=== PATIENT | male | born 1965 | race Caucasian/White ===

== ENCOUNTER 2016-11-16 19:23 | Inpatient (IN) | payer MEDICARE, MEDICAID ==
--- NOTE | 2016-11-16 19:59 | ED ---
General Adult HPI - General Chief complaint: Psychiatric Symptoms Stated complaint: Mental Health-Petition Time Seen by Provider: 11/16/16 19:35 Source: patient, police, EMS, RN notes reviewed, old records reviewed Mode of arrival: EMS Limitations: no limitations - History of Present Illness Initial comments: Chief complaint history of present illness a 51-year-old male here because he is depressed. Patient's suicidal. He had a knife to his own chest. He called and spoke to assist her she told him not to hurt himself she called the police the police brought him here. I have completed a certificate for admission because of the patient's complaint of being depressed and suicidal. Patient denies taking any medications other than what is supposed to take. - Related Data Home Medications Medication Instructions Recorded Confirmed Ferrous Sulfate [Iron (65 MG 325 mg PO DAILY 11/16/16 11/16/16 Elemental)] Fluticasone Nasal Fords [Flonase 2 spr EA NOSTRIL DAILY 11/16/16 11/16/16 Nasal Fords] Loratadine 10 mg PO DAILY PRN 11/16/16 11/16/16 Propranolol [Inderal] 20 mg PO BID 11/16/16 11/16/16 Rosuvastatin Calcium [Crestor] 5 mg PO HS 11/16/16 11/16/16 busPIRone HCL [Buspar] 30 mg PO BID 11/16/16 11/16/16 cloZAPine [Clozaril] 100 mg PO HS 11/16/16 11/16/16 fluvoxaMINE MALEATE [Luvox CR] 150 mg PO BID 11/16/16 11/16/16 lamoTRIgine [LaMICtal] 100 mg PO DAILY 11/16/16 11/16/16 lamoTRIgine [LaMICtal] 150 mg PO HS 11/16/16 11/16/16 metFORMIN HCL [Glucophage] 500 mg PO BID 11/16/16 11/16/16 rOPINIRole HCL [Requip] 0.5 mg PO HS 11/16/16 11/16/16 Previous Rx's Medication Instructions Recorded Vivitrol 380 mg IM Q28D #1 11/28/15 Benztropine Mesylate [Cogentin] 1 mg PO HS #30 tab 08/27/16 Lisinopril [Zestril] 20 mg PO HS #30 tab 08/27/16 Ranitidine HCl [Zantac] 150 mg PO BID #60 tablet 08/27/16 amLODIPine [Norvasc] 5 mg PO BID #30 tab 08/27/16 Allergies Allergy/AdvReac Type Severity Reaction Status Date / Time Penicillins Allergy Unknown Verified 11/16/16 19:33 Childhood risperidone [From Risperdal] Allergy Unknown Verified 11/16/16 19:33 Review of Systems ROS Statement: Those systems with pertinent positive or pertinent negative responses have been documented in the HPI. Review of systems. No complaint of any headache or visual acuity changes no chest pain or shortness of breath. No GI/ complaints or problems. Psychologically the patient reports depressed and suicidal to the point where he had a knife to himself. All systems were otherwise reviewed. Past medical problems significant for non-insulin diabetes mellitus, GERD, hyperlipidemia hypertension sleep apnea. The patient's surgeries hernia repair. Family history father had heart attack and . Patient has ALLERGIES to risperidone and penicillin. Patient nonsmoker nondrinker. ROS Other: All systems not noted in ROS Statement are negative. Past Medical History Past Medical History: Diabetes Mellitus, GERD/Reflux, Hyperlipidemia, Hypertension, Sleep Apnea/CPAP/BIPAP Additional Past Medical History / Comment(s): Family history of premature coronary artery disease. OCD. History of Any Multi-Drug Resistant Organisms: None Reported Past Surgical History: Hernia Repair Past Anesthesia/Blood Transfusion Reactions: No Reported Reaction Past Psychological History: Anxiety, Bipolar, Depression, Schizoaffective Disorder Additional Psychological History / Comment(s): OCD Smoking Status: Never smoker Past Alcohol Use History: None Reported Additional Past Alcohol Use History / Comment(s): Pt states, "I am a recovering alcoholic. I haven't had a drink in since Nov 2013." Past Drug Use History: None Reported Additional Drug Use History / Comment(s): denies substance abuse - Past Family History Father Family Medical History: Congestive Heart Failure (CHF), Diabetes Mellitus Mother Family Medical History: Cancer General Exam - General Exam Comments Initial Comments: General: The patient is awake and alert, appears depressed, quiet. He had a knife to his own chest threatening to hurt himself. His sister talked him out of it while on the phone with her. Vital signs show temperature 98.0 pulse 88 respiratory rate 20 blood pressure 156/95. Systolic eye stuck elevated the patient is distressed. Eye: Pupils are equal, round and reactive to light, extra-ocular movements are intact ; there is normal conjunctiva bilaterally. No signs of icterus. Ears, nose, mouth and throat: There are moist mucous membranes and no oral lesions. Neck: The neck is supple, there is no tenderness . Cardiovascular: There is a regular rate and rhythm. No murmur, rub or gallop is appreciated. Respiratory: Lungs are clear to auscultation, respirations are non-labored, breath sounds are equal. No wheezes, stridor, rales, or rhonchi. Gastrointestinal: Soft, non-distended, non-tender abdomen without masses or organomegaly noted. There is no rebound or guarding present. No CVA tenderness. Bowel sounds are unremarkable. Back: There is no tenderness to palpation in the midline. There is no obvious deformity. No rashes noted. Musculoskeletal: Normal ROM, no tenderness, There is no pedal edema. There is no calf tenderness or swelling. Sensation intact. Pulses equal bilaterally 2+. Neurological: CN II-XII intact, There are no obvious motor or sensory deficits. Coordination appears grossly intact. Speech is normal. Skin: Skin is warm and dry and no rashes or lesions are noted. Psychiatric: Cooperative, flat affect, depressed. Suicidal intent to stab himself. Limitations: no limitations Course Vital Signs 11/16/16 19:32 Temperature 98.0 F Pulse Rate 88 Respiratory 20 Rate Blood Pressure 156/95 O2 Sat by Pulse 98 Oximetry Medical Decision Making - Medical Decision Making Medical decision making; the patient's negative for Tylenol or aspirin. Positive for tricyclic of the depressants. Patient was evaluated by psychiatric nurse. Petition was filled out by the placement. The patient will be admitted to 3 . diagnosis of major depression recurrent. - Lab Data Lab Results 11/16/16 11/16/16 Range/Units 20:01 21:30 Salicylates <1.0 mg/dL Urine Opiates Screen Not Detected (NotDetected) Ur Oxycodone Screen Not Detected (NotDetected) Urine Methadone Screen Not Detected (NotDetected) Ur Propoxyphene Screen Not Detected (NotDetected) Acetaminophen <10.0 ug/mL Ur Barbiturates Screen Not Detected (NotDetected) U Tricyclic Antidepress Detected H (NotDetected) Ur Phencyclidine Scrn Not Detected (NotDetected) Ur Amphetamines Screen Not Detected (NotDetected) U Methamphetamines Scrn Not Detected (NotDetected) U Benzodiazepines Scrn Not Detected (NotDetected) Urine Cocaine Screen Not Detected (NotDetected) U Marijuana (THC) Screen Not Detected (NotDetected) Disposition Clinical Impression: Major depression, recurrent Disposition: TRANSFER TO PSYCH HOSP/UNIT Condition: Fair
[2016-11-16 20:19] LABS: Acetaminophen <10.0 ug/mL; Salicylate <1.0 mg/dL
[2016-11-17] MEDS ORDERED: MAGNESIUM HYDROXIDE 2,400 MG/10 ML CUP PO PRN (00:04)
[2016-11-17] MEDS ORDERED: ACETAMINOPHEN TAB 325 MG TAB PO PRN (00:04)
[2016-11-17] MEDS ORDERED: LORATADINE 10 MG TAB PO PRN (00:08)
[2016-11-17 01:48] VITALS: BMI 31.0
[2016-11-17] MEDS: MAG HYDROX/AL HYDROX/SIMETH 30 ML CUP PO PRN (05:43)
[2016-11-17 05:50] LABS: Glucose,Whole Blood 165 mg/dL (75-99)
[2016-11-17] MEDS: FERROUS SULFATE 325 MG TAB PO SCH (10:18)
[2016-11-17] MEDS: PROPRANOLOL 20 MG TAB PO SCH ×2 (10:18→21:24)
[2016-11-17] MEDS: metFORMIN 500 MG TAB PO SCH ×2 (10:19→21:24)
[2016-11-17] MEDS: FLUTICASONE 50MCG/SPRAY NASAL 16GM EA NOSTRIL SCH (10:20)
[2016-11-17 12:30] LABS: Hemoglobin A1C 6.5 % (4.2-6.1)
[2016-11-17 12:43] LABS: Glucose,Whole Blood 169 mg/dL (75-99)
[2016-11-17] MEDS: FAMOTIDINE 20 MG TAB PO SCH (15:42)
[2016-11-17] MEDS: lamoTRIgine 100 MG TAB PO SCH ×2 (15:43→21:23)
--- NOTE | 2016-11-17 15:51 | P.HP ---
Psychiatric H&P - . H&P Date: 11/17/16 History & Physical: IDENTIFYING DATA: He is a 51-year-old single male who has a history of a schizoaffective disorder and obsessive-compulsive disorder. HISTORY OF PRESENT ILLNESS: The police brought him to the emergency room at the behest of his sister. He allegedly told her that he was going to stab himself in the stomach with a knife. He told the EPS nurse that he cannot live without his parents who are both . He is tired of having a mental illness and his life is not worth living and he "just wants to be time limited" . He told the EPS nurse that he went home he would kill himself. I reviewed the medical record and interviewed Mr. Walsh. He affirmed the history provided to the EPS nurse i.e. that he called his sister and told her that he was going to stab himself with a knife. He alleged that he was holding the knife against himself when he called his sister. He complained of increasing depression and anxiety. He specifically described feeling overwhelmed and hopeless over his compulsive rituals. He described a number of compulsions including cleaning/washing, checking, repeating rituals, ordering /arranging and mental rituals. His obsessions include need for symmetry or exactness and somatic obsessions. He was unclear about a duration of the symptoms. He alleged alleged that he has felt depressed since his discharge from this unit in September 2016. However , according to the medication review note from [facility] dated 11/04/2016, he was "doing okay"; the provider wrote that his "affect was appropriate, his mood was somewhat anxious but he was also humorous at times there is no evidence of any psychosis." During her interview he described continued thoughts of suicide and self-harm. He denied homicidal ideation. He described "voices in my head" but denied experiences consistent with true auditory hallucinations. He denied other psychotic symptoms such as thought insertion, thought broadcasting or thought control. He denied the recent use of alcohol or other drugs get high, help him sleep or changes mood. PAST PSYCHIATRIC HISTORY: According to the record he has had over 20 admissions to psychiatric facilities. According to EMR, this is his fifth admission this unit since May 2014. He was last discharged from this unit on 09/01/2016 with a diagnosis of schizoaffective disorder and OCD. He has at least 2 prior suicide attempts by overdose of medications. He has no i history of nonlethal self-injurious behavior. He is no history of violence. PAST MEDICAL HISTORY: He is a history of type 2 diabetes, hypertension, hyperlipidemia, GERD and restless leg syndrome.. ALLERGIES: Penicillins, risperidone. SUBSTANCE USE HISTORY: He has a history of alcohol use problems and currently receiving monthly Vivitrol injections. Drug screen was negative for drugs of abuse including marijuana. Tobacco use: He denied the use of tobacco products FAMILY PSYCHIATRIC/SUBSTANCE USE HISTORY: He is unaware of family history of mental or substance use problems. LEGAL HISTORY:He denied history of legal problems. He has a payee but no guardian. SOCIAL HISTORY:He grew up in the [facility]. He has 2 sisters. He attended special education and graduated from high school. He last worked in 1994 and is currently receiving social security income for disability. He lives alone in an apartment. He is not and has no children. MENTAL STATUS EXAM: He presented as a disheveled appearing 51-year-old unshaven moderately obese male. He maintained eye contact and appeared to attend to the interview. He had no distinguishing features or prominent physical abnormalities. He had a blunted facial expression. He was alert and oriented to person, place and time. He showed psychomotor retardation but no abnormal involuntary movements. He had a slow but steady gait. His speech was spontaneous with decreased rate, rhythm and volume. His affect was depressed and not reactive. He describesd suicidal ideation and wishes. He denied homicidal ideation. He described depressive cognitions including helplessness, hopelessness and worthlessness. He described multiple obsessions and compulsions (see above). He denied phobias, ideas of reference and did not express paranoid ideation. His thinking was concrete but his associations were coherent and logical. He denied hallucinations and did not appear to be responding to internal stimuli. Global impression of intellect is below average. He has limited awareness of his illness but accepts the need for mental health treatment. STRENGTHS: Stable housing, stable income, strong involvement with mental health services WEAKNESSES: Loss of parents, chronic mental illness IMPRESSION: Is a 51-year-old male who has a well-established diagnosis was schizoaffective disorder and obsessive-compulsive disorder. He has had multiple hospitalization the most recent 2 months prior to this admission. He presented with increasing suicidal ideation and a purported attempt to stab self. He appears depressed and expresses feelings of hopelessness and helplessness. He is also describing multiple obsessions and compulsions that interfere with his ability to function. He should best be treated on an inpatient basis with a combination of psychopharmacology and multimodal therapy. PRINCIPLE DIAGNOSIS: Schizoaffective disorder depressed type, obsessive- compulsive disorder RECOMMENDATION: Admitted to the inpatient psychiatric unit, suicide precautions with 15 minute checks. Consolidate outpatient medication including BuSpar 30 mg by mouth twice a day, clozapine 100 mg at bedtime, Luvox 150 mg twice a day, Lamictal 100 mg daily and 150 mg at bedtime. Encourage participation in therapeutic groups and activities. Evaluate clinical status and response to treatment on a daily basis. Allergies Allergy/AdvReac Type Severity Reaction Status Date / Time Penicillins Allergy Unknown Verified 11/17/16 00:18 Childhood risperidone [From Risperdal] Allergy Unknown Verified 11/17/16 00:18 Vital Signs Temp 98.3 F 11/17/16 00:20 Pulse 67 11/17/16 00:20 Resp 18 11/17/16 00:20 BP 133/83 11/17/16 00:20 Pulse Ox 98 11/17/16 00:20 Intake & Output 11/16/16 11/17/16 11/17/16 18:59 06:59 18:59 Weight 98.2 kg Laboratory Last Values POC Glucose (mg/dL) 165 mg/dL (75-99) H 11/17/16 05:46 POC Glu Reading Intervention Teacher ID Fabiola Marie 11/17/16 05:46 Salicylates <1.0 mg/dL 11/16/16 20:01 Urine Opiates Screen Not Detected (NotDetected) 11/16/16 21:30 Ur Oxycodone Screen Not Detected (NotDetected) 11/16/16 21:30 Urine Methadone Screen Not Detected (NotDetected) 11/16/16 21:30 Ur Propoxyphene Screen Not Detected (NotDetected) 11/16/16 21:30 Acetaminophen <10.0 ug/mL 11/16/16 20:01 Ur Barbiturates Screen Not Detected (NotDetected) 11/16/16 21:30 U Tricyclic Antidepress Detected (NotDetected) H 11/16/16 21:30 Ur Phencyclidine Scrn Not Detected (NotDetected) 11/16/16 21:30 Ur Amphetamines Screen Not Detected (NotDetected) 11/16/16 21:30 U Methamphetamines Scrn Not Detected (NotDetected) 11/16/16 21:30 U Benzodiazepines Scrn Not Detected (NotDetected) 11/16/16 21:30 Urine Cocaine Screen Not Detected (NotDetected) 11/16/16 21:30 U Marijuana (THC) Screen Not Detected (NotDetected) 11/16/16 21:30 11/17/16 09:49 11/17/16 15:29
[2016-11-17 17:11] LABS: Glucose,Whole Blood 107 mg/dL (75-99)
[2016-11-17 17:34] LABS: Basophils % (A) 0 %; CHCM 36.2; Eosinophils # (A) 0.1 k/uL (0-0.7); Eosinophils % (A) 1 %; HCT 43.4 % (39.0-53.0); HDW 2.97; HGB 14.8 gm/dL (13.0-17.5); Luc # (Auto) 0.11; Luc % (Auto) 1; Lymphocytes # (A) 1.7 k/uL (1.0-4.8); Lymphocytes % (A) 18 %; MCH 29.2 pg (25.0-35.0); MCV 85.8 fL (80.0-100.0); Mean Platelet Volume 6.2; Monocytes # (A) 0.5 k/uL (0-1.0); Monocytes % (A) 5 %; Neutrophils % (A) 75 %; RBC 5.06 m/uL (4.30-5.90); RDW 13.4 % (11.5-15.5); WBC 9.4 k/uL (3.8-10.6); WBC (Perox) 9.51
[2016-11-17 20:48] LABS: Glucose,Whole Blood 167 mg/dL (75-99)
[2016-11-17] MEDS: ATORVASTATIN 10 MG TAB PO SCH (21:22)
[2016-11-17] MEDS: busPIRone HCl 10 MG TAB PO SCH (21:22)
[2016-11-17] MEDS: cloZAPine 100 MG TAB PO SCH (21:22)
[2016-11-17] MEDS: LISINOPRIL 20 MG TAB PO SCH (21:23)
--- NOTE | 2016-11-17 21:41 | CONS ---
DATE OF CONSULTATION: REASON FOR CONSULTATION: Medical clearance. Patient is a 51-year-old admitted to psychiatric floor for acute psychosis. Patient denied any fever or chills. Patient denied any nausea, vomiting, abdominal pain. Patient does have diabetes mellitus. Blood sugars appear to be within normal limits. Hemoglobin A1c is 6.5, because of which I am recommending continuation of the same regimen. REVIEW OF SYSTEMS: CONSTITUTIONAL: No fever, no malaise, no fatigue. HEENT: No recent visual problems or hearing problems. Denied any sore throat. CARDIOVASCULAR: No chest pain, orthopnea, PND, no palpitations, no syncope. PULMONARY: No shortness of breath, no cough, no hemoptysis. GASTROINTESTINAL: No diarrhea, no nausea, no vomiting, no abdominal pain. Normoactive bowel sounds. NEUROLOGICAL: No headaches, no weakness, no numbness. HEMATOLOGICAL: Denies any bleeding or petechiae. GENITOURINARY: Denies any burning micturition, frequency, or urgency. MUSCULOSKELETAL/RHEUMATOLOGICAL: Denies any joint pain, swelling, or any muscle pain. ENDOCRINE: Denies any polyuria or polydipsia. PSYCHIATRY: Defer to psychiatrist. The rest of the 14 point review of systems is negative. ALLERGIES: 1. PENICILLIN. 2. RISPERIDONE. PAST MEDICAL HISTORY: 1. Diabetes mellitus. 2. Hypertension. 3. Hyperlipidemia. 4. Sleep apnea; uses CPAP machine. 5. Obsessive-compulsive disorder. 6. Severe depression. 7. Schizoaffective disorder. SOCIAL HISTORY: Patient used to be an alcoholic in the past. Denied any other drug abuse. FAMILY HISTORY: Father had congestive heart failure, diabetes mellitus. Mother had cancer. PHYSICAL EXAMINATION: VITAL SIGNS: Temperature 98.3, pulse of 64, respiratory rate of 18, blood pressure 138/95. Saturating at 98% on room air. GENERAL: The patient is alert and oriented x3, not in any acute distress. Well developed, well nourished. HEENT: Pupils are round and equally reacting to light. EOMI. No scleral icterus. No conjunctival pallor. Normocephalic, atraumatic. No pharyngeal erythema. No thyromegaly. CARDIOVASCULAR: S1 and S2 present. No murmurs, rubs, or gallops. PULMONARY: Chest is clear to auscultation, no wheezing or crackles. ABDOMEN: Soft, nontender, nondistended, normoactive bowel sounds. No palpable organomegaly. MUSCULOSKELETAL: No joint swelling or deformity. EXTREMITIES: No cyanosis, clubbing, or pedal edema. NEUROLOGICAL: Gross neurological examination did not reveal any focal deficits. SKIN: No rashes. LABORATORY DATA: Hemoglobin A1C is 6.5. CBC is essentially within normal limits. ASSESSMENT AND PLAN: 1. Diabetes mellitus, type 2. With patient's present regimen, patient's blood sugars appear to be well-controlled. Continue with the same regimen. 2. Hypertension. Patient's blood pressure is also very well-controlled with the present regimen. Continue with amlodipine, lisinopril and continue with propranolol. 3. Obsessive-compulsive disorder. 4. Sleep apnea. 5. Gastroesophageal reflux disease. 6. Hyperlipidemia. For above-mentioned chronic medical problems, I recommend to go ahead and continue his home medications.
[2016-11-17] MEDS: LORazepam 1 MG TAB PO PRN (22:34)
[2016-11-18 06:02] LABS: Glucose,Whole Blood 101 mg/dL (75-99)
[2016-11-18] MEDS: lamoTRIgine 100 MG TAB PO SCH ×2 (09:18→21:52)
[2016-11-18] MEDS: FLUTICASONE 50MCG/SPRAY NASAL 16GM EA NOSTRIL SCH (09:18)
[2016-11-18] MEDS: PROPRANOLOL 20 MG TAB PO SCH ×2 (09:18→21:52)
[2016-11-18] MEDS: FAMOTIDINE 20 MG TAB PO SCH (09:19)
[2016-11-18] MEDS: busPIRone HCl 10 MG TAB PO SCH ×2 (09:19→21:53)
[2016-11-18] MEDS: amLODIPine 10 MG TAB PO SCH (09:19)
[2016-11-18] MEDS: metFORMIN 500 MG TAB PO SCH ×2 (09:19→21:53)
[2016-11-18] MEDS: FERROUS SULFATE 325 MG TAB PO SCH (09:19)
[2016-11-18] MEDS ORDERED: VIVITROL 380 MG IM SCH ×2 (11:30→12:00)
[2016-11-18 12:06] LABS: ALT 44 U/L (21-72); AST 24 U/L (17-59); Alkaline Phosphatase 71 U/L (38-126); Anion Gap 11 mmol/L; Blood Urea Nitrogen 20 mg/dL (9-20); Calcium 10.2 mg/dL (8.4-10.2); Carbon Dioxide 28 mmol/L (22-30); Chloride 103 mmol/L (98-107); Glucose 236 mg/dL (74-99); Non-African American GFR(MDRD) >60 (>60 ml/min/1.73 sqM); Potassium 3.7 mmol/L (3.5-5.1); Sodium 142 mmol/L (137-145); Total Bilirubin 0.5 mg/dL (0.2-1.3); Total Protein 6.6 g/dL (6.3-8.2)
[2016-11-18 13:09] LABS: Glucose,Whole Blood 188 mg/dL (75-99)
--- NOTE | 2016-11-18 16:06 | P.PN ---
Progress Note - Text CLINICAL PROBLEMS: Mr. Muniz complained of continued feelings of depression and wishes. He denied specific suicidal thoughts, intent or plan. The wishes take the form of tiredness over his chronic mental illness, depression and anxiety. He reported feeling alone and missing the support of his father. 24 HOUR EVENTS: The liaison to [facility] brought his monthly injection of Vivitrol 380 mg for administration today. He has shown no self-harm behavior or behavioral dyscontrol. He requested and received a when necessary dose of lorazepam at 2234 yesterday for insomnia. EXAMINATION: He presented as a casually groomed moderately obese middle-aged male who was pleasant on approach. He maintained eye contact and attended to the interview. He had a depressed facial expression that did not change during the interview. He showed psychomotor retardation but no abnormal involuntary movements. His speech was slow with decreased rhythm and volume. He had no articulation difficulties. His affect was depressed and not reactive. He described wishes but denied suicidal ideation. He described depressive cognitions including hopelessness, helplessness and worthlessness. His thinking was concrete but his associations were coherent and logical. He denied hallucinations and did not appear to be responding to internal stimuli. PERTINENT DATA: His serum glucoses morning was 236. According to the medical economics consultant lathe set up person his hemoglobin A1c was 6.5 and the lathe set up person did not recommend change in his diabetic regimen. The WBC and percent neutrophils were 9.4 and 75% respectively on 11/17/2016. ASSESSMENT: He continues to feel depressed, hopeless and helpless. He has wishes but denies specific suicidal intent or plan. PLAN: Continue Luvox 150 mg by mouth twice a day, Lamictal 100 mg daily and 150 mg at bedtime, buspirone 30 mg twice a day and clozapine 100 mg at bedtime. Nursing administered 380 mg of physical trauma IM today. Continue other medications including metformin 500 mg twice a day, Inderal 20 mg twice a day, Norvasc 10 mg daily, Lipitor 10 mg at bedtime, famotidine 40 mg daily, ferrous sulfate 325 mg daily, lisinopril 20 mg at bedtime and loratadine 10 mg daily. Continue suicide precautions with 15 minute checks. Encourage participation in therapeutic groups and activities. Evaluate clinical status and response to treatment on a daily basis.
[2016-11-18 17:28] LABS: Glucose,Whole Blood 118 mg/dL (75-99)
[2016-11-18 19:57] LABS: Glucose,Whole Blood 169 mg/dL (75-99)
[2016-11-18] MEDS: LISINOPRIL 20 MG TAB PO SCH (21:53)
[2016-11-18] MEDS: ATORVASTATIN 10 MG TAB PO SCH (21:53)
[2016-11-18] MEDS: cloZAPine 100 MG TAB PO SCH (21:53)
[2016-11-19] MEDS: MAG HYDROX/AL HYDROX/SIMETH 30 ML CUP PO PRN (01:11)
[2016-11-19 07:03] LABS: Glucose,Whole Blood 131 mg/dL (75-99)
[2016-11-19] MEDS: amLODIPine 10 MG TAB PO SCH (09:16)
[2016-11-19] MEDS: FAMOTIDINE 20 MG TAB PO SCH (09:19)
[2016-11-19] MEDS: busPIRone HCl 10 MG TAB PO SCH ×2 (09:20→21:27)
[2016-11-19] MEDS: FERROUS SULFATE 325 MG TAB PO SCH (09:20)
[2016-11-19] MEDS: lamoTRIgine 100 MG TAB PO SCH ×2 (09:21→21:27)
[2016-11-19] MEDS: FLUTICASONE 50MCG/SPRAY NASAL 16GM EA NOSTRIL SCH (09:21)
[2016-11-19] MEDS: metFORMIN 500 MG TAB PO SCH ×2 (09:23→21:28)
[2016-11-19] MEDS: PROPRANOLOL 20 MG TAB PO SCH ×2 (09:26→21:27)
[2016-11-19 12:03] LABS: Glucose,Whole Blood 143 mg/dL (75-99)
--- NOTE | 2016-11-19 15:49 | P.PN ---
Progress Note - Text CLINICAL PROBLEMS: Herpes 51-year-old male who has history of schizoaffective disorder and obsessive-compulsive disorder. He presented to the unit with suicidal ideation and a plan to stab himself. He complained of continued feelings depression and thoughts of suicide. He stated several times during our interview that if he were discharged he would kill himself. He also talked about "voices in my head". His description of his experiences was not consistent with true auditory hallucinations. 24 HOUR EVENTS: He has not demonstrated self-harm behavior or episodes of behavioral dyscontrol EXAMINATION: He presented as a casually groomed moderately obese 51-year-old male with an unkept espana. He was pleasant on approach, attended the interview and maintained eye contact. He had a blunted and depressed facial expression. He was alert and oriented to person, place and time. He had psychomotor retardation but no abnormal involuntary movements. His gait was slow and steady. His speech was spontaneous with decreased rate, rhythm and volume. He had no articulation difficulties. His affect was depressed and not reactive. He describes suicidal ideation and wishes. He described depressive cognitions such as hopelessness, helplessness and worthlessness. He denied ideas of reference did not express paranoid ideation. His thinking was concrete but his associations were coherent and logical. He described "voices" but did description of this experience was not consistent which auditory hallucinations. PERTINENT DATA: He slept 5 hours last night ASSESSMENT: He is compliant with medication and treatment but continues to complain of depression and suicidal ideation. PLAN: Continue current medications (see MAR), consider addition of a second antidepressant or another mood stabilizer to augment the antidepressant effect of Luvox, continue participation in therapeutic groups and activities, evaluate clinical status response to treatment on a daily basis.
[2016-11-19 17:34] LABS: Glucose,Whole Blood 176 mg/dL (75-99)
[2016-11-19 19:58] LABS: Glucose,Whole Blood 132 mg/dL (75-99)
[2016-11-19] MEDS: ATORVASTATIN 10 MG TAB PO SCH (21:27)
[2016-11-19] MEDS: LISINOPRIL 20 MG TAB PO SCH (21:27)
[2016-11-19] MEDS: cloZAPine 100 MG TAB PO SCH (21:27)
[2016-11-19] MEDS: MINERAL OIL-WHITE PETROLATUM 120 GM JAR TOPICAL PRN (21:27)
[2016-11-20 06:24] LABS: Glucose,Whole Blood 106 mg/dL (75-99)
[2016-11-20] MEDS: PROPRANOLOL 20 MG TAB PO SCH ×2 (09:03→21:40)
[2016-11-20] MEDS: metFORMIN 500 MG TAB PO SCH ×2 (09:03→21:40)
[2016-11-20] MEDS: busPIRone HCl 10 MG TAB PO SCH ×2 (09:03→21:38)
[2016-11-20] MEDS: FAMOTIDINE 20 MG TAB PO SCH (09:03)
[2016-11-20] MEDS: lamoTRIgine 100 MG TAB PO SCH ×2 (09:03→21:40)
[2016-11-20] MEDS: FERROUS SULFATE 325 MG TAB PO SCH (09:04)
[2016-11-20] MEDS: amLODIPine 10 MG TAB PO SCH (09:04)
[2016-11-20] MEDS: FLUTICASONE 50MCG/SPRAY NASAL 16GM EA NOSTRIL SCH (09:30)
[2016-11-20] MEDS: LORazepam 1 MG TAB PO PRN (12:02)
[2016-11-20 13:00] LABS: Glucose,Whole Blood 189 mg/dL (75-99)
--- NOTE | 2016-11-20 16:06 | P.PN ---
Progress Note - Text CLINICAL PROBLEMS: He is 51-year-old man with history of a schizoaffective disorder and an obsessive-compulsive disorder. He presented to unit with complaints of increased depression and suicidal ideation. 24 HOUR EVENTS: He has complained the staff of continued thoughts of suicide. He has demonstrated no self-harm behavior or behavioral dyscontrol. His been compliant with prescribed psychotropic medications. Reported less redness and chapping of his hands since he began using the Eucerin cream. He described continued compulsive behaviors, e.g. he stated he took him 15 minutes to put on his trousers this morning because he had a check and recheck the trousers for holes. EXAMINATION: He presented as a casually dressed and groomed middle-aged male who was pleasant on approach. His hands where red and chapped. He made eye contact and attended to the interview. He had a depressed facial expression. He was alert and oriented to person, place and time. He had psychomotor retardation without abnormal movements. His speech was slow with decreased rhythm, rate and volume. He had no articulation difficulties. His affect was depressed and not reactive. He describes suicidal ideation but denied intent or plan. He expressed depressive cognitions including helplessness, hopelessness and worthlessness. He denied ideas of reference and did not express paranoid ideation. His thinking was concrete and associations are coherent and logical. PERTINENT DATA: His POC glucose have been elevated and range of 106-189. ASSESSMENT: He continues to complain of depression, hopelessness and helplessness. He continues describes suicidal thoughts and compulsive behaviors. PLAN: Continue BuSpar 30 mg twice a day, clozapine 100 mg at bedtime, Luvox 150 mg twice a day and Lamictal 100 mg daily and 150 mg at bedtime. Consider adding a second antidepressant lithium for augmentation of his antidepression regimen. Continue lorazepam 1 mg by mouth every 8 hours when necessary for agitation or acute anxiety. Continue medications for his hypertension, hyperlipidemia, GERD, anemia and diabetes as recommended by the internal control consultant rn interventional. Encourage participation in therapeutic groups and activities. Evaluate clinical status and response to treatment on a daily basis.
[2016-11-20 17:17] LABS: Glucose,Whole Blood 146 mg/dL (75-99)
[2016-11-20 20:21] LABS: Glucose,Whole Blood 118 mg/dL (75-99)
[2016-11-20] MEDS: ATORVASTATIN 10 MG TAB PO SCH (21:38)
[2016-11-20] MEDS: cloZAPine 100 MG TAB PO SCH (21:39)
[2016-11-20] MEDS: LISINOPRIL 20 MG TAB PO SCH (21:40)
[2016-11-21 06:46] LABS: Glucose,Whole Blood 108 mg/dL (75-99)
[2016-11-21] MEDS: amLODIPine 10 MG TAB PO SCH (09:19)
[2016-11-21] MEDS: busPIRone HCl 10 MG TAB PO SCH ×2 (09:19→21:28)
[2016-11-21] MEDS: FERROUS SULFATE 325 MG TAB PO SCH (09:20)
[2016-11-21] MEDS: FLUTICASONE 50MCG/SPRAY NASAL 16GM EA NOSTRIL SCH (09:20)
[2016-11-21] MEDS: FAMOTIDINE 20 MG TAB PO SCH (09:20)
[2016-11-21] MEDS: PROPRANOLOL 20 MG TAB PO SCH ×2 (09:21→21:32)
[2016-11-21] MEDS: metFORMIN 500 MG TAB PO SCH ×2 (09:21→21:31)
[2016-11-21] MEDS: lamoTRIgine 100 MG TAB PO SCH ×2 (09:21→21:29)
--- NOTE | 2016-11-21 14:02 | P.PN ---
Progress Note - Text CLINICAL PROBLEMS: Huan complained of "feeling the same" he stated that he continues to feel depressed and hopeless. Again he stated that if he were discharge he would "stab myself in the heart." We discussed treatment options and he agreed to a trial of lithium. He stated that he had been prescribed lithium in the past and thought that it may have helped. Again, he described checking rituals. 24 HOUR EVENTS: He has demonstrated no self-harm behavior or behavioral dyscontrol. He has been attending therapeutic groups and activities. He has been compliant with prescribed medications. EXAMINATION: He presented as a casually groomed 51-year-old male with a hospital gown over his casual clothes. He was pleasant on approach but did not appear to attend to the interview. Several times he asked me to repeat myself. At times she appeared to internally preoccupied. He had a depressed facial expression. He is alert and oriented to person, place and time. He has psychomotor retardation but no abnormal movements. His speech was spontaneous with decreased rate, rhythm and volume. He had no articulation difficulties. His affect was depressed and not reactive. He describes suicidal ideation and wishes. He expressed depressive cognitions including helplessness, hopelessness and worthlessness. He denied ideas of reference and did not express paranoid ideation. His thinking is concrete but his associations are coherent and logical. He described experiencing "voices in my head" but his description of his experience was not consistent with true auditory hallucinations. These appeared to be dystonic thoughts that have a negative theme. PERTINENT DATA: He slept 6 hours last night and requested when necessary Ativan at 12 midnight for complaints of initial insomnia. His hands appear dry and chapped. Much of the erythema has resolved. ASSESSMENT: He continues to complain of depression and suicidal ideation. His overall clinical status appears unchanged from admission. PLAN: Begin lithium carbonate 300 mg by mouth twice a day, check lithium level at steady state and titrated according to clinical response and tolerance. Continue BuSpar 30 mg twice a day, Clozaril 100 mg at bedtime, Luvox 150 mg twice a day and neck 100 mg daily and 150 mg at bedtime and Vivitrol 380 mg IM monthly. Continue other medications for hypertension, GERD, anemia, ALLERGY and diabetes as prescribed.
[2016-11-21 17:35] LABS: Glucose,Whole Blood 125 mg/dL (75-99)
[2016-11-21 20:20] LABS: Glucose,Whole Blood 169 mg/dL (75-99)
[2016-11-21] MEDS: ATORVASTATIN 10 MG TAB PO SCH (21:28)
[2016-11-21] MEDS: cloZAPine 100 MG TAB PO SCH (21:28)
[2016-11-21] MEDS: LITHIUM CARBONATE 300 MG CAP PO SCH (21:30)
[2016-11-21] MEDS: LISINOPRIL 20 MG TAB PO SCH (21:32)
[2016-11-22] MEDS: MAG HYDROX/AL HYDROX/SIMETH 30 ML CUP PO PRN (02:21)
[2016-11-22 06:47] LABS: Glucose,Whole Blood 126 mg/dL (75-99)
[2016-11-22] MEDS: amLODIPine 10 MG TAB PO SCH (08:57)
[2016-11-22] MEDS: busPIRone HCl 10 MG TAB PO SCH ×2 (09:00→21:52)
[2016-11-22] MEDS: metFORMIN 500 MG TAB PO SCH ×2 (09:00→21:52)
[2016-11-22] MEDS: LITHIUM CARBONATE 300 MG CAP PO SCH ×2 (09:00→21:51)
[2016-11-22] MEDS: FERROUS SULFATE 325 MG TAB PO SCH (09:01)
[2016-11-22] MEDS: FAMOTIDINE 20 MG TAB PO SCH ×2 (09:01→21:52)
[2016-11-22] MEDS: lamoTRIgine 100 MG TAB PO SCH ×2 (09:01→21:52)
[2016-11-22] MEDS: FLUTICASONE 50MCG/SPRAY NASAL 16GM EA NOSTRIL SCH (09:03)
[2016-11-22] MEDS: PROPRANOLOL 20 MG TAB PO SCH ×2 (09:03→21:52)
--- NOTE | 2016-11-22 10:59 | P.PN ---
Progress Note - Text Interval history: The patient is found in group he follows me to an interview room. He is being seen today in coverage for Dr. Singh. The patient has a history of schizoaffective disorder. He is currently treated with Clozaril BuSpar Luvox and now lithium. He does receive a monthly Vivitrol injection. He reports his mood is terrible. He states he continues to have suicidal ideation. He endorses symptoms of anxiety. He has recently been started on lithium. He has no questions regarding this medication. In terms of psychosis he states he always hears his own voice telling him to kill himself. He states this voice usually does not diminish with antipsychotic medication. Mental status exam: The patient is an overweight male he is balding he is dressed in his own clothing that appears oversized. He is disheveled. Eye contact is appropriate speech is fluent spontaneous nonpressured. He describes a "terrible" mood with ongoing suicidal ideation. Affect is blunted to flat. He reports no homicidal ideation, he endorses an auditory hallucination that has chronically been present. No visual hallucinations. He reports feeling safe in the hospital. Insight and judgment limited. He demonstrates no verbal or physical aggressiveness. Plan: The patient will continue on his current psychotropic medications. We will give consideration to titrating the Clozaril further. Vital signs reviewed. He is encouraged to participate in the milieu we will continue to monitor him for safety.
[2016-11-22 12:15] LABS: Glucose,Whole Blood 197 mg/dL (75-99)
[2016-11-22 16:40] LABS: Glucose,Whole Blood 123 mg/dL (75-99)
[2016-11-22 20:30] LABS: Glucose,Whole Blood 171 mg/dL (75-99)
[2016-11-22] MEDS: cloZAPine 100 MG TAB PO SCH (21:51)
[2016-11-22] MEDS: LISINOPRIL 20 MG TAB PO SCH (21:51)
[2016-11-22] MEDS: ATORVASTATIN 10 MG TAB PO SCH (21:51)
[2016-11-23 06:55] LABS: Glucose,Whole Blood 120 mg/dL (75-99)
[2016-11-23] MEDS: amLODIPine 10 MG TAB PO SCH (09:01)
[2016-11-23] MEDS: busPIRone HCl 10 MG TAB PO SCH ×2 (09:03→21:25)
[2016-11-23] MEDS: FAMOTIDINE 20 MG TAB PO SCH ×2 (09:03→21:26)
[2016-11-23] MEDS: FERROUS SULFATE 325 MG TAB PO SCH (09:03)
[2016-11-23] MEDS: FLUTICASONE 50MCG/SPRAY NASAL 16GM EA NOSTRIL SCH (09:04)
[2016-11-23] MEDS: PROPRANOLOL 20 MG TAB PO SCH ×2 (09:05→21:30)
[2016-11-23] MEDS: LITHIUM CARBONATE 300 MG CAP PO SCH ×2 (09:05→21:29)
[2016-11-23] MEDS: lamoTRIgine 100 MG TAB PO SCH ×3 (09:05→21:28)
[2016-11-23] MEDS: metFORMIN 500 MG TAB PO SCH ×2 (09:05→21:29)
[2016-11-23 12:13] LABS: Glucose,Whole Blood 187 mg/dL (75-99)
--- NOTE | 2016-11-23 12:59 | P.PN ---
Progress Note - Text Interval history: The patient is found in his room he follows me to an interview room. He states his mood is the same and indicates that is depressed with ongoing suicidal thoughts. He quantifies the severity of his suicidal thoughts as a 7-8 out of 10 with 10 being the worst or most severe. He did sleep about 4-5 hours last evening. Appetite is stable. He states a dietitian came up and recommended snacks in between meals. He has been selectively attending groups. He has no questions or concerns regarding his current psychotropic medications. Mental status exam: The patient is an overweight male appearing his stated age. Eye contact is appropriate he reports a depressed mood with ongoing suicidal thoughts he has a blunted affect. He has little spontaneous speech and provides brief answers to questions asked. He is reporting no homicidal ideation. He does not appear hypomanic or manic. Insight and judgment limited. There is no verbal or physical aggressiveness. He remains oriented to person place and date. He states he chronically experiences and auditory hallucination. Plan: The patient will continue on his current psychotropic medications we will monitor him for safety, encourage his participation in the milieu. Vital signs reviewed. I will confer with nursing regarding dietaries input and recommendations. Dr. Singh will resume care of this patient starting tomorrow.
[2016-11-23] MEDS: LORazepam 1 MG TAB PO PRN (17:39)
[2016-11-23 17:50] LABS: Glucose,Whole Blood 124 mg/dL (75-99)
[2016-11-23 20:29] LABS: Glucose,Whole Blood 221 mg/dL (75-99)
[2016-11-23] MEDS: ATORVASTATIN 10 MG TAB PO SCH (21:25)
[2016-11-23] MEDS: cloZAPine 100 MG TAB PO SCH (21:26)
[2016-11-23] MEDS: LISINOPRIL 20 MG TAB PO SCH (21:30)
[2016-11-24 06:15] LABS: Glucose,Whole Blood 121 mg/dL (75-99)
[2016-11-24] MEDS: metFORMIN 500 MG TAB PO SCH ×2 (09:04→21:24)
[2016-11-24] MEDS: busPIRone HCl 10 MG TAB PO SCH ×2 (09:04→21:21)
[2016-11-24] MEDS: PROPRANOLOL 20 MG TAB PO SCH ×2 (09:04→21:24)
[2016-11-24] MEDS: FERROUS SULFATE 325 MG TAB PO SCH (09:04)
[2016-11-24] MEDS: FAMOTIDINE 20 MG TAB PO SCH ×2 (09:04→21:22)
[2016-11-24] MEDS: LITHIUM CARBONATE 300 MG CAP PO SCH ×2 (09:05→21:24)
[2016-11-24] MEDS: amLODIPine 10 MG TAB PO SCH (09:05)
[2016-11-24] MEDS: FLUTICASONE 50MCG/SPRAY NASAL 16GM EA NOSTRIL SCH (09:07)
[2016-11-24 12:40] LABS: Glucose,Whole Blood 143 mg/dL (75-99)
--- NOTE | 2016-11-24 13:17 | P.PN ---
Progress Note - Text SUBJECTIVE: Mr. Muniz complained of continued stay feelings of depression and anxiety. He talked about having "thoughts of suicide". When I inquired about the nature of the suicidal thoughts he replied that he has been thinking that if he were discharged he might commit suicide. We talked about his living situation and social supports. He appeared receptive to an [facility] home. He denied side effects to the initial dose of lithium carbonate 300 mg twice a day. OBJECTIVE: He presented as a casually groomed bearded 51-year-old male. He had a stooped posture. He made eye contact and appeared to attend to the interview. He had a sad facial expression. He was alert and oriented to person place and time. He showed slight psychomotor retardation but no abnormal movements. His speech was spontaneous with decreased rhythm and volume. His affect was depressed but reactive. He complained of anxiety did not appear anxious or uncomfortable. He described wishes but denied suicidal intent or plan. He expressed continued feelings of hopelessness, helplessness and worthlessness. He complained of continued obsessional behavior including checking. He denied phobias or ideas reference. He didn't express paranoid ideation. His thinking was concrete but his associations were coherent and logical. He denied hallucinations and did not appear to be responding to internal stimuli. His hands appeared were dry and had some cracking but they were much less erythematous than on admission. He slept 5 hours last night ASSESSMENT: The severity of the skin irritation of his hands from his frequent handwashing has improved. He continues to. Her depressed and complaining of wishes. Overall, he is shown modest improvement from his presentation on admission. PLAN: Continue current medications including clozapine 100 mg at bedtime, Lamictal 100 mg daily and 150 mg at bedtime, lithium carbonate 300 mg twice a day Luvox 150 mg twice a day and Vivitrol 3 mg monthly. Obtain serum lithium level tomorrow morning. remelt worker to discuss referral to an [facility] home. Evaluate clinical status and response to treatment on a daily basis. Encouraged continued participation in therapeutic groups and activities.
[2016-11-24 16:03] LABS: Glucose,Whole Blood 146 mg/dL (75-99)
[2016-11-24 17:56] LABS: Glucose,Whole Blood 118 mg/dL (75-99)
[2016-11-24 19:59] LABS: Glucose,Whole Blood 165 mg/dL (75-99)
[2016-11-24] MEDS: ATORVASTATIN 10 MG TAB PO SCH (21:21)
[2016-11-24] MEDS: cloZAPine 100 MG TAB PO SCH (21:22)
[2016-11-24] MEDS: lamoTRIgine 100 MG TAB PO SCH (21:23)
[2016-11-24] MEDS: LISINOPRIL 20 MG TAB PO SCH (21:24)
[2016-11-25 06:55] LABS: Glucose,Whole Blood 125 mg/dL (75-99)
[2016-11-25] MEDS: FAMOTIDINE 20 MG TAB PO SCH ×2 (09:08→21:23)
[2016-11-25] MEDS: amLODIPine 10 MG TAB PO SCH (09:08)
[2016-11-25] MEDS: busPIRone HCl 10 MG TAB PO SCH ×2 (09:08→21:22)
[2016-11-25] MEDS: FERROUS SULFATE 325 MG TAB PO SCH (09:08)
[2016-11-25] MEDS: metFORMIN 500 MG TAB PO SCH ×2 (09:09→21:25)
[2016-11-25] MEDS: PROPRANOLOL 20 MG TAB PO SCH ×2 (09:09→21:26)
[2016-11-25] MEDS: lamoTRIgine 100 MG TAB PO SCH ×2 (09:09→21:25)
[2016-11-25] MEDS: LITHIUM CARBONATE 300 MG CAP PO SCH ×2 (09:09→21:25)
[2016-11-25] MEDS: FLUTICASONE 50MCG/SPRAY NASAL 16GM EA NOSTRIL SCH (10:15)
--- NOTE | 2016-11-25 11:30 | P.PN ---
Progress Note - Text SUBJECTIVE: He began on the interview with the statement that he is feeling a "wee bit better" then quickly backtracked complaining of "extreme anxiety", depression and suicidal thoughts. The suicidal thoughts are wishes; he wished that he were so that he did not have to "deal with" his depression and anxiety. He denied a specific plan or intent. He is overtly agreeing to placement in a senior care and wishes to speak with the psychologist social about senior care options. OBJECTIVE: He presented as a casually groomed 51-year-old male with a short unkept espana. He maintained eye contact and attended to the interview. He had a sad facial expression. He is alert and oriented to person, place and time. He showed no abnormality of psychomotor activity. He showed no abnormal involuntary movements. His affect was depressed and not reactive. He did not describe suicidal ideation. He expressed depressive cognitions including hopelessness and helplessness. He described continued compulsive behaviors including cleaning and checking but the behaviors do not interfere with his functioning on the unit. He denied ideas of reference and did not expressed paranoid ideation. His thinking was abstract and associations were coherent and logical. He expressed frequent depressive themes. He denied hallucinations and did not appear to be responding to internal stimuli. We discussed A[facility] placement with his liaison. She stated that he had been placed in an [facility] home in the past and appeared to have done well. She will discuss another referral with his outpatient treatment team. ASSESSMENT: His complaints of severe symptoms of depression and anxiety are not consistent with his clinical presentation. He is not having active suicidal thoughts or ideation. There is no evidence of psychosis. He has been taking lithium carbonate 300 mg twice a day for 2 days. PLAN: Continue lithium 3 mg by mouth twice a day and obtain the lithium level at steady state (in 1-2 days), continue other medications as prescribed including clozapine 100 mg at bedtime, Luvox 150 mg twice a day, Lamictal 100 mg daily and 150 mg at bedtime, individual 3 mg IM monthly and lorazepam 1 mg by mouth every 8 hours when necessary for anxiety. The [facility] liaison to discuss AFC placement with his outpatient treatment team
[2016-11-25 11:46] LABS: Basophils % (A) 0 %; CH 30.8; Eosinophils # (A) 0.1 k/uL (0-0.7); Eosinophils % (A) 1 %; HCT 42.9 % (39.0-53.0); HDW 3.04; HGB 14.7 gm/dL (13.0-17.5); Luc # (Auto) 0.13; Luc % (Auto) 1; Lymphocytes # (A) 2.1 k/uL (1.0-4.8); Lymphocytes % (A) 18 %; MCH 29.3 pg (25.0-35.0); MCHC 34.2 g/dL (31.0-37.0); MCV 85.9 fL (80.0-100.0); Mean Platelet Volume 6.5; Monocytes # (A) 0.8 k/uL (0-1.0); Monocytes % (A) 7 %; Neutrophils # (A) 8.4 k/uL (1.3-7.7); Neutrophils % (A) 73 %; WBC 11.6 k/uL (3.8-10.6); WBC (Perox) 11.61
[2016-11-25 12:15] LABS: Glucose,Whole Blood 196 mg/dL (75-99)
[2016-11-25 17:59] LABS: Glucose,Whole Blood 118 mg/dL (75-99)
[2016-11-25 20:28] LABS: Glucose,Whole Blood 201 mg/dL (75-99)
[2016-11-25] MEDS: ATORVASTATIN 10 MG TAB PO SCH (21:22)
[2016-11-25] MEDS: cloZAPine 100 MG TAB PO SCH (21:23)
[2016-11-25] MEDS: LISINOPRIL 20 MG TAB PO SCH (21:25)
[2016-11-26 06:18] LABS: Glucose,Whole Blood 115 mg/dL (75-99)
[2016-11-26] MEDS: amLODIPine 10 MG TAB PO SCH (09:01)
[2016-11-26] MEDS: busPIRone HCl 10 MG TAB PO SCH ×2 (09:04→21:09)
[2016-11-26] MEDS: FAMOTIDINE 20 MG TAB PO SCH ×2 (09:04→21:10)
[2016-11-26] MEDS: FLUTICASONE 50MCG/SPRAY NASAL 16GM EA NOSTRIL SCH (09:05)
[2016-11-26] MEDS: FERROUS SULFATE 325 MG TAB PO SCH (09:05)
[2016-11-26] MEDS: LITHIUM CARBONATE 300 MG CAP PO SCH ×2 (09:09→21:11)
[2016-11-26] MEDS: metFORMIN 500 MG TAB PO SCH ×2 (09:09→21:11)
[2016-11-26] MEDS: lamoTRIgine 100 MG TAB PO SCH ×2 (09:09→21:10)
[2016-11-26] MEDS: PROPRANOLOL 20 MG TAB PO SCH ×2 (09:09→21:11)
--- NOTE | 2016-11-26 12:16 | P.PN ---
Progress Note - Text SUBJECTIVE: Huan stated that he feels "a little bit" less depressed and anxious. However, he continues to have concerns about returning to his apartment. "I don't know what I might do when I leave." He denied experiencing current suicidal thoughts and denied plan or intent. He remains interested in an AFC home. He slept 6 hours last night. OBJECTIVE: He presented as a casually groomed 51-year-old male with a short unkept espana. He maintained eye contact and attended to the interview. He had a sad facial expression. He is alert and oriented to person, place and time. He showed no abnormality of psychomotor activity and no abnormal involuntary movements. His affect was depressed but more reactive than on previous encounters.. He did not describe suicidal ideation. He Denied feeling hopeless and helpless. He described continued compulsive behaviors including cleaning and checking but the behaviors do not interfere with his functioning on the unit. He denied ideas of reference and did not expressed paranoid ideation. His thinking was abstract and associations were coherent and logical. He expressed frequent depressive themes. He denied hallucinations and did not appear to be responding to internal stimuli. His [facility] team has not replied to our inquire about AFC placement ASSESSMENT: Overall he appears moderately improved from admission. He feels less depressed and anxious.. He is not having active suicidal thoughts or ideation. There is no evidence of psychosis. . PLAN: Continue lithium 3 mg by mouth twice a day, lithium level tomorrow morning , continue other medications as prescribed including clozapine 100 mg at bedtime , Luvox 150 mg twice a day, Lamictal 100 mg daily and 150 mg at bedtime, individual 3 mg IM monthly and lorazepam 1 mg by mouth every 8 hours when necessary for anxiety. The [facility] liaison to discuss AFC placement with his outpatient treatment team
[2016-11-26 12:57] LABS: Glucose,Whole Blood 173 mg/dL (75-99)
[2016-11-26 17:22] LABS: Glucose,Whole Blood 161 mg/dL (75-99)
[2016-11-26] MEDS: ATORVASTATIN 10 MG TAB PO SCH (21:09)
[2016-11-26] MEDS: cloZAPine 100 MG TAB PO SCH (21:09)
[2016-11-26] MEDS: LISINOPRIL 20 MG TAB PO SCH (21:11)
[2016-11-26] MEDS: MINERAL OIL-WHITE PETROLATUM 120 GM JAR TOPICAL PRN (21:13)
[2016-11-26 21:26] LABS: Glucose,Whole Blood 175 mg/dL (75-99)
[2016-11-27 07:01] LABS: Glucose,Whole Blood 115 mg/dL (75-99)
[2016-11-27 09:23] VITALS: BP 116/77; PULSE 76; RESP 20; TEMP 97.6
[2016-11-27] MEDS: amLODIPine 10 MG TAB PO SCH (09:23)
[2016-11-27] MEDS: FLUTICASONE 50MCG/SPRAY NASAL 16GM EA NOSTRIL SCH (09:27)
[2016-11-27] MEDS: busPIRone HCl 10 MG TAB PO SCH (09:27)
[2016-11-27] MEDS: LITHIUM CARBONATE 300 MG CAP PO SCH (09:28)
[2016-11-27] MEDS: PROPRANOLOL 20 MG TAB PO SCH (09:28)
[2016-11-27] MEDS: FERROUS SULFATE 325 MG TAB PO SCH (09:28)
[2016-11-27] MEDS: metFORMIN 500 MG TAB PO SCH (09:28)
[2016-11-27] MEDS: lamoTRIgine 100 MG TAB PO SCH (09:28)
[2016-11-27] MEDS: FAMOTIDINE 20 MG TAB PO SCH (09:28)
--- NOTE | 2016-11-27 11:34 | P.DS ---
Providers Date of admission: 11/16/16 23:52 Attending physician: Pato Singh MD Consults: 11/17/16 00:04 Consult Physician Routine Consulting Provider: Chinedu Salcedo Consult Reason/Comments: medical management Do you want consulting provider notified?: Yes, Notify in am Primary care physician: Neema Barbozabal - Discharge Diagnosis(es) (1) Obsessive compulsive disorder Current Visit: Yes Status: Chronic Priority: High (2) Schizoaffective disorder, depressive type Current Visit: Yes Status: Chronic Priority: High (3) Alcohol use disorder, severe, in sustained remission Current Visit: Yes Status: Chronic Priority: Medium (4) Suicidal ideation Current Visit: No Status: Resolved Priority: Low Hospital Course: IDENTIFYING DATA: He is a 51-year-old single male who has a history of a schizoaffective disorder and obsessive-compulsive disorder. HISTORY OF PRESENT ILLNESS: The police brought him to the emergency room at the behest of his sister. He allegedly told her that he was going to stab himself in the stomach with a knife. He told the EPS nurse that he cannot live without his parents who are both . He is tired of having a mental illness and his life is not worth living and he "just wants to be time limited" . He told the EPS nurse that he went home he would kill himself. I reviewed the medical record and interviewed Mr. Walsh. He affirmed the history provided to the EPS nurse i.e. that he called his sister and told her that he was going to stab himself with a knife. He alleged that he was holding the knife against himself when he called his sister. He complained of increasing depression and anxiety. He specifically described feeling overwhelmed and hopeless over his compulsive rituals. He described a number of compulsions including cleaning/washing, checking, repeating rituals, ordering /arranging and mental rituals. His obsessions include need for symmetry or exactness and somatic obsessions. He was unclear about a duration of the symptoms. He alleged alleged that he has felt depressed since his discharge from this unit in September 2016. However , according to the medication review note from [facility] dated 11/04/2016, he was "doing okay"; the provider wrote that his "affect was appropriate, his mood was somewhat anxious but he was also humorous at times there is no evidence of any psychosis." During her interview he described continued thoughts of suicide and self-harm. He denied homicidal ideation. He described "voices in my head" but denied experiences consistent with true auditory hallucinations. He denied other psychotic symptoms such as thought insertion, thought broadcasting or thought control. He denied the recent use of alcohol or other drugs get high, help him sleep or changes mood. PAST PSYCHIATRIC HISTORY: According to the record he has had over 20 admissions to psychiatric facilities. According to EMR, this is his fifth admission this unit since May 2014. He was last discharged from this unit on 09/01/2016 with a diagnosis of schizoaffective disorder and OCD. He has at least 2 prior suicide attempts by overdose of medications. He has no i history of nonlethal self-injurious behavior. He is no history of violence. HOSPITAL COURSE: We admitted him to the psychiatric unit under care of this sba underwriter. We provided a biopsychosocial assessment. The search consultant customer professional completed the initial physical exam and medical history. The search consultant recommended to continue his current outpatient treatment for his diabetes and hypertension. We only changed the amlodipine from 5 mg twice a day to 10 mg daily. He had moderately severe chapping of his hands from frequent handwashing. We resumed his other medications including Lipitor 10 mg at bedtime, buspirone 30 mg twice a day, clozapine 100 mg at bedtime, Luvox 150 mg twice a day, Lamictal 100 mg daily and 150 mg at bedtime, and lisinopril 10 mg at bedtime. His weekly WBC and absolute neutrophil counts were within normal limits. The chapping of his hands improves with Eucerin cream. Nursing reported that he did not engage in sustained compulsive behaviors while on the unit. He complained of persistent feelings of depression and thoughts of suicide despite treatment with an adequate dose of an antidepressant and a mood stabilizing agent. We discussed treatment options and agreed to a trial of lithium carbonate. At a dose of 300 mg twice he had an improvement in his mood ; his lithium level from 11/27/2016 was 0.3. During our interviews we discussed the benefits of living alone versus living in a group setting. He volunteered that he lived in a penitentiary before and would consider a penitentiary again. We discussed placement with the [facility] liaison. His outpatient treatment team concurred with temporary placement in a penitentiary and the [facility] identified an opening at the [facility]. Mr. Muniz agreed to placement at the [facility]. At the time of discharge his affect was bright. His thinking was organized, coherent and goal directed. He denied suicidal ideation , intent or plan. He continued to perseverate about his illness and the possibility of relapse and need for further treatment. Patient Condition at Discharge: Fair Plan - Discharge Summary New Discharge Prescriptions: Ferrous Sulfate [Iron (65 MG Elemental)] 325 mg PO DAILY 30 Days Fluticasone Nasal [place] [Flonase Nasal [place]] 2 spr EA NOSTRIL DAILY 30 Days Lisinopril [Zestril] 20 mg PO HS 30 Days [place] Carbonate 300 mg PO BID 30 Days Loratadine 10 mg PO DAILY PRN 30 Days PRN Reason: Allergy Symptoms Propranolol [Inderal] 20 mg PO BID 30 Days Ranitidine HCl [Zantac] 150 mg PO BID 30 Days Rosuvastatin Calcium [Crestor] 5 mg PO HS 30 Days amLODIPine [Norvasc] 10 mg PO DAILY 30 Days busPIRone HCL [Buspar] 30 mg PO BID 30 Days cloZAPine [Clozaril] 100 mg PO HS 30 Days fluvoxaMINE MALEATE [Luvox CR] 150 mg PO BID 30 Days lamoTRIgine [LaMICtal] 100 mg PO DAILY 30 Days lamoTRIgine [LaMICtal] 150 mg PO HS 30 Days metFORMIN HCL [Glucophage] 500 mg PO BID 30 Days Discharge Medication List Vivitrol 380 mg IM Q28D #1 11/28/15 [Rx] Naltrexone Microspheres [Vivitrol] 380 mg IM QMONTH 11/18/16 [History] Ferrous Sulfate [Iron (65 MG Elemental)] 325 mg PO DAILY 30 Days 11/27/16 [Rx] Fluticasone Nasal [place] [Flonase Nasal [place]] 2 spr EA NOSTRIL DAILY 30 Days [Rx] Lisinopril [Zestril] 20 mg PO HS 30 Days 11/27/16 [Rx] [place] Carbonate 300 mg PO BID 30 Days 11/27/16 [Rx] Loratadine 10 mg PO DAILY PRN 30 Days 11/27/16 [Rx] Propranolol [Inderal] 20 mg PO BID 30 Days 11/27/16 [Rx] Ranitidine HCl [Zantac] 150 mg PO BID 30 Days 11/27/16 [Rx] Rosuvastatin Calcium [Crestor] 5 mg PO HS 30 Days 11/27/16 [Rx] amLODIPine [Norvasc] 10 mg PO DAILY 30 Days 11/27/16 [Rx] busPIRone HCL [Buspar] 30 mg PO BID 30 Days 11/27/16 [Rx] cloZAPine [Clozaril] 100 mg PO HS 30 Days 11/27/16 [Rx] fluvoxaMINE MALEATE [Luvox CR] 150 mg PO BID 30 Days 11/27/16 [Rx] lamoTRIgine [LaMICtal] 100 mg PO DAILY 30 Days 11/27/16 [Rx] lamoTRIgine [LaMICtal] 150 mg PO HS 30 Days 11/27/16 [Rx] metFORMIN HCL [Glucophage] 500 mg PO BID 30 Days 11/27/16 [Rx] [facility] up [facility]Ref[facility] 11:30 am (Dr Ruvalcaba) [facility] [Outside] - 11/28/16 12:30 pm (with Mello Bose @ [facility]) Luisa Bethea MD [Primary Care Provider] - 1-2 days Patient Instructions/Handouts: Depression (DC), Suicide Prevention for Adults ( DC) Activity/Diet/Wound Care/Special Instructions: No alcohol or street drugs. Take medications as prescribed. Notify the crisis line or your care provider if symptoms worsen. Crisis line no. . Consistent carbohydrate diet. Activity as tolerated. Discharge Disposition: HOME SELF-CARE
[2016-11-27 12:44] LABS: Glucose,Whole Blood 220 mg/dL (75-99)
[2016-11-27 17:57] LABS: Glucose,Whole Blood 141 mg/dL (75-99)
== END 2016-11-27 18:18 | disposition home or self-care (01) | DRG 885 ==
LOC: EC 19:23 → 3MHU 23:52
PROVIDERS: ADMIT Psychiatry & Neurology Psychiatry; ATTEND Psychiatry & Neurology Psychiatry
DX: F25.1 Schizoaffective disorder, depressive type (principal); R45.851 Suicidal ideations; E11.9 Type 2 diabetes mellitus without complications; I10 Essential (primary) hypertension; E78.5 Hyperlipidemia, unspecified; D64.9 Anemia, unspecified; E66.9 Obesity, unspecified; F41.9 Anxiety disorder, unspecified; F42.9 Obsessive-compulsive disorder, unspecified; G25.81 Restless legs syndrome; G47.00 Insomnia, unspecified; G47.30 Sleep apnea, unspecified; K21.9 Gastro-esophageal reflux disease without esophagitis; F10.21 Alcohol dependence, in remission; Z91.5 Personal history of self-harm; Z79.84 Long term (current) use of oral hypoglycemic drugs; Z79.899 Other long term (current) drug therapy; Z88.0 Allergy status to penicillin; Z88.8 Allergy status to other drugs, medicaments and biological substances; Z68.31 Body mass index [BMI] 31.0-31.9, adult; Z82.49 Family history of ischemic heart disease and other diseases of the circulatory system
CPT/HCPCS: 36415; 80053; 80178; 80306; 82075; 83036; 83520; 84443; 85025; 93005; 99285

== ENCOUNTER 2017-09-03 22:22 | Inpatient (IN) | payer MEDICARE, MEDICAID ==
--- NOTE | 2017-09-04 00:44 | ED ---
Psych HPI - General Chief Complaint: Psychiatric Symptoms Stated Complaint: Mental Health Time Seen by Provider: 09/03/17 23:03 Source: family, police Mode of arrival: ambulatory - History of Present Illness Initial Comments: This patient is a 52-year-old man who presents with complaint that for about one month his mood is been worsening. He states that now he is considering suicide and has thought about taking an overdose. The patient has long history of psychiatric illness. He states that he does have a psychiatrist and a counselor through [facility]. He states that over about the past month he has also not been taking his medication as prescribed. MD Complaint: suicidal ideation, feels depressed Onset/Timin -: month(s) Associated Psychiatric Symptoms: depression, suicidal ideation History of same: Yes Quality: getting worse Improves With: none Worsens With: none Context: not taking psychiatric medications Associated Symptoms: denies other symptoms - Related Data Home Medications Medication Instructions Recorded Confirmed [place] Carbonate 300 mg PO DAILY 09/03/17 09/03/17 [place] Carbonate 600 mg PO HS 09/03/17 09/03/17 cloZAPine [Clozaril] 150 mg PO HS 09/03/17 09/03/17 lamoTRIgine [LaMICtal] 150 mg PO BID 09/03/17 09/03/17 Previous Rx's Medication Instructions Recorded Lisinopril [Zestril] 20 mg PO HS 30 Days tab 11/27/16 Propranolol [Inderal] 20 mg PO BID 30 Days tab 11/27/16 busPIRone HCL [Buspar] 30 mg PO BID 30 Days tablet 11/27/16 fluvoxaMINE MALEATE [Luvox CR] 150 mg PO BID 30 Days cap.er.24h 11/27/16 Allergies Allergy/AdvReac Type Severity Reaction Status Date / Time Penicillins Allergy Unknown Verified 09/03/17 23:03 Childhood risperidone [From Risperdal] Allergy Unknown Verified 09/03/17 23:03 Review of Systems ROS Statement: Those systems with pertinent positive or pertinent negative responses have been documented in the HPI. ROS Other: All systems not noted in ROS Statement are negative. Constitutional: Denies: fever, chills Respiratory: Denies: cough, dyspnea Cardiovascular: Denies: chest pain, edema Gastrointestinal: Denies: abdominal pain, vomiting, diarrhea Genitourinary: Denies: dysuria, hematuria Musculoskeletal: Denies: back pain Neurological: Denies: headache Psychiatric: Reports: depression, suicidal thoughts. Denies: auditory hallucinations, visual hallucinations, homicidal thoughts Past Medical History Past Medical History: Diabetes Mellitus, GERD/Reflux, Hyperlipidemia, Hypertension, Sleep Apnea/CPAP/BIPAP Additional Past Medical History / Comment(s): Family history of premature coronary artery disease. OCD. History of Any Multi-Drug Resistant Organisms: None Reported Past Surgical History: Hernia Repair Past Anesthesia/Blood Transfusion Reactions: No Reported Reaction Past Psychological History: Anxiety, Bipolar, Depression, Schizoaffective Disorder Smoking Status: Never smoker Past Alcohol Use History: None Reported Past Drug Use History: None Reported - Past Family History Father Family Medical History: Congestive Heart Failure (CHF), Diabetes Mellitus Mother Family Medical History: Cancer General Exam Limitations: no limitations General appearance: alert, in no apparent distress Head exam: Present: atraumatic, normocephalic Eye exam: Present: normal appearance. Absent: scleral icterus, conjunctival injection ENT exam: Present: normal oropharynx Neck exam: Present: normal inspection, full ROM Respiratory exam: Present: normal lung sounds bilaterally. Absent: respiratory distress, wheezes, rales, rhonchi, stridor Cardiovascular Exam: Present: regular rate, normal rhythm, normal heart sounds. Absent: systolic murmur, diastolic murmur, rubs, gallop GI/Abdominal exam: Present: soft. Absent: distended, tenderness, guarding, rebound Extremities exam: Present: normal inspection, normal capillary refill. Absent: pedal edema, calf tenderness Back exam: Present: normal inspection. Absent: CVA tenderness (R), CVA tenderness (L) Neurological exam: Present: alert Psychiatric exam: Present: depressed, suicidal ideation. Absent: anxious, flat affect, manic, homicidal ideation Skin exam: Present: warm, dry, intact, normal color. Absent: rash Course Vital Signs 09/03/17 22:25 Temperature 97.4 F L Pulse Rate 78 Respiratory 18 Rate Blood Pressure 190/114 O2 Sat by Pulse 98 Oximetry Medical Decision Making - Lab Data Lab Results 09/03/17 Range/Units 23:00 Urine Opiates Screen Not Detected (NotDetected) Ur Oxycodone Screen Not Detected (NotDetected) Urine Methadone Screen Not Detected (NotDetected) Ur Propoxyphene Screen Not Detected (NotDetected) Ur Barbiturates Screen Not Detected (NotDetected) U Tricyclic Antidepress Not Detected (NotDetected) Ur Phencyclidine Scrn Not Detected (NotDetected) Ur Amphetamines Screen Not Detected (NotDetected) U Methamphetamines Scrn Not Detected (NotDetected) U Benzodiazepines Scrn Not Detected (NotDetected) Urine Cocaine Screen Not Detected (NotDetected) U Marijuana (THC) Screen Not Detected (NotDetected) Disposition Clinical Impression: Suicidal ideation, Mood disorder Disposition: TRANSFER TO PSYCH HOSP/UNIT Condition: Fair Referrals: Luisa Bethea MD [Primary Care Provider] - 1-2 days
[2017-09-04] MEDS: LORazepam 1 MG TAB PO PRN (03:22)
[2017-09-04] MEDS: busPIRone HCl 10 MG TAB PO SCH ×2 (09:28→21:06)
[2017-09-04] MEDS: lamoTRIgine 100 MG TAB PO SCH ×2 (09:29→21:07)
[2017-09-04] MEDS: LITHIUM CARBONATE 300 MG CAP PO SCH ×2 (09:29→21:09)
[2017-09-04] MEDS: PROPRANOLOL 20 MG TAB PO SCH ×2 (09:29→21:09)
[2017-09-04] MEDS: CLOTRIMAZOLE 1% CREAM 15 GM TUBE TOPICAL SCH ×2 (12:33→21:16)
--- NOTE | 2017-09-04 13:17 | P.CONS ---
History of Present Illness - Reason for Consult Consult date: 09/04/17 This regarding diabetes and other medical issues - History of Present Illness This 52-year-old gentleman with a past medical history diabetes mellitus hypertension hyperlipidemia being followed by Dr. Bethea in the preceding was admitted for psychiatric medication. Patient also complaining of diffuse rash especially on the left arm and as well as back. Last several months. There is no history of fever rigors or chills no headache loss of consciousness seizures at this time. Review of Systems REVIEW OF SYSTEMS: ENT: No diminished vision or hearing. CARDIOVASCULAR: Mentioned earlier. RESPIRATORY: As mentioned earlier. GI: No nauscea, vomiting or diarrhea. : No dysuria or retention. NERVOUS SYSTEM: No numbness or weakness. ALLERGY/IMMUNOLOGY: No asthma or hay fever. MUSCULOSKELETAL: As mentioned earlier. HEMATOLOGY/ONCOLOGY: No history of anemia. ENDOCRINE: No history of diabetes or hypothyroidism. CONSTITUTIONAL: As mentioned earlier. DERMATOLOGY: Diffuse rash as mentioned PSYCHIATRY: Mentioned earlier. RHEUMATOLOGY: Negative. Past Medical History Past Medical History: Diabetes Mellitus, GERD/Reflux, Hyperlipidemia, Hypertension, Sleep Apnea/CPAP/BIPAP Additional Past Medical History / Comment(s): Family history of premature coronary artery disease. OCD. History of Any Multi-Drug Resistant Organisms: None Reported Past Surgical History: Hernia Repair Past Anesthesia/Blood Transfusion Reactions: No Reported Reaction Smoking Status: Never smoker - Past Family History Father Family Medical History: Congestive Heart Failure (CHF), Diabetes Mellitus Mother Family Medical History: Cancer Medications and Allergies Home Medications Medication Instructions Recorded Confirmed Type Lisinopril [Zestril] 20 mg PO HS 30 Days tab 11/27/16 09/04/17 Rx Propranolol [Inderal] 20 mg PO BID 30 Days tab 11/27/16 09/04/17 Rx busPIRone HCL [Buspar] 30 mg PO BID 30 Days tablet 11/27/16 09/04/17 Rx fluvoxaMINE MALEATE [Luvox CR] 150 mg PO BID 30 Days cap.er.24h 11/27/16 Rx [place] Carbonate 300 mg PO DAILY 09/03/17 09/04/17 History [place] Carbonate 600 mg PO HS 09/03/17 09/04/17 History cloZAPine [Clozaril] 150 mg PO HS 09/03/17 09/04/17 History lamoTRIgine [LaMICtal] 150 mg PO BID 09/03/17 09/04/17 History Allergies Allergy/AdvReac Type Severity Reaction Status Date / Time Penicillins Allergy Unknown Verified 09/04/17 06:00 Childhood risperidone [From Risperdal] Allergy Unknown Verified 09/04/17 06:00 Physical Exam Vitals: Vital Signs Temp Pulse Pulse Resp BP BP Pulse Ox 09/04/17 09:30 104 H 18 139/94 09/04/17 06:38 98.4 F 09/04/17 05:41 96.7 F L 64 17 165/118 09/03/17 22:25 97.4 F L 78 18 190/114 98 Intake and Output 09/03/17 09/04/17 09/04/17 22:59 06:59 14:59 Other: Weight 98.883 kg 98.71 kg On exam, alert and oriented x3. HEENT: Conjunctivae normal. eyes normal. NECK: No JVD. No thyroid enlargement. No LNs CARDIOVASCULAR: S1, S2 muffled. No murmur RESPIRATION: Breath sounds diminished in the bases. No rhonchi or crackles. No bronchial breathing. ABDOMEN: Soft, nontender . No guarding. no masses palpable. No ascites, No hepatosplenomegaly.Bowel sounds heard. LEGS: No edema. no swelling NERVOUS SYSTEM: Cranial N 2-12 grossly normal. Moves all 4 limbs. No focal deficits. No sensory deficit. No signs of cerebellar dysfucntion. Skin: Diffuse maculopapular rash with the activity in the periphery over the left arm lesions and as well as in the back suggestive of tinea Joints: No active swelling. No inflammation. Lymphatic system. No LN neck axilla or groin. Assessment and Plan Assessment: Final diagnosis 1. Diffuse macular papular rash possibly tenia 2. Diabetes was type II 3. Hypertension 4. Hyperlipidemia 5. GERD 6. Sleep apnea 7. Bipolar depression Plan In this 52-year-old gentleman admitted with multiple medical issues at this time I would recommend local treatment for the tenia. The patient is not improving and dermatology consultation may be obtained. I would recommend to monitor blood sugars closely before meals and at bedtime and as well as continue the home medications as well we'll follow the patient closely with given the patient is admitted otherwise patient may be asked to follow-up with the primary care physician in the outpatient setting. Thank you for letting us participate in the care of this patient.
[2017-09-04 17:50] LABS: Glucose,Whole Blood 156 mg/dL (75-99)
[2017-09-04] MEDS: INSULIN LISPRO (humaLOG) 300 UNIT/3 ML VIAL SQ SCH ×2 (18:00→21:12)
[2017-09-04 20:14] LABS: Glucose,Whole Blood 185 mg/dL (75-99)
[2017-09-04] MEDS: cloZAPine 100 MG TAB PO SCH (21:09)
[2017-09-04] MEDS: LISINOPRIL 20 MG TAB PO SCH (21:09)
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
[2017-09-05 06:33] LABS: Glucose,Whole Blood 133 mg/dL (75-99)
[2017-09-05] MEDS: INSULIN LISPRO (humaLOG) 300 UNIT/3 ML VIAL SQ SCH ×4 (07:50→20:17)
[2017-09-05] MEDS: lamoTRIgine 100 MG TAB PO SCH ×2 (08:01→22:10)
[2017-09-05] MEDS: busPIRone HCl 10 MG TAB PO SCH ×2 (08:01→22:12)
[2017-09-05] MEDS: CLOTRIMAZOLE 1% CREAM 15 GM TUBE TOPICAL SCH (08:02)
[2017-09-05] MEDS: PROPRANOLOL 20 MG TAB PO SCH ×2 (08:02→22:12)
[2017-09-05] MEDS: LITHIUM CARBONATE 300 MG CAP PO SCH ×2 (08:02→22:12)
[2017-09-05 08:35] LABS: Basophils % (A) 0 %; CH 30.6; Eosinophils # (A) 0.2 k/uL (0-0.7); Eosinophils % (A) 2 %; HCT 44.8 % (39.0-53.0); HDW 2.96; Luc # (Auto) 0.08; Luc % (Auto) 1; Lymphocytes # (A) 1.9 k/uL (1.0-4.8); Lymphocytes % (A) 21 %; MCH 29.4 pg (25.0-35.0); MCHC 33.5 g/dL (31.0-37.0); MCV 87.7 fL (80.0-100.0); Mean Platelet Volume 6.8; Monocytes # (A) 0.4 k/uL (0-1.0); Monocytes % (A) 4 %; Neutrophils # (A) 6.5 k/uL (1.3-7.7); Neutrophils % (A) 72 %; RBC 5.11 m/uL (4.30-5.90); WBC 9.2 k/uL (3.8-10.6); WBC (Perox) 9.17
[2017-09-05 08:50] LABS: ALT 45 U/L (21-72); AST 22 U/L (17-59); Alkaline Phosphatase 68 U/L (38-126); Anion Gap 8 mmol/L; Blood Urea Nitrogen 16 mg/dL (9-20); Calcium 9.5 mg/dL (8.4-10.2); Carbon Dioxide 27 mmol/L (22-30); Chloride 108 mmol/L (98-107); Cholesterol 121 mg/dL (<200); Glucose 132 mg/dL (74-99); HDL Cholesterol 36 mg/dL (40-60); Lithium 0.4 mmol/L; Non-African American GFR(MDRD) >60 (>60 ml/min/1.73 sqM); Potassium 3.7 mmol/L (3.5-5.1); Sodium 143 mmol/L (137-145); Total Bilirubin 0.6 mg/dL (0.2-1.3); Total Protein 6.3 g/dL (6.3-8.2)
[2017-09-05 12:34] LABS: Glucose,Whole Blood 187 mg/dL (75-99)
[2017-09-05 17:41] LABS: Glucose,Whole Blood 96 mg/dL (75-99)
[2017-09-05 20:07] LABS: Glucose,Whole Blood 244 mg/dL (75-99)
[2017-09-05] MEDS: cloZAPine 100 MG TAB PO SCH (22:11)
[2017-09-05] MEDS: LISINOPRIL 20 MG TAB PO SCH (22:11)
[2017-09-05] MEDS: LORazepam 1 MG TAB PO PRN (22:13)
[2017-09-06] MEDS: CLOTRIMAZOLE 1% CREAM 15 GM TUBE TOPICAL SCH ×3 (00:37→21:56)
[2017-09-06] MEDS: ACETAMINOPHEN TAB 325 MG TAB PO PRN (03:07)
[2017-09-06 06:38] LABS: Glucose,Whole Blood 119 mg/dL (75-99)
[2017-09-06] MEDS: INSULIN LISPRO (humaLOG) 300 UNIT/3 ML VIAL SQ SCH ×4 (08:18→20:19)
[2017-09-06] MEDS: LITHIUM CARBONATE 300 MG CAP PO SCH ×2 (09:00→21:54)
[2017-09-06] MEDS: lamoTRIgine 100 MG TAB PO SCH ×2 (09:00→21:52)
[2017-09-06] MEDS: busPIRone HCl 10 MG TAB PO SCH ×2 (09:00→21:53)
[2017-09-06] MEDS: PROPRANOLOL 20 MG TAB PO SCH ×2 (09:01→21:54)
[2017-09-06] MEDS: LORazepam 1 MG TAB PO PRN ×2 (11:24→21:54)
[2017-09-06 12:30] LABS: Glucose,Whole Blood 177 mg/dL (75-99)
[2017-09-06 13:11] LABS: Appearance,Urine Clear (Clear); Bilirubin,Urine Negative (Negative); Glucose,Urine (UA) Trace (Negative); Ketones,Urine Negative (Negative); Leukocyte Esterase,Urine Negative (Negative); Nitrite,Urine Negative (Negative); Protein,Urine Negative (Negative); Specific Gravity,Urine 1.009 (1.001-1.035); UA Billing (MACRO vs. MICRO) CHEM; Urobilinogen,Urine <2.0 mg/dL (<2.0)
[2017-09-06 17:35] LABS: Glucose,Whole Blood 87 mg/dL (75-99)
--- NOTE | 2017-09-06 19:32 | P.PN ---
Progress Note - Text Progress Note Date: 09/05/17 Interval History: Pt states that he continues to be "really depressed" and has suicidal ideations. States that he is upset that it took him 20 min to put on his sweatpants this morning due to his obsessive thoughts. Pt reports that he has a voice inside his head that becomes more prominent when he is depressed and tells him to kill himself along with other negative commentary. Unsure of who this male voice is but sometimes believes it is his stepfather. Did sleep well last night. Has been compliant with medications on the unit and no reported adverse effects. Pt does not know the names of all past medications and even current meds. States that he has been on Luvox for maybe a year now. Unsure if he's had a trial of Clomipramine in the past to treat his OCD. He did not attend groups initially upon admission as he states that he was confined to his room pending further work-up for a rash on his arm. He showed this provider the rash which appeared to be diffuse maculopapular rash on his L forearm. Pt stated that it has been present for months and will come and go. MSE: Appearance: alert, well groomed, appears stated age, steady gait; rash on L forearm as stated above Behavior: no psychomotor agitation or psychomotor retardation, no abnormal movements, fair eye contact Attitude: cooperative Speech: normal rate, rhythm, fluency, articulation, volume, and prosody; primary language: American Mood: "depressed" Affect: anxious Thought processes: linear Thought content: patient does not appear to be responding to internal stimuli; patient denies auditory and visual hallucinations, no delusions appreciated, denies HI. Does have (+)obsessions, compulsions and SI Insight: fair Judgment: fair Cognitive: oriented to all 3 spheres, average intelligence Plan: Continue current medication regimen for now. Would consider the possibility of Clomipramine for Severe OCD and/or using an alternative antipsychotic to Clozaril for treatment of OCD. Reviewed labs and no significant abnormalities thus far. Continue to monitor for safety. Encourage particpation in groups. Patient would benefit from CBT and exposure therapy after discharge for further treatment of his OCD.
--- NOTE | 2017-09-06 19:35 | P.PN ---
Progress Note - Text Progress Note Date: 09/06/17 Interval History: Pt states that he continues to be "depressed". Reports that his SI continues "off and on". Slept fair last night but some continued sleep disturbance due to reported sleep apnea. Has been attending some groups on the unit. States that his sister came to visit him last night and felt that this went well. Compliant with medications and reports no adverse effects. MSE: Appearance: alert, well groomed, appears stated age, steady gait; rash on L forearm as stated above Behavior: no psychomotor agitation or psychomotor retardation, no abnormal movements, fair eye contact Attitude: cooperative Speech: normal rate, rhythm, fluency, articulation, volume, and prosody; primary language: Arabic Mood: "depressed" Affect: anxious Thought processes: linear Thought content: patient does not appear to be responding to internal stimuli; patient denies auditory and visual hallucinations, no delusions appreciated, denies HI. Does have (+)obsessions, compulsions and SI Insight: fair Judgment: fair Cognitive: oriented to all 3 spheres, average intelligence Plan: Continue current medication regimen for now. Continue to monitor for safety. Encourage particpation in groups.
[2017-09-06 20:11] LABS: Glucose,Whole Blood 153 mg/dL (75-99)
[2017-09-06] MEDS: LISINOPRIL 20 MG TAB PO SCH (21:53)
[2017-09-06] MEDS: cloZAPine 100 MG TAB PO SCH (21:53)
[2017-09-07 06:11] LABS: Glucose,Whole Blood 115 mg/dL (75-99)
[2017-09-07 07:31] LABS: Norclozapine 194 ng/mL (200-700)
[2017-09-07] MEDS: INSULIN LISPRO (humaLOG) 300 UNIT/3 ML VIAL SQ SCH ×4 (08:14→21:48)
[2017-09-07] MEDS: CLOTRIMAZOLE 1% CREAM 15 GM TUBE TOPICAL SCH ×2 (10:19→22:06)
[2017-09-07] MEDS: busPIRone HCl 10 MG TAB PO SCH ×2 (10:19→21:38)
[2017-09-07] MEDS: lamoTRIgine 100 MG TAB PO SCH ×2 (10:20→21:51)
[2017-09-07] MEDS: LITHIUM CARBONATE 300 MG CAP PO SCH ×2 (10:20→21:39)
[2017-09-07] MEDS: PROPRANOLOL 20 MG TAB PO SCH ×2 (10:20→21:40)
[2017-09-07] MEDS: LORazepam 1 MG TAB PO PRN (10:21)
[2017-09-07 13:01] LABS: Glucose,Whole Blood 140 mg/dL (75-99)
[2017-09-07 18:15] LABS: Glucose,Whole Blood 95 mg/dL (75-99)
[2017-09-07] MEDS ORDERED: LORazepam 0.5 MG TAB PO PRN (19:25)
[2017-09-07 20:21] LABS: Glucose,Whole Blood 173 mg/dL (75-99)
[2017-09-07] MEDS: LISINOPRIL 20 MG TAB PO SCH (21:39)
[2017-09-07] MEDS: cloZAPine 100 MG TAB PO SCH (21:41)
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
[2017-09-08 06:19] LABS: Glucose,Whole Blood 120 mg/dL (75-99)
[2017-09-08] MEDS: INSULIN LISPRO (humaLOG) 300 UNIT/3 ML VIAL SQ SCH ×4 (07:31→20:22)
[2017-09-08] MEDS: lamoTRIgine 100 MG TAB PO SCH ×2 (08:58→21:11)
[2017-09-08] MEDS: LITHIUM CARBONATE 300 MG CAP PO SCH ×2 (08:59→21:12)
[2017-09-08] MEDS: busPIRone HCl 10 MG TAB PO SCH ×2 (08:59→21:10)
[2017-09-08] MEDS: CLOTRIMAZOLE 1% CREAM 15 GM TUBE TOPICAL SCH ×2 (08:59→21:10)
[2017-09-08] MEDS: LORazepam 1 MG TAB PO SCH (09:00)
[2017-09-08] MEDS: PROPRANOLOL 20 MG TAB PO SCH ×2 (09:00→21:12)
[2017-09-08 12:35] LABS: Glucose,Whole Blood 188 mg/dL (75-99)
[2017-09-08 17:45] LABS: Glucose,Whole Blood 193 mg/dL (75-99)
[2017-09-08] MEDS: LORazepam 0.5 MG TAB PO SCH (18:44)
[2017-09-08 19:57] LABS: Glucose,Whole Blood 144 mg/dL (75-99)
--- NOTE | 2017-09-08 20:43 | P.PN ---
Subjective Principal diagnosis: OCD Interval History: More social this morning, less withdrawn, although patient reports feeling quite uncomfortalen. Reports mild relief with Ativan. Obsessional thoughts still present but patient hopeful Ativan can help. Mental Status Exam: Appearance: alert, well groomed, appears stated age, steady gait Behavior: no psychomotor agitation or psychomotor retardation, no abnormal movements, fair eye contact Attitude: cooperative Speech: normal rate, rhythm, fluency, articulation, volume, and prosody; primary language: Khmer Mood: sad Affect: dull, dim, restricted Thought processes: linear Thought content: patient does not appear to be responding to internal stimuli; patient denies auditory and visual hallucinations, no delusions appreciated, endorses q qobsessions and compulsions daily that are overwhelming with obsessional content to harm self and feelings of hopeless and fatigue and just "giving up" Insight: fair Judgment: fair Cognitive: oriented to all 3 spheres, average intelligence Plan: Continue hospitalization, patient continues to struggle with SI Increase and change Ativan to 1-mg PO AM + 0.5-mg PO TID scheduled instead of PRN VS, Labs reviewed wnls Otherwise continue current regimen SW has been asked to contact [facility] to discharge options for OCD such as Exposure Therapy Objective - Vital Signs Vital signs: Vital Signs Temp 98.2 F 09/08/17 06:38 Pulse 63 09/08/17 06:38 Resp 18 09/08/17 06:38 BP 140/81 09/08/17 06:38 Pulse Ox 98 09/03/17 22:25 - Labs CBC & Chem 7: 09/05/17 08:15 09/05/17 08:15 Labs: Abnormal Lab Results - Last 24 Hours (Table) 09/08/17 09/08/17 09/08/17 Range/Units 06:16 12:32 17:43 POC Glucose (mg/dL) 120 H 188 H 193 H (75-99) mg/dL 09/08/17 Range/Units 19:56 POC Glucose (mg/dL) 144 H (75-99) mg/dL Assessment and Plan (1) Obsessive compulsive disorder Current Visit: Yes Status: Chronic Priority: High Code(s): F42.9 - OBSESSIVE-COMPULSIVE DISORDER, UNSPECIFIED SNOMED Code(s): 511687600 (2) Alcohol use disorder, severe, in sustained remission Current Visit: Yes Status: Chronic Priority: Medium Code(s): F10.21 - ALCOHOL DEPENDENCE, IN REMISSION SNOMED Code(s): 68235147 Plan: PLAN: Continue hospitalization, patient has severe OCD with obsessions that contain intrusive unwanted thoughts of self harm and suicide and patient at times feels compelled to comply. While patient does deny acting upon such thoughts recently , he does report fear that he will and he has attempted to kill himself due to such several times in the past. CURRENT REGIMEN: Continue current regimen, will consider changes pending labs 3 Generic Name Dose Route Start Last Admin Trade Name Freq PRN Reason Stop Dose Admin Buspirone HCl 30 mg 09/04/17 09:00 09/04/17 09:28 Buspar PO 30 mg BID SHAY Administration Clozapine 150 mg 09/04/17 21:00 Clozaril PO 09/09/17 23:59 HS SHAY Fluvoxamine Maleate 150 mg 09/04/17 09:00 09/04/17 09:29 Luvox PO 150 mg BID SHAY Administration Lamotrigine 150 mg 09/04/17 09:00 09/04/17 09:29 Lamictal PO 150 mg BID SHAY Administration [place] Carbonate 600 mg 09/04/17 21:00 [place] Carbonate PO HS SHAY Lorazepam 1 mg 09/04/17 03:00 09/04/17 03:22 Ativan PO 1 mg BID PRN Administration Agitation or Acute Anxiety Propranolol HCl 20 mg 09/04/17 09:00 09/04/17 09:29 Inderal PO 20 mg BID SHAY Administration LABS: Multiple labs ordered: Clozapine (Clozaril) Comlete Blood Count w/diff Comprehensive Metabolic Panel Lipid Panel [place] TSH, 3rd Generation Urinalysis VITALS: HTN noted, will monitor closely 3 09/03/17 09/04/17 09/04/17 22:25 05:41 06:38 Temperature 97.4 F L 96.7 F L 98.4 F Pulse Rate 78 Pulse Rate [ 64 Right Sitting] Respiratory 18 17 Rate Blood Pressure 190/114 Blood Pressure 165/118 [Right Arm Sitting] O2 Sat by Pulse 98 Oximetry 3 09/04/17 09:30 Temperature Pulse Rate Pulse Rate [ 104 H Right Sitting] Respiratory 18 Rate Blood Pressure Blood Pressure 139/94 [Right Arm Sitting] O2 Sat by Pulse Oximetry
[2017-09-08] MEDS: cloZAPine 100 MG TAB PO SCH (21:11)
[2017-09-08] MEDS: LISINOPRIL 20 MG TAB PO SCH (21:11)
[2017-09-09 07:08] LABS: Glucose,Whole Blood 115 mg/dL (75-99)
[2017-09-09] MEDS: INSULIN LISPRO (humaLOG) 300 UNIT/3 ML VIAL SQ SCH ×4 (07:35→20:22)
[2017-09-09] MEDS: LORazepam 0.5 MG TAB PO SCH ×3 (08:13→17:29)
[2017-09-09] MEDS: LITHIUM CARBONATE 300 MG CAP PO SCH ×2 (08:54→22:01)
[2017-09-09] MEDS: LORazepam 1 MG TAB PO SCH (08:54)
[2017-09-09] MEDS: PROPRANOLOL 20 MG TAB PO SCH ×2 (08:55→22:01)
[2017-09-09] MEDS: lamoTRIgine 100 MG TAB PO SCH ×2 (08:55→22:02)
[2017-09-09] MEDS: busPIRone HCl 10 MG TAB PO SCH ×2 (08:55→22:03)
[2017-09-09] MEDS: CLOTRIMAZOLE 1% CREAM 15 GM TUBE TOPICAL SCH ×2 (08:58→23:31)
[2017-09-09 09:34] LABS: Basophils % (A) 0 %; CH 29.6; CHCM 33.9; Eosinophils # (A) 0.2 k/uL (0-0.7); Eosinophils % (A) 2 %; HCT 45.9 % (39.0-53.0); HDW 2.77; Luc # (Auto) 0.08; Luc % (Auto) 1; Lymphocytes % (A) 20 %; MCH 28.7 pg (25.0-35.0); MCHC 32.7 g/dL (31.0-37.0); MCV 87.8 fL (80.0-100.0); Mean Platelet Volume 7.3; Monocytes # (A) 0.6 k/uL (0-1.0); Monocytes % (A) 6 %; Neutrophils # (A) 6.9 k/uL (1.3-7.7); Neutrophils % (A) 71 %; RBC 5.23 m/uL (4.30-5.90); RDW 14.3 % (11.5-15.5); WBC 9.8 k/uL (3.8-10.6); WBC (Perox) 9.74
[2017-09-09 13:01] LABS: Glucose,Whole Blood 114 mg/dL (75-99)
[2017-09-09] MEDS ORDERED: LORazepam 0.5 MG TAB PO SCH (13:45)
[2017-09-09 17:12] LABS: Glucose,Whole Blood 133 mg/dL (75-99)
[2017-09-09 20:23] LABS: Glucose,Whole Blood 151 mg/dL (75-99)
--- NOTE | 2017-09-09 21:38 | P.PN ---
Subjective Principal diagnosis: OCD Interval History: Scheduled Ativan somewhat effective per patient in making him feel more relaxed and lessening the burden of obsessional content, however, the current dose was overly sedating causing patient to dose off snoring during both a group and activity therapy today, but he still managed to attend both! Mental Status Exam: Appearance: alert, well groomed, appears stated age, steady gait Behavior: no psychomotor agitation or psychomotor retardation, no abnormal movements, fair eye contact Attitude: cooperative Speech: normal rate, rhythm, fluency, articulation, volume, and prosody; primary language: Dutch Mood: anxious (improved?) Affect: dull, dim, restricted Thought processes: linear Thought content: patient does not appear to be responding to internal stimuli; patient denies auditory and visual hallucinations, no delusions appreciated, endorses obsessions and compulsions daily that are overwhelming with obsessional content to harm self and feelings of hopeless and fatigue and just "giving up" Insight: fair Judgment: fair Cognitive: oriented to all 3 spheres, average intelligence Plan: Continue hospitalization, patient continues to struggle with SI Decrease and change Ativan to 1-mg PO AM + 0.-mg PO TID scheduled instead of PRN VS, Labs reviewed wnls Otherwise continue current regimen SW has been asked to contact [facility] to discharge options for OCD such as Exposure Therapy Objective - Vital Signs Vital signs: Vital Signs Temp 98.1 F 09/09/17 06:35 Pulse 73 09/09/17 08:12 Resp 18 09/09/17 08:12 BP 128/83 09/09/17 08:12 Pulse Ox 98 09/03/17 22:25 - Labs CBC & Chem 7: 09/09/17 08:51 09/05/17 08:15 Labs: Abnormal Lab Results - Last 24 Hours (Table) 09/09/17 09/09/17 09/09/17 Range/Units 07:05 12:59 17:10 POC Glucose (mg/dL) 115 H 114 H 133 H (75-99) mg/dL 09/09/17 Range/Units 20:21 POC Glucose (mg/dL) 151 H (75-99) mg/dL Assessment and Plan (1) Obsessive compulsive disorder Current Visit: Yes Status: Chronic Priority: High Code(s): F42.9 - OBSESSIVE-COMPULSIVE DISORDER, UNSPECIFIED SNOMED Code(s): 875421485 (2) Alcohol use disorder, severe, in sustained remission Current Visit: Yes Status: Chronic Priority: Medium Code(s): F10.21 - ALCOHOL DEPENDENCE, IN REMISSION SNOMED Code(s): 84186998
[2017-09-09] MEDS: LORATADINE-PSEUDOEPH 5-120 MG 1 EACH TAB.ER.12H PO SCH (22:01)
[2017-09-09] MEDS: LISINOPRIL 20 MG TAB PO SCH (22:02)
[2017-09-09] MEDS: cloZAPine 100 MG TAB PO SCH (22:02)
[2017-09-10 06:44] LABS: Glucose,Whole Blood 129 mg/dL (75-99)
[2017-09-10] MEDS: LORazepam 0.5 MG TAB PO SCH ×3 (07:31→17:42)
[2017-09-10] MEDS: INSULIN LISPRO (humaLOG) 300 UNIT/3 ML VIAL SQ SCH ×4 (07:31→21:26)
[2017-09-10] MEDS: lamoTRIgine 100 MG TAB PO SCH ×2 (08:30→21:45)
[2017-09-10] MEDS: busPIRone HCl 10 MG TAB PO SCH ×2 (08:31→21:44)
[2017-09-10] MEDS: LORazepam 1 MG TAB PO SCH (08:31)
[2017-09-10] MEDS: LORATADINE-PSEUDOEPH 5-120 MG 1 EACH TAB.ER.12H PO SCH ×2 (08:31→21:44)
[2017-09-10] MEDS: PROPRANOLOL 20 MG TAB PO SCH ×2 (08:31→21:47)
[2017-09-10] MEDS: CLOTRIMAZOLE 1% CREAM 15 GM TUBE TOPICAL SCH ×2 (08:31→21:46)
[2017-09-10] MEDS: LITHIUM CARBONATE 300 MG CAP PO SCH ×2 (08:32→21:45)
[2017-09-10 12:43] LABS: Glucose,Whole Blood 142 mg/dL (75-99)
[2017-09-10 17:45] LABS: Glucose,Whole Blood 127 mg/dL (75-99)
[2017-09-10] MEDS: LISINOPRIL 20 MG TAB PO SCH (21:44)
[2017-09-10] MEDS: cloZAPine 100 MG TAB PO SCH (21:44)
[2017-09-11 06:46] LABS: Glucose,Whole Blood 116 mg/dL (75-99)
[2017-09-11] MEDS: INSULIN LISPRO (humaLOG) 300 UNIT/3 ML VIAL SQ SCH ×4 (08:20→20:46)
[2017-09-11] MEDS: LORazepam 0.5 MG TAB PO SCH ×3 (08:20→17:40)
[2017-09-11] MEDS: busPIRone HCl 10 MG TAB PO SCH ×2 (09:00→20:45)
[2017-09-11] MEDS: CLOTRIMAZOLE 1% CREAM 15 GM TUBE TOPICAL SCH ×2 (09:01→23:30)
[2017-09-11] MEDS: lamoTRIgine 100 MG TAB PO SCH ×2 (09:01→20:46)
[2017-09-11] MEDS: LITHIUM CARBONATE 300 MG CAP PO SCH ×2 (09:02→20:45)
[2017-09-11] MEDS: LORATADINE-PSEUDOEPH 5-120 MG 1 EACH TAB.ER.12H PO SCH ×2 (09:02→20:45)
[2017-09-11] MEDS: PROPRANOLOL 20 MG TAB PO SCH ×2 (09:02→20:47)
[2017-09-11] MEDS: LORazepam 1 MG TAB PO SCH (09:02)
--- NOTE | 2017-09-11 11:46 | P.PN ---
Subjective Progress Note Date: 09/10/17 Principal diagnosis: OCD Interval History: Scheduled Ativan somewhat effective per patient in making him feel more relaxed and lessening the burden of obsessional content, however, patient is still sedated. It is uncertain if patient is being sedated by Ativan at this point or this is just EDS resulting from chronic, untreated BG. Patient states he is supposed to be using a CPAP at home but was noncompliant and lost his CPAP coverage.He continues to attend groups and attempt to participate, but he still endorses obsessional thoughts of self harm. Ativan has helped patient relax, patient thinks the medication is helping. Mental Status Exam: Appearance: alert, well groomed, appears stated age, steady gait Behavior: no psychomotor agitation or psychomotor retardation, no abnormal movements, fair eye contact Attitude: cooperative Speech: normal rate, rhythm, fluency, articulation, volume, and prosody; primary language: Polish Mood: anxious (improved?) Affect: dull, dim, restricted Thought processes: linear Thought content: patient does not appear to be responding to internal stimuli; patient denies auditory and visual hallucinations, no delusions appreciated, endorses obsessions and compulsions daily that are overwhelming with obsessional content to harm self and feelings of hopeless and fatigue and just "giving up" Insight: fair Judgment: fair Cognitive: oriented to all 3 spheres, average intelligence Plan: Continue hospitalization, patient continues to struggle with SI Decrease and change Ativan to 1-mg PO AM + 0.25-mg PO TID scheduled instead of PRN VS, Labs reviewed wnls Otherwise continue current regimen SW has been asked to contact [facility] to discharge options for OCD such as Exposure Therapy Objective - Vital Signs Vital signs: Vital Signs Temp 97.8 F 09/11/17 06:46 Pulse 82 09/11/17 09:03 Resp 18 09/11/17 09:03 BP 136/81 09/11/17 09:03 Pulse Ox 98 09/03/17 22:25 - Labs CBC & Chem 7: 09/09/17 08:51 09/05/17 08:15 Labs: Abnormal Lab Results - Last 24 Hours (Table) 09/10/17 09/10/17 09/11/17 Range/Units 12:40 17:36 06:38 POC Glucose (mg/dL) 142 H 127 H 116 H (75-99) mg/dL Assessment and Plan (1) Obsessive compulsive disorder Current Visit: Yes Status: Chronic Priority: High Code(s): F42.9 - OBSESSIVE-COMPULSIVE DISORDER, UNSPECIFIED SNOMED Code(s): 983646563 (2) Alcohol use disorder, severe, in sustained remission Current Visit: Yes Status: Chronic Priority: Medium Code(s): F10.21 - ALCOHOL DEPENDENCE, IN REMISSION SNOMED Code(s): 04201825
[2017-09-11 12:32] LABS: Glucose,Whole Blood 154 mg/dL (75-99)
[2017-09-11 17:30] LABS: Glucose,Whole Blood 123 mg/dL (75-99)
[2017-09-11 20:25] LABS: Glucose,Whole Blood 215 mg/dL (75-99)
[2017-09-11] MEDS: cloZAPine 100 MG TAB PO SCH (20:47)
[2017-09-11] MEDS: LISINOPRIL 20 MG TAB PO SCH (20:47)
--- NOTE | 2017-09-11 21:49 | P.PN ---
Subjective Principal diagnosis: OCD Interval History: Patient continues to endorse intrusive thoughts of self harm. He has EDS that is observed throughout the day independent of Ativan dosing and likely secondary to moderate to severe uncontrolled BG. Patient discovered slouching in [facility] today bent forward nearly toppling over and/or sliding out dosing in and out of slumber. Patient was easily aroused and stated he felt worse today despite sleeping well last night. When asked why he was sleeping in the lounge where there was lots of noise and activity, patient stated that he thought he'd get in trouble if he went back to bed for a nap. He reported some concern about staff telling him he had to get out of bed. Patient was escorted back to room and allowed to sleep. Staff were informed to prompt patient in a few hours to get up if he will to participate in groups and activities, but to make clear to patient he can sleep at any time given patient was on the verge of sliding off the couch prior to interview. Mental Status Exam: Appearance: alert, well groomed, appears stated age, steady gait Behavior: no psychomotor agitation or psychomotor retardation, no abnormal movements, fair eye contact Attitude: cooperative Speech: normal rate, rhythm, fluency, articulation, volume, and prosody; primary language: Micronesian Mood: anxious (improved?) Affect: dull, dim, restricted Thought processes: linear Thought content: patient does not appear to be responding to internal stimuli; patient denies auditory and visual hallucinations, no delusions appreciated, endorses obsessions and compulsions daily that are overwhelming with obsessional content to harm self and feelings of hopeless and fatigue and just "giving up" Insight: fair Judgment: fair Cognitive: oriented to all 3 spheres, average intelligence Plan: Continue hospitalization, patient continues to struggle with SI Continue Ativan 1-mg PO AM + 0.25-mg PO TID Updated [place] and BMP ordered Otherwise continue current regimen SW has been asked to contact [facility] to discharge options for OCD such as Exposure Therapy Objective - Vital Signs Vital signs: Vital Signs Temp 97.8 F 09/11/17 06:46 Pulse 82 09/11/17 09:03 Resp 18 09/11/17 09:03 BP 136/81 09/11/17 09:03 Pulse Ox 98 09/03/17 22:25 - Labs CBC & Chem 7: 09/09/17 08:51 09/05/17 08:15 Labs: Abnormal Lab Results - Last 24 Hours (Table) 09/11/17 09/11/17 09/11/17 Range/Units 06:38 12:28 17:20 POC Glucose (mg/dL) 116 H 154 H 123 H (75-99) mg/dL 09/11/17 Range/Units 20:11 POC Glucose (mg/dL) 215 H (75-99) mg/dL Assessment and Plan (1) Obsessive compulsive disorder Current Visit: Yes Status: Chronic Priority: High Code(s): F42.9 - OBSESSIVE-COMPULSIVE DISORDER, UNSPECIFIED SNOMED Code(s): 773282162 (2) Alcohol use disorder, severe, in sustained remission Current Visit: Yes Status: Chronic Priority: Medium Code(s): F10.21 - ALCOHOL DEPENDENCE, IN REMISSION SNOMED Code(s): 85537254
[2017-09-12 05:46] LABS: Glucose,Whole Blood 143 mg/dL (75-99)
[2017-09-12] MEDS: LORazepam 0.5 MG TAB PO SCH ×3 (07:38→17:42)
[2017-09-12] MEDS: INSULIN LISPRO (humaLOG) 300 UNIT/3 ML VIAL SQ SCH ×4 (07:38→20:59)
[2017-09-12 08:25] LABS: Anion Gap 9 mmol/L; Calcium 9.4 mg/dL (8.4-10.2); Carbon Dioxide 28 mmol/L (22-30); Chloride 106 mmol/L (98-107); Glucose 134 mg/dL (74-99); Lithium 0.5 mmol/L; Non-African American GFR(MDRD) 54 (>60 ml/min/1.73 sqM); Potassium 3.8 mmol/L (3.5-5.1); Sodium 143 mmol/L (137-145)
[2017-09-12 08:41] LABS: Blood Urea Nitrogen 21 mg/dL (9-20)
[2017-09-12] MEDS: busPIRone HCl 10 MG TAB PO SCH ×2 (08:43→21:52)
[2017-09-12] MEDS: LITHIUM CARBONATE 300 MG CAP PO SCH ×2 (08:44→21:52)
[2017-09-12] MEDS: PROPRANOLOL 20 MG TAB PO SCH ×2 (08:44→21:53)
[2017-09-12] MEDS: LORATADINE-PSEUDOEPH 5-120 MG 1 EACH TAB.ER.12H PO SCH ×2 (08:44→21:53)
[2017-09-12] MEDS: lamoTRIgine 100 MG TAB PO SCH ×2 (08:44→21:57)
[2017-09-12] MEDS: LORazepam 1 MG TAB PO SCH (08:45)
[2017-09-12] MEDS: CLOTRIMAZOLE 1% CREAM 15 GM TUBE TOPICAL SCH ×2 (08:51→21:01)
--- NOTE | 2017-09-12 09:36 | P.PN ---
Progress Note - Text Interval history: The patient is found in his room he follows me to an interview room. He reports his mood continues to be depressed. He's been sleeping during the day but states he still has been able to sleep at night. He is receiving Ativan dosing during the day we discussed whether or not that could be contributing to sedation. He focuses today on obsessive compulsive thoughts and actions mainly in the form of checking. He states he hears a voice that frequently as derogatory. He states he chronically has suicidal ideation and they do appear to be more exacerbated prior to this admission. He feels he will keep himself safe here on the mental health unit. He reports selectively attending groups stating he is too depressed to attend. We discussed that it's more likely attending groups would help his depression than staying in a dark room and sleeping. Mental status exam: The patient is an overweight male he stressors unclothing he has a disheveled appearance. He seated calmly in the chair he has no spontaneous speech but provides reef answers to questions asked. He endorses a depressed mood with hopelessness thinking and suicidal thoughts. He endorses no thoughts of harming others. He endorses an occasional auditory hallucination but no visual hallucinations. He is endorsing no specific delusions at this time and feels safe in the hospital. He demonstrates no abnormal involuntary movements he demonstrates no verbal or physical aggressiveness. He is oriented to person place and date. Affect is quite bland. Plan: The patient will continue on his current medications we will monitor for sedation. His BUN was mildly elevated creatinine was elevated at 1.4. He has been on lithium he states for approximately one year at the current dose. We will repeat the BUN/creatinine creatinine tomorrow morning he is encouraged to adequately hydrate. We will encourage him to attend groups and participate in the milieu. We will continue to monitor him for safety.
[2017-09-12 12:22] LABS: Glucose,Whole Blood 121 mg/dL (75-99)
[2017-09-12 17:14] LABS: Glucose,Whole Blood 120 mg/dL (75-99)
[2017-09-12 20:24] LABS: Glucose,Whole Blood 170 mg/dL (75-99)
[2017-09-12] MEDS: LISINOPRIL 20 MG TAB PO SCH (21:52)
[2017-09-12] MEDS: cloZAPine 100 MG TAB PO SCH (21:56)
[2017-09-13 06:22] LABS: Glucose,Whole Blood 119 mg/dL (75-99)
[2017-09-13] MEDS: INSULIN LISPRO (humaLOG) 300 UNIT/3 ML VIAL SQ SCH ×4 (07:43→20:34)
[2017-09-13] MEDS: CLOTRIMAZOLE 1% CREAM 15 GM TUBE TOPICAL SCH ×2 (08:50→20:58)
[2017-09-13] MEDS: LORazepam 0.5 MG TAB PO SCH ×3 (08:50→17:30)
[2017-09-13] MEDS: busPIRone HCl 10 MG TAB PO SCH ×2 (08:50→20:59)
[2017-09-13] MEDS: lamoTRIgine 100 MG TAB PO SCH ×2 (08:51→20:59)
[2017-09-13] MEDS: LITHIUM CARBONATE 300 MG CAP PO SCH ×2 (08:52→20:59)
[2017-09-13] MEDS: LORATADINE-PSEUDOEPH 5-120 MG 1 EACH TAB.ER.12H PO SCH ×2 (08:52→21:00)
[2017-09-13] MEDS: PROPRANOLOL 20 MG TAB PO SCH ×2 (08:52→20:58)
[2017-09-13] MEDS: LORazepam 1 MG TAB PO SCH (08:53)
--- NOTE | 2017-09-13 09:28 | P.PN ---
Progress Note - Text Interval history: The patient is found in group he follows me to an interview room. He reports his mood is depressed he continues to have suicidal thoughts but he feels safe here in the hospital and would not act on them. He reports sleeping last night appetite is stable. He states he did better with staying awake during the day yesterday and attending groups. He has no questions regarding his medication. His BUN and creatinine were drawn again this morning we will await the results. He has been adequately hydrating. Mental status exam: The patient is an overweight male he seated calmly in his chair. Eye contact is appropriate. Speech is fluent nonpressured. He reports a depressed mood with ongoing suicidal ideation however he is known to have those thoughts chronically. He demonstrates no verbal or physical aggressiveness. There is no observable evidence of psychosis during the session today. No abnormal involuntary movements observed. He is cooperative he is easily directed in the session. Affect is constricted. He does demonstrate a limited range of expression. He remains oriented to person place and date. Plan: The patient will continue on his current medications we will await lab results drawn from this morning. He is encouraged to again stay awake during the day and attending groups. Vital signs reviewed.
[2017-09-13 10:08] LABS: Blood Urea Nitrogen 21 mg/dL (9-20); Non-African American GFR(MDRD) 53 (>60 ml/min/1.73 sqM)
[2017-09-13] MEDS: BENZTROPINE MESYLATE 0.5 MG TAB PO SCH ×2 (11:20→20:59)
[2017-09-13 11:59] LABS: Glucose,Whole Blood 214 mg/dL (75-99)
[2017-09-13 17:19] LABS: Glucose,Whole Blood 97 mg/dL (75-99)
[2017-09-13 20:20] LABS: Glucose,Whole Blood 195 mg/dL (75-99)
[2017-09-13] MEDS: LISINOPRIL 20 MG TAB PO SCH (21:00)
[2017-09-13] MEDS: cloZAPine 100 MG TAB PO SCH (21:00)
[2017-09-14 06:48] LABS: Glucose,Whole Blood 117 mg/dL (75-99)
[2017-09-14] MEDS: INSULIN LISPRO (humaLOG) 300 UNIT/3 ML VIAL SQ SCH ×4 (07:39→20:14)
[2017-09-14] MEDS: LORazepam 0.5 MG TAB PO SCH ×3 (07:40→17:32)
[2017-09-14] MEDS: PROPRANOLOL 20 MG TAB PO SCH ×2 (09:08→21:19)
[2017-09-14] MEDS: lamoTRIgine 100 MG TAB PO SCH ×2 (09:08→21:20)
[2017-09-14] MEDS: BENZTROPINE MESYLATE 0.5 MG TAB PO SCH ×2 (09:09→21:20)
[2017-09-14] MEDS: LORazepam 1 MG TAB PO SCH (09:10)
[2017-09-14] MEDS: busPIRone HCl 10 MG TAB PO SCH ×2 (09:10→21:21)
[2017-09-14] MEDS: LORATADINE-PSEUDOEPH 5-120 MG 1 EACH TAB.ER.12H PO SCH ×2 (09:10→21:21)
[2017-09-14] MEDS: CLOTRIMAZOLE 1% CREAM 15 GM TUBE TOPICAL SCH ×2 (09:11→21:46)
[2017-09-14] MEDS: LITHIUM CARBONATE 300 MG CAP PO SCH ×2 (09:12→21:20)
[2017-09-14 12:48] LABS: Glucose,Whole Blood 122 mg/dL (75-99)
[2017-09-14 17:30] LABS: Glucose,Whole Blood 134 mg/dL (75-99)
[2017-09-14 20:13] LABS: Glucose,Whole Blood 221 mg/dL (75-99)
[2017-09-14] MEDS: cloZAPine 100 MG TAB PO SCH (21:19)
--- NOTE | 2017-09-14 21:20 | P.PN ---
Progress Note - Text Progress Note Date: 09/15/17 Interval History: Patient continues to struggle with intrusive thoughts of self harm and SI. Unchanged from previous exam, however peers to be interesting better with peers on unit and this increased socialization has prognosticated the start of improvement in the past. Mental Status Exam: Appearance: alert, well groomed, appears stated age, steady gait Behavior: no psychomotor agitation or psychomotor retardation, no abnormal movements, fair eye contact Attitude: cooperative Speech: normal rate, rhythm, fluency, articulation, volume, and prosody; primary language: Maori Mood: anxious (improved?) Affect: dull, dim, restricted Thought processes: linear Thought content: patient does not appear to be responding to internal stimuli; patient denies auditory and visual hallucinations, no delusions appreciated, endorses obsessions and compulsions daily that are overwhelming with obsessional content to harm self and feelings of hopeless and fatigue and just "giving up" Insight: fair Judgment: fair Cognitive: oriented to all 3 spheres, average intelligence Plan: Continue hospitalization, patient continues to struggle with SI, no medications warranted today VS, patient is dehydrated with slightly elevated CR, order placed to encourage fluids Otherwise continue current regimen SW has been asked to contact [facility] to discharge options for OCD such as Exposure Therapy
[2017-09-14] MEDS: LISINOPRIL 20 MG TAB PO SCH (21:46)
[2017-09-15 06:20] LABS: Glucose,Whole Blood 150 mg/dL (75-99)
[2017-09-15] MEDS: INSULIN LISPRO (humaLOG) 300 UNIT/3 ML VIAL SQ SCH ×4 (08:16→20:20)
[2017-09-15] MEDS: LORazepam 0.5 MG TAB PO SCH ×3 (08:16→17:50)
[2017-09-15] MEDS: BENZTROPINE MESYLATE 0.5 MG TAB PO SCH ×2 (09:17→21:48)
[2017-09-15] MEDS: LITHIUM CARBONATE 300 MG CAP PO SCH ×2 (09:18→21:50)
[2017-09-15] MEDS: busPIRone HCl 10 MG TAB PO SCH ×2 (09:18→21:48)
[2017-09-15] MEDS: CLOTRIMAZOLE 1% CREAM 15 GM TUBE TOPICAL SCH ×2 (09:18→21:48)
[2017-09-15] MEDS: lamoTRIgine 100 MG TAB PO SCH ×2 (09:18→21:50)
[2017-09-15] MEDS: LORATADINE-PSEUDOEPH 5-120 MG 1 EACH TAB.ER.12H PO SCH ×2 (09:19→21:50)
[2017-09-15] MEDS: LORazepam 1 MG TAB PO SCH (09:20)
[2017-09-15] MEDS: PROPRANOLOL 20 MG TAB PO SCH ×2 (09:20→21:50)
[2017-09-15 09:30] LABS: Anion Gap 10 mmol/L; Blood Urea Nitrogen 25 mg/dL (9-20); Calcium 9.9 mg/dL (8.4-10.2); Carbon Dioxide 26 mmol/L (22-30); Chloride 109 mmol/L (98-107); Glucose 143 mg/dL (74-99); Non-African American GFR(MDRD) 57 (>60 ml/min/1.73 sqM); Potassium 3.9 mmol/L (3.5-5.1); Sodium 145 mmol/L (137-145)
[2017-09-15 12:49] LABS: Glucose,Whole Blood 138 mg/dL (75-99)
[2017-09-15 17:56] LABS: Glucose,Whole Blood 121 mg/dL (75-99)
--- NOTE | 2017-09-15 19:08 | P.PN ---
Progress Note - Text Progress Note Date: 09/15/17 Interval History: Patient continues to struggle with intrusive thoughts of self harm and SI. Unchanged from previous exam, however peers to be interesting better with peers on unit and this increased socialization has prognosticated the start of improvement in the past. Patient continues to participate in group and recreational therapies He is eating well and as a whole sleeping better. [facility] apparently does not provide exposure therapy for OCD, SW continues to seek outside resources. Mental Status Exam: Appearance: alert, well groomed, appears stated age, steady gait Behavior: no psychomotor agitation or psychomotor retardation, no abnormal movements, fair eye contact Attitude: cooperative Speech: normal rate, rhythm, fluency, articulation, volume, and prosody; primary language: Ugandan Mood: anxious (improved?) Affect: dull, dim, restricted Thought processes: linear Thought content: patient does not appear to be responding to internal stimuli; patient denies auditory and visual hallucinations, no delusions appreciated, endorses obsessions and compulsions daily that are overwhelming with obsessional content to harm self and feelings of hopeless and fatigue and just "giving up" Insight: fair Judgment: fair Cognitive: oriented to all 3 spheres, average intelligence Plan: Continue hospitalization, patient continues to struggle with SI, no medications warranted today Continue patient is dehydrated with slightly elevated CR, order placed to encourage fluids Decrease Ativan 0.50mg PO QAM + 0.5-mg PO TID otherwise continue current regimen SW has been asked to contact outside resources to discharge options for OCD such as Exposure Therapy
[2017-09-15 20:20] LABS: Glucose,Whole Blood 202 mg/dL (75-99)
[2017-09-15] MEDS ORDERED: cloZAPine 100 MG TAB PO SCH (21:00)
[2017-09-15] MEDS: cloZAPine 100 MG TAB PO SCH (21:49)
[2017-09-15] MEDS: LISINOPRIL 20 MG TAB PO SCH (21:49)
[2017-09-16 06:36] LABS: Glucose,Whole Blood 122 mg/dL (75-99)
[2017-09-16] MEDS: INSULIN LISPRO (humaLOG) 300 UNIT/3 ML VIAL SQ SCH ×2 (07:39→13:23)
[2017-09-16] MEDS: LORazepam 0.5 MG TAB PO SCH ×4 (08:17→17:18)
[2017-09-16] MEDS: lamoTRIgine 100 MG TAB PO SCH ×2 (09:13→20:54)
[2017-09-16] MEDS: BENZTROPINE MESYLATE 0.5 MG TAB PO SCH ×2 (09:13→20:51)
[2017-09-16] MEDS: busPIRone HCl 10 MG TAB PO SCH ×2 (09:13→20:51)
[2017-09-16] MEDS: PROPRANOLOL 20 MG TAB PO SCH ×2 (09:14→20:55)
[2017-09-16] MEDS: LORATADINE-PSEUDOEPH 5-120 MG 1 EACH TAB.ER.12H PO SCH ×2 (09:14→20:54)
[2017-09-16] MEDS: CLOTRIMAZOLE 1% CREAM 15 GM TUBE TOPICAL SCH ×2 (09:17→20:51)
[2017-09-16] MEDS: LITHIUM CARBONATE 300 MG CAP PO SCH ×2 (09:57→20:54)
[2017-09-16 10:19] LABS: Basophils % (A) 0 %; CH 29.6; CHCM 34.7; Eosinophils # (A) 0.2 k/uL (0-0.7); Eosinophils % (A) 2 %; HCT 42.1 % (39.0-53.0); HDW 2.88; HGB 14.4 gm/dL (13.0-17.5); Luc # (Auto) 0.08; Luc % (Auto) 1; Lymphocytes # (A) 1.9 k/uL (1.0-4.8); Lymphocytes % (A) 19 %; MCH 29.3 pg (25.0-35.0); MCHC 34.2 g/dL (31.0-37.0); MCV 85.8 fL (80.0-100.0); Mean Platelet Volume 7.2; Monocytes # (A) 0.4 k/uL (0-1.0); Monocytes % (A) 4 %; Neutrophils # (A) 7.3 k/uL (1.3-7.7); Neutrophils % (A) 74 %; WBC (Perox) 10.04
[2017-09-16 10:38] LABS: Anion Gap 9 mmol/L; Blood Urea Nitrogen 22 mg/dL (9-20); Calcium 9.5 mg/dL (8.4-10.2); Carbon Dioxide 27 mmol/L (22-30); Chloride 104 mmol/L (98-107); Glucose 241 mg/dL (74-99); Lithium 0.4 mmol/L; Non-African American GFR(MDRD) 54 (>60 ml/min/1.73 sqM); Potassium 3.6 mmol/L (3.5-5.1); Sodium 140 mmol/L (137-145)
[2017-09-16 12:23] LABS: Glucose,Whole Blood 144 mg/dL (75-99)
[2017-09-16] MEDS: INSULIN ASPART 100 UNIT/ML 1 ML 10 ML VIAL SQ SCH ×2 (16:56→21:07)
[2017-09-16 16:57] LABS: Glucose,Whole Blood 100 mg/dL (75-99)
--- NOTE | 2017-09-16 19:57 | P.PN ---
Subjective Principal diagnosis: OCD Interval History: Patient reports today some improvements in depressed mood although he continues to endorse intrusive suicidal obsessional thoughts to self harm/kill. Patient spoke with sister. Family remain strong, positive influence. Patient is attending [employer] groups. Talked to sister on phone and reports it went well. Mental Status Exam: Appearance: alert, well groomed, appears stated age, steady gait Behavior: no psychomotor agitation or psychomotor retardation, no abnormal movements, fair eye contact Attitude: cooperative Speech: normal rate, rhythm, fluency, articulation, volume, and prosody; primary language: Swiss Mood: anxious (improved?) Affect: dull, dim, restricted Thought processes: linear Thought content: patient does not appear to be responding to internal stimuli; patient denies auditory and visual hallucinations, no delusions appreciated, endorses obsessions and compulsions daily that are overwhelming with obsessional content to harm self and feelings of hopeless and fatigue and just "giving up" Insight: fair Judgment: fair Cognitive: oriented to all 3 spheres, average intelligence Plan: Continue hospitalization, patient continues to struggle with SI, no medications warranted today Continue encourage fluids SW contact [facility] and other resource in the local area for Exposure therapy OP Objective - Vital Signs Vital signs: Vital Signs Temp 97.9 F 09/16/17 06:35 Pulse 71 09/16/17 09:10 Resp 16 09/16/17 09:10 BP 142/90 09/16/17 09:10 Pulse Ox 98 09/03/17 22:25 - Labs CBC & Chem 7: 09/16/17 09:53 09/16/17 09:53 Labs: Abnormal Lab Results - Last 24 Hours (Table) 09/15/17 09/15/17 09/15/17 Range/Units 12:47 17:48 20:18 POC Glucose (mg/dL) 138 H 121 H 202 H (75-99) mg/dL 09/16/17 Range/Units 06:29 POC Glucose (mg/dL) 122 H (75-99) mg/dL Assessment and Plan (1) Obsessive compulsive disorder Current Visit: Yes Status: Chronic Priority: High Code(s): F42.9 - OBSESSIVE-COMPULSIVE DISORDER, UNSPECIFIED SNOMED Code(s): 231608577 (2) Alcohol use disorder, severe, in sustained remission Current Visit: Yes Status: Chronic Priority: Medium Code(s): F10.21 - ALCOHOL DEPENDENCE, IN REMISSION SNOMED Code(s): 13811856
[2017-09-16 20:06] LABS: Glucose,Whole Blood 187 mg/dL (75-99)
[2017-09-16] MEDS: cloZAPine 100 MG TAB PO SCH (20:53)
[2017-09-16] MEDS: LISINOPRIL 20 MG TAB PO SCH (20:54)
[2017-09-17 06:22] LABS: Glucose,Whole Blood 141 mg/dL (75-99)
[2017-09-17] MEDS: INSULIN ASPART 100 UNIT/ML 1 ML 10 ML VIAL SQ SCH ×4 (08:05→21:03)
[2017-09-17] MEDS: LORazepam 0.5 MG TAB PO SCH ×4 (08:05→17:56)
[2017-09-17 08:35] LABS: Anion Gap 8 mmol/L; Blood Urea Nitrogen 22 mg/dL (9-20); Calcium 9.4 mg/dL (8.4-10.2); Carbon Dioxide 28 mmol/L (22-30); Chloride 109 mmol/L (98-107); Glucose 124 mg/dL (74-99); Non-African American GFR(MDRD) 56 (>60 ml/min/1.73 sqM); Potassium 3.8 mmol/L (3.5-5.1); Sodium 145 mmol/L (137-145)
[2017-09-17] MEDS: BENZTROPINE MESYLATE 0.5 MG TAB PO SCH ×2 (09:09→21:08)
[2017-09-17] MEDS: PROPRANOLOL 20 MG TAB PO SCH ×2 (09:10→21:07)
[2017-09-17] MEDS: lamoTRIgine 100 MG TAB PO SCH ×2 (09:10→21:07)
[2017-09-17] MEDS: busPIRone HCl 10 MG TAB PO SCH ×2 (09:10→21:08)
[2017-09-17] MEDS: LORATADINE-PSEUDOEPH 5-120 MG 1 EACH TAB.ER.12H PO SCH ×2 (09:10→21:08)
[2017-09-17] MEDS: LITHIUM CARBONATE 300 MG CAP PO SCH ×2 (09:10→21:07)
[2017-09-17] MEDS: CLOTRIMAZOLE 1% CREAM 15 GM TUBE TOPICAL SCH ×2 (09:11→21:06)
[2017-09-17 12:07] LABS: Glucose,Whole Blood 195 mg/dL (75-99)
[2017-09-17 13:26] VITALS: BMI 31.2
[2017-09-17 17:28] LABS: Glucose,Whole Blood 107 mg/dL (75-99)
[2017-09-17 20:09] LABS: Glucose,Whole Blood 207 mg/dL (75-99)
[2017-09-17] MEDS: cloZAPine 100 MG TAB PO SCH (21:07)
[2017-09-17] MEDS: LISINOPRIL 20 MG TAB PO SCH (21:08)
--- NOTE | 2017-09-17 21:10 | P.PN ---
Subjective Progress Note Date: 09/17/17 Principal diagnosis: OCD Interval History: Patient continues to improve and is noted this afternoon to be smiling and joking with staff and peers. His affect is marked brighter and more reactive than admission. Patient continues to endorse obsessional thoughts but report today they are attenuated almost entirely with social engagement. Patient compliant with all medications. Attends all meals. Attends most groups, and reports he is sleeping well. Mental Status Exam: Appearance: alert, well groomed, appears stated age, steady gait Behavior: no psychomotor agitation or psychomotor retardation, no abnormal movements, fair eye contact Attitude: cooperative Speech: normal rate, rhythm, fluency, articulation, volume, and prosody; primary language: Thai Mood: jocular Affect: bright, reactive, congruent Thought processes: linear Thought content: patient does not appear to be responding to internal stimuli; patient denies auditory and visual hallucinations, no delusions appreciated, endorses obsessions that are still disturbing but attenuate with social engagement Insight: fair Judgment: fair Cognitive: oriented to all 3 spheres, average intelligence Plan: Continue hospitalization, patient continues to struggle with SI, no medications warranted today Continue current regimen Continue to encourage fluids, CR is still high SW contact [facility] to arrange OP community based resources resources as patient as patient responds well to any form of social engagement Objective - Vital Signs Vital signs: Vital Signs Temp 97.8 F 09/17/17 06:46 Pulse 70 09/17/17 17:57 Resp 14 09/17/17 09:10 BP 147/95 09/17/17 17:57 Pulse Ox 98 09/03/17 22:25 Intake & Output 09/17/17 09/17/17 09/18/17 06:59 18:59 06:59 Weight 95.9 kg - Labs CBC & Chem 7: 09/16/17 09:53 09/17/17 07:55 Labs: Abnormal Lab Results - Last 24 Hours (Table) 09/17/17 09/17/17 09/17/17 Range/Units 06:21 07:55 11:59 Chloride 109 H (98-107) mmol/L BUN 22 H (9-20) mg/dL Creatinine 1.34 H (0.66-1.25) mg/dL Glucose 124 H (74-99) mg/dL POC Glucose (mg/dL) 141 H 195 H (75-99) mg/dL 09/17/17 09/17/17 Range/Units 17:27 20:05 Chloride (98-107) mmol/L BUN (9-20) mg/dL Creatinine (0.66-1.25) mg/dL Glucose (74-99) mg/dL POC Glucose (mg/dL) 107 H 207 H (75-99) mg/dL Assessment and Plan (1) Obsessive compulsive disorder Current Visit: Yes Status: Chronic Priority: High Code(s): F42.9 - OBSESSIVE-COMPULSIVE DISORDER, UNSPECIFIED SNOMED Code(s): 556349108 (2) Alcohol use disorder, severe, in sustained remission Current Visit: Yes Status: Chronic Priority: Medium Code(s): F10.21 - ALCOHOL DEPENDENCE, IN REMISSION SNOMED Code(s): 18127123
[2017-09-18 06:15] LABS: Glucose,Whole Blood 118 mg/dL (75-99)
[2017-09-18] MEDS: INSULIN ASPART 100 UNIT/ML 1 ML 10 ML VIAL SQ SCH ×4 (07:30→20:15)
[2017-09-18] MEDS: LORazepam 0.5 MG TAB PO SCH ×4 (07:58→17:40)
[2017-09-18] MEDS: PROPRANOLOL 20 MG TAB PO SCH ×2 (08:57→21:07)
[2017-09-18] MEDS: LORATADINE-PSEUDOEPH 5-120 MG 1 EACH TAB.ER.12H PO SCH ×2 (08:57→21:05)
[2017-09-18] MEDS: busPIRone HCl 10 MG TAB PO SCH ×2 (08:57→21:06)
[2017-09-18] MEDS: LITHIUM CARBONATE 300 MG CAP PO SCH ×2 (08:58→21:06)
[2017-09-18] MEDS: lamoTRIgine 100 MG TAB PO SCH ×2 (08:58→21:06)
[2017-09-18] MEDS: BENZTROPINE MESYLATE 0.5 MG TAB PO SCH ×2 (08:58→21:06)
[2017-09-18] MEDS: CLOTRIMAZOLE 1% CREAM 15 GM TUBE TOPICAL SCH ×2 (09:00→21:05)
[2017-09-18 10:10] LABS: Anion Gap 9 mmol/L; Blood Urea Nitrogen 20 mg/dL (9-20); Calcium 9.5 mg/dL (8.4-10.2); Carbon Dioxide 25 mmol/L (22-30); Chloride 106 mmol/L (98-107); Glucose 244 mg/dL (74-99); Non-African American GFR(MDRD) 58 (>60 ml/min/1.73 sqM); Potassium 3.7 mmol/L (3.5-5.1); Sodium 140 mmol/L (137-145)
[2017-09-18 12:58] LABS: Glucose,Whole Blood 139 mg/dL (75-99)
[2017-09-18 17:08] LABS: Glucose,Whole Blood 100 mg/dL (75-99)
[2017-09-18 20:00] LABS: Glucose,Whole Blood 190 mg/dL (75-99)
--- NOTE | 2017-09-18 20:26 | P.PN ---
Subjective Principal diagnosis: OCD Abnormal Lab Results 09/17/17 09/18/17 09/18/17 20:05 06:07 08:53 Sodium 140 Potassium 3.7 Chloride 106 Carbon Dioxide 25 Anion Gap 9 BUN 20 Creatinine 1.30 H Est GFR (MDRD) Af Amer >60 Est GFR (MDRD) Non-Af 58 Glucose 244 H POC Glucose (mg/dL) 207 H 118 H POC Glu Inspector [employer] ID Agnes Lombardo Kathryn Calcium 9.5 Interval History: Patient observed socializing on the unit prior to interview jesting with a peer prior to interview. Patient reports today that despite improvements he still feels depressed, still has obsessional thoughts, and still has suicidal thoughts. Patient was reminded that he was recently laughing and joking with a peer - something he would have never done at time of admission so he most certainly is improving. Patient was encouraged to view his recovery in steps and not absolutes. Patient was reminded that he has always had some baseline depression, obsessional thoughts, and suicidal thoughts. Patient's BUN and CR both remain slightly elevated despite patient/reporting adequate hydration. Review of patient's medical record is also significant for uncontrolled HTN. Mental Status Exam: Appearance: alert, well groomed, appears stated age, steady gait Behavior: no psychomotor agitation or psychomotor retardation, no abnormal movements, fair eye contact Attitude: cooperative Speech: normal rate, rhythm, fluency, articulation, volume, and prosody; primary language: Syriac Mood: jocular Affect: bright, reactive, congruent Thought processes: linear Thought content: patient does not appear to be responding to internal stimuli; patient denies auditory and visual hallucinations, no delusions appreciated, endorses obsessions that are still disturbing but attenuate with social engagement Insight: fair Judgment: fair Cognitive: oriented to all 3 spheres, average intelligence Plan: Continue hospitalization, patient continues to struggle with SI, no medications warranted today Continue current regimen Continue to encourage fluids, CR is still high, consider Nephrology consult SW contact [facility] to arrange OP community based resources resources as patient as patient responds well to any form of social engagement Objective - Vital Signs Vital signs: Vital Signs Temp 98.1 F 09/18/17 06:48 Pulse 70 09/18/17 09:48 Resp 20 09/18/17 09:48 BP 165/103 09/18/17 09:48 Pulse Ox 98 09/03/17 22:25 Intake & Output 09/17/17 09/18/17 09/18/17 18:59 06:59 18:59 Weight 95.9 kg - Labs CBC & Chem 7: 09/16/17 09:53 09/18/17 08:53 Labs: Abnormal Lab Results - Last 24 Hours (Table) 09/17/17 09/17/17 09/17/17 Range/Units 11:59 17:27 20:05 POC Glucose (mg/dL) 195 H 107 H 207 H (75-99) mg/dL 09/18/17 Range/Units 06:07 POC Glucose (mg/dL) 118 H (75-99) mg/dL Assessment and Plan (1) Obsessive compulsive disorder Current Visit: Yes Status: Chronic Priority: High Code(s): F42.9 - OBSESSIVE-COMPULSIVE DISORDER, UNSPECIFIED SNOMED Code(s): 256591747 (2) Alcohol use disorder, severe, in sustained remission Current Visit: Yes Status: Chronic Priority: Medium Code(s): F10.21 - ALCOHOL DEPENDENCE, IN REMISSION SNOMED Code(s): 69516754
[2017-09-18] MEDS: cloZAPine 100 MG TAB PO SCH (21:05)
[2017-09-18] MEDS: LISINOPRIL 20 MG TAB PO SCH (21:06)
[2017-09-19 06:17] LABS: Glucose,Whole Blood 126 mg/dL (75-99)
[2017-09-19] MEDS: INSULIN ASPART 100 UNIT/ML 1 ML 10 ML VIAL SQ SCH ×4 (07:44→20:06)
[2017-09-19] MEDS: LORazepam 0.5 MG TAB PO SCH ×4 (08:24→17:46)
[2017-09-19 08:59] LABS: Anion Gap 8 mmol/L; Blood Urea Nitrogen 21 mg/dL (9-20); Calcium 9.6 mg/dL (8.4-10.2); Carbon Dioxide 26 mmol/L (22-30); Chloride 110 mmol/L (98-107); Glucose 143 mg/dL (74-99); Non-African American GFR(MDRD) 58 (>60 ml/min/1.73 sqM); Potassium 3.8 mmol/L (3.5-5.1); Sodium 144 mmol/L (137-145)
[2017-09-19] MEDS: busPIRone HCl 10 MG TAB PO SCH ×2 (09:58→21:29)
[2017-09-19] MEDS: PROPRANOLOL 20 MG TAB PO SCH ×2 (09:58→21:27)
[2017-09-19] MEDS: lamoTRIgine 100 MG TAB PO SCH ×2 (09:59→21:29)
[2017-09-19] MEDS: LITHIUM CARBONATE 300 MG CAP PO SCH ×2 (10:00→21:27)
[2017-09-19] MEDS: CLOTRIMAZOLE 1% CREAM 15 GM TUBE TOPICAL SCH ×2 (10:00→21:30)
[2017-09-19] MEDS: LORATADINE-PSEUDOEPH 5-120 MG 1 EACH TAB.ER.12H PO SCH ×2 (10:00→21:28)
[2017-09-19] MEDS: BENZTROPINE MESYLATE 0.5 MG TAB PO SCH ×2 (10:00→21:27)
[2017-09-19 11:51] LABS: Glucose,Whole Blood 158 mg/dL (75-99)
--- NOTE | 2017-09-19 14:17 | PN ---
PROGRESS NOTE DATE OF SERVICE: 09/19/2017. CHIEF COMPLAINT: The patient was admitted due to depression with suicide thinking. He has a history of OCD and seasonal affective disorder. He has had compulsive behaviors. He has had increasing problems with thoughts that he should be . INTERVAL HISTORY: Patient has been doing fair. He had a quiet evening last night. He slept fairly well today. He has been up and about. I note that Dr. Mckinney yesterday indicated that the patient was still having problems with mood being down, some persistence of obsessional thoughts and still having some suicide thoughts. On the other hand, the patient also has had some periods where he seems to be able to socialize a little more where he will interact and laugh some. The patient confirmed that note saying that overall he feels that he is gaining a little bit in his treatment. He still says that his mood is down and he has voices or thoughts in his head that sometimes are hard to get away from. He has been cooperative. He has not had change in his general health. He tolerates his psychotropic medications. MENTAL STATUS: Patient gave fair eye contact. Psychomotor activity was slowed. Speech was monotone and soft. He answered questions with brief responses. His thoughts were clear. His affect blunted. His mood was reserved. He did appear to be significantly distressed. ASSESSMENT: I will continue the current diagnosis and treatment plan. We will continue to engage the patient in individual and group therapeutic activities. I will continue psychotropic medications the same. Patient says that he has not had problems with the medicines and given the complicated nature of his medicines at this point, I would defer to Dr. Mckinney for any further adjustments. We will continue to focus on stabilization and discharge planning. MMODL / IJN: [id number] /
[2017-09-19 17:40] LABS: Glucose,Whole Blood 108 mg/dL (75-99)
[2017-09-19 20:12] LABS: Glucose,Whole Blood 207 mg/dL (75-99)
[2017-09-19] MEDS: cloZAPine 100 MG TAB PO SCH ×2 (21:27→21:28)
[2017-09-19] MEDS: LISINOPRIL 20 MG TAB PO SCH (21:28)
[2017-09-20 05:42] LABS: Glucose,Whole Blood 117 mg/dL (75-99)
[2017-09-20] MEDS: INSULIN ASPART 100 UNIT/ML 1 ML 10 ML VIAL SQ SCH ×4 (07:54→20:08)
[2017-09-20] MEDS: LORazepam 0.5 MG TAB PO SCH ×4 (07:56→17:31)
[2017-09-20] MEDS: lamoTRIgine 100 MG TAB PO SCH ×2 (09:18→20:43)
[2017-09-20] MEDS: busPIRone HCl 10 MG TAB PO SCH ×2 (09:19→20:43)
[2017-09-20] MEDS: LORATADINE-PSEUDOEPH 5-120 MG 1 EACH TAB.ER.12H PO SCH ×2 (09:19→20:43)
[2017-09-20] MEDS: BENZTROPINE MESYLATE 0.5 MG TAB PO SCH ×2 (09:19→20:42)
[2017-09-20] MEDS: PROPRANOLOL 20 MG TAB PO SCH ×2 (09:19→20:42)
[2017-09-20] MEDS: LITHIUM CARBONATE 300 MG CAP PO SCH ×2 (09:20→20:43)
[2017-09-20] MEDS: CLOTRIMAZOLE 1% CREAM 15 GM TUBE TOPICAL SCH (12:23)
[2017-09-20 12:48] LABS: Glucose,Whole Blood 151 mg/dL (75-99)
[2017-09-20 17:28] LABS: Glucose,Whole Blood 104 mg/dL (75-99)
[2017-09-20 20:08] LABS: Glucose,Whole Blood 194 mg/dL (75-99)
--- NOTE | 2017-09-20 20:41 | PN ---
PROGRESS NOTE DATE OF SERVICE: 09/20/2017. CHIEF COMPLAINT: The patient was admitted due to depression with suicidal thinking. He has a history of OCD and seasonal affect disorder. He has had compulsive behaviors. He has had increasing problems with his thoughts that he should be . INTERVAL HISTORY: The patient has been doing fairly well. He had a quiet evening last night. He slept well. Today he has been up and about. Says that overall he seems to be doing somewhat better. He feels he is better today than he was yesterday and essentially said the same thing yesterday. Staff states that he still makes statements that he is depressed, anxious, and has some suicide thoughts. When I talked to him he seemed to have less of this. He felt he feels that his medications have been helping and that he is making progress. He has a better outlook. He has not had change in his general health. He tolerates his psychotropic medication. MENTAL STATUS: Patient gave fair eye contact. He was a little restless. His thoughts were clear. His affect was somewhat constricted though not significantly so. His mood was quiet. He did not appear to be distressed. ASSESSMENT: I will continue the current diagnosis and treatment plan. Continue psychotropic medications the same. The patient appears to be making progress. He is in agreement with the treatment plan and understands that the treatment plan laid out by Dr. Mckinney is heading him in the right direction. We will continue to focus on stabilization and discharge planning. MMJULIANNL / PABLO: [id number] /
[2017-09-20] MEDS: LISINOPRIL 20 MG TAB PO SCH (20:43)
[2017-09-21 06:32] LABS: Glucose,Whole Blood 116 mg/dL (75-99)
[2017-09-21] MEDS: INSULIN ASPART 100 UNIT/ML 1 ML 10 ML VIAL SQ SCH ×4 (08:14→20:07)
[2017-09-21] MEDS: LORazepam 0.5 MG TAB PO SCH ×4 (08:15→17:16)
[2017-09-21] MEDS: LITHIUM CARBONATE 300 MG CAP PO SCH ×2 (08:56→21:01)
[2017-09-21] MEDS: BENZTROPINE MESYLATE 0.5 MG TAB PO SCH ×2 (08:56→21:00)
[2017-09-21] MEDS: lamoTRIgine 100 MG TAB PO SCH ×2 (08:56→21:00)
[2017-09-21] MEDS: PROPRANOLOL 20 MG TAB PO SCH ×2 (08:56→21:01)
[2017-09-21] MEDS: LORATADINE-PSEUDOEPH 5-120 MG 1 EACH TAB.ER.12H PO SCH ×2 (08:56→21:01)
[2017-09-21] MEDS: busPIRone HCl 10 MG TAB PO SCH ×2 (08:56→21:00)
[2017-09-21] MEDS: MAG HYDROX/AL HYDROX/SIMETH 30 ML CUP PO PRN (09:44)
[2017-09-21 12:54] LABS: Glucose,Whole Blood 145 mg/dL (75-99)
[2017-09-21 15:27] LABS: Anion Gap 8 mmol/L; Blood Urea Nitrogen 23 mg/dL (9-20); Calcium 9.9 mg/dL (8.4-10.2); Carbon Dioxide 29 mmol/L (22-30); Chloride 106 mmol/L (98-107); Glucose 98 mg/dL (74-99); Non-African American GFR(MDRD) 51 (>60 ml/min/1.73 sqM); Potassium 3.8 mmol/L (3.5-5.1); Sodium 143 mmol/L (137-145)
[2017-09-21 17:32] LABS: Glucose,Whole Blood 86 mg/dL (75-99)
[2017-09-21 20:09] LABS: Glucose,Whole Blood 229 mg/dL (75-99)
[2017-09-21] MEDS: cloZAPine 100 MG TAB PO SCH (21:00)
[2017-09-21] MEDS: LISINOPRIL 20 MG TAB PO SCH (21:01)
--- NOTE | 2017-09-21 22:06 | P.PN ---
Subjective Progress Note Date: 09/21/17 Principal diagnosis: OCD Interval History: Patient is 52 year old male with OCD and Schizoaffective Disorder who has historically taken a combination of multiple medications to stabilize. At present, he has been doing well with Luvox, Clozaril, Risco, Lamictal, Buspar , and Inderal. However, patient's CR has been slowly creeping up with no response to hydration. Review of patient's medical record is also significant for HTN that has thus far not been reported. 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 Mental Status Exam: Appearance: alert, well groomed, appears stated age, steady gait Behavior: no psychomotor agitation or psychomotor retardation, no abnormal movements, fair eye contact Attitude: cooperative Speech: normal rate, rhythm, fluency, articulation, volume, and prosody; primary language: Thai Mood: jocular Affect: bright, reactive, congruent Thought processes: linear Thought content: patient does not appear to be responding to internal stimuli; patient denies auditory and visual hallucinations, no delusions appreciated, endorses obsessions that are still disturbing but attenuate with social engagement Insight: fair Judgment: fair Cognitive: oriented to all 3 spheres, average intelligence Plan: Continue hospitalization, patient continues to struggle with SI, no medications warranted today Continue current regimen BMP now and then BMP and Risco level QAM Continue to encourage fluids, CR is still high, Nephrology consulted, patient has historically done poorly without Risco but it may need to be discontinued Patient requested discharge to [facility] today; SW informed and will request a bed SW contact [facility] to arrange OP community based resources as patient as patient responds well to any form of social engagement Objective - Vital Signs Vital signs: Vital Signs Temp 97.7 F 09/21/17 07:02 Pulse 75 09/21/17 08:55 Resp 16 09/21/17 08:55 BP 140/94 09/21/17 08:55 Pulse Ox 98 09/03/17 22:25 Intake & Output 09/20/17 09/21/17 09/21/17 18:59 06:59 18:59 Weight 97.721 kg - Labs CBC & Chem 7: 09/16/17 09:53 09/21/17 14:51 Labs: Abnormal Lab Results - Last 24 Hours (Table) 09/20/17 09/20/17 09/21/17 Range/Units 17:26 20:06 06:29 POC Glucose (mg/dL) 104 H 194 H 116 H (75-99) mg/dL 09/21/17 Range/Units 12:51 POC Glucose (mg/dL) 145 H (75-99) mg/dL Assessment and Plan (1) Obsessive compulsive disorder Current Visit: Yes Status: Chronic Priority: High Code(s): F42.9 - OBSESSIVE-COMPULSIVE DISORDER, UNSPECIFIED SNOMED Code(s): 560352173 (2) Alcohol use disorder, severe, in sustained remission Current Visit: Yes Status: Chronic Priority: Medium Code(s): F10.21 - ALCOHOL DEPENDENCE, IN REMISSION SNOMED Code(s): 84130143
[2017-09-22] MEDS: MAG HYDROX/AL HYDROX/SIMETH 30 ML CUP PO PRN (01:35)
[2017-09-22 06:50] LABS: Glucose,Whole Blood 108 mg/dL (75-99)
[2017-09-22] MEDS: INSULIN ASPART 100 UNIT/ML 1 ML 10 ML VIAL SQ SCH ×4 (08:13→20:21)
[2017-09-22] MEDS: lamoTRIgine 100 MG TAB PO SCH ×2 (08:22→21:43)
[2017-09-22] MEDS: LORazepam 0.5 MG TAB PO SCH ×4 (08:22→17:59)
[2017-09-22] MEDS: BENZTROPINE MESYLATE 0.5 MG TAB PO SCH ×2 (08:23→21:43)
[2017-09-22] MEDS: busPIRone HCl 10 MG TAB PO SCH ×2 (08:23→21:43)
[2017-09-22] MEDS: LORATADINE-PSEUDOEPH 5-120 MG 1 EACH TAB.ER.12H PO SCH ×2 (08:23→21:44)
[2017-09-22] MEDS: LITHIUM CARBONATE 300 MG CAP PO SCH ×2 (08:23→21:44)
[2017-09-22] MEDS: PROPRANOLOL 20 MG TAB PO SCH ×2 (08:24→21:44)
[2017-09-22 09:10] LABS: Anion Gap 8 mmol/L; Blood Urea Nitrogen 23 mg/dL (9-20); Carbon Dioxide 31 mmol/L (22-30); Chloride 107 mmol/L (98-107); Glucose 133 mg/dL (74-99); Lithium 0.5 mmol/L; Non-African American GFR(MDRD) 54 (>60 ml/min/1.73 sqM); Potassium 3.9 mmol/L (3.5-5.1); Sodium 146 mmol/L (137-145)
[2017-09-22 12:42] LABS: Glucose,Whole Blood 141 mg/dL (75-99)
[2017-09-22] MEDS: amLODIPine 5 MG TAB PO SCH (14:48)
[2017-09-22] MEDS ORDERED: NALTREXONE 380 MG IM ONE (15:00)
[2017-09-22 18:03] LABS: Glucose,Whole Blood 125 mg/dL (75-99)
[2017-09-22 20:21] LABS: Glucose,Whole Blood 184 mg/dL (75-99)
--- NOTE | 2017-09-22 20:34 | CONS ---
CONSULTATION Patient is seen for evaluation for renal failure and possible diabetes insipidus secondary to lithium. HISTORY OF PRESENT ILLNESS: Patient is a 52-year-old male with history of schizoaffective/obsessive-compulsive disorder who is currently admitted in inpatient rehab and he is currently maintained on lithium. Patient states he had been on lithium previously for many years and then he was off of it and was recently started again about 1-1/2 years ago. His serum creatinine has been at about 1.3-1.4 mg/dL. Previous creatinine in August was 1.2, and we have also serum creatinine of 1.17-1.2 in November of 2015. Patient denies excessive intake of water. He states he has always had good fluid intake and has not noticed any increase recently in the past few months. The serum sodium has been at 140 to 146 mEq/L. Urine output is not charted. PAST MEDICAL HISTORY: Significant for hypertension, bipolar disorder, type 2 diabetes, gastroesophageal reflux disease, hyperlipidemia, obstructive sleep apnea, maintained on CPAP. PAST SURGICAL HISTORY: Hernia repair. SOCIAL HISTORY: Negative for smoking, drug abuse or alcohol abuse. REVIEW OF SYSTEMS: As per HPI. Other systems negative. MEDICATIONS: Medications at home include Zestril, Inderal, BuSpar, lithium, Clozaril, Lamictal. ALLERGIES: INCLUDE PENICILLIN AND RISPERDAL. EXAMINATION: Patient is currently comfortable, awake, alert, oriented x3, not in any acute distress. Blood pressure is 158/102, heart rate 78 per minute. He is afebrile. Examination of the heart S1, S2. Examination lungs bilateral breath sounds are heard. Abdomen is soft, nontender. Examination lower extremity shows no evidence of edema. [employer] exam is grossly intact. LAB: Show sodium 146, potassium 3.9, BUN 23, serum creatinine 1.4. Calcium was 10.0. [place] level 0.5. The UA shows trace glucose, no blood, no protein or cells. ASSESSMENT: 1. Chronic kidney disease, most likely secondary to nephrosclerosis with perhaps an element of prerenal azotemia. The patient is encouraged to maintain good oral intake. I will check a 24 hour urine output to see if the patient has polyuria. His sodium is slightly towards the higher side and at this time he is encouraged to increase his free water to maintain good free water intake. 2. Schizoaffective disorder, maintained on lithium. 3. Hypertension currently uncontrolled. Will add low-dose calcium channel blockers. 4. Type 2 diabetes, maintained on insulin. PLAN: Add Norvasc. Measure 24 hour urine output and maintain adequate fluid intake and repeat labs in 1-2 days. Continue with the Zestril at the current dose for now. Thank you for this consultation. We will continue to follow the patient with you during his hospitalization. MMODL / IJN: [id number] /
[2017-09-22] MEDS: cloZAPine 100 MG TAB PO SCH (21:43)
[2017-09-22] MEDS: LISINOPRIL 20 MG TAB PO SCH (21:44)
--- NOTE | 2017-09-22 22:20 | P.PN ---
Subjective Principal diagnosis: OCD Interval History: Patient is 52 year old male with OCD and Schizoaffective Disorder who has historically taken a combination of multiple medications to stabilize. At present, he has been doing well with Luvox, Clozaril, [place], Lamictal, Buspar , and Inderal. Patient was evaluated by Nephrology today. Patient remains in a bright, upbeat mood. He continues to socialize well in groups. He still will endorse SI when asked, but his responses now are much less intense than initially.Discussed with patient today plan of increasing OP therapy with Sheridan Munoz to 2x per week and adding Peer Support instead of going to to [facility], however patient is adamant that he would do better if he went to [facility]. He states he has been there in the past and he feels the environment will help him further back to home so he does not relapse. Mental Status Exam: Appearance: alert, well groomed, appears stated age, steady gait Behavior: no psychomotor agitation or psychomotor retardation, no abnormal movements, fair eye contact Attitude: cooperative Speech: normal rate, rhythm, fluency, articulation, volume, and prosody; primary language: Malaysian Mood: jocular Affect: bright, reactive, congruent Thought processes: linear Thought content: patient does not appear to be responding to internal stimuli; patient denies auditory and visual hallucinations, no delusions appreciated, endorses obsessions that are still disturbing but attenuate with social engagement Insight: fair Judgment: fair Cognitive: oriented to all 3 spheres, average intelligence Plan: Continue hospitalization, patient continues to struggle with SI, no medications warranted today Continue current regimen BMP/[place] level reviewed, CR remains elevated Continue to encourage fluids, CR is still high, Nephrology saw patient today , recommendations appreciated; if patient's renal failure can be somehow managed vs if [place] needs to be stopped. Patient requested discharge to [facility] today; SW informed and will request a bed SW contact [facility] to arrange OP community based resources as patient as patient responds well to any form of social engagement Objective - Vital Signs Vital signs: Vital Signs Temp 98.4 F 09/22/17 21:48 Pulse 83 09/22/17 21:48 Resp 18 09/22/17 21:48 BP 138/98 09/22/17 21:48 Pulse Ox 95 09/22/17 21:48 Intake & Output 1109/22/17 09/23/17 06:59 18:59 06:59 Output Total 525 Balance -525 Output: Urine 525 - Labs CBC & Chem 7: 09/16/17 09:53 09/22/17 08:25 Labs: Abnormal Lab Results - Last 24 Hours (Table) 09/22/17 09/22/17 09/22/17 Range/Units 06:48 08:25 12:39 Sodium 146 H (137-145) mmol/L Carbon Dioxide 31 H (22-30) mmol/L BUN 23 H (9-20) mg/dL Creatinine 1.40 H (0.66-1.25) mg/dL Glucose 133 H (74-99) mg/dL POC Glucose (mg/dL) 108 H 141 H (75-99) mg/dL 09/22/17 09/22/17 Range/Units 17:50 20:19 Sodium (137-145) mmol/L Carbon Dioxide (22-30) mmol/L BUN (9-20) mg/dL Creatinine (0.66-1.25) mg/dL Glucose (74-99) mg/dL POC Glucose (mg/dL) 125 H 184 H (75-99) mg/dL Assessment and Plan (1) Obsessive compulsive disorder Current Visit: Yes Status: Chronic Priority: High Code(s): F42.9 - OBSESSIVE-COMPULSIVE DISORDER, UNSPECIFIED SNOMED Code(s): 521724463 (2) Alcohol use disorder, severe, in sustained remission Current Visit: Yes Status: Chronic Priority: Medium Code(s): F10.21 - ALCOHOL DEPENDENCE, IN REMISSION SNOMED Code(s): 85597390
[2017-09-23 06:54] LABS: Glucose,Whole Blood 117 mg/dL (75-99)
[2017-09-23] MEDS: INSULIN ASPART 100 UNIT/ML 1 ML 10 ML VIAL SQ SCH ×4 (07:44→21:02)
[2017-09-23] MEDS: LORazepam 0.5 MG TAB PO SCH ×4 (08:14→16:59)
[2017-09-23 08:55] LABS: Basophils # (A) 0.1 k/uL (0-0.2); Basophils % (A) 1 %; CH 29.9; CHCM 34.2; Eosinophils # (A) 0.2 k/uL (0-0.7); Eosinophils % (A) 2 %; HCT 44.3 % (39.0-53.0); HDW 2.85; HGB 15.1 gm/dL (13.0-17.5); Luc # (Auto) 0.09; Luc % (Auto) 1; Lymphocytes # (A) 2.4 k/uL (1.0-4.8); Lymphocytes % (A) 22 %; MCH 29.8 pg (25.0-35.0); MCV 87.8 fL (80.0-100.0); Mean Platelet Volume 7.4; Monocytes # (A) 0.6 k/uL (0-1.0); Monocytes % (A) 5 %; Neutrophils # (A) 7.7 k/uL (1.3-7.7); Neutrophils % (A) 69 %; RBC 5.05 m/uL (4.30-5.90); RDW 14.1 % (11.5-15.5); WBC 11.1 k/uL (3.8-10.6); WBC (Perox) 11.17
[2017-09-23] MEDS: BENZTROPINE MESYLATE 0.5 MG TAB PO SCH ×2 (09:13→21:01)
[2017-09-23] MEDS: amLODIPine 5 MG TAB PO SCH (09:13)
[2017-09-23] MEDS: LORATADINE-PSEUDOEPH 5-120 MG 1 EACH TAB.ER.12H PO SCH ×2 (09:13→20:59)
[2017-09-23] MEDS: PROPRANOLOL 20 MG TAB PO SCH ×2 (09:14→20:59)
[2017-09-23] MEDS: busPIRone HCl 10 MG TAB PO SCH ×2 (09:14→21:03)
[2017-09-23] MEDS: lamoTRIgine 100 MG TAB PO SCH ×2 (09:14→21:04)
[2017-09-23] MEDS: LITHIUM CARBONATE 300 MG CAP PO SCH ×2 (09:14→21:00)
[2017-09-23 12:28] LABS: Glucose,Whole Blood 133 mg/dL (75-99)
[2017-09-23 17:12] LABS: Glucose,Whole Blood 97 mg/dL (75-99)
[2017-09-23] MEDS: ACETAMINOPHEN TAB 325 MG TAB PO PRN (18:51)
[2017-09-23 20:35] LABS: Glucose,Whole Blood 232 mg/dL (75-99)
[2017-09-23] MEDS: LISINOPRIL 20 MG TAB PO SCH (21:00)
[2017-09-23] MEDS: cloZAPine 100 MG TAB PO SCH (21:03)
--- NOTE | 2017-09-23 21:36 | P.PN ---
Subjective Progress Note Date: 09/23/17 Principal diagnosis: OCD Interval History: Patient is 52 year old male with OCD and Schizoaffective Disorder who has historically taken a combination of multiple medications to stabilize. At present, he has been doing well with Luvox, Clozaril, [place], Lamictal, Buspar , and Inderal. Patient was evaluated by Nephrology yesterday and provided a 24- hour urine collection. Patient continues to request discharge to [facility]. Reviewed with treatment team, [facility] it seems would prefer patient go home with increased access to OP therapy and surgery specialist, however a final decision by [facility] has not yet been made. Patient is overall improved, attending groups, eating well, sleeping well, compliant with medications. He has not required any emergency medication. Mental Status Exam: Appearance: alert, well groomed, appears stated age, steady gait Behavior: no psychomotor agitation or psychomotor retardation, no abnormal movements, fair eye contact Attitude: cooperative Speech: normal rate, rhythm, fluency, articulation, volume, and prosody; primary language: Ukrainian Mood: jocular Affect: bright, reactive, congruent Thought processes: linear Thought content: patient does not appear to be responding to internal stimuli; patient denies auditory and visual hallucinations, no delusions appreciated, endorses obsessions but they are mostly resolved engagement Insight: fair Judgment: fair Cognitive: oriented to all 3 spheres, average intelligence Plan: Continue hospitalization, patient continues to struggle with SI, no medications warranted today Continue current regimen BMP/[place] level reviewed, CR remains elevated, repeat CMP and HGA1C tomorrow Continue to encourage fluids, CR is still high, Nephrology saw patient today , recommendations appreciated; if patient's renal failure can be somehow managed vs if [place] needs to be stopped. Patient requested discharge to [facility] today; SW inormed and decision will be deferred to [facility] SW contact [facility] to arrange OP community based resources as patient as patient responds well to any form of social engagement Objective - Vital Signs Vital signs: Vital Signs Temp 97.9 F 09/23/17 06:48 Pulse 75 09/23/17 09:13 Resp 16 09/23/17 09:13 BP 130/90 09/23/17 09:13 Pulse Ox 95 09/22/17 21:48 Intake & Output 09/23/17 09/23/17 09/24/17 06:59 18:59 06:59 Output Total 1150 Balance -1150 Output: Urine 1150 - Labs CBC & Chem 7: 09/23/17 08:36 09/22/17 08:25 Labs: Abnormal Lab Results - Last 24 Hours (Table) 09/23/17 09/23/17 09/23/17 Range/Units 06:41 08:36 12:24 WBC 11.1 H (3.8-10.6) k/uL POC Glucose (mg/dL) 117 H 133 H (75-99) mg/dL 09/23/17 Range/Units 20:33 WBC (3.8-10.6) k/uL POC Glucose (mg/dL) 232 H (75-99) mg/dL Assessment and Plan (1) Obsessive compulsive disorder Current Visit: Yes Status: Chronic Priority: High Code(s): F42.9 - OBSESSIVE-COMPULSIVE DISORDER, UNSPECIFIED SNOMED Code(s): 478538634 (2) Alcohol use disorder, severe, in sustained remission Current Visit: Yes Status: Chronic Priority: Medium Code(s): F10.21 - ALCOHOL DEPENDENCE, IN REMISSION SNOMED Code(s): 77469358
[2017-09-24 06:24] LABS: Glucose,Whole Blood 108 mg/dL (75-99)
[2017-09-24] MEDS: INSULIN ASPART 100 UNIT/ML 1 ML 10 ML VIAL SQ SCH ×4 (07:41→21:16)
[2017-09-24] MEDS: LORazepam 0.5 MG TAB PO SCH ×4 (07:52→17:39)
[2017-09-24 08:48] LABS: Glucose 119 mg/dL (74-99); Total Protein 6.4 g/dL (6.3-8.2)
[2017-09-24 08:49] LABS: ALT 42 U/L (21-72); AST 21 U/L (17-59); Alkaline Phosphatase 68 U/L (38-126); Anion Gap 8 mmol/L; Blood Urea Nitrogen 20 mg/dL (9-20); Calcium 9.3 mg/dL (8.4-10.2); Carbon Dioxide 28 mmol/L (22-30); Chloride 108 mmol/L (98-107); Non-African American GFR(MDRD) 58 (>60 ml/min/1.73 sqM); Potassium 3.8 mmol/L (3.5-5.1); Sodium 144 mmol/L (137-145); Total Bilirubin 0.3 mg/dL (0.2-1.3)
[2017-09-24] MEDS: lamoTRIgine 100 MG TAB PO SCH ×2 (09:50→21:12)
[2017-09-24] MEDS: LITHIUM CARBONATE 300 MG CAP PO SCH ×2 (09:51→21:12)
[2017-09-24] MEDS: BENZTROPINE MESYLATE 0.5 MG TAB PO SCH ×2 (09:51→21:10)
[2017-09-24] MEDS: LORATADINE-PSEUDOEPH 5-120 MG 1 EACH TAB.ER.12H PO SCH ×2 (09:52→21:10)
[2017-09-24] MEDS: busPIRone HCl 10 MG TAB PO SCH ×2 (09:52→21:09)
[2017-09-24] MEDS: PROPRANOLOL 20 MG TAB PO SCH ×2 (09:53→21:18)
[2017-09-24] MEDS: amLODIPine 5 MG TAB PO SCH (09:54)
--- NOTE | 2017-09-24 11:15 | P.PN ---
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 Patient's currently admitted in the inpatient psychiatry unit for schizoaffective disorder. He is resting in bed. Denies chest pain or shortness of breath. Admits to good urine output. Oral intake is good. He does have chronic kidney disease stage III with baseline creatinine in the range of 1.2-1.3. He is maintained on lithium. He denies excessive water intake. His lithium level has been in the normal range. His 24-hour urine collection was not suggestive of polyuria. Vital signs are stable. General: The patient appeared well nourished and normally developed. HEENT: Head exam is unremarkable. Neck is without jugular venous distension. LUNGS: Lungs are clear to auscultation and percussion. Breath sounds decreased. HEART: Rate and Rhythm are regular. First and second heart sounds normal. No murmurs, rubs or gallops. ABDOMEN: Abdominal exam reveals normal bowel sounds. Non-tender and non- distended. No evidence of peritonitis. EXTREMITITES: No clubbing, cyanosis, or edema. Objective - Vital Signs Vital signs: Vital Signs Temp 98.3 F 09/24/17 07:00 Pulse 61 09/24/17 07:00 Resp 16 09/24/17 07:00 BP 158/93 09/24/17 07:00 Pulse Ox 95 09/22/17 21:48 - Labs CBC & Chem 7: 09/23/17 08:36 09/24/17 07:58 Labs: Abnormal Lab Results - Last 24 Hours (Table) 09/23/17 09/23/17 09/24/17 Range/Units 12:24 20:33 06:20 Chloride (98-107) mmol/L Creatinine (0.66-1.25) mg/dL Glucose (74-99) mg/dL POC Glucose (mg/dL) 133 H 232 H 108 H (75-99) mg/dL 09/24/17 Range/Units 07:58 Chloride 108 H (98-107) mmol/L Creatinine 1.30 H (0.66-1.25) mg/dL Glucose 119 H (74-99) mg/dL POC Glucose (mg/dL) (75-99) mg/dL Assessment and Plan Plan: Assessment: #1. Chronic kidney disease stage III likely secondary to nephrosclerosis. Creatinine is little better at 1.3 today. Urinalysis benign. #2. Schizoaffective disorder maintained on lithium. [place] levels not toxic. #3. Type 2 diabetes mellitus. #4. Mild hypernatremia which improved with oral water intake. #5. Hypertension with chronic kidney disease. Controlled. Plan: Avoid nephrotoxic agents and hypotensive episodes. Encouraged adequate fluid intake. Monitor electrolytes periodically. 24-hour urine collection not suggestive of polyuria.
[2017-09-24 12:36] LABS: Glucose,Whole Blood 131 mg/dL (75-99)
[2017-09-24 17:25] LABS: Glucose,Whole Blood 116 mg/dL (75-99)
[2017-09-24 20:31] LABS: Glucose,Whole Blood 177 mg/dL (75-99)
[2017-09-24] MEDS: cloZAPine 100 MG TAB PO SCH (21:09)
[2017-09-24] MEDS: LISINOPRIL 20 MG TAB PO SCH (21:09)
--- NOTE | 2017-09-24 22:31 | P.PN ---
Subjective Progress Note Date: 09/24/17 Principal diagnosis: OCD Interval History: Patient is 52 year old male with OCD and Schizoaffective Disorder who has historically taken a combination of multiple medications to stabilize. At present, he has been doing well with Luvox, Clozaril, [place], Lamictal, Buspar , and Inderal. Patient was evaluated by Nephrology consulted helping address elevated CR and HTN. [facility] met with patient discussed with him that they did not feel [facility] was the best option. Rather, patient will discharge home with home services to include twice weekly in home therapy with his [facility] therapist and a physician specialist visiting throughout the week. Patient remains overall improved, attending groups, eating well, sleeping well, compliant with medications. He has not required any emergency medication. Mental Status Exam: Appearance: alert, well groomed, appears stated age, steady gait Behavior: no psychomotor agitation or psychomotor retardation, no abnormal movements, fair eye contact Attitude: cooperative Speech: normal rate, rhythm, fluency, articulation, volume, and prosody; primary language: Lao Mood: jocular Affect: bright, reactive, congruent Thought processes: linear Thought content: patient does not appear to be responding to internal stimuli; patient denies auditory and visual hallucinations, no delusions appreciated, endorses obsessions but they are mostly resolved engagement Insight: fair Judgment: fair Cognitive: oriented to all 3 spheres, average intelligence Plan: Continue hospitalization Continue current regimen BMP/[place] level reviewed, CR remains elevated,HGA1C ordered and pending Continue to encourage fluids, CR is still high, Decrease [place] to 300-mg PO BID Provisional discharge home on 09/28/2017. [facility] has arranged for in home therapy x 2 week + learning support teacher throughout the week SW contact [facility] to arrange OP community based resources as patient as patient responds well to any form of social engagement Objective - Vital Signs Vital signs: Vital Signs Temp 98.3 F 09/24/17 07:00 Pulse 68 09/24/17 13:32 Resp 16 09/24/17 13:32 BP 129/89 09/24/17 13:32 Pulse Ox 95 09/22/17 21:48 - Labs CBC & Chem 7: 09/23/17 08:36 09/24/17 07:58 Labs: Abnormal Lab Results - Last 24 Hours (Table) 09/24/17 09/24/17 09/24/17 Range/Units 06:20 07:58 12:34 Chloride 108 H (98-107) mmol/L Creatinine 1.30 H (0.66-1.25) mg/dL Glucose 119 H (74-99) mg/dL POC Glucose (mg/dL) 108 H 131 H (75-99) mg/dL 09/24/17 09/24/17 Range/Units 17:23 20:29 Chloride (98-107) mmol/L Creatinine (0.66-1.25) mg/dL Glucose (74-99) mg/dL POC Glucose (mg/dL) 116 H 177 H (75-99) mg/dL Assessment and Plan (1) Obsessive compulsive disorder Current Visit: Yes Status: Chronic Priority: High Code(s): F42.9 - OBSESSIVE-COMPULSIVE DISORDER, UNSPECIFIED SNOMED Code(s): 732508056 (2) Alcohol use disorder, severe, in sustained remission Current Visit: Yes Status: Chronic Priority: Medium Code(s): F10.21 - ALCOHOL DEPENDENCE, IN REMISSION SNOMED Code(s): 60769382
[2017-09-24] MEDS: MAG HYDROX/AL HYDROX/SIMETH 30 ML CUP PO PRN (23:37)
[2017-09-25 06:11] LABS: Glucose,Whole Blood 127 mg/dL (75-99)
[2017-09-25] MEDS: INSULIN ASPART 100 UNIT/ML 1 ML 10 ML VIAL SQ SCH ×4 (07:40→19:52)
[2017-09-25] MEDS: LORazepam 0.5 MG TAB PO SCH ×4 (08:16→17:37)
[2017-09-25] MEDS: lamoTRIgine 100 MG TAB PO SCH ×2 (09:14→21:35)
[2017-09-25] MEDS: LORATADINE-PSEUDOEPH 5-120 MG 1 EACH TAB.ER.12H PO SCH ×2 (09:14→21:35)
[2017-09-25] MEDS: amLODIPine 5 MG TAB PO SCH (09:14)
[2017-09-25] MEDS: PROPRANOLOL 20 MG TAB PO SCH ×2 (09:15→21:35)
[2017-09-25] MEDS: BENZTROPINE MESYLATE 0.5 MG TAB PO SCH ×2 (09:15→21:34)
[2017-09-25] MEDS: LITHIUM CARBONATE 300 MG CAP PO SCH ×2 (09:15→21:35)
[2017-09-25] MEDS: busPIRone HCl 10 MG TAB PO SCH ×2 (09:15→21:34)
[2017-09-25 09:26] LABS: Anion Gap 10 mmol/L; Blood Urea Nitrogen 22 mg/dL (9-20); Calcium 9.6 mg/dL (8.4-10.2); Carbon Dioxide 25 mmol/L (22-30); Chloride 107 mmol/L (98-107); Glucose 167 mg/dL (74-99); Non-African American GFR(MDRD) 58 (>60 ml/min/1.73 sqM); Sodium 142 mmol/L (137-145)
[2017-09-25 12:30] LABS: Glucose,Whole Blood 129 mg/dL (75-99)
[2017-09-25 17:24] LABS: Glucose,Whole Blood 108 mg/dL (75-99)
[2017-09-25] MEDS ORDERED: LOPERAMIDE 2 MG CAP PO PRN (18:40)
[2017-09-25] MEDS ORDERED: MAGNESIUM HYDROXIDE 2,400 MG/10 ML CUP PO PRN (18:41)
[2017-09-25] MEDS: FAMOTIDINE 20 MG TAB PO SCH (19:35)
[2017-09-25 19:47] LABS: Glucose,Whole Blood 203 mg/dL (75-99)
[2017-09-25] MEDS: cloZAPine 100 MG TAB PO SCH (21:34)
[2017-09-25] MEDS: LISINOPRIL 20 MG TAB PO SCH (21:35)
--- NOTE | 2017-09-26 01:16 | P.PN ---
Subjective Principal diagnosis: OCD Interval History: Patient is 52 year old male with OCD and Schizoaffective Disorder who has historically taken a combination of multiple medications to stabilize. At present, he has been doing well with Luvox, Clozaril, [place], Lamictal, Buspar , and Inderal. Patient was evaluated by Nephrology consulted helping address elevated CR and HTN. [facility] met with patient discussed with him that they did not feel [facility] was the best option. Rather, patient will discharge home with home services to include twice weekly in home therapy with his [facility] therapist and a prescription benefit specialist visiting throughout the week. Patient remains overall improved, attending groups, eating well, sleeping well, compliant with medications. He has not required any emergency medication. No acute events, patient remains much improved admission. At this time, patient denies SI/HI/AVH. Mental Status Exam: Appearance: alert, well groomed, appears stated age, steady gait Behavior: no psychomotor agitation or psychomotor retardation, no abnormal movements, fair eye contact Attitude: cooperative Speech: normal rate, rhythm, fluency, articulation, volume, and prosody; primary language: Azeri Mood: jocular Affect: bright, reactive, congruent Thought processes: linear Thought content: patient does not appear to be responding to internal stimuli; patient denies auditory and visual hallucinations, no delusions appreciated, endorses obsessions but they are mostly resolved engagement Insight: fair Judgment: fair Cognitive: oriented to all 3 spheres, average intelligence Plan: Continue hospitalization Continue current regimen BMP/[place] level reviewed, CR remains elevated,HGA1C ordered and pending Continue to encourage fluids, CR is still high, Decrease [place] to 300-mg PO BID Provisional discharge home on 09/28/2017. [facility] has arranged for in home therapy x 2 week + it support manager throughout the week SW contact [facility] to arrange OP community based resources as patient as patient responds well to any form of social engagement Objective - Vital Signs Vital signs: Vital Signs Temp 98.3 F 09/24/17 07:00 Pulse 77 09/25/17 21:39 Resp 18 09/25/17 21:39 BP 136/94 09/25/17 21:39 Pulse Ox 95 09/22/17 21:48 - Labs CBC & Chem 7: 09/23/17 08:36 09/25/17 08:34 Labs: Abnormal Lab Results - Last 24 Hours (Table) 09/24/17 09/25/17 09/25/17 Range/Units 07:58 06:08 08:34 BUN 22 H (9-20) mg/dL Creatinine 1.30 H (0.66-1.25) mg/dL Glucose 167 H (74-99) mg/dL POC Glucose (mg/dL) 127 H (75-99) mg/dL Hemoglobin A1c 6.7 H (4.0-6.0) % 09/25/17 09/25/17 09/25/17 Range/Units 12:25 17:10 19:43 BUN (9-20) mg/dL Creatinine (0.66-1.25) mg/dL Glucose (74-99) mg/dL POC Glucose (mg/dL) 129 H 108 H 203 H (75-99) mg/dL Hemoglobin A1c (4.0-6.0) % Assessment and Plan (1) Obsessive compulsive disorder Current Visit: Yes Status: Chronic Priority: High Code(s): F42.9 - OBSESSIVE-COMPULSIVE DISORDER, UNSPECIFIED SNOMED Code(s): 699715359 (2) Alcohol use disorder, severe, in sustained remission Current Visit: Yes Status: Chronic Priority: Medium Code(s): F10.21 - ALCOHOL DEPENDENCE, IN REMISSION SNOMED Code(s): 87791247
[2017-09-26 06:11] LABS: Glucose,Whole Blood 115 mg/dL (75-99)
[2017-09-26] MEDS: INSULIN ASPART 100 UNIT/ML 1 ML 10 ML VIAL SQ SCH ×4 (07:46→20:57)
[2017-09-26] MEDS: LORazepam 0.5 MG TAB PO SCH ×4 (08:00→17:12)
[2017-09-26] MEDS: lamoTRIgine 100 MG TAB PO SCH ×2 (08:57→21:01)
[2017-09-26] MEDS: LORATADINE-PSEUDOEPH 5-120 MG 1 EACH TAB.ER.12H PO SCH ×2 (08:57→21:02)
[2017-09-26] MEDS: LITHIUM CARBONATE 300 MG CAP PO SCH ×2 (08:57→21:01)
[2017-09-26] MEDS: busPIRone HCl 10 MG TAB PO SCH ×2 (08:57→21:02)
[2017-09-26] MEDS: BENZTROPINE MESYLATE 0.5 MG TAB PO SCH ×2 (08:57→21:02)
[2017-09-26] MEDS: amLODIPine 5 MG TAB PO SCH (08:57)
[2017-09-26] MEDS: FAMOTIDINE 20 MG TAB PO SCH ×2 (08:58→21:01)
[2017-09-26] MEDS: PROPRANOLOL 20 MG TAB PO SCH ×2 (08:58→21:01)
[2017-09-26 12:21] LABS: Glucose,Whole Blood 142 mg/dL (75-99)
--- NOTE | 2017-09-26 15:19 | P.PN ---
Progress Note - Text Progress Note Date: 09/26/17 interval history: Patient is seen today in cross coverage for Dr. Mckinney. Reports that overall his mood is doing better but still some depression. The only side effects he makes reference to his some drooling. He reports that his OCD was also bothering him very much prior to admission. He seems to relay that all of his symptoms are somewhat better but still not where he would want them to be. He describes that he is doing better as well in terms of suicidal ideation, relays that he does feel safe here in the hospital. Mental status exam: He is alert and cooperative with the interview. His speech is fluent, not rapid or pressured. Thought processes are organized. His mood he describes some ongoing depression although it is doing better. He relays that he has continued to have some thoughts of suicide but this as well is doing better and he feels safe here in the hospital.no evidence of active psychosis symptoms. He does not show any agitation. Plan: Patient will be maintained on current psychotropic medication regimen. Continue to monitor his mood and monitor regarding any suicidal ideations. We' ll continue to cover this patient for Dr. Mckinney through the weekend.
[2017-09-26 17:09] LABS: Glucose,Whole Blood 105 mg/dL (75-99)
[2017-09-26 20:25] LABS: Glucose,Whole Blood 157 mg/dL (75-99)
[2017-09-26] MEDS: cloZAPine 100 MG TAB PO SCH (21:02)
[2017-09-26] MEDS: LISINOPRIL 20 MG TAB PO SCH (21:02)
[2017-09-27 06:39] LABS: Glucose,Whole Blood 125 mg/dL (75-99)
[2017-09-27] MEDS: INSULIN ASPART 100 UNIT/ML 1 ML 10 ML VIAL SQ SCH ×4 (07:44→20:16)
[2017-09-27] MEDS: LORazepam 0.5 MG TAB PO SCH ×4 (08:15→17:07)
[2017-09-27] MEDS: busPIRone HCl 10 MG TAB PO SCH ×2 (09:14→20:47)
[2017-09-27] MEDS: BENZTROPINE MESYLATE 0.5 MG TAB PO SCH ×2 (09:14→20:47)
[2017-09-27] MEDS: amLODIPine 5 MG TAB PO SCH (09:14)
[2017-09-27] MEDS: FAMOTIDINE 20 MG TAB PO SCH ×2 (09:15→20:48)
[2017-09-27] MEDS: LITHIUM CARBONATE 300 MG CAP PO SCH ×2 (09:15→20:49)
[2017-09-27] MEDS: lamoTRIgine 100 MG TAB PO SCH ×2 (09:15→20:49)
[2017-09-27] MEDS: LORATADINE-PSEUDOEPH 5-120 MG 1 EACH TAB.ER.12H PO SCH ×2 (09:15→20:49)
[2017-09-27] MEDS: PROPRANOLOL 20 MG TAB PO SCH ×2 (09:16→20:49)
[2017-09-27 12:11] LABS: Glucose,Whole Blood 146 mg/dL (75-99)
[2017-09-27 17:24] LABS: Glucose,Whole Blood 88 mg/dL (75-99)
--- NOTE | 2017-09-27 18:14 | P.PN ---
Progress Note - Text Progress Note Date: 09/27/17 Interval history: Patient is seen in cross coverage today for Dr. Mckinney. He seems to be eating well. He does state that his sister is coming for visiting today. He does describe some ongoing depression and irritability but relays that overall his depression is better. He admits to some thoughts of suicide at times but just tries to distract himself from this. He does not voice any adverse psychotropic medication side effects. Mental status exam: He is alert and cooperative with the interview. Speech is fluent, not rapid or pressured. His thought processes are organized. His mood he describes some depression but overall describes his mood is doing better. He admits to some thoughts of suicide at times but reports he feels safe here on the unit. He denies any thoughts of harm to others. No evidence of active psychosis or agitation. Plan: Patient will be maintained on current psychotropic medication regimen. Continue to monitor for any medication side effects and continue to monitor his mood as well as for any suicidal ideations. Dr. Mckinney to resume care this patient starting tomorrow.
[2017-09-27 20:11] LABS: Glucose,Whole Blood 175 mg/dL (75-99)
[2017-09-27] MEDS: cloZAPine 100 MG TAB PO SCH (20:47)
[2017-09-27] MEDS: LISINOPRIL 20 MG TAB PO SCH (20:49)
[2017-09-28 06:53] VITALS: BP 126/69; PULSE 77; RESP 16; TEMP 98.5
[2017-09-28 06:57] LABS: Glucose,Whole Blood 155 mg/dL (75-99)
[2017-09-28] MEDS: INSULIN ASPART 100 UNIT/ML 1 ML 10 ML VIAL SQ SCH (07:43)
[2017-09-28] MEDS: LORazepam 0.5 MG TAB PO SCH ×2 (07:48→09:17)
[2017-09-28] MEDS: LITHIUM CARBONATE 300 MG CAP PO SCH (09:17)
[2017-09-28] MEDS: FAMOTIDINE 20 MG TAB PO SCH (09:17)
[2017-09-28] MEDS: BENZTROPINE MESYLATE 0.5 MG TAB PO SCH (09:17)
[2017-09-28] MEDS: lamoTRIgine 100 MG TAB PO SCH (09:17)
[2017-09-28] MEDS: LORATADINE-PSEUDOEPH 5-120 MG 1 EACH TAB.ER.12H PO SCH (09:17)
[2017-09-28] MEDS: PROPRANOLOL 20 MG TAB PO SCH (09:17)
[2017-09-28] MEDS: amLODIPine 5 MG TAB PO SCH (09:17)
[2017-09-28] MEDS: busPIRone HCl 10 MG TAB PO SCH (09:17)
[2017-09-28 11:28] LABS: Anion Gap 10 mmol/L; Blood Urea Nitrogen 24 mg/dL (9-20); Calcium 8.7 mg/dL (8.4-10.2); Carbon Dioxide 22 mmol/L (22-30); Chloride 107 mmol/L (98-107); Glucose 185 mg/dL (74-99); Lithium 0.6 mmol/L; Non-African American GFR(MDRD) >60 (>60 ml/min/1.73 sqM); Potassium 3.7 mmol/L (3.5-5.1); Sodium 139 mmol/L (137-145)
== END 2017-09-28 11:50 | disposition home or self-care (01) | DRG 882 ==
LOC: EC 22:22 → 3MHU 09-04 02:38 → UNDODISIN 09-04 12:23
PROVIDERS: ADMIT Psychiatry & Neurology Psychiatry; ATTEND Psychiatry & Neurology Psychiatry
DX: F42.8 Other obsessive-compulsive disorder (principal); E87.0 Hyperosmolality and hypernatremia; R45.851 Suicidal ideations; E11.22 Type 2 diabetes mellitus with diabetic chronic kidney disease; E78.5 Hyperlipidemia, unspecified; F10.21 Alcohol dependence, in remission; F25.9 Schizoaffective disorder, unspecified; F41.9 Anxiety disorder, unspecified; G47.33 Obstructive sleep apnea (adult) (pediatric); I12.9 Hypertensive chronic kidney disease with stage 1 through stage 4 chronic kidney disease, or unspecified chronic kidney disease; K21.9 Gastro-esophageal reflux disease without esophagitis; N18.3 Chronic kidney disease, stage 3 (moderate); F31.81 Bipolar II disorder; E86.0 Dehydration; R21 Rash and other nonspecific skin eruption; Z79.899 Other long term (current) drug therapy; Z91.5 Personal history of self-harm; Z91.19 Patient's noncompliance with other medical treatment and regimen; Z88.0 Allergy status to penicillin; Z88.8 Allergy status to other drugs, medicaments and biological substances; Z82.49 Family history of ischemic heart disease and other diseases of the circulatory system; Z81.8 Family history of other mental and behavioral disorders
CPT/HCPCS: 80048; 80053; 80061; 80159; 80178; 80306; 81003; 82075; 82565; 83036; 84443; 84520; 85025; 99285

== ENCOUNTER → 2019-05-16 | Outpatient (CLI) | payer MEDICARE, OTHER ==
--- NOTE | 2019-05-16 12:56 | ECHOF ---
Referral Reason:R06.9 Edema, unspecified MEASUREMENTS -------- HEIGHT: 175.3 cm WEIGHT: 98.9 kg BP: 108/66 RVIDd: 3.6 cm (< 3.3) IVSd: 1.4 cm (0.6 - 1.1) LVIDd: 5.0 cm (3.9 - 5.3) LVPWd: 1.4 cm (0.6 - 1.1) IVSs: 1.7 cm LVIDs: 3.2 cm LVPWs: 1.8 cm LAESV Index (A-L): 23.57 ml/m Ao Diam: 3.8 cm (2.0 - 3.7) AV Cusp: 2.2 cm (1.5 - 2.6) LA Diam: 4.3 cm (2.7 - 3.8) MV EXCURSION: 20.694 mm (> 18.000) MV EF SLOPE: 125 mm/s (70 - 150) EPSS: 0.6 cm MV E Jeff: 0.57 m/s MV DecT: 229 ms MV A Jeff: 0.68 m/s MV E/A Ratio: 0.84 RAP: 5.00 mmHg RVSP: 28.15 mmHg FINDINGS -------- Sinus rhythm. This was a technically adequate study. The left ventricular size is normal. There is mild concentric left ventricular hypertrophy. Overa ll left ventricular systolic function is normal with, an EF between 60 - 65 %. The right ventricle is mildly enlarged. Normal LA size by volume 22+/-6 ml/m2. The right atrial size is normal. Interatrial and interventricular septum intact. The aortic valve is trileaflet and appears structurally normal. There is no evidence of aortic regu rgitation. There is no evidence of aortic stenosis. No mitral regurgitation. Mild tricuspid regurgitation present. There is no evidence of pulmonary hypertension. The right v entricular systolic pressure, as measured by Doppler, is 28.15mmHg. Trace/mild (physiologic) pulmonic regurgitation. The aortic root size is normal. The inferior vena cava is mildly dilated. Echo free space represents a pericardial fat pad. There is no pericardial effusion. CONCLUSIONS -------- 1. Sinus rhythm. 2. This was a technically adequate study. 3. The left ventricular size is normal. 4. There is mild concentric left ventricular hypertrophy. 5. Overall left ventricular systolic function is normal with, an EF between 60 - 65 %. 6. The right ventricle is mildly enlarged. 7. Normal LA size by volume 22+/-6 ml/m2. 8. The right atrial size is normal. 9. Interatrial and interventricular septum intact. 10. The aortic valve is trileaflet and appears structurally normal. 11. There is no evidence of aortic regurgitation. 12. There is no evidence of aortic stenosis. 13. No mitral regurgitation. 14. Mild tricuspid regurgitation present. 15. There is no evidence of pulmonary hypertension. 16. The right ventricular systolic pressure, as measured by Doppler, is 28.15mmHg. 17. Trace/mild (physiologic) pulmonic regurgitation. 18. The aortic root size is normal. 19. The inferior vena cava is mildly dilated. 20. Echo free space represents a pericardial fat pad. 21. There is no pericardial effusion. ANIMATOR: Susan Prieto RDCS
== END | disposition home or self-care (01) ==
LOC: RADECHMAIN 10:10
PROVIDERS: ATTEND Physician Assistant
DX: I51.7 Cardiomegaly (principal); I07.1 Rheumatic tricuspid insufficiency
CPT/HCPCS: 93306

== ENCOUNTER 2019-12-06 10:01 | Inpatient (IN) | payer MEDICARE, MEDICAID ==
--- NOTE | 2019-12-06 11:36 | ED ---
Psych HPI - General Chief Complaint: Psychiatric Symptoms Stated Complaint: EPS eval, suicidal Time Seen by Provider: 12/06/19 10:11 Source: patient Mode of arrival: ambulatory - History of Present Illness Initial Comments: Is a 54-year-old male with a history of his affective disorder and depression who is here today with his worker because of feeling depressed and suicidal he states he would cut his wrist if he could with apparent scissors. Nothing specifically he states he's been trying to avoid going home and he has missed his medications recently. He also is diabetic and has not been taking those medications he denies any fevers chills nausea vomiting sweats or other symptoms at this time. MD Complaint: suicidal ideation, feels depressed - Related Data Home Medications Medication Instructions Recorded Confirmed Naltrexone Microspheres [Vivitrol] 380 mg IM Q30D 09/22/17 12/06/19 Glycopyrrolate [Robinul Forte] 2 mg PO BID 12/06/19 12/06/19 Levothyroxine Sodium [Synthroid] 50 mcg PO DAILY 12/06/19 12/06/19 Lisinopril [Zestril] 20 mg PO DAILY 12/06/19 12/06/19 Pabellones Carbonate 1,200 mg PO HS 12/06/19 12/06/19 Loratadine [Claritin] 10 mg PO DAILY 12/06/19 12/06/19 Omeprazole 20 mg PO BID PRN 12/06/19 12/06/19 Propranolol HCl [Inderal Xl] 80 mg PO DAILY 12/06/19 12/06/19 Rosuvastatin Calcium [Crestor] 5 mg PO HS 12/06/19 12/06/19 fluvoxaMINE MALEATE [Luvox CR] 100 mg PO HS 12/06/19 12/06/19 fluvoxaMINE MALEATE [Luvox CR] 200 mg PO QAM 12/06/19 12/06/19 rOPINIRole HCL [Requip] 0.5 mg PO HS 12/06/19 12/06/19 Previous Rx's Medication Instructions Recorded Linagliptin [Tradjenta] 5 mg PO DAILY #14 tab 10/12/17 amLODIPine [Norvasc] 10 mg PO DAILY #14 tab 10/12/17 busPIRone HCl [Buspar] 30 mg PO BID #28 tab 10/12/17 cloZAPine [Clozaril] 150 mg PO HS #0 tab 10/12/17 lamoTRIgine [LaMICtal] 150 mg PO BID #28 tab 10/12/17 Allergies Allergy/AdvReac Type Severity Reaction Status Date / Time Penicillins Allergy Unknown Verified 12/06/19 12:14 Childhood risperidone [From Risperdal] Allergy Unknown Verified 12/06/19 12:14 divalproex sodium AdvReac Anxiety, Verified 12/06/19 12:14 [From Depakote] weight gain Review of Systems ROS Statement: Those systems with pertinent positive or pertinent negative responses have been documented in the HPI. ROS Other: All systems not noted in ROS Statement are negative. Past Medical History Past Medical History: Diabetes Mellitus, GERD/Reflux, Hyperlipidemia, Hypertension, Sleep Apnea/CPAP/BIPAP Additional Past Medical History / Comment(s): Family history of premature coronary artery disease. OCD. History of Any Multi-Drug Resistant Organisms: None Reported Past Surgical History: Hernia Repair Past Anesthesia/Blood Transfusion Reactions: No Reported Reaction Past Psychological History: Anxiety, Bipolar, Depression, Schizoaffective Disorder Smoking Status: Never smoker Past Alcohol Use History: None Reported Past Drug Use History: None Reported - Past Family History Father Family Medical History: Congestive Heart Failure (CHF), Coronary Artery Disease (CAD), Diabetes Mellitus Mother Family Medical History: Cancer General Exam - General Exam Comments Initial Comments: This a well-developed well-nourished awake alert oriented 3 male Limitations: no limitations General appearance: alert, anxious Head exam: Present: atraumatic, normocephalic, normal inspection Eye exam: Present: normal appearance, PERRL, EOMI. Absent: scleral icterus, conjunctival injection, periorbital swelling ENT exam: Present: normal exam, mucous membranes moist Neck exam: Present: normal inspection. Absent: tenderness, meningismus, lymphadenopathy Respiratory exam: Present: normal lung sounds bilaterally. Absent: respiratory distress, wheezes, rales, rhonchi, stridor Cardiovascular Exam: Present: regular rate, normal rhythm, normal heart sounds. Absent: systolic murmur, diastolic murmur, rubs, gallop, clicks GI/Abdominal exam: Present: soft, normal bowel sounds. Absent: distended, tenderness, guarding, rebound, rigid Extremities exam: Present: normal inspection, full ROM, normal capillary refill. Absent: tenderness, pedal edema, joint swelling, calf tenderness Back exam: Present: normal inspection Neurological exam: Present: alert, oriented X3, CN II-XII intact Psychiatric exam: Present: depressed, flat affect, suicidal ideation Skin exam: Present: warm, dry, intact, normal color. Absent: rash Course Vital Signs 12/06/19 12/06/19 12/06/19 10:07 10:10 11:10 Temperature 97.9 F Pulse Rate 85 Respiratory 20 20 20 Rate Blood Pressure 122/85 O2 Sat by Pulse 100 Oximetry - Reevaluation(s) Reevaluation #1: 12/06/19 13:09 He patient is medically clear for psychiatric evaluation. Medical Decision Making - Medical Decision Making The patient was evaluated by the psychiatric service and will be admitted to this facility for inpatient treatment. - Lab Data Lab Results 12/06/19 12/06/19 12/06/19 Range/Units 11:11 11:36 12:00 POC Glucose (mg/dL) 126 H (75-99) mg/dL POC Glu Hat Lining Blocker ID Barbi Rodas Urine Opiates Screen Not Detected (NotDetected) Ur Oxycodone Screen Not Detected (NotDetected) Urine Methadone Screen Not Detected (NotDetected) Ur Propoxyphene Screen Not Detected (NotDetected) Ur Barbiturates Screen Not Detected (NotDetected) U Tricyclic Antidepress Not Detected (NotDetected) Ur Phencyclidine Scrn Not Detected (NotDetected) Ur Amphetamines Screen Not Detected (NotDetected) U Methamphetamines Scrn Not Detected (NotDetected) U Benzodiazepines Scrn Not Detected (NotDetected) Pabellones 0.6 mmol/L Urine Cocaine Screen Not Detected (NotDetected) U Marijuana (THC) Screen Not Detected (NotDetected) Disposition Clinical Impression: Depression, Suicidal ideation Disposition: TRANSFER TO PSYCH HOSP/UNIT Condition: Stable Referrals: Luisa Bethea MD [Primary Care Provider] - 1-2 days
[2019-12-06 11:38] LABS: Glucose,Whole Blood 126 mg/dL (75-99)
[2019-12-06 13:11] LABS: Amphetamine Screen,Urine Not Detected (NotDetected); Barbiturate Screen,Urine Not Detected (NotDetected); Benzodiazepines Screen,Urine Not Detected (NotDetected); Cocaine Screen,Urine Not Detected (NotDetected); Methadone Screen, Urine Not Detected (NotDetected); Opiate Screen,Urine Not Detected (NotDetected); Oxycodone Screen, Urine Not Detected (NotDetected); Phencyclidine Screen,Urine Not Detected (NotDetected); Tricyclic Antidepressant,Urine Not Detected (NotDetected); Urn Cannabinoid Scrn Not Detected (NotDetected)
[2019-12-06] MEDS ORDERED: MAGNESIUM HYDROXIDE 2,400 MG/10 ML CUP PO PRN (16:13)
[2019-12-06] MEDS ORDERED: ACETAMINOPHEN TAB 325 MG TAB PO PRN (16:13)
[2019-12-06] MEDS: INFLUENZA VACCINE (6 MOS+) 60 MCG/0.5 ML SYRINGE IM ONE ×2 (18:36→18:48)
[2019-12-06] MEDS: LORazepam 2 MG/ML INJ IM PRN (19:06)
[2019-12-06] MEDS: LITHIUM CARBONATE 300 MG CAP PO SCH (21:09)
[2019-12-06] MEDS: busPIRone HCl 10 MG TAB PO SCH (21:09)
[2019-12-06] MEDS: ATORVASTATIN 10 MG TAB PO SCH (21:09)
[2019-12-06] MEDS: lamoTRIgine 100 MG TAB PO SCH (21:09)
[2019-12-06] MEDS: cloZAPine 100 MG TAB PO SCH (21:09)
[2019-12-06] MEDS: GLYCOPYRROLATE 1 MG TAB PO SCH (21:10)
[2019-12-06] MEDS: LORazepam 0.5 MG TAB PO SCH (22:33)
[2019-12-07] MEDS: LEVOTHYROXINE 50 MCG TAB PO SCH (06:59)
[2019-12-07] MEDS: LORATADINE 10 MG TAB PO SCH (08:36)
[2019-12-07] MEDS: LINAGLIPTIN 5 MG TABLET PO SCH (08:36)
[2019-12-07] MEDS: amLODIPine 10 MG TAB PO SCH (08:36)
[2019-12-07] MEDS: LORazepam 0.5 MG TAB PO SCH ×2 (08:36→22:31)
[2019-12-07] MEDS: GLYCOPYRROLATE 1 MG TAB PO SCH ×2 (08:37→20:57)
[2019-12-07] MEDS: lamoTRIgine 100 MG TAB PO SCH ×2 (08:37→20:53)
[2019-12-07] MEDS: PROPRANOLOL LA 80 MG CAP.SA.24H PO SCH (08:37)
[2019-12-07] MEDS: LISINOPRIL 20 MG TAB PO SCH (08:37)
[2019-12-07] MEDS: busPIRone HCl 10 MG TAB PO SCH ×2 (08:37→20:52)
[2019-12-07 11:35] LABS: Basophils % (A) 0 %; Calcium 9.5 mg/dL (8.4-10.2); Eosinophils % (A) 0 %; HCT 41.1 % (39.0-53.0); HGB 13.6 gm/dL (13.0-17.5); Lymphocytes # (A) 1.1 k/uL (1.0-4.8); Lymphocytes % (A) 12 %; MCH 29.6 pg (25.0-35.0); MCHC 33.1 g/dL (31.0-37.0); MCV 89.5 fL (80.0-100.0); Mean Platelet Volume 7.3; Monocytes # (A) 0.3 k/uL (0-1.0); Monocytes % (A) 4 %; Neutrophils # (A) 7.5 k/uL (1.3-7.7); Neutrophils % (A) 83 %; Platelet Count 239 k/uL (150-450); Potassium 3.8 mmol/L (3.5-5.1); RDW 13.1 % (11.5-15.5); Total Bilirubin 0.5 mg/dL (0.2-1.3); Total Protein 6.7 g/dL (6.3-8.2); WBC 8.9 k/uL (3.8-10.6)
--- NOTE | 2019-12-07 14:10 | P.CONS ---
History of Present Illness - Reason for Consult Medical clearance, rash - History of Present Illness Patient admitted to psychiatric floor for his depression and suicidal thoughts. Patient does have other medical problems involving diabetes mellitus lipidemia hypothyroidism and hypertension. Patient denied any complaints at this time. Patient does have a rash in the book in both the legs with scratch villar rashes consistent with ALLERGIC reaction. 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 Review of Systems REVIEW OF SYSTEMS: CONSTITUTIONAL: No fever, no malaise, no fatigue. HEENT: No recent visual problems or hearing problems. Denied any sore throat. CARDIOVASCULAR: No chest pain, orthopnea, PND, no palpitations, no syncope. PULMONARY: No shortness of breath, no cough, no hemoptysis. GASTROINTESTINAL: No diarrhea, no nausea, no vomiting, no abdominal pain. NEUROLOGICAL: No headaches, no weakness, no numbness. HEMATOLOGICAL: Denies any bleeding or petechiae. GENITOURINARY: Denies any burning micturition, frequency, or urgency. MUSCULOSKELETAL/RHEUMATOLOGICAL: Denies any joint pain, swelling, or any muscle pain. ENDOCRINE: Denies any polyuria or polydipsia. The rest of the 14-point review of systems is negative. Past Medical History Past Medical History: Diabetes Mellitus, GERD/Reflux, Hyperlipidemia, Hypertension, Sleep Apnea/CPAP/BIPAP Additional Past Medical History / Comment(s): Family history of premature coronary artery disease. OCD. History of Any Multi-Drug Resistant Organisms: None Reported Past Surgical History: Hernia Repair Past Anesthesia/Blood Transfusion Reactions: No Reported Reaction Past Psychological History: Anxiety, Bipolar, Depression, Schizoaffective Disorder Additional Psychological History / Comment(s): OCD Smoking Status: Never smoker Past Alcohol Use History: None Reported Additional Past Alcohol Use History / Comment(s): Pt states, "I am a recovering alcoholic. I haven't had a drink in since Nov 2013." Past Drug Use History: None Reported Additional Drug Use History / Comment(s): denies substance abuse - Past Family History Father Family Medical History: Congestive Heart Failure (CHF), Coronary Artery Disease (CAD), Diabetes Mellitus Mother Family Medical History: Cancer Medications and Allergies Home Medications Medication Instructions Recorded Confirmed Type Naltrexone Microspheres [Vivitrol] 380 mg IM Q30D 09/22/17 12/06/19 History Linagliptin [Tradjenta] 5 mg PO DAILY #14 tab 10/12/17 12/06/19 Rx amLODIPine [Norvasc] 10 mg PO DAILY #14 tab 10/12/17 12/06/19 Rx busPIRone HCl [Buspar] 30 mg PO BID #28 tab 10/12/17 12/06/19 Rx cloZAPine [Clozaril] 150 mg PO HS #0 tab 10/12/17 12/06/19 Rx lamoTRIgine [LaMICtal] 150 mg PO BID #28 tab 10/12/17 12/06/19 Rx Glycopyrrolate [Robinul Forte] 2 mg PO BID 12/06/19 12/06/19 History Levothyroxine Sodium [Synthroid] 50 mcg PO DAILY 12/06/19 12/06/19 History Lisinopril [Zestril] 20 mg PO DAILY 12/06/19 12/06/19 History [place] Carbonate 1,200 mg PO HS 12/06/19 12/06/19 History Loratadine [Claritin] 10 mg PO DAILY 12/06/19 12/06/19 History Omeprazole 20 mg PO BID PRN 12/06/19 12/06/19 History Propranolol HCl [Inderal Xl] 80 mg PO DAILY 12/06/19 12/06/19 History Rosuvastatin Calcium [Crestor] 5 mg PO HS 12/06/19 12/06/19 History fluvoxaMINE MALEATE [Luvox CR] 100 mg PO HS 12/06/19 12/06/19 History fluvoxaMINE MALEATE [Luvox CR] 200 mg PO QAM 12/06/19 12/06/19 History rOPINIRole HCL [Requip] 0.5 mg PO HS 12/06/19 12/06/19 History Allergies Allergy/AdvReac Type Severity Reaction Status Date / Time Penicillins Allergy Unknown Verified 12/06/19 16:35 Childhood risperidone [From Risperdal] Allergy Unknown Verified 12/06/19 16:35 divalproex sodium AdvReac Anxiety, Verified 12/06/19 16:35 [From Depakote] weight gain Physical Exam Vitals: Vital Signs Temp Pulse Resp BP Pulse Ox 12/07/19 08:35 113 H 131/89 12/07/19 06:44 97.9 F 65 16 121/70 97 12/06/19 21:13 98.4 F 81 134/64 12/06/19 16:36 96.7 F L 72 20 130/83 12/06/19 16:10 96.7 F L 72 20 130/83 12/06/19 15:59 20 Intake and Output 12/06/19 12/07/19 12/07/19 22:59 06:59 14:59 Other: Weight 88.224 kg PHYSICAL EXAMINATION: GENERAL: The patient is alert and oriented x3, not in any acute distress. Well developed, well nourished. HEENT: Pupils are round and equally reacting to light. EOMI. No scleral icterus. No conjunctival pallor. Normocephalic, atraumatic. No pharyngeal erythema. No thyromegaly. CARDIOVASCULAR: S1 and S2 present. No murmurs, rubs, or gallops. PULMONARY: Chest is clear to auscultation, no wheezing or crackles. ABDOMEN: Soft, nontender, nondistended, normoactive bowel sounds. No palpable organomegaly. MUSCULOSKELETAL: No joint swelling or deformity. EXTREMITIES: No cyanosis, clubbing, or pedal edema. NEUROLOGICAL: Gross neurological examination did not reveal any focal deficits. SKIN: Patient has multiple areas of dermatitis and psoriatic patches in both legs. Results CBC & Chem 7: 12/07/19 09:32 12/07/19 09:32 Labs: Abnormal Lab Results - Last 24 Hours (Table) 12/07/19 Range/Units 09:32 Glucose 181 H (74-99) mg/dL HDL Cholesterol 30 L (40-60) mg/dL Assessment and Plan Plan: -ALLERGIC dermatitis also reassess: Patient will be started on her cortisone cream patient does have dry skin and patient has been scratching all over with scratch villar will also order emollient or Eucerin cream -Hypertension patient can be resumed on his lisinopril -Hypothyroidism -Hyperlipidemia -Type 2 diabetes mellitus -Depression: Management as per psychiatric For above-mentioned medical problems patient will be resumed on appropriate medications.
--- NOTE | 2019-12-07 15:39 | P.HP ---
Psychiatric H&P - . H&P Date: 12/07/19 History & Physical: IDENTIFYING DATA: He is a 54-year-old single male who has a history of a schizoaffective disorder, and OCD. He presented to the psychiatric unit voluntarily with complaints of increasing depression, inability to live in his apartment independently and increasing suicidal thoughts. HISTORY OF PRESENT ILLNESS: He is well known to this service from multiple prior admissions. He was last discharged from this unit in October 2017 with a diagnosis of obsessive-compulsive disorder, schizoaffective disorder depressed type and alcohol use disorder. He is active with [facility]. He last met with his psychiatrist on 12/02/2019 during which he told the psychiatrist that his depression "seems to have lessened." He complained that he was not keeping his apartment as clean as he would like. Between his outpatient psychiatric appointment and his presentation to our ER he complained of increasing depression, increased feelings of hopelessness and helplessness and increasing suicidal thoughts. He talked about resisting the urge to overdose on his prescription medication. He perseverated on his inability to maintain his apartment. He complained that the apartment "is a wreck" and that he is unable to clean it due to his obsessive and repetitive behaviors. He would consider moving into a room and board situation or a smaller apartment. His obsessive and compulsive behaviors prevents him from cleaning the apartment. He talked about spending 15 minutes to an half-hour attempting to clean a corner of his apartment. He stacks and restacks books and papers. He must clean the bathroom several times after use. He has rituals that he follows before leaving the apartment. The most distressed involved moving papers he stacks on the oven before he leaves the apartment. He feels depressed but was vague and evasive about others symptoms of depressive disorder such as sleep, appetite, energy or concentration with the exception of thoughts to overdose on his prescription medications. He alleged because of the severity is depression that he is not been fully compliant with prescribed medications. PAST PSYCHIATRIC HISTORY: He has had over 20 admissions to this psychiatric [facility]. According to the [facility] from [facility] he has a diagnosed as schizoaffective disorder depressed type, obsessive compulsive behavior, alcohol use disorder. His psychotropic medications include BuSpar 30 mg twice a day, clozapine 150 mg at bedtime, Lamictal 150 mg twice a day, lithium carbonate 1200 mg at bedtime, Luvox 200 mg in the morning and 100 mg at night, glycopyrrolate 2 mg twice a day and Vivatrol 380 mg IM every 4 weeks. He described past suicide attempts by overdose of prescription medications. PAST MEDICAL HISTORY: He has history of GERD, essential hypertension, hyperlipidemia, type 2 diabetes, a tonsillectomy dermatitis, and vitamin D deficiency and vitamin B-12 anemia. He is non-psychotropic medications included Norvasc 10 mg daily, Lipitor 10 mg at bedtime, Synthroid 50 g daily, Cogentin 5 mg daily, lisinopril 20 mg daily, Claritin 10 mg daily, I asked 40 mg daily, Inderal LA 80 mg daily and Requip 0.5 mg at bedtime. Note that he is unaware of the reason for the prescription of the Requip. Medicine consult appreciated. ALLERGIES: Penicillin, risperidone, Depakote SUBSTANCE USE HISTORY: He has a history of an alcohol use disorder as been sober for last 4 years. He denied use of other drugs get high, help him sleep or changes mood. His urine drug screen was negative for drugs of abuse. FAMILY PSYCHIATRIC/SUBSTANCE USE HISTORY: He is unaware of a family history of mental health or substance use problems. LEGAL HISTORY: He denied history of legal problems. He has a payee but no guardian. SOCIAL HISTORY: He is single and has no children. Has 2 sisters. He attended special education and graduated from high school. He last worked in 1994. He currently receives social security disability income. Lives alone in an apartment. MENTAL STATUS EXAM: He presented as a unshaven 54-year-old male with male pattern balding. He made eye contact and attended to interview. He had no distinction features are prominent physical abnormalities. He had a depressed facial expression. He was alert and oriented to person, place and time. He showed psychomotor retardation. He had no abnormal involuntary movements. His gait was slow but steady. His speech was spontaneous with decreased rate, rhythm and volume. His affect was depressed and not reactive. He describes suicidal ideation and wishes. He denied homicidal ideation. He described depressive cognitions including hopelessness, helplessness and worthlessness. He described multiple obsessions and compulsions (see above). He did not express phobias, ideas reference or paranoid ideation. His thinking was abstract and associations were coherent and logical. He denied hallucinations and did not appear to be responding to internal stimuli. Global impression of intellect is average to below. He is aware of his mental illness and need for treatment. STRENGTHS: Good physical health, stable income, stable housing, supportive engagement with community mental services WEAKNESSES: Persistent and severe chronic mental illness IMPRESSION: He is a 54-year-old single male who has a long history of chronic and persistent severe mental illness diagnosis schizoaffective disorder and obsessive-compulsive disorder. He is had multiple psychiatric hospitalizations related to increased depression and suicidal ideation. He presented with increased depression and suicidal ideation in the context of chronic mental illness that has impaired his ability to live independently. He should be treated inpatient basis with combination of psychopharmacology and multimodal therapy. PRINCIPLE DIAGNOSIS: Schizoaffective disorder depressed type, obsessive- compulsive disorder, alcohol use disorder severe in sustained remission RECOMMENDATION: Admitted to the psychiatric unit. Safety precautions. Consult medicine for initial physical exam and medical history. lawn care worker completed initial psychosocial assessment and coordinate discharge and aftercare services with [facility]. Continue his outpatient psychotropic medications including BuSpar 30 mg twice a day, clozapine 150 mg at bedtime, Lamictal 150 mg twice a day, lithium 1200 mg at bedtime, Luvox 200 mg in the morning and 100 mg at bedtime, glycopyrrolate 2 mg twice a day and Vivatrol here 80 mg IM every 4 hours. Hold Requip because it may contribute to worsening of obsessive or compulsive behaviors. Encourage participation in therapeutic groups and activities. Evaluate clinical status response to treatment daily basis. Allergies Allergy/AdvReac Type Severity Reaction Status Date / Time Penicillins Allergy Unknown Verified 12/06/19 16:35 Childhood risperidone [From Risperdal] Allergy Unknown Verified 12/06/19 16:35 divalproex sodium AdvReac Anxiety, Verified 12/06/19 16:35 [From Depakote] weight gain Vital Signs Temp 97.9 F 12/07/19 06:44 Pulse 113 H 12/07/19 08:35 Resp 16 12/07/19 06:44 BP 131/89 12/07/19 08:35 Pulse Ox 97 12/07/19 06:44 Intake & Output 12/06/19 12/07/19 12/07/19 18:59 06:59 18:59 Weight 88.224 kg Laboratory Last Values POC Glucose (mg/dL) 126 mg/dL (75-99) H 12/06/19 11:36 POC Glu [employer] Consultant ID Barbi Rodas 12/06/19 11:36 Urine Opiates Screen Not Detected (NotDetected) 12/06/19 12:00 Ur Oxycodone Screen Not Detected (NotDetected) 12/06/19 12:00 Urine Methadone Screen Not Detected (NotDetected) 12/06/19 12:00 Ur Propoxyphene Screen Not Detected (NotDetected) 12/06/19 12:00 Ur Barbiturates Screen Not Detected (NotDetected) 12/06/19 12:00 U Tricyclic Antidepress Not Detected (NotDetected) 12/06/19 12:00 Ur Phencyclidine Scrn Not Detected (NotDetected) 12/06/19 12:00 Ur Amphetamines Screen Not Detected (NotDetected) 12/06/19 12:00 U Methamphetamines Scrn Not Detected (NotDetected) 12/06/19 12:00 U Benzodiazepines Scrn Not Detected (NotDetected) 12/06/19 12:00 [place] 0.6 mmol/L 12/06/19 11:11 Urine Cocaine Screen Not Detected (NotDetected) 12/06/19 12:00 U Marijuana (THC) Screen Not Detected (NotDetected) 12/06/19 12:00 12/07/19 11:11 12/07/19 15:32
[2019-12-07 18:52] LABS: Hemoglobin A1C 5.4 % (4.0-6.0)
[2019-12-07] MEDS: HYDROCORTISONE 1% CREAM 454 GM JAR TOPICAL SCH ×2 (20:46→22:04)
[2019-12-07] MEDS: cloZAPine 100 MG TAB PO SCH (20:52)
[2019-12-07] MEDS: ATORVASTATIN 10 MG TAB PO SCH (20:52)
[2019-12-07] MEDS: LITHIUM CARBONATE 300 MG CAP PO SCH (20:54)
[2019-12-08] MEDS: amLODIPine 10 MG TAB PO SCH (08:57)
[2019-12-08] MEDS: LEVOTHYROXINE 50 MCG TAB PO SCH (08:57)
[2019-12-08] MEDS: GLYCOPYRROLATE 1 MG TAB PO SCH ×2 (08:58→21:17)
[2019-12-08] MEDS: lamoTRIgine 100 MG TAB PO SCH ×2 (08:58→21:14)
[2019-12-08] MEDS: LINAGLIPTIN 5 MG TABLET PO SCH (08:59)
[2019-12-08] MEDS: busPIRone HCl 10 MG TAB PO SCH ×2 (08:59→21:13)
[2019-12-08] MEDS: LISINOPRIL 20 MG TAB PO SCH (08:59)
[2019-12-08] MEDS: LORATADINE 10 MG TAB PO SCH (08:59)
[2019-12-08] MEDS: LORazepam 0.5 MG TAB PO SCH ×3 (09:01→22:34)
[2019-12-08] MEDS: PROPRANOLOL LA 80 MG CAP.SA.24H PO SCH (09:01)
[2019-12-08] MEDS: HYDROCORTISONE 1% CREAM 454 GM JAR TOPICAL SCH ×4 (09:35→21:16)
--- NOTE | 2019-12-08 14:00 | P.PN ---
Subjective Progress Note Date: 12/08/19 Principal diagnosis: Schizoaffective disorder depressed type, obsessive-compulsive disorder, alcohol use disorder sustained remission I reviewed the medical record, interviewed the patient and discussed his treatment and treatment plan during team meeting. He complained of feeling "tired" and depressed-"I'm still having suicidal thoughts." He denied experiencing obsessional thoughts or compulsive behaviors since admission to the unit. He denied psychotic symptoms as hallucinations, paranoia, ideas reference, thought insertion etc. He remains distressed about living in his current apartment. We talked more about the condition of the apartment. I expressed my concern about his habit of placing papers on top of the oven. Objective - Vital Signs Vital signs: Vital Signs Temp 98.0 F 12/07/19 21:06 Pulse 83 12/08/19 08:55 Resp 18 12/08/19 08:55 BP 106/64 12/08/19 08:55 Pulse Ox 99 12/07/19 21:06 - Exam He presented as an unshaven 54-year-old male with loose pants. He showed psychomotor slowing. He demonstrated no abnormal movements. His speech was soft, slow but fluent. His affect was depressed and not reactive. He describes suicidal thoughts without specific intent or plan. He denied homicidality. He did not express obsessional thoughts, paranoia or delusional thoughts. He denied hallucinations and did not appear to be responding to internal stimuli. - Labs CBC & Chem 7: 12/07/19 09:32 12/07/19 09:32 Labs: Abnormal Lab Results - Last 24 Hours (Table) 12/07/19 Range/Units 09:32 Glucose 181 H (74-99) mg/dL HDL Cholesterol 30 L (40-60) mg/dL Assessment and Plan Assessment: He is moderately mentally ill and minimally improve from admission. He continues reports subjective depression and demonstrates marked psychomotor slowing. Plan: Continue inpatient treatment. Safety precautions. Continue current dose of his psychotropic medications-BuSpar, clozapine, Lamictal, lithium, Luvox glycopyrrolate and Vivatrol. Work with oncology social work regarding his residential concerns. Encourage participation in therapeutic groups and activities. Evaluate clinical status response to treatment daily basis.
[2019-12-08 17:53] LABS: Glucose,Whole Blood 78 mg/dL (75-99)
[2019-12-08] MEDS: INSULIN ASPART (NovoLOG) 100 UNIT/ML VIAL SQ SCH ×2 (17:56→20:22)
[2019-12-08 19:57] LABS: Glucose,Whole Blood 126 mg/dL (75-99)
[2019-12-08] MEDS: ATORVASTATIN 10 MG TAB PO SCH (21:13)
[2019-12-08] MEDS: LITHIUM CARBONATE 300 MG CAP PO SCH (21:14)
[2019-12-08] MEDS: cloZAPine 100 MG TAB PO SCH (21:15)
[2019-12-09] MEDS ORDERED: LORazepam 1 MG TAB PO ONE (02:02)
[2019-12-09] MEDS: LORazepam 0.5 MG TAB PO SCH ×4 (02:03→20:56)
[2019-12-09] MEDS: LEVOTHYROXINE 50 MCG TAB PO SCH (06:03)
[2019-12-09 07:59] LABS: Glucose,Whole Blood 85 mg/dL (75-99)
[2019-12-09] MEDS: INSULIN ASPART (NovoLOG) 100 UNIT/ML VIAL SQ SCH ×4 (08:18→20:28)
[2019-12-09] MEDS: amLODIPine 10 MG TAB PO SCH (08:54)
[2019-12-09] MEDS: GLYCOPYRROLATE 1 MG TAB PO SCH ×2 (08:55→20:58)
[2019-12-09] MEDS: LORATADINE 10 MG TAB PO SCH (08:57)
[2019-12-09] MEDS: busPIRone HCl 10 MG TAB PO SCH ×2 (08:57→20:52)
[2019-12-09] MEDS: PROPRANOLOL LA 80 MG CAP.SA.24H PO SCH (08:57)
[2019-12-09] MEDS: lamoTRIgine 100 MG TAB PO SCH ×2 (08:57→20:55)
[2019-12-09] MEDS: HYDROCORTISONE 1% CREAM 454 GM JAR TOPICAL SCH ×4 (08:58→21:08)
[2019-12-09] MEDS: LISINOPRIL 20 MG TAB PO SCH (08:58)
[2019-12-09] MEDS: LINAGLIPTIN 5 MG TABLET PO SCH (08:58)
--- NOTE | 2019-12-09 11:56 | P.PN ---
Subjective Progress Note Date: 12/09/19 Principal diagnosis: Schizoaffective disorder depressed type, obsessive-compulsive disorder, alcohol use disorder sustained remission I reviewed the medical record, interviewed the patient and discussed his treatment and treatment plan during team meeting. He complained of continued fatigue and depression. He also expressed feelings of hopelessness and helplessness. Nursing report that he indicated suicidal thoughts on the daily goals sheet. He denied experiencing recurrent obsessional thoughts or engaging in compulsive rituals since she's been on the unit. However, he is collecting paper next his bed. We reviewed his current psychotropic medications. He alleged that he is unaware of the duration of his multiple psychotropic medications or their relative benefit. For example, he alleged she is unaware of how long he had been prescribed BuSpar or Luvox. We discussed treatment options and agreed to a trial of clomipramine treatment depression and OCD. We will gradually taper then discontinue BuSpar and Luvox and titrate clomipramine from initial dose of 25 mg at bedtime. Objective - Vital Signs Vital signs: Vital Signs Temp 98.1 F 12/09/19 01:52 Pulse 72 12/09/19 08:53 Resp 16 12/09/19 08:53 BP 99/65 12/09/19 08:53 Pulse Ox 99 12/07/19 21:06 - Exam He presented as an unshaven 54-year-old male with loose pants. He had a depre ssed and unreactive facial expression. He showed psychomotor slowing. His speech was soft, slow and halting. His affect was depressed and not reactive. He describes suicidal thoughts without specific intent or plan. He denied homicidality. He did not express obsessional thoughts, paranoia or delusional thoughts. He denied hallucinations and did not appear to be responding to internal stimuli. - Labs CBC & Chem 7: 12/07/19 09:32 12/07/19 09:32 Labs: Abnormal Lab Results - Last 24 Hours (Table) 12/08/19 Range/Units 19:56 POC Glucose (mg/dL) 126 H (75-99) mg/dL Assessment and Plan Assessment: He is moderately mentally ill and minimally improve from admission. He continues reports subjective depression and demonstrates marked psychomotor slowing. Plan: Continue inpatient treatment. Safety precautions. Decrease BuSpar to 20 mg by mouth twice a day. Decrease Luvox to 200 mg a.m. Begin clomipramine 25 mg at bedtime and titrated according to clinical response and tolerance. Continue clozapine 150 mg at bedtime, glycopyrrolate 2 mg by mouth twice a day, Lamictal 150 mg twice a day, lithium carbonate 1200 mg at bedtime and Ativan 0.5 mg twice a day. Continue Ativan 0.5 mg IM twice a day when necessary for agitation or an xiety. generator worker to coordinate discharge and aftercare services with community mental health. Encourage participation in therapeutic groups and activities. Evaluate clinical status response to treatment daily basis.
[2019-12-09 12:41] LABS: Glucose,Whole Blood 85 mg/dL (75-99)
[2019-12-09 17:53] LABS: Glucose,Whole Blood 76 mg/dL (75-99)
[2019-12-09 20:13] LABS: Glucose,Whole Blood 132 mg/dL (75-99)
[2019-12-09] MEDS: ATORVASTATIN 10 MG TAB PO SCH (20:52)
[2019-12-09] MEDS: cloZAPine 100 MG TAB PO SCH (20:53)
[2019-12-09] MEDS: LITHIUM CARBONATE 300 MG CAP PO SCH (20:54)
[2019-12-10] MEDS: LEVOTHYROXINE 50 MCG TAB PO SCH (06:45)
[2019-12-10 07:51] LABS: Glucose,Whole Blood 72 mg/dL (75-99)
[2019-12-10] MEDS: INSULIN ASPART (NovoLOG) 100 UNIT/ML VIAL SQ SCH ×4 (08:42→21:27)
[2019-12-10] MEDS: busPIRone HCl 10 MG TAB PO SCH ×2 (08:42→21:27)
[2019-12-10] MEDS: amLODIPine 10 MG TAB PO SCH (08:42)
[2019-12-10] MEDS: GLYCOPYRROLATE 1 MG TAB PO SCH ×2 (08:43→21:27)
[2019-12-10] MEDS: lamoTRIgine 100 MG TAB PO SCH ×2 (08:43→21:26)
[2019-12-10] MEDS: HYDROCORTISONE 1% CREAM 454 GM JAR TOPICAL SCH ×4 (08:43→21:29)
[2019-12-10] MEDS: LORazepam 0.5 MG TAB PO SCH ×2 (08:44→21:27)
[2019-12-10] MEDS: LINAGLIPTIN 5 MG TABLET PO SCH (08:44)
[2019-12-10] MEDS: PROPRANOLOL LA 80 MG CAP.SA.24H PO SCH (08:44)
[2019-12-10] MEDS: LISINOPRIL 20 MG TAB PO SCH (08:44)
[2019-12-10] MEDS: LORATADINE 10 MG TAB PO SCH (08:44)
[2019-12-10 12:54] LABS: Glucose,Whole Blood 75 mg/dL (75-99)
--- NOTE | 2019-12-10 16:27 | P.PN ---
Progress Note - Text Progress Note Date: 12/10/19 Subjective: Patient was seen today as a cross coverage for . The patient was evaluated, chart reviewed, case discussed with the treatment team. Patient reported interrupted sleep last night. Appetite was reported as "not bad ". Patient has not been going to groups and other unit activities. The patient is compliant with his medications and denies any adverse reactions. Patient reports continued to feel depressed and has intermittent suicidal ideation. He committed for his safety in the hospital but reports doesn't feel safe outside the hospital. He reports continued to hear voices usually derogatory and angry at him. He reports his anxiety is high. Patient denies any current manic symptoms including sustained period of time with elevated or irritable mood, impulsive or irrational behavior, inflated self-esteem, or absence need to sleep due to increases goal-directed activities. Objective: Vitals has been reviewed. Mental status examination; Appearance: The patient appears older than his stated age, poorly groomed, average body built, no specific features. Gait/posture: Patient was seen lying in bed, Normal arm swinging: No abnormal movements. Attitude and behavior: engaged, cooperative, intermittent eye contact. Motor activity: Normal psychomotor activity Speech: Slow Mood: Depressed Affect: Restricted Thought form: goal-directed, linear, coherent. Thought content: Non-delusional, reports intermittent suicidal thoughts, denies homicidal thoughts, denies intentions or plans. Perception: Reports auditory, but denies visual hallucinations Attention: No impairment. Patient was able to repeat serial 5. Orientation: Patient patient was oriented to time place person and situation. Insight: Patient has limited insight about his psychiatric disorder. Judgment: Patient has limited judgment about his psychiatric treatment. Assessment: Schizoaffective disorder. Obsessive-compulsive disorder. Alcohol use disorder severe in remission. Plan: Continue inpatient level of care due to need for further stabilization on psychiatric medications, and he continued to feel depressed and suicidal. Precautions: Continue 15 minutes check for safety. Consider medical consultation if any acute medical issues arise. Provide the patient individual, group therapy, substance use disorder counseling to give better insight and learn coping skills. Medications: Continue clozapine for psychotic symptoms and as a mood stabilizer. Continue clomipramine for OCD symptoms and depression symptoms. Continue the plan to taper off Lovenox and BuSpar. Continue when necessary medications. Labs: Continue CBC as per clozapine registry recommendations. Discharge patient to OUTPATIENT services upon a stabilization
[2019-12-10 17:59] LABS: Glucose,Whole Blood 72 mg/dL (75-99)
[2019-12-10 20:10] LABS: Glucose,Whole Blood 101 mg/dL (75-99)
[2019-12-10] MEDS: cloZAPine 100 MG TAB PO SCH (21:26)
[2019-12-10] MEDS: ATORVASTATIN 10 MG TAB PO SCH (21:27)
[2019-12-10] MEDS: LITHIUM CARBONATE 300 MG CAP PO SCH (21:27)
[2019-12-11] MEDS: LORazepam 2 MG/ML INJ IM PRN (03:33)
[2019-12-11 07:53] LABS: Glucose,Whole Blood 80 mg/dL (75-99)
[2019-12-11] MEDS: INSULIN ASPART (NovoLOG) 100 UNIT/ML VIAL SQ SCH ×4 (08:40→21:00)
[2019-12-11] MEDS: LEVOTHYROXINE 50 MCG TAB PO SCH (08:45)
[2019-12-11] MEDS: LINAGLIPTIN 5 MG TABLET PO SCH (08:45)
[2019-12-11] MEDS: LORazepam 0.5 MG TAB PO SCH ×2 (08:46→21:07)
[2019-12-11] MEDS: lamoTRIgine 100 MG TAB PO SCH ×2 (08:46→21:04)
[2019-12-11] MEDS: PROPRANOLOL LA 80 MG CAP.SA.24H PO SCH (08:46)
[2019-12-11] MEDS: LORATADINE 10 MG TAB PO SCH (08:46)
[2019-12-11] MEDS: busPIRone HCl 10 MG TAB PO SCH ×2 (08:46→21:46)
[2019-12-11] MEDS: amLODIPine 10 MG TAB PO SCH (08:46)
[2019-12-11] MEDS: GLYCOPYRROLATE 1 MG TAB PO SCH ×2 (08:46→21:00)
[2019-12-11] MEDS: LISINOPRIL 20 MG TAB PO SCH (08:46)
[2019-12-11] MEDS: HYDROCORTISONE 1% CREAM 454 GM JAR TOPICAL SCH ×4 (08:49→21:47)
[2019-12-11 12:39] LABS: Glucose,Whole Blood 78 mg/dL (75-99)
--- NOTE | 2019-12-11 12:54 | P.PN ---
Progress Note - Text Progress Note Date: 12/11/19 Subjective: Patient was seen today as a cross coverage for . The patient was evaluated, chart reviewed, case discussed with the treatment team. Patient continued to report feeling depressed and suicidal. He reports continued to have intermittent suicidal thoughts "comes and goes" and he continued to hear voices but he couldn't give further information about auditory hallucinations. Patient reports better sleep last night and denies any appetite problems. Patient has not been going to groups and has minimal interaction with others. The patient is compliant with his psychiatric medications and denies any adverse reaction. He reports less anxiety today. Patient denies any manic symptoms including a fork mood, lack need to sleep due to increased activities, or irrational uninhibited behavior. Objective: Vitals has been reviewed. Mental status examination; Appearance: The patient appears older than his stated age, poorly groomed, average body built, no specific features. Gait/posture: Patient was seen lying in bed, Normal arm swinging: No abnormal movements. Attitude and behavior: engaged, cooperative, intermittent eye contact. Motor activity: Normal psychomotor activity Speech: Slow Mood: Depressed Affect: Restricted Thought form: goal-directed, linear, coherent. Thought content: Non-delusional, reports intermittent suicidal thoughts, denies homicidal thoughts, denies intentions or plans. Perception: Reports auditory, but denies visual hallucinations Attention: No impairment. Patient was able to repeat serial 5. Orientation: Patient patient was oriented to time place person and situation. Insight: Patient has limited insight about his psychiatric disorder. Judgment: Patient has limited judgment about his psychiatric treatment. Assessment: Schizoaffective disorder. Obsessive-compulsive disorder. Alcohol use disorder severe in remission. Plan: Continue inpatient level of care due to need for further stabilization on psychiatric medications, and he continued to feel depressed and suicidal. Precautions: Continue 15 minutes check for safety. Consider medical consultation if any acute medical issues arise. Provide the patient individual, group therapy, substance use disorder counseling to give better insight and learn coping skills. Medications: Continue clozapine for psychotic symptoms and as a mood stabilizer. Continue clomipramine for OCD symptoms and depression symptoms. Continue the plan to discontinue Luvox and BuSpar. Continue when necessary medications. Labs: Continue CBC monitoring as clinically indicated by clozapine registry recommendations. Discharge patient to OUTPATIENT services upon a stabilization
[2019-12-11 17:29] LABS: Glucose,Whole Blood 82 mg/dL (75-99)
[2019-12-11 19:48] LABS: Glucose,Whole Blood 113 mg/dL (75-99)
[2019-12-11] MEDS: ATORVASTATIN 10 MG TAB PO SCH (21:00)
[2019-12-11] MEDS: LITHIUM CARBONATE 300 MG CAP PO SCH (21:06)
[2019-12-11] MEDS: cloZAPine 100 MG TAB PO SCH (21:06)
[2019-12-12] MEDS: LEVOTHYROXINE 50 MCG TAB PO SCH (06:21)
[2019-12-12] MEDS: INSULIN ASPART (NovoLOG) 100 UNIT/ML VIAL SQ SCH ×4 (07:30→20:26)
[2019-12-12 07:50] LABS: Glucose,Whole Blood 89 mg/dL (75-99)
[2019-12-12 09:27] LABS: Glucose,Whole Blood 178 mg/dL (75-99)
[2019-12-12] MEDS: amLODIPine 10 MG TAB PO SCH (09:37)
[2019-12-12] MEDS: PROPRANOLOL LA 80 MG CAP.SA.24H PO SCH (09:38)
[2019-12-12] MEDS: LORazepam 0.5 MG TAB PO SCH ×2 (09:38→22:36)
[2019-12-12] MEDS: HYDROCORTISONE 1% CREAM 454 GM JAR TOPICAL SCH ×4 (09:38→21:31)
[2019-12-12] MEDS: LISINOPRIL 20 MG TAB PO SCH (09:38)
[2019-12-12] MEDS: LINAGLIPTIN 5 MG TABLET PO SCH (11:33)
[2019-12-12] MEDS: LORATADINE 10 MG TAB PO SCH (11:34)
[2019-12-12] MEDS: lamoTRIgine 100 MG TAB PO SCH ×2 (11:34→21:28)
[2019-12-12] MEDS: GLYCOPYRROLATE 1 MG TAB PO SCH ×2 (11:35→21:30)
[2019-12-12] MEDS: busPIRone HCl 10 MG TAB PO SCH ×2 (12:06→21:26)
[2019-12-12 12:52] LABS: Glucose,Whole Blood 91 mg/dL (75-99)
--- NOTE | 2019-12-12 13:41 | P.PN ---
Subjective Progress Note Date: 12/12/19 Principal diagnosis: Schizoaffective disorder depressed type, obsessive-compulsive disorder, alcohol use disorder sustained remission I reviewed the medical record, interviewed the patient and discussed his treatment and treatment plan during team meeting. He complained of continued depression and suicidal thoughts although he denied intent or plan. He feels hopeless and helpless regarding his mental illness, his future and his living situation. His affect brightened briefly after I told him that [facility] is considering [facility]. He intermittently attends therapeutic groups and activities. He sleeps between 4-6 hours per night. He is accumulating more items at his bedside. He has 3 paper bags filled with clothes and other items and aplastic container with miscellaneous papers. He felt weak and fatigued this morning and his blood pressure was 90/60 morning. Objective - Vital Signs Vital signs: Vital Signs Temp 97.7 F 12/12/19 06:29 Pulse 73 12/12/19 06:29 Resp 16 12/12/19 06:29 BP 103/58 12/12/19 06:29 Pulse Ox 98 12/10/19 08:50 Intake & Output 12/11/19 12/12/19 12/12/19 18:59 06:59 18:59 Weight 87.3 kg - Exam He presented as an unshaven 54-year-old male with loose pants. He had a depressed and unreactive facial expression. Her speech and movements were slow His speech was soft, slow and halting. His affect was depressed and not reactive. He describes suicidal thoughts without specific intent or plan. He denied homicidality. He did not express obsessional thoughts, paranoia or delusional thoughts. He denied hallucinations and did not appear to be responding to internal stimuli. - Labs CBC & Chem 7: 12/07/19 09:32 12/07/19 09:32 Labs: Abnormal Lab Results - Last 24 Hours (Table) 12/11/19 Range/Units 19:47 POC Glucose (mg/dL) 113 H (75-99) mg/dL Assessment and Plan Assessment: He remains depressed, hopeless and helpless and continues to express suicidal thoughts. He is minimally improved from admission. He has become hypotensive probably due to the combination of multiple antihypertensive medication and his psychotropic medications. Plan: Continue inpatient treatment. Safety precautions. Obtain a EKG. Hold Inderal, Norvasc and lisinopril if his diastolic blood pressure is 90 or less. Decrease BuSpar to 15 mg by mouth twice a day. Decrease Luvox to 100 mg a.m. Incease clomipramine 25 mg BID and titrated according to clinical response and tolerance. Continue clozapine 150 mg at bedtime, glycopyrrolate 2 mg by mouth twice a day, Lamictal 150 mg twice a day, lithium carbonate 1200 mg at bedtime and Ativan 0.5 mg twice a day. Continue Ativan 0.5 mg IM twice a day when necessary for agitation or anxiety. egg factory worker to coordinate discharge and aftercare services with [facility] mental health. Encourage participation in therapeutic groups and activities. Evaluate clinical status response to treatment daily basis.
[2019-12-12 13:43] LABS: Calcium 9.8 mg/dL (8.4-10.2); Potassium 3.7 mmol/L (3.5-5.1); Total Bilirubin 0.5 mg/dL (0.2-1.3); Total Protein 6.6 g/dL (6.3-8.2)
[2019-12-12 18:03] LABS: Glucose,Whole Blood 81 mg/dL (75-99)
[2019-12-12 20:02] LABS: Glucose,Whole Blood 113 mg/dL (75-99)
[2019-12-12] MEDS: ATORVASTATIN 10 MG TAB PO SCH (21:26)
[2019-12-12] MEDS: cloZAPine 100 MG TAB PO SCH (21:27)
[2019-12-12] MEDS: LITHIUM CARBONATE 300 MG CAP PO SCH (21:28)
[2019-12-13] MEDS: LEVOTHYROXINE 50 MCG TAB PO SCH (06:11)
[2019-12-13 08:26] LABS: Glucose,Whole Blood 89 mg/dL (75-99)
[2019-12-13] MEDS: INSULIN ASPART (NovoLOG) 100 UNIT/ML VIAL SQ SCH ×4 (08:38→20:57)
[2019-12-13] MEDS: GLYCOPYRROLATE 1 MG TAB PO SCH ×2 (09:05→20:53)
[2019-12-13] MEDS: PROPRANOLOL LA 80 MG CAP.SA.24H PO SCH (09:05)
[2019-12-13] MEDS: busPIRone HCl 10 MG TAB PO SCH ×2 (09:06→20:54)
[2019-12-13] MEDS: amLODIPine 10 MG TAB PO SCH (09:06)
[2019-12-13] MEDS: LISINOPRIL 20 MG TAB PO SCH (09:06)
[2019-12-13] MEDS: LORazepam 0.5 MG TAB PO SCH ×2 (09:06→20:54)
[2019-12-13] MEDS: LORATADINE 10 MG TAB PO SCH (09:06)
[2019-12-13] MEDS: LINAGLIPTIN 5 MG TABLET PO SCH (09:06)
[2019-12-13] MEDS: lamoTRIgine 100 MG TAB PO SCH ×2 (09:07→20:55)
[2019-12-13] MEDS: HYDROCORTISONE 1% CREAM 454 GM JAR TOPICAL SCH ×4 (09:07→23:08)
[2019-12-13 13:07] LABS: Glucose,Whole Blood 90 mg/dL (75-99)
--- NOTE | 2019-12-13 14:36 | P.PN ---
Subjective Progress Note Date: 12/13/19 Principal diagnosis: Schizoaffective disorder depressed type, obsessive-compulsive disorder, alcohol use disorder sustained remission I reviewed the medical record, interviewed the patient and discussed his treatment and treatment plan during team meeting. He was more upbeat today because he spoke with his peer support specialists and the [facility] liaison who both supported his plan to leave his apartment. The social work case manager also spoke with his sister who is recommending shelter placement. However he complained of continued feelings of depression and continued suicidal thoughts. He was vague about the nature of the suicidal thoughts and they appeared to be passive in [place] where he has and intrusive thoughts that he wishes he were . He denied suicide intent or plan. We again reviewed the medication changes and he agreed to continue with the plan to taper it and discontinue both Luvox and BuSpar and continue without titration of Anafranil. He did not experience weakness or lightheadedness this morning. He received the prescribed doses of his antihypertensive this morning. Objective - Vital Signs Vital signs: Vital Signs Temp 98.1 F 12/13/19 06:00 Pulse 85 12/13/19 11:23 Resp 16 12/13/19 11:23 BP 127/75 12/13/19 11:23 Pulse Ox 97 12/13/19 06:00 Intake & Output 12/12/19 12/13/19 12/13/19 18:59 06:59 18:59 Weight 87.3 kg - Exam He presented as an unshaven 54-year-old male with loose pants. He had a depressed facial expression that was and expressive. Her speech and movements were slow His speech was soft, slow and halting. His affect was depressed and minimally reactive. He describes suicidal thoughts without specific intent or plan. He denied homicidality. He did not express obsessional thoughts, paranoia or delusional thoughts. He denied hallucinations and did not appear to be responding to internal stimuli. - Labs CBC & Chem 7: 12/07/19 09:32 12/12/19 12:26 Labs: Abnormal Lab Results - Last 24 Hours (Table) 12/12/19 Range/Units 19:58 POC Glucose (mg/dL) 113 H (75-99) mg/dL Assessment and Plan Assessment: He remains depressed, hopeless and helpless and continues to express suicidal thoughts. He is minimally improved from admission. Plan: Continue inpatient treatment. Safety precautions. Obtain a EKG. Taper then discontinue BuSpar. Taper and discontinue the Luvox. Continue clomipramine 25 mg BID and titrated according to clinical response and tolerance. Continue clozapine 150 mg at bedtime, glycopyrrolate 2 mg by mouth twice a day, Lamictal 150 mg twice a day, lithium carbonate 1200 mg at bedtime and Ativan 0.5 mg twice a day. Continue Ativan 0.5 mg IM twice a day when necessary for agitation or anxiety. slag production worker to coordinate discharge and aftercare services with [facility] mental health. Encourage participation in therapeutic groups and activities. Evaluate clinical status response to treatment daily basis.
[2019-12-13 17:43] LABS: Glucose,Whole Blood 94 mg/dL (75-99)
[2019-12-13 20:10] LABS: Glucose,Whole Blood 114 mg/dL (75-99)
[2019-12-13] MEDS: LITHIUM CARBONATE 300 MG CAP PO SCH (20:53)
[2019-12-13] MEDS: cloZAPine 100 MG TAB PO SCH (20:54)
[2019-12-13] MEDS: ATORVASTATIN 10 MG TAB PO SCH (20:55)
[2019-12-14] MEDS: LEVOTHYROXINE 50 MCG TAB PO SCH (06:12)
[2019-12-14 08:04] LABS: Glucose,Whole Blood 96 mg/dL (75-99)
[2019-12-14] MEDS: INSULIN ASPART (NovoLOG) 100 UNIT/ML VIAL SQ SCH ×4 (09:27→22:01)
[2019-12-14] MEDS: HYDROCORTISONE 1% CREAM 454 GM JAR TOPICAL SCH ×4 (09:29→22:21)
[2019-12-14] MEDS: LINAGLIPTIN 5 MG TABLET PO SCH (09:29)
[2019-12-14] MEDS: GLYCOPYRROLATE 1 MG TAB PO SCH ×2 (09:29→22:03)
[2019-12-14] MEDS: PROPRANOLOL LA 80 MG CAP.SA.24H PO SCH (09:30)
[2019-12-14] MEDS: busPIRone HCl 10 MG TAB PO SCH ×2 (09:34→22:04)
[2019-12-14] MEDS: amLODIPine 10 MG TAB PO SCH (09:34)
[2019-12-14] MEDS: lamoTRIgine 100 MG TAB PO SCH ×2 (09:35→22:06)
[2019-12-14] MEDS: LORATADINE 10 MG TAB PO SCH (09:36)
[2019-12-14] MEDS: LISINOPRIL 20 MG TAB PO SCH (09:36)
[2019-12-14] MEDS: LORazepam 0.5 MG TAB PO SCH ×2 (09:36→22:03)
[2019-12-14 12:55] LABS: Glucose,Whole Blood 83 mg/dL (75-99)
--- NOTE | 2019-12-14 15:52 | P.PN ---
Subjective Progress Note Date: 12/14/19 Principal diagnosis: Schizoaffective disorder depressed type, obsessive-compulsive disorder, alcohol use disorder sustained remission I reviewed the medical record, interviewed the patient and discussed his treatment and treatment plan during team meeting. He continues to complain of depression and suicidal ideation. He let she has both passive and active suicidal thoughts. The active suicidal thoughts are intrusions of the words "I want to kill myself." He perseverated about his living situation and stated that he will not return to his apartment. He denied side effects to current medication. Objective - Vital Signs Vital signs: Vital Signs Temp 98.0 F 12/14/19 06:45 Pulse 67 12/14/19 06:45 Resp 16 12/14/19 06:45 BP 130/86 12/14/19 06:45 Pulse Ox 97 12/13/19 06:00 Intake & Output 12/13/19 12/14/19 12/14/19 18:59 06:59 18:59 Weight 87.3 kg - Exam He presented as an unshaven 54-year-old male with loose pants. He had a depress ed facial expression that was and expressive. Her speech and movements were slow His speech was soft, slow and halting. His affect was depressed and minimally reactive. He describes suicidal thoughts without specific intent or plan. He denied homicidality. He did not express obsession al thoughts, paranoia or delusional thoughts. He denied hallucinations and did not appear to be responding to internal stimuli. - Labs CBC & Chem 7: 12/07/19 09:32 12/12/19 12:26 Labs: Abnormal Lab Results - Last 24 Hours (Table) 12/13/19 Range/Units 20:08 POC Glucose (mg/dL) 114 H (75-99) mg/dL Assessment and Plan Assessment: He remains depressed, hopeless and helpless and continues to express suicidal thoughts. He is minimally improved from admission. Plan: Continue inpatient treatment. Safety precautions. Obtain a EKG. Taper then di scontinue BuSpar. Taper and discontinue the Luvox. Continue clomipramine 25 mg BID and titrated according to clinical response and tolerance. Continue clozapine 150 mg at bedtime, glycopyrrolate 2 mg by mouth twice a day, Lamictal 150 mg twice a day, lithium carbonate 1200 mg at bedtime and Ativan 0.5 mg twice a day. Continue Ativan 0.5 mg IM twice a day when necessary for agitation or anxiety. frog or oyster farmworker to coordinate discharge and aftercare services with community mental health. Encourage participation in therapeutic groups and activities. Evaluate clinical status response to treatment daily basis.
[2019-12-14 17:45] LABS: Glucose,Whole Blood 81 mg/dL (75-99)
[2019-12-14 19:56] LABS: Glucose,Whole Blood 143 mg/dL (75-99)
[2019-12-14] MEDS: ATORVASTATIN 10 MG TAB PO SCH (22:03)
[2019-12-14] MEDS: LITHIUM CARBONATE 300 MG CAP PO SCH (22:03)
[2019-12-14] MEDS: cloZAPine 100 MG TAB PO SCH (22:04)
[2019-12-15] MEDS: LEVOTHYROXINE 50 MCG TAB PO SCH (05:40)
[2019-12-15] MEDS: INSULIN ASPART (NovoLOG) 100 UNIT/ML VIAL SQ SCH ×4 (07:49→21:06)
[2019-12-15 07:58] LABS: Glucose,Whole Blood 95 mg/dL (75-99)
[2019-12-15] MEDS: busPIRone HCl 10 MG TAB PO SCH ×2 (09:05→21:02)
[2019-12-15] MEDS: amLODIPine 10 MG TAB PO SCH (09:05)
[2019-12-15] MEDS: GLYCOPYRROLATE 1 MG TAB PO SCH ×2 (09:06→21:05)
[2019-12-15] MEDS: HYDROCORTISONE 1% CREAM 454 GM JAR TOPICAL SCH ×4 (09:06→21:32)
[2019-12-15] MEDS: LINAGLIPTIN 5 MG TABLET PO SCH (09:07)
[2019-12-15] MEDS: lamoTRIgine 100 MG TAB PO SCH ×2 (09:07→21:04)
[2019-12-15] MEDS: LORazepam 0.5 MG TAB PO SCH ×2 (09:08→21:03)
[2019-12-15] MEDS: LORATADINE 10 MG TAB PO SCH (09:08)
[2019-12-15] MEDS: LISINOPRIL 20 MG TAB PO SCH (09:08)
[2019-12-15] MEDS: PROPRANOLOL LA 80 MG CAP.SA.24H PO SCH (09:30)
[2019-12-15 12:45] LABS: Glucose,Whole Blood 106 mg/dL (75-99)
--- NOTE | 2019-12-15 14:23 | P.PN ---
Subjective Progress Note Date: 12/15/19 Principal diagnosis: Schizoaffective disorder depressed type, obsessive-compulsive disorder, alcohol use disorder sustained remission I reviewed the medical record, interviewed the patient and discussed his treatment and treatment plan during team meeting. He continues to complain of depression and suicidal thoughts. He described passive thoughts that injured into his mind such as "I wish were " or "logical yourself." He again tperseverated about his living situation and stated that he will not return to his apartment. He feels sedated. Objective - Vital Signs Vital signs: Vital Signs Temp 98.3 F 12/15/19 06:05 Pulse 73 12/15/19 09:14 Resp 16 12/15/19 06:05 BP 132/74 12/15/19 06:05 Pulse Ox 98 12/15/19 09:14 - Exam He presented as an sad, unshaven 54-year-old male with loose pants. He had a depressed facial expression. Her speech and movements were slow. His speech was soft, slow and halting. His affect was depressed and minimally reactive. He describes suicidal thoughts without specific intent or plan. He denied homicidality. He did not express obsessional thoughts, paranoia or delusional thoughts. He talked about hearing voices but did not appear to be responding to internal stimuli. - Labs CBC & Chem 7: 12/07/19 09:32 12/12/19 12:26 Labs: Abnormal Lab Results - Last 24 Hours (Table) 12/14/19 12/15/19 Range/Units 19:40 12:44 POC Glucose (mg/dL) 143 H 106 H (75-99) mg/dL Assessment and Plan Assessment: He remains depressed, hopeless and helpless and continues to express suicidal thoughts. He is minimally improved from admission. Plan: Continue inpatient treatment. Safety precautions. Taper then discontinue BuSpar. Taper and discontinue the Luvox. Taper and discontinue Ativan. Continue clomipramine 25 mg BID and titrated according to clinical response and tolerance. Continue clozapine 150 mg at bedtime, glycopyrrolate 2 mg by mouth twice a day, Lamictal 150 mg twice a day, lithium carbonate 1200 mg at bedtime and Ativan 0.5 mg twice a day. Continue Ativan 0.5 mg IM twice a day when necessary for agitation or anxiety. laboratory worker to coordinate discharge and aftercare services with community mental health. Encourage participation in therapeutic groups and activities. Evaluate clinical status response to treatment daily basis.
[2019-12-15 17:53] LABS: Glucose,Whole Blood 77 mg/dL (75-99)
[2019-12-15 20:17] LABS: Glucose,Whole Blood 122 mg/dL (75-99)
[2019-12-15] MEDS: cloZAPine 100 MG TAB PO SCH (21:02)
[2019-12-15] MEDS: ATORVASTATIN 10 MG TAB PO SCH (21:02)
[2019-12-15] MEDS: LITHIUM CARBONATE 300 MG CAP PO SCH (21:04)
[2019-12-16] MEDS: LEVOTHYROXINE 50 MCG TAB PO SCH (05:52)
[2019-12-16 07:53] LABS: Glucose,Whole Blood 101 mg/dL (75-99)
[2019-12-16] MEDS: INSULIN ASPART (NovoLOG) 100 UNIT/ML VIAL SQ SCH (08:08)
[2019-12-16] MEDS: lamoTRIgine 100 MG TAB PO SCH ×2 (09:01→20:54)
[2019-12-16] MEDS: LINAGLIPTIN 5 MG TABLET PO SCH (09:01)
[2019-12-16] MEDS: GLYCOPYRROLATE 1 MG TAB PO SCH ×2 (09:02→20:55)
[2019-12-16] MEDS: LISINOPRIL 20 MG TAB PO SCH (09:03)
[2019-12-16] MEDS: LORATADINE 10 MG TAB PO SCH (09:03)
[2019-12-16] MEDS: amLODIPine 10 MG TAB PO SCH (09:03)
[2019-12-16] MEDS: PROPRANOLOL LA 80 MG CAP.SA.24H PO SCH (09:03)
[2019-12-16] MEDS: busPIRone HCl 10 MG TAB PO SCH ×2 (09:04→20:54)
[2019-12-16] MEDS: HYDROCORTISONE 1% CREAM 454 GM JAR TOPICAL SCH ×4 (09:04→20:57)
[2019-12-16] MEDS: LITHIUM CARBONATE 300 MG CAP PO SCH (20:54)
[2019-12-16] MEDS: ATORVASTATIN 10 MG TAB PO SCH (20:54)
[2019-12-16] MEDS: LORazepam 0.5 MG TAB PO SCH (20:54)
[2019-12-16] MEDS: cloZAPine 100 MG TAB PO SCH (20:55)
[2019-12-16] MEDS: MINERAL OIL-WHITE PETROLATUM 120 GM JAR TOPICAL PRN (22:31)
[2019-12-17] MEDS: PANTOPRAZOLE 40 MG TABLET PO PRN ×2 (00:09→09:54)
[2019-12-17] MEDS: LEVOTHYROXINE 50 MCG TAB PO SCH (07:23)
[2019-12-17] MEDS: HYDROCORTISONE 1% CREAM 454 GM JAR TOPICAL SCH ×4 (08:49→21:08)
[2019-12-17] MEDS: LINAGLIPTIN 5 MG TABLET PO SCH (08:49)
[2019-12-17] MEDS: LORATADINE 10 MG TAB PO SCH (08:50)
[2019-12-17] MEDS: GLYCOPYRROLATE 1 MG TAB PO SCH ×2 (08:50→21:07)
[2019-12-17] MEDS: LISINOPRIL 20 MG TAB PO SCH (08:50)
[2019-12-17] MEDS: lamoTRIgine 100 MG TAB PO SCH ×2 (08:50→21:06)
[2019-12-17] MEDS: PROPRANOLOL LA 80 MG CAP.SA.24H PO SCH (08:51)
[2019-12-17] MEDS: amLODIPine 10 MG TAB PO SCH (08:51)
[2019-12-17] MEDS: busPIRone HCl 5 MG TAB PO SCH ×2 (08:51→21:05)
--- NOTE | 2019-12-17 12:04 | P.PN ---
Subjective Progress Note Date: 12/16/19 Principal diagnosis: Schizoaffective disorder depressed type, obsessive-compulsive disorder, alcohol use disorder sustained remission I reviewed the medical record, interviewed the patient and discussed his treatment and treatment plan during team meeting. He stated that he is less sedated today. He complains of continued feelings depression and passive suicidal thoughts. He alleged that he has been depressed continuously since he was an adolescent with no more been brief periods of normal mood. We again discussed the medication changes and he again asked me to "write them down". He perseverated and ongoing theme that he cannot return to his apartment and will need alternate living arrangements. He expressed an interest in [facility] if there are no other options rather than returning to his apartment. Objective - Vital Signs Vital signs: Vital Signs Temp 98.5 F 12/16/19 06:02 Pulse 77 12/16/19 09:00 Resp 16 12/16/19 06:02 BP 114/74 12/16/19 09:00 Pulse Ox 96 12/15/19 14:28 - Exam He was casually dressed and groomed. He walks slowly with a slouched gait. He appeared less sedated and more alert than in previous encounters. He is sad facial expression. His affect was depressed and not reactive. He talked about experiencing auditory hallucinations but did not appear to be responding to internal stimuli. His thinking was abstract and goal directed. - Labs CBC & Chem 7: 12/07/19 09:32 12/12/19 12:26 Labs: Abnormal Lab Results - Last 24 Hours (Table) 12/15/19 12/15/19 12/16/19 Range/Units 12:44 20:16 07:49 POC Glucose (mg/dL) 106 H 122 H 101 H (75-99) mg/dL Assessment and Plan Assessment: He is less sedated and his affect appears a bit more reactive. He remains distressed about his living situation and will not return to his apartment. Plan: Continue inpatient treatment. Safety precautions. Taper then discontinue BuSpar, Luvox and Ativan. Continue clomipramine 25 mg BID and titrated according to clinical response and tolerance. Continue clozapine 150 mg at bedtime, glycopyrrolate 2 mg by mouth twice a day, Lamictal 150 mg twice a day, lithium carbonate 1200 mg at bedtime. Continue Ativan 0.5 mg IM twice a day when necessary for agitation or anxiety. waterside worker to coordinate discharge and aftercare services with community mental health. Encourage participation in therapeutic groups and activities. Evaluate clinical status response to treatment daily basis.
--- NOTE | 2019-12-17 12:25 | P.PN ---
Subjective Progress Note Date: 12/17/19 Principal diagnosis: Schizoaffective disorder depressed type, obsessive-compulsive disorder, alcohol use disorder sustained remission I reviewed the medical record and interviewed the patient. He feels "someone" better but continues to have "occasional" thoughts of suicide. His hands were red and he admitted to frequent handwashing. He was unable to quantify the frequency of his handwashing but feels compelled to wash anytime he feels that they are contaminated with "germs". After our interaction he came to my office acutely distressed and repeatedly asked me if I was angry at them. Even after I explained that I am not angry with him he asked a question over and over again. Objective - Vital Signs Vital signs: Vital Signs Temp 98.6 F 12/17/19 08:45 Pulse 75 12/17/19 08:45 Resp 16 12/17/19 05:57 BP 116/70 12/17/19 08:45 Pulse Ox 96 12/15/19 14:28 - Exam She was casually groomed, pleasant and cooperative. He made eye contact and attended the interview. He had a sad facial expression. He walks slowly with a slouched gait. His movements were slow. Her hands were red. He is obsessed over our conversation. He complained of continued "voices" but did not appear to be responding to internal stimuli. - Labs CBC & Chem 7: 12/07/19 09:32 12/12/19 12:26 Assessment and Plan Assessment: He appears less depressed but continues to report suicidal ideation and "voices" (I'm unsure whether his description of the "voices" are true auditory hallucinations). He has excessive handwashing and obsessive doubting. Plan: Continue to taper Luvox, Ativan or BuSpar. Titrate clomipramine to 50 mg twice a day. Continue other medications as prescribed. Nursing to encourage him to use moisturizing cream on his hands.
[2019-12-17] MEDS: LORazepam 2 MG/ML INJ IM PRN (14:15)
[2019-12-17] MEDS: LITHIUM CARBONATE 300 MG CAP PO SCH (21:04)
[2019-12-17] MEDS: cloZAPine 100 MG TAB PO SCH (21:05)
[2019-12-17] MEDS: ATORVASTATIN 10 MG TAB PO SCH (21:07)
[2019-12-17] MEDS: LORazepam 0.5 MG TAB PO SCH (21:09)
[2019-12-18] MEDS: MAG HYDROX/AL HYDROX/SIMETH 30 ML CUP PO PRN (02:13)
[2019-12-18] MEDS: LEVOTHYROXINE 50 MCG TAB PO SCH (07:24)
[2019-12-18] MEDS: lamoTRIgine 100 MG TAB PO SCH ×2 (09:14→21:54)
[2019-12-18] MEDS: GLYCOPYRROLATE 1 MG TAB PO SCH ×2 (09:17→21:56)
[2019-12-18] MEDS: busPIRone HCl 5 MG TAB PO SCH ×2 (09:17→21:54)
[2019-12-18] MEDS: LORATADINE 10 MG TAB PO SCH (09:18)
[2019-12-18] MEDS: LINAGLIPTIN 5 MG TABLET PO SCH (09:18)
[2019-12-18] MEDS: HYDROCORTISONE 1% CREAM 454 GM JAR TOPICAL SCH ×4 (09:20→20:29)
[2019-12-18] MEDS: amLODIPine 10 MG TAB PO SCH (09:20)
[2019-12-18] MEDS: LISINOPRIL 20 MG TAB PO SCH (09:20)
[2019-12-18] MEDS: PROPRANOLOL LA 80 MG CAP.SA.24H PO SCH (09:20)
[2019-12-18] MEDS ORDERED: LORazepam 0.5 MG TAB PO PRN (14:20)
--- NOTE | 2019-12-18 16:02 | P.PN ---
Subjective Progress Note Date: 12/18/19 Principal diagnosis: Schizoaffective disorder depressed type, obsessive-compulsive disorder, alcohol use disorder sustained remission I reviewed the medical record and interviewed the patient. He is feeling "a little better" but that he is still depressed. He has "occasional" thoughts of suicide. He talked about a "voice in my head" that maybe his own thoughts or might be of thoughts of his stepfather. He remains preoccupied with his living situation. He described intermittent jerking his hands that began after he started clozapine. Denied other side effects to his medication. He denied increased sedation since we increased the Anafranil. Objective - Vital Signs Vital signs: Vital Signs Temp 99.0 F 12/18/19 02:14 Pulse 82 12/18/19 12:30 Resp 18 12/18/19 12:30 BP 121/74 12/18/19 12:30 Pulse Ox 95 12/18/19 12:30 Intake & Output 12/17/19 12/18/19 12/18/19 18:59 06:59 18:59 Weight 88.9 kg - Exam She was casually groomed, pleasant and cooperative. He made eye contact and attended the interview. He had a blunted facial expression but he appeared more expressive than on prior encounters. He walks slowly with a slouched gait. His movements were slow. Her hands were red. He did not appear to be responding to internal stimuli. - Labs CBC & Chem 7: 12/07/19 09:32 12/12/19 12:26 Assessment and Plan Assessment: She appears less depressed and internally preoccupied. His hands were made without from excessive handwashing. He continues to report suicidal ideation. Plan: Continue to taper Luvox, Ativan or BuSpar. Titrate clomipramine to 50 mg twice a day. Continue other medications as prescribed. Nursing to encourage him to use moisturizing cream on his hands.
[2019-12-18] MEDS: LITHIUM CARBONATE 300 MG CAP PO SCH (21:53)
[2019-12-18] MEDS: cloZAPine 100 MG TAB PO SCH (21:55)
[2019-12-18] MEDS: ATORVASTATIN 10 MG TAB PO SCH (21:56)
[2019-12-18] MEDS: LORazepam 0.5 MG TAB PO SCH (21:58)
[2019-12-19] MEDS: busPIRone HCl 5 MG TAB PO SCH ×2 (09:16→21:07)
[2019-12-19] MEDS: LEVOTHYROXINE 50 MCG TAB PO SCH (09:16)
[2019-12-19] MEDS: amLODIPine 10 MG TAB PO SCH (09:16)
[2019-12-19] MEDS: GLYCOPYRROLATE 1 MG TAB PO SCH ×2 (09:17→21:09)
[2019-12-19] MEDS: lamoTRIgine 100 MG TAB PO SCH ×2 (09:17→21:09)
[2019-12-19] MEDS: HYDROCORTISONE 1% CREAM 454 GM JAR TOPICAL SCH ×4 (09:17→21:06)
[2019-12-19] MEDS: LINAGLIPTIN 5 MG TABLET PO SCH (09:18)
[2019-12-19] MEDS: LISINOPRIL 20 MG TAB PO SCH (09:18)
[2019-12-19] MEDS: LORATADINE 10 MG TAB PO SCH (09:18)
[2019-12-19] MEDS: PROPRANOLOL LA 80 MG CAP.SA.24H PO SCH (09:19)
--- NOTE | 2019-12-19 12:30 | P.PN ---
Subjective Progress Note Date: 12/19/19 Principal diagnosis: Schizoaffective disorder depressed type, obsessive-compulsive disorder, alcohol use disorder sustained remission I reviewed the medical, interviewed the patient and discuss his treatment and treatment plan during team meeting. He reports feeling "a little bit" better but alleged that he continues have "occasional" thoughts of suicide. He remains preoccupied with discharge and again stated that he will not return to his apartment. He is more than willing to accept room and board situation. The [facility] liaison reported that he will lose his section 8 housing and worthlessness apartment. His account assistant is sheila and organization to "clean out" the apartment. Objective - Vital Signs Vital signs: Vital Signs Temp 98.4 F 12/19/19 06:40 Pulse 73 12/19/19 06:40 Resp 18 12/19/19 06:40 BP 125/73 12/19/19 06:40 Pulse Ox 93 L 12/19/19 06:40 Intake & Output 12/18/19 12/19/19 12/19/19 18:59 06:59 18:59 Weight 88.9 kg - Exam He presented as a casually groomed 54-year-old male who was pleasant on approach. He made eye contact and attended to the interview. He had a blunted facial expression. He is alert and oriented to person, place and time. He showed psychomotor retardation but no abnormal movements. Her speech was slow with decreased volume and rhythm. His affect was depressed but not intense and appropriate. He describes suicidal ideation and wishes. He denied homicidal ideation. He expressed continued feelings of hopelessness, helplessness and worthlessness. He ruminated about his living situation. He did not express ideas reference, paranoid ideation or delusions. His thinking was concrete and associations were coherent and logical. He alleged that he is "hearing voices" but did not appear to be responding to internal stimuli. - Labs CBC & Chem 7: 12/07/19 09:32 12/12/19 12:26 Assessment and Plan Assessment: Overall he appears much improved from admission but continues she reported feelings depression, suicidal ideation and auditory hallucinations. He remains preoccupied about his living situation Plan: Discontinue BuSpar today. Increase clomipramine to 50 mg by mouth twice a day. Continue other medications as written. homeworker presenting with [facility] regarding discharge and aftercare services.
[2019-12-19 13:08] VITALS: BMI 28.9
[2019-12-19] MEDS: ATORVASTATIN 10 MG TAB PO SCH (21:07)
[2019-12-19] MEDS: LITHIUM CARBONATE 300 MG CAP PO SCH (21:07)
[2019-12-19] MEDS: cloZAPine 100 MG TAB PO SCH (21:08)
[2019-12-20] MEDS: LEVOTHYROXINE 50 MCG TAB PO SCH (07:02)
[2019-12-20] MEDS: LINAGLIPTIN 5 MG TABLET PO SCH (08:59)
[2019-12-20] MEDS: LORATADINE 10 MG TAB PO SCH (08:59)
[2019-12-20] MEDS: lamoTRIgine 100 MG TAB PO SCH ×2 (09:00→21:23)
[2019-12-20] MEDS: GLYCOPYRROLATE 1 MG TAB PO SCH ×2 (09:01→21:24)
[2019-12-20] MEDS: HYDROCORTISONE 1% CREAM 454 GM JAR TOPICAL SCH ×4 (09:01→21:25)
[2019-12-20] MEDS: LISINOPRIL 20 MG TAB PO SCH (09:01)
[2019-12-20] MEDS: amLODIPine 10 MG TAB PO SCH (09:01)
[2019-12-20] MEDS: PROPRANOLOL LA 80 MG CAP.SA.24H PO SCH (09:01)
--- NOTE | 2019-12-20 13:12 | P.PN ---
Subjective Progress Note Date: 12/20/19 Principal diagnosis: Schizoaffective disorder depressed type, obsessive-compulsive disorder, alcohol use disorder sustained remission I reviewed the medical record, interviewed the patient and discuss his treatment and treatment plan during team meeting. He feels feels but is not ready for discharge. He perseverated about his living situation and continues to maintain that he cannot return to his apartment. If he does not return to his apartment his options are limited to a weekly room and board because there are wait lists for group homes. He has not "recently" experienced thoughts of or suicide. Objective - Vital Signs Vital signs: Vital Signs Temp 98.3 F 12/20/19 07:05 Pulse 100 12/20/19 08:55 Resp 16 12/20/19 08:55 BP 142/88 12/20/19 08:55 Pulse Ox 93 L 12/19/19 06:40 Intake & Output 12/19/19 12/20/19 12/20/19 18:59 06:59 18:59 Weight 88.9 kg - Exam He is casually dressed and groomed 54-year-old male with a thick but shortcut .. He made eye contact and attended to the interview. He smiled during the interview. He continues demonstrates psychomotor retardation. Her speech was spontaneous but slow with decreased rhythm and volume. His affect was depressed but reactive. He denied suicidal ideation or wishes. He continues to feel hopeless and helpless about his living situation but denied persistent feelings of worthlessness. He ruminated about his living situation. He did not express ideas reference, paranoid ideation or delusions. His thinking was abstract and associations were coherent and logical. He denied hallucinations and did not appear to be responding to internal stimuli - Labs CBC & Chem 7: 12/07/19 09:32 12/12/19 12:26 Assessment and Plan Assessment: He is chronically and persistently mentally ill and much improved from admission. He is much less depressed and hopeless. Plan: Continue current medications including Anafranil 50 mg by mouth twice a day. family service worker collaborated with [facility] regarding discharge and aftercare services. Plan is to discharge him once we find suitable housing.
[2019-12-20] MEDS: LITHIUM CARBONATE 300 MG CAP PO SCH (21:21)
[2019-12-20] MEDS: ATORVASTATIN 10 MG TAB PO SCH (21:23)
[2019-12-20] MEDS: cloZAPine 100 MG TAB PO SCH (21:23)
[2019-12-21] MEDS: MAG HYDROX/AL HYDROX/SIMETH 30 ML CUP PO PRN (00:18)
[2019-12-21] MEDS: LEVOTHYROXINE 50 MCG TAB PO SCH (06:14)
[2019-12-21 08:19] LABS: Basophils % (A) 0 %; Eosinophils % (A) 0 %; HGB 13.7 gm/dL (13.0-17.5); Lymphocytes # (A) 1.5 k/uL (1.0-4.8); Lymphocytes % (A) 15 %; MCHC 34.2 g/dL (31.0-37.0); MCV 87.8 fL (80.0-100.0); Mean Platelet Volume 7.7; Monocytes # (A) 0.5 k/uL (0-1.0); Monocytes % (A) 5 %; Neutrophils # (A) 7.8 k/uL (1.3-7.7); Neutrophils % (A) 79 %; Platelet Count 231 k/uL (150-450); RBC 4.56 m/uL (4.30-5.90)
[2019-12-21] MEDS: amLODIPine 10 MG TAB PO SCH (08:50)
[2019-12-21] MEDS: lamoTRIgine 100 MG TAB PO SCH ×2 (08:50→21:22)
[2019-12-21] MEDS: GLYCOPYRROLATE 1 MG TAB PO SCH ×2 (08:50→21:21)
[2019-12-21] MEDS: LORATADINE 10 MG TAB PO SCH (08:50)
[2019-12-21] MEDS: LINAGLIPTIN 5 MG TABLET PO SCH (08:50)
[2019-12-21] MEDS: LISINOPRIL 20 MG TAB PO SCH (08:50)
[2019-12-21] MEDS: PROPRANOLOL LA 80 MG CAP.SA.24H PO SCH (08:50)
[2019-12-21] MEDS: HYDROCORTISONE 1% CREAM 454 GM JAR TOPICAL SCH ×4 (08:51→21:24)
--- NOTE | 2019-12-21 15:39 | P.PN ---
Subjective Progress Note Date: 12/21/19 Principal diagnosis: Schizoaffective disorder depressed type, obsessive-compulsive disorder, alcohol use disorder sustained remission I reviewed the medical record, interviewed the patient and discuss his treatment and treatment plan during team meeting. The theme of the meeting was discharge and aftercare. I highlighted the improvements in his mood, affect and behavior. However he does not feel that he is "ready" for discharge. He became acutely distress when I suggested discharge this Thursday. He countered with the request to remain in the hospital until next Thursday. After a back and forth negotiation we agreed to a discharge no longer than Thursday but probably on Thursday. Objective - Vital Signs Vital signs: Vital Signs Temp 97.7 F 12/21/19 00:19 Pulse 81 12/21/19 08:50 Resp 18 12/21/19 00:19 BP 111/70 12/21/19 08:50 Pulse Ox 97 12/20/19 16:11 - Exam He was casually dressed and groomed. He made eye contact and attended to the interview. A blunted but bright facial expression. His speech was spontaneous with normal rate, rhythm and volume. His affect was blunted but expressive. He denied suicidal ideation, wishes or homicidal ideation. He expressed feelings of worthlessness but denied feeling hopeless or helpless. He did not express ideas reference, paranoid ideation or delusions. His thinking was abstract and associations were coherent and logical. He denied hallucinations did not appear to be responding to internal stimuli. - Labs CBC & Chem 7: 12/21/19 07:55 12/12/19 12:26 Labs: Abnormal Lab Results - Last 24 Hours (Table) 12/21/19 Range/Units 07:55 Neutrophils # 7.8 H (1.3-7.7) k/uL Assessment and Plan Assessment: He is chronically and severely mentally ill and much improved from admission. He is resistant to discharge. Plan: Continue current treatment and treatment plan. He is working with [facility] regarding housing and is considering room and board as opposed to his apartment.
[2019-12-21] MEDS: ATORVASTATIN 10 MG TAB PO SCH (21:22)
[2019-12-21] MEDS: LITHIUM CARBONATE 300 MG CAP PO SCH (21:22)
[2019-12-21] MEDS: cloZAPine 100 MG TAB PO SCH (21:23)
[2019-12-22] MEDS: LEVOTHYROXINE 50 MCG TAB PO SCH (06:37)
[2019-12-22] MEDS: PROPRANOLOL LA 80 MG CAP.SA.24H PO SCH (09:15)
[2019-12-22] MEDS: GLYCOPYRROLATE 1 MG TAB PO SCH ×2 (09:15→21:31)
[2019-12-22] MEDS: lamoTRIgine 100 MG TAB PO SCH ×2 (09:15→21:30)
[2019-12-22] MEDS: LINAGLIPTIN 5 MG TABLET PO SCH (09:15)
[2019-12-22] MEDS: amLODIPine 10 MG TAB PO SCH (09:16)
[2019-12-22] MEDS: LISINOPRIL 20 MG TAB PO SCH (09:16)
[2019-12-22] MEDS: LORATADINE 10 MG TAB PO SCH (09:16)
[2019-12-22] MEDS: HYDROCORTISONE 1% CREAM 454 GM JAR TOPICAL SCH ×3 (09:16→21:32)
--- NOTE | 2019-12-22 13:38 | P.PN ---
Subjective Progress Note Date: 12/22/19 Principal diagnosis: Schizoaffective disorder depressed type, obsessive-compulsive disorder, alcohol use disorder sustained remission I reviewed the medical record, interviewed the patient and discuss his treatment and treatment plan during team meeting. We talked about discharge and aftercare. He was aware that he has a lease for his apartment in that even if he were to move to a bored he would still be responsible for rent until he is able to "break the lease." He conceded that he "may" have returned to his apartment until the end lease. [facility] is offered him assistance with maintaining the apartment. We again talked about the discharge date. He wants to be discharge next week alleging that he is "not ready. He was disappointed when I told him that he is doing so much better I could not justify keeping him in hospital that long. Objective - Vital Signs Vital signs: Vital Signs Temp 97.8 F 12/22/19 07:07 Pulse 75 12/22/19 09:19 Resp 14 12/22/19 07:07 BP 128/94 12/22/19 09:19 Pulse Ox 97 12/20/19 16:11 - Exam He was casually dressed and groomed. He made eye contact and attended to the interview. A blunted but bright facial expression. His speech was spontaneous with normal rate, rhythm and volume. His affect was blunted but expressive. He denied suicidal ideation, wishes or homicidal ideation. He expressed feelings of worthlessness but denied feeling hopeless or helpless. He did not express ideas reference, paranoid ideation or delusions. His thinking was abstract and associations were coherent and logical. He denied hallucinations did not appear to be responding to internal stimuli. - Labs CBC & Chem 7: 12/21/19 07:55 12/12/19 12:26 Assessment and Plan Assessment: He is chronically and severely mentally ill and much improved from admission. He remains resistant to discharge. Plan: Plan for discharge on 12/23/2019. Continue current treatment and treatment plan.
[2019-12-22] MEDS: LITHIUM CARBONATE 300 MG CAP PO SCH (21:29)
[2019-12-22] MEDS: cloZAPine 100 MG TAB PO SCH (21:30)
[2019-12-22] MEDS: ATORVASTATIN 10 MG TAB PO SCH (21:30)
[2019-12-22] MEDS: MINERAL OIL-WHITE PETROLATUM 120 GM JAR TOPICAL PRN (21:32)
[2019-12-23] MEDS: LEVOTHYROXINE 50 MCG TAB PO SCH (07:05)
[2019-12-23] MEDS: amLODIPine 10 MG TAB PO SCH (09:28)
[2019-12-23] MEDS: GLYCOPYRROLATE 1 MG TAB PO SCH ×2 (09:28→21:17)
[2019-12-23] MEDS: LINAGLIPTIN 5 MG TABLET PO SCH (09:29)
[2019-12-23] MEDS: PROPRANOLOL LA 80 MG CAP.SA.24H PO SCH (09:29)
[2019-12-23] MEDS: LORATADINE 10 MG TAB PO SCH (09:29)
[2019-12-23] MEDS: LISINOPRIL 20 MG TAB PO SCH (09:29)
[2019-12-23] MEDS: HYDROCORTISONE 1% CREAM 454 GM JAR TOPICAL SCH ×4 (09:29→21:17)
[2019-12-23] MEDS: lamoTRIgine 100 MG TAB PO SCH ×2 (09:29→21:18)
--- NOTE | 2019-12-23 13:22 | P.PN ---
Subjective Progress Note Date: 12/23/19 Principal diagnosis: Schizoaffective disorder depressed type, obsessive-compulsive disorder, alcohol use disorder sustained remission I reviewed the medical record, interviewed the patient and discuss his treatment and treatment plan during team meeting. He was anxious following our conversation yesterday where I told him that I could not keep him in the hospital "much longer." He did not appear to remember our discussion of his income and lease obligations. I explained that even if he were to move into a room and board he would have to continue paying rent in his apartment until the end of lease. His rent is approximately $380 and would cost him $500 a month to live at [facility]. He would need $880 per rent plus utilities for his apartment. He acknowledged that he could not afford to pay for room and board and his apartment. He agreed to return to his apartment. I reminded him at [facility] was arranged for a biweekly cleaning service. Objective - Vital Signs Vital signs: Vital Signs Temp 97.8 F 12/22/19 07:07 Pulse 82 12/23/19 09:30 Resp 20 12/23/19 09:30 BP 107/69 12/23/19 09:30 Pulse Ox 97 12/20/19 16:11 - Exam He was casually dressed and groomed. He made eye contact and attended to the interview. A blunted but bright facial expression. His speech was spontaneous with normal rate, rhythm and volume. His affect was blunted but expressive. He denied suicidal ideation, wishes or homicidal ideation. He expressed feelings of worthlessness but denied feeling hopeless or helpless. He did not express ideas reference, paranoid ideation or delusions. His thinking was abstract and associations were coherent and logical. He denied hallucinations did not appear to be responding to internal stimuli. - Labs CBC & Chem 7: 12/21/19 07:55 12/12/19 12:26 Assessment and Plan Assessment: He is much improved from admission but continues to perseverate over returning to his apartment but is beginning to recognize that he could not move until the end of his lease Plan: Continue with current treatment and treatment plan. Plan for discharge on 12/26/2019
[2019-12-23] MEDS: LITHIUM CARBONATE 300 MG CAP PO SCH (21:18)
[2019-12-23] MEDS: ATORVASTATIN 10 MG TAB PO SCH (21:18)
[2019-12-23] MEDS: cloZAPine 100 MG TAB PO SCH (21:18)
[2019-12-24] MEDS: LEVOTHYROXINE 50 MCG TAB PO SCH (05:51)
[2019-12-24] MEDS: amLODIPine 10 MG TAB PO SCH (08:57)
[2019-12-24] MEDS: GLYCOPYRROLATE 1 MG TAB PO SCH ×2 (08:57→21:14)
[2019-12-24] MEDS: HYDROCORTISONE 1% CREAM 454 GM JAR TOPICAL SCH ×3 (08:58→21:16)
[2019-12-24] MEDS: lamoTRIgine 100 MG TAB PO SCH ×2 (08:58→21:13)
[2019-12-24] MEDS: LISINOPRIL 20 MG TAB PO SCH (08:59)
[2019-12-24] MEDS: LINAGLIPTIN 5 MG TABLET PO SCH (08:59)
[2019-12-24] MEDS: LORATADINE 10 MG TAB PO SCH (08:59)
[2019-12-24] MEDS: PROPRANOLOL LA 80 MG CAP.SA.24H PO SCH (08:59)
--- NOTE | 2019-12-24 11:34 | P.PN ---
Progress Note - Text Progress Note Date: 12/24/19 Interval history: Patient was seen wandering the hallways and was directable and agreeable to secured in the office. Patient appears to be improving mildly in terms of his psychosis and is more directable today. He was appropriately with telegraphic typewriter operator and states that his mood has been improving. He claims that "I'll always hear the voices" however states that they have an improved with clozapine and being in the hospital. Patient states that he is looking forward to discharge early next week. He states that he slept well last night. At this time patient denies any suicidal or homicidal ideations intent or plan. Denies any visual hallucinations. Patient denies any side effects from the medications and has been compliant with meds. Mental status exam: General Appearance: Patient appears to be stated age is alert, pleasant, and cooperative. Improving hygiene, improving eye contact. Behavior: No agitated behavior. Patient is calm and directable Speech: Patient's speech is fluent and nonpressured. Monotone. Mood/Affect: Mood is improving, affect is congruent and constricted. Suicidality/Homicidality: Patient denies having any suicidal or homicidal ideation intent or plan. Perceptions: Patient denies any auditory or visual hallucinations. Though content/process: Poverty of content/speech. More organized thought process. Memory and concentration: AOX3, grossly intact for the purposes of this session Judgment and insight: improving mildly Assessment/Plan: Continue with current diagnosis. Patient continues to meet criteria for inpatient psychiatric admission for symptom stabilization and safety.Patient will be maintained on current psychotropic medication regimen. Monitor for medication compliance and for any psychotropic medication side effects. Will continue to monitor ongoing response to treatment.
[2019-12-24] MEDS: ATORVASTATIN 10 MG TAB PO SCH (21:14)
[2019-12-24] MEDS: LITHIUM CARBONATE 300 MG CAP PO SCH (21:14)
[2019-12-24] MEDS: cloZAPine 100 MG TAB PO SCH (21:15)
[2019-12-25] MEDS: LEVOTHYROXINE 50 MCG TAB PO SCH (06:26)
[2019-12-25 06:48] VITALS: RESP 16; TEMP 98.6
[2019-12-25] MEDS: amLODIPine 10 MG TAB PO SCH (08:05)
[2019-12-25] MEDS: GLYCOPYRROLATE 1 MG TAB PO SCH ×2 (08:05→21:16)
[2019-12-25] MEDS: LORATADINE 10 MG TAB PO SCH (08:06)
[2019-12-25] MEDS: HYDROCORTISONE 1% CREAM 454 GM JAR TOPICAL SCH ×4 (08:06→21:17)
[2019-12-25] MEDS: LISINOPRIL 20 MG TAB PO SCH (08:06)
[2019-12-25] MEDS: lamoTRIgine 100 MG TAB PO SCH ×2 (08:06→21:15)
[2019-12-25] MEDS: PROPRANOLOL LA 80 MG CAP.SA.24H PO SCH (08:06)
[2019-12-25] MEDS: LINAGLIPTIN 5 MG TABLET PO SCH (08:06)
--- NOTE | 2019-12-25 11:44 | P.PN ---
Progress Note - Text Progress Note Date: 12/25/19 Interval history: Patient was seen wandering the hallways, pacing and was directable and agreeable to speak to blurb writer in the office. Patient appears to be improving overall today and is more directable during conversation. He was also more appropriate with blurb writer and states that his mood has been improving and also claims that the voices have been improving as well. Patient states that he will be discharged tomorrow and is preparing for that. He states that he slept well last night and offers no complaints. At this time patient denies any suicidal or homicidal ideations intent or plan. Denies any visual hallucinations. Patient denies any side effects from the medications and has been compliant with meds. Mental status exam: General Appearance: Patient appears to be stated age is alert, pleasant, and cooperative. Improving hygiene, improving eye contact. Behavior: No agitated behavior. Patient is calm and directable Speech: Patient's speech is fluent and nonpressured. Monotone. Mood/Affect: Mood is improving, affect is congruent and constricted. Suicidality/Homicidality: Patient denies having any suicidal or homicidal ideation intent or plan. Perceptions: Patient denies any visual hallucinations. Admits to ongoing auditory hallucinations. Though content/process: Poverty of content/speech. More organized thought process. Memory and concentration: AOX3, grossly intact for the purposes of this session Judgment and insight: improving mildly Assessment/Plan: Continue with current diagnosis. Patient continues to meet criteria for inpatient psychiatric admission for symptom stabilization and safety.Patient will be maintained on current psychotropic medication regimen. Monitor for medication compliance and for any psychotropic medication side effects. Will continue to monitor ongoing response to treatment.
[2019-12-25] MEDS: LITHIUM CARBONATE 300 MG CAP PO SCH (21:15)
[2019-12-25] MEDS: cloZAPine 100 MG TAB PO SCH (21:15)
[2019-12-25] MEDS: ATORVASTATIN 10 MG TAB PO SCH (21:16)
[2019-12-26] MEDS: LEVOTHYROXINE 50 MCG TAB PO SCH (06:36)
[2019-12-26] MEDS: GLYCOPYRROLATE 1 MG TAB PO SCH (08:48)
[2019-12-26] MEDS: LINAGLIPTIN 5 MG TABLET PO SCH (08:49)
[2019-12-26] MEDS: LORATADINE 10 MG TAB PO SCH (08:49)
[2019-12-26] MEDS: lamoTRIgine 100 MG TAB PO SCH (08:49)
[2019-12-26 08:50] VITALS: BP 102/75; PULSE 77
[2019-12-26] MEDS: amLODIPine 10 MG TAB PO SCH (08:50)
[2019-12-26] MEDS: LISINOPRIL 20 MG TAB PO SCH (08:50)
[2019-12-26] MEDS: PROPRANOLOL LA 80 MG CAP.SA.24H PO SCH (08:50)
[2019-12-26] MEDS: HYDROCORTISONE 1% CREAM 454 GM JAR TOPICAL SCH ×2 (08:55→13:21)
--- NOTE | 2019-12-26 13:04 | P.DS ---
Providers Date of admission: 12/06/19 15:51 Attending physician: Pato Singh MD Consults: 12/06/19 16:13 Consult Physician Routine Consulting Provider: Chinedu Salcedo Consult Reason/Comments: H&P and medical Do you want consulting provider notified?: Yes Primary care physician: Neema Fishman Charbal - Discharge Diagnosis(es) (1) Depression Current Visit: Yes Status: Resolved Priority: Medium (2) Suicidal ideation Current Visit: Yes Status: Resolved Priority: Low (3) Obsessive compulsive disorder Current Visit: No Status: Chronic Priority: High (4) Schizoaffective disorder, depressive type Current Visit: No Status: Chronic Priority: High (5) Alcohol use disorder, severe, in sustained remission Current Visit: No Status: Chronic Priority: Low Hospital Course: He is a 54-year-old single male who has a history of a schizoaffective disorder, and OCD. He presented to the psychiatric unit voluntarily with complaints of increasing depression, inability to live in his apartment independently and increasing suicidal thoughts. He is well known to this service from multiple prior admissions. He was last discharged from this unit in October 2017 with a diagnosis of obsessive- compulsive disorder, schizoaffective disorder depressed type and alcohol use disorder. He is active with [facility]. He last met with his psychiatrist on 12/02/2019 during which he told the psychiatrist that his depression "seems to have lessened." He complained that he was not keeping his apartment as clean as he would like. Between his outpatient psychiatric appointment and his presentation to our ER he complained of increasing depression, increased feelings of hopelessness and hel plessness and increasing suicidal thoughts. He talked about resisting the urge to overdose on his prescription medication. He perseverated on his inability to maintain his apartment. He complained that the apartment "is a wreck" and that he is unable to clean it due to his obsessive and repetitive behaviors. He would consider moving into a room and board situation or a smaller apartment. His obsessive and compulsive behaviors prevents him from cleaning the apartment. He talked about spending 15 minutes to an half-hour attempting to clean a corner of his apartment. He stacks and restacks books and papers. He must clean the bathroom several times after use. He has rituals that he follows before leaving the apartment. The most distressed involved moving papers he stacks on the oven before he leaves the apartment. He feels depressed but was vague and evasive about others symptoms of depressive disorder such as sleep, appetite, energy or concentration with the exception of thoughts to overdose on his prescription medications. He alleged because of the severity is depression that he is not been fully compliant with prescribed medications. We admitted him to the psychiatric unit under the care of this radio news writer. We provided a comprehensive biopsychosocial assessment. The applications sales consultant mathematics department chair completed initial physical exam medical history and diagnosed ALLERGIC dermatitis, hypertension, hypothyroidism, hyperlipidemia and type 2 diabetes mellitus. The applications sales consultant recommended Eucerin cream for the dermatitis, continue Norvasc, lisinopril and Inderal for hypertension, Continue Synthroid for hypothyroidism continue Lipitor for hyperlipidemia and Trajenta for diabetes. We continued most of his outpatient psychotropic medications including Clozaril 150 mg at bedtime, Lamictal 150 mg by mouth twice a day and lithium carbonate 1200 mg at bedtime. We tapered and discontinued Ativan, BuSpar and Luvox. We treated depression, anxiety and OCD with Anafranil; titrating the dose to 50 mg by mouth twice a day. His primary distress during most hospitalization was his living situation. He initially maintained that he would not return to his apartment complaining that it was "too much" to maintain. He repeatedly requested assistance with an alternative placement. He met with the [facility] liaison who explained the available community options including long term, smaller apartment in a room and board. He was interested primarily in placement in a long term or a room and board. He appeared not to understand the financial repercussions of alternate placement. As his depression and anxiety improved he was more amenable to returning to his apartment. He understood that he would remain responsible for the rent until the end of the apartment lease. If he were to leave the apartment he would lose his section 8 housing voucher. If he were to move into a room and board that he would be pain both the room and board and his apartment rent. [facility] arrange for him to have biweekly housecleaning services to support his return to his apartment. At time of discharge she presented as a casually groomed 54-year-old male with a espana and male pattern balding. He made eye contact and attempted to interview. He had a blunted facial expression. He is alert and oriented to person, place and time. He showed no abnormality of psychomotor activity. He had no abnormal movements. His speech was spontaneous with decreased rate and rhythm. His affect was blunted but stable and appropriate. He denied suicidal ideation, wishes or homicidal ideation. He denied feeling hopeless, helpless or worthless. He did not express ideas reference, paranoid ideation or delusions. He did not ruminate about his apartment. His thinking was abstract and associations were coherent and logical. He denied hallucinations and did not appear to be responding to internal stimuli. Patient Condition at Discharge: Stable Plan - Discharge Summary Discharge Rx Participant: No New Discharge Prescriptions: New clomiPRAMINE [Anafranil] 50 mg PO BID 30 Days #60 cap Continue Naltrexone Microspheres [Vivitrol] 380 mg IM Q30D Loratadine [Claritin] 10 mg PO DAILY 30 Days #30 tab cloZAPine [Clozaril] 150 mg PO HS 30 Days #45 tab Rosuvastatin Calcium [Crestor] 5 mg PO HS 30 Days #30 tab Propranolol HCl [Inderal Xl] 80 mg PO DAILY 30 Days #30 cap lamoTRIgine [LaMICtal] 150 mg PO BID 30 Days #60 tab [place] Carbonate 1,200 mg PO HS 30 Days #120 cap amLODIPine [Norvasc] 10 mg PO DAILY #14 tab Omeprazole 20 mg PO BID PRN 30 Days #30 cap PRN Reason: Gi Upset Glycopyrrolate [Robinul Forte] 2 mg PO BID 30 Days #60 tab Levothyroxine Sodium [Synthroid] 50 mcg PO DAILY 30 Days #30 tab Linagliptin [Tradjenta] 5 mg PO DAILY 30 Days #30 tab Lisinopril [Zestril] 20 mg PO DAILY 30 Days #30 tab Discontinued busPIRone HCl [Buspar] 30 mg PO BID #28 tab fluvoxaMINE MALEATE [Luvox CR] 200 mg PO QAM fluvoxaMINE MALEATE [Luvox CR] 100 mg PO HS rOPINIRole HCL [Requip] 0.5 mg PO HS Discharge Medication List Naltrexone Microspheres [Vivitrol] 380 mg IM Q30D 09/22/17 [History] Glycopyrrolate [Robinul Forte] 2 mg PO BID 30 Days #60 tab 12/26/19 [Rx] Levothyroxine Sodium [Synthroid] 50 mcg PO DAILY 30 Days #30 tab 12/26/19 [Rx] Linagliptin [Tradjenta] 5 mg PO DAILY 30 Days #30 tab 12/26/19 [Rx] Lisinopril [Zestril] 20 mg PO DAILY 30 Days #30 tab 12/26/19 [Rx] [place] Carbonate 1,200 mg PO HS 30 Days #120 cap 12/26/19 [Rx] Loratadine [Claritin] 10 mg PO DAILY 30 Days #30 tab 12/26/19 [Rx] Omeprazole 20 mg PO BID PRN 30 Days #30 cap 12/26/19 [Rx] Propranolol HCl [Inderal Xl] 80 mg PO DAILY 30 Days #30 cap 12/26/19 [Rx] Rosuvastatin Calcium [Crestor] 5 mg PO HS 30 Days #30 tab 12/26/19 [Rx] amLODIPine [Norvasc] 10 mg PO DAILY #14 tab 12/26/19 [Rx] cloZAPine [Clozaril] 150 mg PO HS 30 Days #45 tab 12/26/19 [Rx] clomiPRAMINE [Anafranil] 50 mg PO BID 30 Days #60 cap 12/26/19 [Rx] lamoTRIgine [LaMICtal] 150 mg PO BID 30 Days #60 tab 12/26/19 [Rx] Follow up Appointment(s)/Referral(s): [facility] [Outside] - 01/03/20 5:00 pm (01-03-20 @ 5:00 with James Lawton 01-11-20 @ 11:[address] Thomson) Luisa Bethea MD [Primary Care Provider] - 1-2 days Patient Instructions/Handouts: Depression (DC), Schizoaffective Disorder (DC), Suicide Prevention (DC) Activity/Diet/Wound Care/Special Instructions: Activity and diet as tolerated. Avoid the use of street drugs and alcohol. Take all medications as prescribed. When you are in need of refills on your medications please contact your medical provider and/or outpatient psychiatrist to have this done. Please go to scheduled outpatient appointment for aftercare treatment. If symptoms return or become worse, call the crisis line at and/or go to the nearest emergency room for evaluation. Discharge Disposition: HOME SELF-CARE
== END 2019-12-26 14:22 | disposition home or self-care (01) | DRG 885 ==
LOC: EC 10:01 → 3MHU 15:51
PROVIDERS: ADMIT Psychiatry & Neurology Psychiatry; ATTEND Psychiatry & Neurology Psychiatry
DX: F25.1 Schizoaffective disorder, depressive type (principal); R45.851 Suicidal ideations; E03.9 Hypothyroidism, unspecified; E11.9 Type 2 diabetes mellitus without complications; E78.5 Hyperlipidemia, unspecified; F10.21 Alcohol dependence, in remission; F41.9 Anxiety disorder, unspecified; F42.9 Obsessive-compulsive disorder, unspecified; I10 Essential (primary) hypertension; L30.9 Dermatitis, unspecified; Z79.84 Long term (current) use of oral hypoglycemic drugs; Z79.890 Hormone replacement therapy; Z79.899 Other long term (current) drug therapy; Z82.49 Family history of ischemic heart disease and other diseases of the circulatory system; Z83.3 Family history of diabetes mellitus; Z91.5 Personal history of self-harm; Z88.0 Allergy status to penicillin; Z88.8 Allergy status to other drugs, medicaments and biological substances; E55.9 Vitamin D deficiency, unspecified; D51.9 Vitamin B12 deficiency anemia, unspecified
CPT/HCPCS: 36415; 80053; 80061; 80178; 80306; 82075; 83036; 84443; 85025; 90686; 93005; 99285

== ENCOUNTER → 2021-03-06 | Outpatient (CLI) | payer MEDICARE, MEDICAID ==
--- NOTE | 2021-03-06 15:57 | XR ---
EXAMINATION TYPE: XR knee limited RT DATE OF EXAM: 03/06/2021 COMPARISON: NONE HISTORY: Pain TECHNIQUE: Two views are submitted. FINDINGS: On narrowing of the medial compartment of the knee joint. More advanced narrowing of patellofemoral j oint with a small amount of fluid in the suprapatellar bursa. Osseous structures are intact. No acut e fracture seen. IMPRESSION: 1. Arthropathy. 2. Small amount of fluid in the suprapatellar bursa could be correlated with MRI as clinically elaina lyons
== END | disposition home or self-care (01) ==
LOC: RADXRMAIN 15:34
PROVIDERS: ATTEND Internal Medicine
DX: M17.11 Unilateral primary osteoarthritis, right knee (principal)

== ENCOUNTER 2021-03-12 13:55 | Inpatient (IN) | payer MEDICARE, OTHER ==
--- NOTE | 2021-03-12 14:22 | ED ---
Skin/Abscess/FB HPI - General Chief complaint: Skin/Abscess/Foreign Body Stated complaint: Rt Leg Cellulitis Time Seen by Provider: 03/12/21 14:02 Source: patient, RN notes reviewed Mode of arrival: ambulatory Limitations: no limitations - History of Present Illness Initial comments: 55-year-old white male patient presents to the emergency room after failing outpatient therapy with Dr. Dominguez for right lower leg cellulitis. Patient states that the redness and inflammation started from his right knee to his right mid lower leg the middle of last week. Dr Dominguez put patient on Bactrim at that time. Swelling has increased and now extends to the ankle. Patient denies any systemic symptoms, no nausea vomiting diarrhea or fevers. Patient denies any in jury or penetrating trauma at the site. Patient states able to ambulate however does cause increasing pain and tightness to the right lower leg. Patient states Dr. dominguez sent him into the emergency room and states there is nothing more that he can do outpatient. Patient states he has not had this in the past, no history of MRSA. MD complaint: other (Cellulitis of the right lower leg, failed outpatient treatment) -: days(s) (5) Location: RLE Severity: moderate Severity scale (1-10): 6 Quality: other (Pressure, tight) Consistency: constant Improves with: none Worsens with: other (Walking or standing) Associated symptoms: denies other symptoms Treatments Prior to Arrival: antibiotic, NSAID - Related Data Home Medications Medication Instructions Recorded Confirmed Cetirizine HCl [Zyrtec] 10 mg PO DAILY 03/12/21 03/12/21 Meclizine [Antivert] 25 mg PO BID 03/12/21 03/12/21 Sulfamethoxazole/Trimethoprim 1 tab PO BID 03/12/21 03/12/21 [Bactrim DS 800-160 mg] clomiPRAMINE [Anafranil] 100 mg PO BID 03/12/21 03/12/21 lamoTRIgine [LaMICtal] 150 mg PO BID 03/12/21 03/12/21 Previous Rx's Medication Instructions Recorded Glycopyrrolate [Robinul Forte] 2 mg PO BID 30 Days #60 tab 12/26/19 Levothyroxine Sodium [Synthroid] 50 mcg PO DAILY 30 Days #30 tab 12/26/19 Linagliptin [Tradjenta] 5 mg PO DAILY 30 Days #30 tab 12/26/19 [place] Carbonate 1,200 mg PO HS 30 Days #120 cap 12/26/19 Propranolol HCl [Inderal Xl] 80 mg PO DAILY 30 Days #30 cap 12/26/19 Rosuvastatin Calcium [Crestor] 5 mg PO HS 30 Days #30 tab 12/26/19 amLODIPine [Norvasc] 10 mg PO DAILY #14 tab 12/26/19 cloZAPine [Clozaril] 150 mg PO HS 30 Days #45 tab 12/26/19 lisinopriL [Zestril] 20 mg PO DAILY 30 Days #30 tab 12/26/19 Allergies Allergy/AdvReac Type Severity Reaction Status Date / Time Penicillins Allergy Unknown Verified 03/12/21 14:53 Childhood risperidone [From Risperdal] Allergy Unknown Verified 03/12/21 14:53 divalproex sodium AdvReac Anxiety, Verified 03/12/21 14:53 [From Depakote] weight gain Review of Systems ROS Statement: Those systems with pertinent positive or pertinent negative responses have been documented in the HPI. ROS Other: All systems not noted in ROS Statement are negative. Past Medical History Past Medical History: Diabetes Mellitus, GERD/Reflux, Hyperlipidemia, Hypertension, Sleep Apnea/CPAP/BIPAP Additional Past Medical History / Comment(s): Family history of premature coronary artery disease. OCD. History of Any Multi-Drug Resistant Organisms: None Reported Past Surgical History: Hernia Repair Past Anesthesia/Blood Transfusion Reactions: No Reported Reaction Past Psychological History: Anxiety, Bipolar, Depression, Schizoaffective Disorder Smoking Status: Never smoker Past Alcohol Use History: None Reported Past Drug Use History: None Reported - Past Family History Father Family Medical History: Congestive Heart Failure (CHF), Coronary Artery Disease (CAD), Diabetes Mellitus Mother Family Medical History: Cancer General Exam Limitations: no limitations General appearance: alert, in no apparent distress Head exam: Present: atraumatic, normocephalic, normal inspection Eye exam: Present: normal appearance, PERRL, EOMI. Absent: scleral icterus, conjunctival injection, periorbital swelling ENT exam: Present: normal exam, normal oropharynx, mucous membranes moist Neck exam: Present: normal inspection, full ROM. Absent: tenderness, meningismus, lymphadenopathy, thyromegaly Respiratory exam: Present: normal lung sounds bilaterally. Absent: respiratory distress, wheezes, rales, rhonchi, stridor, decreased breath sounds Cardiovascular Exam: Present: regular rate, normal rhythm, normal heart sounds. Absent: systolic murmur, diastolic murmur, rubs, gallop, clicks GI/Abdominal exam: Present: soft, normal bowel sounds. Absent: distended, tenderness, guarding, rebound, rigid Extremities exam: Present: normal inspection, full ROM, normal capillary refill, pedal edema (2+ ). Absent: tenderness, joint swelling, calf tenderness Back exam: Present: normal inspection, full ROM. Absent: tenderness, CVA tenderness (R), CVA tenderness (L) Neurological exam: Present: alert, oriented X3, CN II-XII intact Psychiatric exam: Present: normal affect, normal mood Skin exam: Present: warm, dry, intact, erythema (RLE extending anteriorly from knee to ankle, not circumfrential, no calf pain). Absent: normal color, rash, cyanosis, diaphoretic, urticaria, vesicles, petechiae, pallor, mottled, abrasion Course Vital Signs 03/12/21 13:56 Temperature 97.7 F Pulse Rate 72 Respiratory 20 Rate Blood Pressure 108/75 O2 Sat by Pulse 95 Oximetry Medical Decision Making - Medical Decision Making WBC count is 10.3, with a neutrophil count 8.5, creatinine is 1.26 however this is consistent for patient as he was 1.23 last year. Glucose is 103. Will admit patient for failed outpatient therapy with Bactrim for cellulitis and started on vancomycin. Case discussed with Dr. Underwood. - Lab Data Result diagrams: 03/12/21 14:10 03/12/21 14:10 Lab Results 03/12/21 03/12/21 Range/Units 14:10 14:10 WBC 10.3 (3.8-10.6) k/uL RBC 4.06 L (4.30-5.90) m/uL Hgb 12.6 L (13.0-17.5) gm/dL Hct 35.5 L (39.0-53.0) % MCV 87.6 (80.0-100.0) fL MCH 31.1 (25.0-35.0) pg MCHC 35.5 (31.0-37.0) g/dL RDW 12.9 (11.5-15.5) % Plt Count 345 (150-450) k/uL MPV 6.4 Neutrophils % 83 % Lymphocytes % 10 % Monocytes % 5 % Eosinophils % 1 % Basophils % 0 % Neutrophils # 8.5 H (1.3-7.7) k/uL Lymphocytes # 1.1 (1.0-4.8) k/uL Monocytes # 0.5 (0-1.0) k/uL Eosinophils # 0.1 (0-0.7) k/uL Basophils # 0.0 (0-0.2) k/uL Sodium 140 (137-145) mmol/L Potassium 4.2 (3.5-5.1) mmol/L Chloride 106 (98-107) mmol/L Carbon Dioxide 23 (22-30) mmol/L Anion Gap 11 mmol/L BUN 16 (9-20) mg/dL Creatinine 1.26 H (0.66-1.25) mg/dL Est GFR (CKD-EPI)AfAm 75 (>60 ml/min/1.73 sqM) Est GFR (CKD-EPI)NonAf 65 (>60 ml/min/1.73 sqM) Glucose 103 H (74-99) mg/dL Calcium 9.2 (8.4-10.2) mg/dL Total Bilirubin 0.3 (0.2-1.3) mg/dL AST 22 (17-59) U/L ALT 14 (4-49) U/L Alkaline Phosphatase 74 (38-126) U/L Total Protein 6.9 (6.3-8.2) g/dL Albumin 4.1 (3.5-5.0) g/dL Disposition Clinical Impression: Cellulitis, leg Disposition: ADMITTED IP TO THIS HOSP Decision Date: 03/12/21 Decision Time: 17:26
[2021-03-12] MEDS ORDERED: SODIUM CHLORIDE 0.9% 500 ML 500 ML IV ONE (14:32)
[2021-03-12 14:35] LABS: Basophils % (A) 0 %; Eosinophils # (A) 0.1 k/uL (0-0.7); Eosinophils % (A) 1 %; HCT 35.5 % (39.0-53.0); HGB 12.6 gm/dL (13.0-17.5); Lymphocytes # (A) 1.1 k/uL (1.0-4.8); Lymphocytes % (A) 10 %; MCH 31.1 pg (25.0-35.0); MCHC 35.5 g/dL (31.0-37.0); MCV 87.6 fL (80.0-100.0); Mean Platelet Volume 6.4; Monocytes # (A) 0.5 k/uL (0-1.0); Monocytes % (A) 5 %; Neutrophils # (A) 8.5 k/uL (1.3-7.7); Neutrophils % (A) 83 %; Platelet Count 345 k/uL (150-450); RBC 4.06 m/uL (4.30-5.90); RDW 12.9 % (11.5-15.5); WBC 10.3 k/uL (3.8-10.6)
[2021-03-12] MEDS ORDERED: DIPH,PERTUS(ACELL)TETVAC-LF 0.5 ML VIAL IM ONE (14:35)
[2021-03-12 14:49] LABS: Albumin 4.1 g/dL (3.5-5.0); Calcium 9.2 mg/dL (8.4-10.2); Potassium 4.2 mmol/L (3.5-5.1); Total Bilirubin 0.3 mg/dL (0.2-1.3); Total Protein 6.9 g/dL (6.3-8.2)
[2021-03-12] MEDS ORDERED: NALOXONE 0.4 MG/ML 1 ML VIAL IV PRN (15:03)
[2021-03-12] MEDS ORDERED: VANCOMYCIN IV PER PHARMACY 1 EACH MISC MISCELLANE PRN (15:09)
[2021-03-12] MEDS ORDERED: VANCOMYCIN 1,500 MG in SODIUM CHLORIDE 0.9% 250 ML IVPB STA (15:13)
[2021-03-12] MEDS: SODIUM CHLORIDE 0.9% 1,000 ML IV SCH (15:52)
[2021-03-12] MEDS ORDERED: HYDROcodone/APAP 5-325MG 1 EACH TAB PO STA (20:15)
[2021-03-12] MEDS: ATORVASTATIN 10 MG TAB PO SCH (22:08)
[2021-03-12] MEDS: cloZAPine 100 MG TAB PO SCH (22:09)
[2021-03-12] MEDS: GLYCOPYRROLATE 1 MG TAB PO SCH (22:09)
[2021-03-12] MEDS: LITHIUM CARBONATE 300 MG CAP PO SCH (22:09)
[2021-03-12] MEDS: lamoTRIgine 100 MG TAB PO SCH (22:09)
[2021-03-12] MEDS: MECLIZINE 25 MG TAB PO SCH (22:10)
--- NOTE | 2021-03-12 22:12 | P.HPIM ---
History of Present Illness H&P Date: 03/12/21 Chief Complaint: Right leg swelling and pain. Patient is a 55-year-old male with a known history of diabetes type 2 [id number], hypertension, hyperlipidemia, obstructive sleep apnea, GERD, anxiety/depression/bipolar/schizoaffective disorder presents to ER due to complaints of right leg swelling and redness. Patient was seen at Dr. Bethea's office and was referred to ER due to right lower extremity cellulitis and failed antibiotic therapy with Bactrim. Patient states that redness and pain started below his right knee about a week ago and was started on Bactrim as an outpatient. Patient is having increasing leg swelling and redness extending to lower leg up to ankle. Otherwise patient denied any complaints of fever or chills. No nausea vomiting abdominal pain or diarrhea. No injury. No fall. Patient is having increasing pain and tightness to the right lower leg. Patient had x-ray of the right leg 03/06/2021 showed arthropathy. Small amount of fluid in the suprapatellar bursa could be correlated with MRI as clinically warranted. Laboratory data showed WBC 10.3, hemoglobin 12.6 and platelets 345 Sodium 140 potassium 4.2 chloride 106 BUN 16 and creatinine 1.26 COVID-19 PCR not detected and liver enzymes are not elevated Review of Systems Constitutional: Patient denies any fever or chills . No generalized weakness or weight loss. Abdomen: Patient denied nausea vomiting and diarrhea and abdominal pain. Cardiovascular: Patient denies any chest pain or short of breath no palpitations. Respiratory: patient denied any cough or sputum production. No shortness of breath Neurologic: Patient denied any numbness or tingling headache. Musculoskeletal: Patient denies any complaints of joint swelling or deformity.R ight leg swelling and redness and pain Skin: Negative Psychiatric: Negative Endocrine: No heat or cold intolerance. No recent weight gain. Genitourinary: No dysuria or hematuria. All other 14 point ROS negative except the above Past Medical History Past Medical History: Diabetes Mellitus, GERD/Reflux, Hyperlipidemia, Hypertension, Sleep Apnea/CPAP/BIPAP Additional Past Medical History / Comment(s): Family history of premature merari nary artery disease. OCD. History of Any Multi-Drug Resistant Organisms: None Reported Past Surgical History: Hernia Repair Past Anesthesia/Blood Transfusion Reactions: No Reported Reaction Past Psychological History: Anxiety, Bipolar, Depression, Schizoaffective Disorder Smoking Status: Never smoker Past Alcohol Use History: None Reported Past Drug Use History: None Reported - Past Family History Father Family Medical History: Congestive Heart Failure (CHF), Coronary Artery Disease (CAD), Diabetes Mellitus Mother Family Medical History: Cancer Medications and Allergies Home Medications Medication Instructions Recorded Confirmed Type Glycopyrrolate [Robinul Forte] 2 mg PO BID 30 Days #60 tab 12/26/19 03/12/21 Rx Levothyroxine Sodium [Synthroid] 50 mcg PO DAILY 30 Days #30 tab 12/26/19 03/12/21 Rx Linagliptin [Tradjenta] 5 mg PO DAILY 30 Days #30 tab 12/26/19 03/12/21 Rx [place] Carbonate 1,200 mg PO HS 30 Days #120 cap 12/26/19 03/12/21 Rx Propranolol HCl [Inderal Xl] 80 mg PO DAILY 30 Days #30 cap 12/26/19 03/12/21 Rx Rosuvastatin Calcium [Crestor] 5 mg PO HS 30 Days #30 tab 12/26/19 03/12/21 Rx amLODIPine [Norvasc] 10 mg PO DAILY #14 tab 12/26/19 03/12/21 Rx cloZAPine [Clozaril] 150 mg PO HS 30 Days #45 tab 12/26/19 03/12/21 Rx lisinopriL [Zestril] 20 mg PO DAILY 30 Days #30 tab 12/26/19 03/12/21 Rx Cetirizine HCl [Zyrtec] 10 mg PO DAILY 03/12/21 03/12/21 History Meclizine [Antivert] 25 mg PO BID 03/12/21 03/12/21 History Sulfamethoxazole/Trimethoprim 1 tab PO BID 03/12/21 03/12/21 History [Bactrim DS 800-160 mg] clomiPRAMINE [Anafranil] 100 mg PO BID 03/12/21 03/12/21 History lamoTRIgine [LaMICtal] 150 mg PO BID 03/12/21 03/12/21 History Allergies Allergy/AdvReac Type Severity Reaction Status Date / Time Penicillins Allergy Unknown Verified 03/12/21 14:53 Childhood risperidone [From Risperdal] Allergy Unknown Verified 03/12/21 14:53 divalproex sodium AdvReac Anxiety, Verified 03/12/21 14:53 [From Depakote] weight gain Physical Exam Vitals: Vital Signs Temp Pulse Resp BP Pulse Ox 03/12/21 20:37 97.5 F L 77 18 118/78 97 03/12/21 13:56 97.7 F 72 20 108/75 95 Intake and Output 03/12/21 03/12/21 03/12/21 06:59 14:59 22:59 Other: Weight 97.522 kg PHYSICAL EXAMINATION: Patient is lying in the bed comfortably, no acute distress, awake alert and oriented.. HEENT: Normocephalic. Neck is supple. Pupils reactive. Nostrils clear. Oral cavity is moist. Ears reveal no drainage. Neck reveals no JVD, carotid bruits, or thyromegaly. CHEST EXAMINATION: Trachea is central. Symmetrical expansion. Lung park clear to auscultation and percussion. CARDIAC: Normal S1, S2 with no gallops. No murmurs ABDOMEN: Soft. Bowel sounds normal. No organomegaly. No abdominal bruits. Extremities: Patient does have swelling of the right lower extremity and redness extending below the knee and up to ankle. Tenderness and warmth.. No clubbing or cyanosis Neurologically awake, alert, oriented x3 with well-coordinated movements. No focal deficits noted Skin: No rash or skin lesions. Psychiatric: Coperative. Nonsuicidal Musculoskeletal: No joint swelling or deformity. Normal range of motion. Results CBC & Chem 7: 03/12/21 14:10 03/12/21 14:10 Labs: Abnormal Lab Results - Last 24 Hours (Table) 03/12/21 03/12/21 Range/Units 14:10 14:10 RBC 4.06 L (4.30-5.90) m/uL Hgb 12.6 L (13.0-17.5) gm/dL Hct 35.5 L (39.0-53.0) % Neutrophils # 8.5 H (1.3-7.7) k/uL Creatinine 1.26 H (0.66-1.25) mg/dL Glucose 103 H (74-99) mg/dL Thrombosis Risk Factor Assmnt - DVT/VTE Prophylaxis DVT/VTE Prophylaxis: Pharmacologic Prophylaxis ordered Assessment and Plan Assessment: Right lower extremity swelling/cellulitis failed outpatient therapy. Rule out DVT. Diabetes type 2 [id number] Obstructive sleep apnea on CPAP Hypertension Hyperlipidemia GERD Anxiety, Bipolar, Depression, Schizoaffective Disorder DVT prophylaxis with heparin subcu Plan: Patient will be continued on IV hydration with normal saline and antibiotics in the form of vancomycin. Follow-up blood culture reports. Ultrasound duplex of the right lower extremity to rule out DVT. Continue with home medications and follow-up closely. Repeat CBC and BMP tomorrow. Further recommendations based on clinical course. Time with Patient: Greater than 30
--- NOTE | 2021-03-12 23:42 | US ---
EXAMINATION TYPE: US venous doppler duplex LE RT DATE OF EXAM: 03/12/2021 10:50 PM COMPARISON: NONE CLINICAL HISTORY: leg swelling. Leg swelling and pain x 1 week. No hx of DVT. Patient does not take b lood thinner. SIDE PERFORMED: Right TECHNIQUE: The lower extremity deep venous system is examined utilizing real time linear array sonog valerie with graded compression, doppler sonography and color-flow sonography. VESSELS IMAGED: Common Femoral Vein Deep Femoral Vein Greater Saphenous Vein * Femoral Vein Popliteal Vein Small Saphenous Vein * Proximal Calf Veins (* superficial vessels) Right Leg: No evidence of DVT in veins imaged at this time. IMPRESSION: Normal exam. No evidence of deep vein thrombosis in the right leg.
[2021-03-13] MEDS: VANCOMYCIN 1,500 MG in SODIUM CHLORIDE 0.9% 250 ML IVPB SCH ×2 (00:09→12:05)
[2021-03-13] MEDS: HEPARIN SODIUM,PORCINE/PF 5,000 UNIT/0.5 ML SYRINGE SQ SCH ×3 (00:12→18:09)
[2021-03-13] MEDS: SODIUM CHLORIDE 0.9% 1,000 ML IV SCH ×2 (00:19→18:05)
[2021-03-13] MEDS: ACETAMINOPHEN TAB 325 MG TAB PO PRN ×3 (03:23→19:34)
[2021-03-13 05:53] LABS: Basophils % (A) 0 %; Eosinophils % (A) 0 %; HCT 35.1 % (39.0-53.0); HGB 11.8 gm/dL (13.0-17.5); Lymphocytes # (A) 1.2 k/uL (1.0-4.8); Lymphocytes % (A) 15 %; MCH 29.7 pg (25.0-35.0); MCHC 33.6 g/dL (31.0-37.0); MCV 88.3 fL (80.0-100.0); Mean Platelet Volume 6.2; Monocytes # (A) 0.5 k/uL (0-1.0); Monocytes % (A) 6 %; Neutrophils # (A) 5.9 k/uL (1.3-7.7); Neutrophils % (A) 77 %; Platelet Count 298 k/uL (150-450); RBC 3.97 m/uL (4.30-5.90); RDW 13.2 % (11.5-15.5); WBC 7.6 k/uL (3.8-10.6)
[2021-03-13 06:19] LABS: African American GFR (CKD) >90 (>60 ml/min/1.73 sqM); Anion Gap 6 mmol/L; Blood Urea Nitrogen 17 mg/dL (9-20); Calcium 9.1 mg/dL (8.4-10.2); Carbon Dioxide 27 mmol/L (22-30); Chloride 111 mmol/L (98-107); Glucose 100 mg/dL (74-99); Non-African American GFR(CKD) 78 (>60 ml/min/1.73 sqM); Potassium 3.5 mmol/L (3.5-5.1); Sodium 144 mmol/L (137-145)
[2021-03-13] MEDS: GLYCOPYRROLATE 1 MG TAB PO SCH ×2 (09:38→21:59)
[2021-03-13] MEDS: lamoTRIgine 100 MG TAB PO SCH ×2 (09:39→21:57)
[2021-03-13] MEDS: MECLIZINE 25 MG TAB PO SCH ×2 (09:39→22:00)
[2021-03-13] MEDS: LEVOTHYROXINE 50 MCG TAB PO SCH (09:39)
[2021-03-13] MEDS: PROPRANOLOL LA 80 MG CAP.SA.24H PO SCH (09:40)
[2021-03-13 16:31] LABS: Hemoglobin A1C 5.4 % (4.0-6.0)
[2021-03-13] MEDS: ATORVASTATIN 10 MG TAB PO SCH (21:58)
[2021-03-13] MEDS: cloZAPine 100 MG TAB PO SCH (21:58)
[2021-03-13] MEDS: LITHIUM CARBONATE 300 MG CAP PO SCH (22:00)
[2021-03-14] MEDS: HEPARIN SODIUM,PORCINE/PF 5,000 UNIT/0.5 ML SYRINGE SQ SCH ×3 (00:10→17:00)
[2021-03-14] MEDS: VANCOMYCIN 1,500 MG in SODIUM CHLORIDE 0.9% 250 ML IVPB SCH ×2 (00:10→13:01)
[2021-03-14] MEDS: SODIUM CHLORIDE 0.9% 1,000 ML IV SCH (01:30)
[2021-03-14] MEDS: ACETAMINOPHEN TAB 325 MG TAB PO PRN ×2 (02:57→19:37)
[2021-03-14 05:52] LABS: African American GFR (CKD) >90 (>60 ml/min/1.73 sqM); Non-African American GFR(CKD) 81 (>60 ml/min/1.73 sqM)
[2021-03-14] MEDS: LEVOTHYROXINE 50 MCG TAB PO SCH (06:07)
[2021-03-14] MEDS: lamoTRIgine 100 MG TAB PO SCH ×2 (09:54→20:28)
[2021-03-14] MEDS: GLYCOPYRROLATE 1 MG TAB PO SCH ×2 (09:54→20:31)
[2021-03-14] MEDS: MECLIZINE 25 MG TAB PO SCH ×2 (09:54→20:31)
[2021-03-14] MEDS: PROPRANOLOL LA 80 MG CAP.SA.24H PO SCH (09:55)
--- NOTE | 2021-03-14 09:56 | CDI ---
Documentation Clarification Form Date: 03/14/2021 09:39:25 AM From: Tati Dsouza RN CCDS Admit Date: 03/14/2021 07:27:00 AM Patient Name: Huan Muniz Visit Number: [id number] Discharge Date: ATTENTION: The Clinical Documentation Specialists (CDI) and [facility] Coding Staff appreciate your assistance in clarifying documentation. Please respond to the clarification below the line at the bottom and electronically sign. The CDI & [facility] Coding staff will review the response and follow-up if needed. Please note: Queries are made part of the Legal Health Record. If you have any questions, please contact the author of this message via ITS. Dr. Seth Morgan Cellulitis is documented in H&P 03/12. Additional clarification regarding the type of cellulitis is requested. History/risk factors: 55-year-old female presents to the ED with right lower extremity cellulitis and failed antibiotic therapy (Bactrim). The redness swelling and pain started a week ago below the right knee and has increased extending to the ankle. Medical History: DM 2 and HLD. H&P 03/12 Clinical Indicators: Known history of DM2 Non-insulin dependent. H&P 03/12. Labs: 03/12 Glucose 103; 03/13 Glucose 100. H&P Physical examination: Patient does have swelling of the right lower extremity and redness extending below the knee and up the ankle. Tenderness and warmth. Treatment: 03/12: Vancomycin 1,500mg x1 IVPB. 03/14 Vancomycin 1,500mg IVPB Q12H. Please clarify the type of cellulitis, if known: [ ] Cellulitis due to diabetes [ ] Chronic Cellulitis [ ] Acute Lymphangitis [ ] Other, please specify: [ ] Unable to determine (Template Last Revised: January 2021) 03/[address] Wallace "Right lower extremity swelling/ cellulitis failed outpatient therapy." "Ruled out DVT." "Unlikely related to diabetes." MTDD
[2021-03-14] MEDS ORDERED: VANCOMYCIN TROUGH DUE 1 EACH MISC MISCELLANE ONE (11:00)
[2021-03-14] MEDS: cloZAPine 100 MG TAB PO SCH (20:29)
[2021-03-14] MEDS: ATORVASTATIN 10 MG TAB PO SCH (20:29)
[2021-03-14] MEDS: LITHIUM CARBONATE 300 MG CAP PO SCH (20:30)
--- NOTE | 2021-03-15 00:07 | P.PN ---
Subjective Progress Note Date: 03/13/21 Patient is a 55-year-old male with a known history of diabetes type 2 [id number], hypertension, hyperlipidemia, obstructive sleep apnea, GERD, anxiety/depression/bipolar/schizoaffective disorder presents to ER due to complaints of right leg swelling and redness. Patient was seen at Dr. Bethea's office and was referred to ER due to right lower extremity cellulitis and failed antibiotic therapy with Bactrim. Patient states that redness and pain started below his right knee about a week ago and was started on Bactrim as an outpatient. Patient is having increasing leg swelling and redness extending to lower leg up to ankle. Otherwise patient denied any complaints of fever or chills. No nausea vomiting abdominal pain or diarrhea. No injury. No fall. Patient is having increasing pain and tightness to the right lower leg. Patient had x-ray of the right leg 03/06/2021 showed arthropathy. Small amount of fluid in the suprapatellar bursa could be correlated with MRI as clinically warranted. Laboratory data showed WBC 10.3, hemoglobin 12.6 and platelets 345 Sodium 140 potassium 4.2 chloride 106 BUN 16 and creatinine 1.26 COVID-19 PCR not detected and liver enzymes are not elevated 03/12/2021 Patient is currently lying in the bed comfortably. Right lower extremity swelling and redness is slightly improved. Patient is able to bear weight. Still having right infrapatellar region is indurated and tenderness with palpation. Patient has been afebrile. Continued on antibiotics of vancomycin. Blood cultures negative so far. No complaints of chest pain or shortness of breath. No nausea vomiting abdominal pain or diarrhea. Right lower extremity duplex scan is negative for DVT. Current medications reviewed. Objective - Vital Signs Vital signs: Vital Signs Temp 98.4 F 03/13/21 12:07 Pulse 64 03/13/21 12:07 Resp 16 03/13/21 12:07 BP 116/79 03/13/21 12:07 Pulse Ox 92 L 03/13/21 12:07 Intake & Output 03/13/21 03/13/21 03/14/21 06:59 18:59 06:59 Intake Total 2550 1800 Output Total 0 Balance 2550 1800 Intake: Intake, IV Titration 1050 Amount Sodium Chloride 0.9% 1, 800 000 ml @ 100 mls/hr IV . Q10H [facility] Rx#:[id number] Vancomycin 1,500 mg In 250 Sodium Chloride 0.9% 250 ml @ 125 mls/hr IVPB Q12H [facility] Rx#:[id number] Oral 1500 1800 Output: Stool 0 Other: Voiding Method Toilet # Voids 5 # Bowel Movements 0 - Exam PHYSICAL EXAMINATION: Patient is lying in the bed comfortably, no acute distress, awake alert and oriented.. HEENT: Normocephalic. Neck is supple. Pupils reactive. Nostrils clear. Oral cavity is moist. Ears reveal no drainage. Neck reveals no JVD, carotid bruits, or thyromegaly. CHEST EXAMINATION: Trachea is central. Symmetrical expansion. Lung park clear to auscultation and percussion. CARDIAC: Normal S1, S2 with no gallops. No murmurs ABDOMEN: Soft. Bowel sounds normal. No organomegaly. No abdominal bruits. Extremities: Patient does have swelling of the right lower extremity and redness extending below the knee and up to ankle. Tenderness and warmth.. No clubbing or cyanosis Tenderness and induration over the right infrapatellar region. Neurologically awake, alert, oriented x3 with well-coordinated movements. No focal deficits noted Skin: No rash or skin lesions. Psychiatric: Coperative. Nonsuicidal Musculoskeletal: No joint swelling or deformity. Normal range of motion. - Labs CBC & Chem 7: 03/13/21 05:34 03/14/21 04:55 Labs: Abnormal Lab Results - Last 24 Hours (Table) 03/13/21 03/13/21 Range/Units 05:34 05:34 RBC 3.97 L (4.30-5.90) m/uL Hgb 11.8 L (13.0-17.5) gm/dL Hct 35.1 L (39.0-53.0) % Chloride 111 H (98-107) mmol/L Glucose 100 H (74-99) mg/dL Microbiology - Last 24 Hours (Table) 03/12/21 14:10 Blood Culture - Preliminary Blood No Growth after 24 hours 03/12/21 14:31 Blood Culture - Preliminary Blood No Growth after 24 hours Assessment and Plan Assessment: Right lower extremity swelling/cellulitis failed outpatient therapy. Ruled out DVT. Diabetes type 2 [id number] Obstructive sleep apnea on CPAP Hypertension Hyperlipidemia GERD Anxiety, Bipolar, Depression, Schizoaffective Disorder DVT prophylaxis with heparin subcu Plan: Patient will be continued on IV hydration with normal saline and antibiotics in the form of vancomycin. Follow-up blood culture reports. Ultrasound duplex of the right lower extremity negative for DVT. Continue with home medications and follow-up closely. Further recommendations based on clinical course. Time with Patient: Greater than 30
--- NOTE | 2021-03-15 00:11 | P.PN ---
Subjective Progress Note Date: 03/14/21 Principal diagnosis: Right lower extremity swelling/cellulitis Patient is a 55-year-old male with a known history of diabetes type 2 [id number], hypertension, hyperlipidemia, obstructive sleep apnea, GERD, anxiety/depression/bipolar/schizoaffective disorder presents to ER due to complaints of right leg swelling and redness. Patient was seen at Dr. Bethea's office and was referred to ER due to right lower extremity cellulitis and failed antibiotic therapy with Bactrim. Patient states that redness and pain started below his right knee about a week ago and was started on Bactrim as an outpatient. Patient is having increasing leg swelling and redness extending to lower leg up to ankle. Otherwise patient denied any complaints of fever or chills. No nausea vomiting abdominal pain or diarrhea. No injury. No fall. Patient is having increasing pain and tightness to the right lower leg. Patient had x-ray of the right leg 03/06/2021 showed arthropathy. Small amount of fluid in the suprapatellar bursa could be correlated with MRI as clinically warranted. Laboratory data showed WBC 10.3, hemoglobin 12.6 and platelets 345 Sodium 140 potassium 4.2 chloride 106 BUN 16 and creatinine 1.26 COVID-19 PCR not detected and liver enzymes are not elevated 03/12/2021 Patient is currently lying in the bed comfortably. Right lower extremity swelling and redness is slightly improved. Patient is able to bear weight. Still having right infrapatellar region is indurated and tenderness with palpation. Patient has been afebrile. Continued on antibiotics of vancomycin. Blood cultures negative so far. No complaints of chest pain or shortness of breath. No nausea vomiting abdominal pain or diarrhea. Right lower extremity duplex scan is negative for DVT. 03/13/2021 Patient is resting in the bed awake alert 1x3. Patient is still having right lower extremity swelling and redness and also tenderness of the right infra patella region. Otherwise patient is afebrile. Still unable to bear weight completely. Continued on antibiotics and home vancomycin. ID and orthopedic surgery will be consulted and continue with pain management. Denies any chest pain or shortness of breath. Patient has been afebrile. No nausea vomiting or abdominal pain or diarrhea. Current medications reviewed. Objective - Vital Signs Vital signs: Vital Signs Temp 98.0 F 03/14/21 20:19 Pulse 64 05/06/21 20:19 Resp 14 03/14/21 20:19 BP 145/92 03/14/21 20:19 Pulse Ox 95 03/14/21 20:19 Intake & Output 03/14/21 03/14/21 03/15/21 06:59 18:59 06:59 Intake Total 1830 1350 790 Output Total 0 Balance 1830 1350 790 Intake: Intake, IV Titration 650 250 Amount Sodium Chloride 0.9% 1, 400 000 ml @ 100 mls/hr IV . Q10H [facility] Rx#:[id number] Vancomycin 1,500 mg In 250 250 Sodium Chloride 0.9% 250 ml @ 125 mls/hr IVPB Q12H [facility] Rx#:[id number] Oral 1180 1100 790 Output: Stool 0 Other: Voiding Method Toilet Toilet Toilet # Voids 2 4 1 - Exam PHYSICAL EXAMINATION: Patient is lying in the bed comfortably, no acute distress, awake alert and oriented.. HEENT: Normocephalic. Neck is supple. Pupils reactive. Nostrils clear. Oral cavity is moist. Ears reveal no drainage. Neck reveals no JVD, carotid bruits, or thyromegaly. CHEST EXAMINATION: Trachea is central. Symmetrical expansion. Lung park clear to auscultation and percussion. CARDIAC: Normal S1, S2 with no gallops. No murmurs ABDOMEN: Soft. Bowel sounds normal. No organomegaly. No abdominal bruits. Extremities: Patient does have swelling of the right lower extremity and redness extending below the knee and up to ankle. Tenderness and warmth.. No clubbing or cyanosis Tenderness and induration over the right infrapatellar region. Neurologically awake, alert, oriented x3 with well-coordinated movements. No focal deficits noted Skin: No rash or skin lesions. Psychiatric: Coperative. Nonsuicidal Musculoskeletal: No joint swelling or deformity. Normal range of motion. - Labs CBC & Chem 7: 03/13/21 05:34 03/14/21 04:55 Labs: Microbiology - Last 24 Hours (Table) 03/12/21 14:10 Blood Culture - Preliminary Blood No Growth after 48 hours 03/12/21 14:31 Blood Culture - Preliminary Blood No Growth after 48 hours Assessment and Plan Assessment: Right lower extremity swelling/cellulitis failed outpatient therapy. Ruled out DVT.Unlikely related to diabetes. Right infrapatellar rule out septic bursitis Diabetes type 2 [id number]-qwzabzeho Obstructive sleep apnea on CPAP Hypertension Hyperlipidemia GERD Anxiety, Bipolar, Depression, Schizoaffective Disorder DVT prophylaxis with heparin subcu Plan: Patient will be continued on IV hydration with normal saline and antibiotics in the form of vancomycin. Follow-up blood culture reports. Ultrasound duplex of the right lower extremity negative for DVT. Patient is still having right orbital swelling and infra patellar tenderness and redness and swelling. ID and orthopedic surgery will be consulted. Continue with home medications and follow-up closely. Further recommendations based on clinical course. Time with Patient: Greater than 30
[2021-03-15] MEDS: HEPARIN SODIUM,PORCINE/PF 5,000 UNIT/0.5 ML SYRINGE SQ SCH ×4 (00:17→23:40)
[2021-03-15] MEDS: VANCOMYCIN 1,500 MG in SODIUM CHLORIDE 0.9% 250 ML IVPB SCH ×3 (00:17→23:44)
[2021-03-15] MEDS: LEVOTHYROXINE 50 MCG TAB PO SCH (05:27)
[2021-03-15] MEDS: ACETAMINOPHEN TAB 325 MG TAB PO PRN (05:27)
[2021-03-15] MEDS: MECLIZINE 25 MG TAB PO SCH ×2 (07:56→21:00)
[2021-03-15] MEDS: lamoTRIgine 100 MG TAB PO SCH ×2 (07:56→21:00)
[2021-03-15] MEDS: GLYCOPYRROLATE 1 MG TAB PO SCH ×2 (07:56→21:00)
[2021-03-15] MEDS: PROPRANOLOL LA 80 MG CAP.SA.24H PO SCH (07:56)
--- NOTE | 2021-03-15 09:38 | P.CNOR ---
History of Present Illness - HPI Consult date: 03/15/21 Requesting physician: Seth Morgan Consult reason: other (right knee patellar bursitis) History of present illness: Patient is a 55-year-old male presenting to the hospital, referred from 's office for cellulitis and right lower leg pain. Patient failed antibiotic therapy with Bactrim. one week ago this swelling and redness started around his ankle and has since spread proximal to his knee. He denies any trauma to this area and says he woke up one morning with this redness. Patient denies any fever, nausea, vomiting, chest pain, shortness of breath. Patient denies any numbness tingling in right leg. Patient does have a history of diabetes. He says he is not on insulin or any oral medications. He says he controls diabetes with diet. Patient denies any previous orthopedic surgeries. This redness and swelling is getting more prevalent to the knee. Review of Systems See HPI Constitutional: Reports as per HPI Past Medical History Past Medical History: Diabetes Mellitus, GERD/Reflux, Hyperlipidemia, Hypertension, Sleep Apnea/CPAP/BIPAP Additional Past Medical History / Comment(s): Family history of premature coronary artery disease. OCD. History of Any Multi-Drug Resistant Organisms: None Reported Past Surgical History: Hernia Repair Past Anesthesia/Blood Transfusion Reactions: No Reported Reaction Past Psychological History: Anxiety, Bipolar, Depression, Schizoaffective Disorder Smoking Status: Never smoker Past Alcohol Use History: None Reported Past Drug Use History: None Reported - Past Family History Father Family Medical History: Congestive Heart Failure (CHF), Coronary Artery Disease (CAD), Diabetes Mellitus Mother Family Medical History: Cancer Medications and Allergies Home Medications Medication Instructions Recorded Confirmed Type Glycopyrrolate [Robinul Forte] 2 mg PO BID 30 Days #60 tab 12/26/19 03/12/21 Rx Levothyroxine Sodium [Synthroid] 50 mcg PO DAILY 30 Days #30 tab 12/26/19 03/12/21 Rx Linagliptin [Tradjenta] 5 mg PO DAILY 30 Days #30 tab 12/26/19 03/12/21 Rx [place] Carbonate 1,200 mg PO HS 30 Days #120 cap 12/26/19 03/12/21 Rx Propranolol HCl [Inderal Xl] 80 mg PO DAILY 30 Days #30 cap 12/26/19 03/12/21 Rx Rosuvastatin Calcium [Crestor] 5 mg PO HS 30 Days #30 tab 12/26/19 03/12/21 Rx cloZAPine [Clozaril] 150 mg PO HS 30 Days #45 tab 12/26/19 03/12/21 Rx lisinopriL [Zestril] 20 mg PO DAILY 30 Days #30 tab 12/26/19 03/12/21 Rx Cetirizine HCl [Zyrtec] 10 mg PO DAILY 03/12/21 03/12/21 History Meclizine [Antivert] 25 mg PO BID 03/12/21 03/12/21 History clomiPRAMINE [Anafranil] 100 mg PO BID 03/12/21 03/12/21 History lamoTRIgine [LaMICtal] 150 mg PO BID 03/12/21 03/12/21 History Allergies Allergy/AdvReac Type Severity Reaction Status Date / Time Penicillins Allergy Unknown Verified 03/12/21 14:53 Childhood risperidone [From Risperdal] Allergy Unknown Verified 03/12/21 14:53 divalproex sodium AdvReac Anxiety, Verified 03/12/21 14:53 [From Depakote] weight gain Physical Examination Patient does have mild erythema to the infrapatellar region of the right knee. There is some mild fluctuance to infrapatellar region right knee. Range of motion is good. Flexion right knee about to 120; patient is able to extend knee -5. He does flex and extend knee without any pain. Neurovascular status intact dorsalis pedis pulse present bilaterally and feet. Right knee strength 4/5 on flexion and extension. Knee is mildly warm to touch. Negative for any effusion. Negative for joint line tenderness. Negative valgus, varus stress test. Negative Payal's. Results - Labs Labs: Microbiology - Last 24 Hours (Table) 03/12/21 14:10 Blood Culture - Preliminary Blood No Growth after 48 hours 03/12/21 14:31 Blood Culture - Preliminary Blood No Growth after 48 hours H & H 03/12/21 03/13/21 Range/Units 14:10 05:34 Hgb 12.6 L 11.8 L (13.0-17.5) gm/dL Hct 35.5 L 35.1 L (39.0-53.0) % Result Diagrams: 03/13/21 05:34 03/14/21 04:55 Assessment and Plan Plan: 1. Infrapatellar bursitis, right knee - plan for surgery tomorrow, 03/16/2021, 8:00. Incision and drainage of right knee planned with cultures. Nothing by mouth after midnight. obtained consent. PT/INR ordered. CBC with differential ordered 2. Appreciate medical management 3. Pain management -stable at this time 4. Multiple medical comorbidities Time with Patient: Less than 30
[2021-03-15 10:04] LABS: Prothrombin Time 10.4 sec (9.0-12.0)
[2021-03-15 10:06] LABS: Basophils % (A) 0 %; Eosinophils % (A) 0 %; HCT 36.2 % (39.0-53.0); HGB 12.3 gm/dL (13.0-17.5); Lymphocytes # (A) 1.1 k/uL (1.0-4.8); Lymphocytes % (A) 15 %; MCH 29.9 pg (25.0-35.0); MCHC 33.9 g/dL (31.0-37.0); MCV 88.2 fL (80.0-100.0); Mean Platelet Volume 6.3; Monocytes # (A) 0.4 k/uL (0-1.0); Monocytes % (A) 6 %; Neutrophils # (A) 5.7 k/uL (1.3-7.7); Neutrophils % (A) 78 %; Platelet Count 343 k/uL (150-450); RBC 4.11 m/uL (4.30-5.90); RDW 12.8 % (11.5-15.5); WBC 7.3 k/uL (3.8-10.6)
--- NOTE | 2021-03-15 16:32 | P.CONS ---
History of Present Illness - Reason for Consult Consult date: 03/15/21 Right leg cellulitis Requesting physician: Seth Morgan - Chief Complaint Right leg swelling and redness 1 week - History of Present Illness Patient is a 55-year-old male presenting to the ER with right lower extremity pain swelling and redness, patient mentions started about a week ago without any history of any trauma he started more just below the right knee area and then the subsequent spread to the right leg patient did complain of pain into the right leg to be more of a sharp in nature 45-10 and no radiation with associated swelling and redness patient has been evaluated in the outpatient setting was diagnosed with cellulitis and was treated with the Bactrim DS for about a week patient did have a follow-up with physician On 03/12/2021, patient was noticed to have no significant improvement subsequently the patient advised to go to the hospital, patient on presentation hospital was afebrile he did have a normal white count, patient did have lower extremity Doppler was negative for DVT patient has been treated with IV antibiotic for 2 days did have some improvement infection disease was consulted last evening for further management of antibiotic therapy patient has already been evaluated by orthopedic with the plan for bursectomy in the morning and deep cultures Review of Systems Positive point has been mentioned in the HPI rest of the systems are negative Past Medical History Past Medical History: Diabetes Mellitus, GERD/Reflux, Hyperlipidemia, Hypertension, Sleep Apnea/CPAP/BIPAP Additional Past Medical History / Comment(s): Family history of premature coronary artery disease. OCD. History of Any Multi-Drug Resistant Organisms: None Reported Past Surgical History: Hernia Repair Past Anesthesia/Blood Transfusion Reactions: No Reported Reaction Past Psychological History: Anxiety, Bipolar, Depression, Schizoaffective Disorder Smoking Status: Never smoker Past Alcohol Use History: None Reported Past Drug Use History: None Reported - Past Family History Father Family Medical History: Congestive Heart Failure (CHF), Coronary Artery Disease (CAD), Diabetes Mellitus Mother Family Medical History: Cancer Medications and Allergies Home Medications Medication Instructions Recorded Confirmed Type Glycopyrrolate [Robinul Forte] 2 mg PO BID 30 Days #60 tab 12/26/19 03/12/21 Rx Levothyroxine Sodium [Synthroid] 50 mcg PO DAILY 30 Days #30 tab 12/26/19 03/12/21 Rx Linagliptin [Tradjenta] 5 mg PO DAILY 30 Days #30 tab 12/26/19 03/12/21 Rx [place] Carbonate 1,200 mg PO HS 30 Days #120 cap 12/26/19 03/12/21 Rx Propranolol HCl [Inderal Xl] 80 mg PO DAILY 30 Days #30 cap 12/26/19 03/12/21 Rx Rosuvastatin Calcium [Crestor] 5 mg PO HS 30 Days #30 tab 12/26/19 03/12/21 Rx cloZAPine [Clozaril] 150 mg PO HS 30 Days #45 tab 12/26/19 03/12/21 Rx lisinopriL [Zestril] 20 mg PO DAILY 30 Days #30 tab 12/26/19 03/12/21 Rx Cetirizine HCl [Zyrtec] 10 mg PO DAILY 03/12/21 03/12/21 History Meclizine [Antivert] 25 mg PO BID 03/12/21 03/12/21 History clomiPRAMINE [Anafranil] 100 mg PO BID 03/12/21 03/12/21 History lamoTRIgine [LaMICtal] 150 mg PO BID 03/12/21 03/12/21 History Allergies Allergy/AdvReac Type Severity Reaction Status Date / Time Penicillins Allergy Unknown Verified 03/12/21 14:53 Childhood risperidone [From Risperdal] Allergy Unknown Verified 03/12/21 14:53 divalproex sodium AdvReac Anxiety, Verified 03/12/21 14:53 [From Depakote] weight gain Physical Exam Vitals: Vital Signs Temp Pulse Resp BP Pulse Ox 03/15/21 12:18 97.6 F 63 16 130/96 96 03/15/21 08:00 61 14 03/15/21 05:03 97.6 F 61 14 123/77 92 L 03/14/21 20:19 98.0 F 64 14 145/92 95 Intake and Output 03/14/21 03/15/21 03/15/21 22:59 06:59 14:59 Intake Total 1660 250 Output Total 0 Balance 1660 250 0 Intake: Intake, IV Titration 250 250 Amount Vancomycin 1,500 mg In 250 250 Sodium Chloride 0.9% 250 ml @ 125 mls/hr IVPB Q12H [facility] Rx#:[id number] Oral 1410 Output: Stool 0 Other: Voiding Method Toilet Toilet # Voids 1 1 GENERAL DESCRIPTION: Middle-aged male lying in bed, no distress. No tachypnea or accessory muscle of respiration use. HEENT: Shows Pallor , no scleral icterus. Oral mucous membrane is dry. No pharyngeal erythema or thrush NECK: Trachea central, no thyromegaly. LUNGS: Unlabored breathing. Clear to auscultation anteriorly. No wheeze or crackle. HEART: S1, S2, regular rate and rhythm. No loud murmur ABDOMEN: Soft, no tenderness , guarding or rigidity, no organomegaly EXTREMITIES: Right lower extremity swelling and redness mostly marked at the i nfrapatellar area was slightly warm to touch no drainage SKIN: No rash, no masses palpable. NEUROLOGICAL: The patient is awake, alert, oriented x3, mood and affect normal. Results CBC & Chem 7: 03/15/21 09:24 03/14/21 04:55 Labs: Abnormal Lab Results - Last 24 Hours (Table) 03/15/21 Range/Units 09:24 RBC 4.11 L (4.30-5.90) m/uL Hgb 12.3 L (13.0-17.5) gm/dL Hct 36.2 L (39.0-53.0) % Microbiology - Last 24 Hours (Table) 03/12/21 14:10 Blood Culture - Preliminary Blood No Growth after 48 hours 03/12/21 14:31 Blood Culture - Preliminary Blood No Growth after 48 hours Assessment and Plan Assessment: 1-patient with right lower extremity cellulitis in this patient who did have a component of infrapatellar bursitis septic that has failed outpatient oral Bactrim DS therapy and minimal clinical response to the IV vancomycin with the patient is currently receiving for the last 3 days 2 patient with penicillin ALLERGY that would limit the number of antibiotic safety use- (1) Infrapatellar bursitis of right knee Current Visit: Yes Status: Acute Code(s): M70.51 - OTHER BURSITIS OF KNEE, RIGHT KNEE SNOMED Code(s): 561042358 (2) Cellulitis, leg Current Visit: Yes Status: Acute Code(s): L03.119 - CELLULITIS OF UNSPECIFIED PART OF LIMB SNOMED Code(s): 412645621 Plan: 1-Vancomycin pharmacy to dose target trough of 15 while watching kidney function and Vanco trough closely 2-await I&D and deep cultures in the morning 3-discharge antibiotics will depend upon clinical response and cultures We will follow on clinical condition and cultures to further adjust medication if needed Thank you for this consultation will follow this patient with you
[2021-03-15] MEDS: ATORVASTATIN 10 MG TAB PO SCH (21:00)
[2021-03-15] MEDS: cloZAPine 100 MG TAB PO SCH (21:00)
[2021-03-15] MEDS: LITHIUM CARBONATE 300 MG CAP PO SCH (21:00)
--- NOTE | 2021-03-15 23:43 | P.PN ---
Subjective Progress Note Date: 03/15/21 Principal diagnosis: Right lower extremity swelling/cellulitis Patient is a 55-year-old male with a known history of diabetes type 2 sps-fquocfj-xzuiewtgh, hypertension, hyperlipidemia, obstructive sleep apnea, GERD, anxiety/depression/bipolar/schizoaffective disorder presents to ER due to complaints of right leg swelling and redness. Patient was seen at Dr. Bethea's office and was referred to ER due to right lower extremity cellulitis and failed antibiotic therapy with Bactrim. Patient states that redness and pain started below his right knee about a week ago and was started on Bactrim as an outpatient. Patient is having increasing leg swelling and redness extending to lower leg up to ankle. Otherwise patient denied any complaints of fever or chills. No nausea vomiting abdominal pain or diarrhea. No injury. No fall. Patient is having increasing pain and tightness to the right lower leg. Patient had x-ray of the right leg 03/06/2021 showed arthropathy. Small amount of fluid in the suprapatellar bursa could be correlated with MRI as clinically warranted. Laboratory data showed WBC 10.3, hemoglobin 12.6 and platelets 345 Sodium 140 potassium 4.2 chloride 106 BUN 16 and creatinine 1.26 COVID-19 PCR not detected and liver enzymes are not elevated 03/13/2021 Patient is currently lying in the bed comfortably. Right lower extremity swelling and redness is slightly improved. Patient is able to bear weight. Still having right infrapatellar region is indurated and tenderness with palpation. Patient has been afebrile. Continued on antibiotics of vancomycin. Blood cultures negative so far. No complaints of chest pain or shortness of breath. No nausea vomiting abdominal pain or diarrhea. Right lower extremity duplex scan is negative for DVT. 03/14/2021 Patient is resting in the bed awake alert 1x3. Patient is still having right lower extremity swelling and redness and also tenderness of the right infra patella region. Otherwise patient is afebrile. Still unable to bear weight completely. Continued on antibiotics and home vancomycin. ID and orthopedic surgery will be consulted and continue with pain management. Denies any chest pain or shortness of breath. Patient has been afebrile. No nausea vomiting or abdominal pain or diarrhea. 03/15/2021 Patient is currently lying in the bed comfortably. Still having right leg swelling and redness is improving. Right infrapatellar tenderness is not improving. Patient was seen by orthopedic surgery and is planning for I&D tomorrow. Follow-up culture reports. Continue with antibiotics in the form of vancomycin. Patient is allergic to penicillin. ID is on board. Otherwise patient has been afebrile. Nothing by mouth and repeat labs tomorrow. No complaints of chest pain or shortness breath. No nausea vomiting abdominal pain or diarrhea. No headache or dizziness or lightheadedness. Current medications reviewed. Objective - Vital Signs Vital signs: Vital Signs Temp 98.2 F 03/15/21 19:35 Pulse 71 03/15/21 19:35 Resp 16 03/15/21 19:35 BP 162/102 03/15/21 19:35 Pulse Ox 95 03/15/21 19:35 Intake & Output 03/15/21 03/15/21 03/16/21 06:59 18:59 06:59 Intake Total 1040 Output Total 0 Balance 1040 0 Intake: Intake, IV Titration 250 Amount Vancomycin 1,500 mg In 250 Sodium Chloride 0.9% 250 ml @ 125 mls/hr IVPB Q12H [facility] Rx#:[id number] Oral 790 Output: Stool 0 Other: Voiding Method Toilet Toilet # Voids 1 1 - Exam PHYSICAL EXAMINATION: Patient is lying in the bed comfortably, no acute distress, awake alert and oriented.. HEENT: Normocephalic. Neck is supple. Pupils reactive. Nostrils clear. Oral cavity is moist. Ears reveal no drainage. Neck reveals no JVD, carotid bruits, or thyromegaly. CHEST EXAMINATION: Trachea is central. Symmetrical expansion. Lung park clear to auscultation and percussion. CARDIAC: Normal S1, S2 with no gallops. No murmurs ABDOMEN: Soft. Bowel sounds normal. No organomegaly. No abdominal bruits. Extremities: Patient does have swelling of the right lower extremity and redness extending below the knee and up to ankle. Tenderness and warmth.. No clubbing or cyanosis Tenderness and induration over the right infrapatellar region. Neurologically awake, alert, oriented x3 with well-coordinated movements. No focal deficits noted Skin: No rash or skin lesions. Psychiatric: Coperative. Nonsuicidal Musculoskeletal: No joint swelling or deformity. Normal range of motion. - Labs CBC & Chem 7: 03/15/21 09:24 03/14/21 04:55 Labs: Abnormal Lab Results - Last 24 Hours (Table) 03/15/21 03/15/21 03/15/21 Range/Units 09:24 09:24 09:24 RBC 4.11 L (4.30-5.90) m/uL Hgb 12.3 L (13.0-17.5) gm/dL Hct 36.2 L (39.0-53.0) % ESR 19 H (0-15) mm/hr C-Reactive Protein 1.3 H (<1.0) mg/dL Microbiology - Last 24 Hours (Table) 03/12/21 14:31 Blood Culture - Preliminary Blood No Growth after 72 hours 03/12/21 14:10 Blood Culture - Preliminary Blood No Growth after 72 hours Assessment and Plan Assessment: Right lower extremity swelling/cellulitis failed outpatient therapy. Ruled out DVT.Unlikely related to diabetes. Right infrapatellar rule out septic bursitis Diabetes type 2 [id number] Obstructive sleep apnea on CPAP Hypertension Hyperlipidemia GERD Anxiety, Bipolar, Depression, Schizoaffective Disorder DVT prophylaxis with heparin subcu Plan: Patient will be continued on IV hydration with normal saline and antibiotics in the form of vancomycin. Follow-up blood culture reports. Ultrasound duplex of the right lower extremity negative for DVT. Patient is still having right orbital swelling and infra patellar tenderness and redness and swelling. ID and orthopedic surgery is following. I&D of rt infra pattellar busrasa tomorro.w. Continue with home medications and follow-up closely. Further recommendations based on clinical course. Time with Patient: Greater than 30
[2021-03-16] MEDS: LEVOTHYROXINE 50 MCG TAB PO SCH (05:52)
[2021-03-16] MEDS: HEPARIN SODIUM,PORCINE/PF 5,000 UNIT/0.5 ML SYRINGE SQ SCH ×3 (07:27→23:28)
[2021-03-16] MEDS: PROPRANOLOL LA 80 MG CAP.SA.24H PO SCH (07:47)
[2021-03-16] MEDS: MECLIZINE 25 MG TAB PO SCH ×2 (07:48→20:33)
[2021-03-16] MEDS: lamoTRIgine 100 MG TAB PO SCH ×2 (07:48→20:33)
[2021-03-16] MEDS: GLYCOPYRROLATE 1 MG TAB PO SCH ×2 (07:48→20:33)
[2021-03-16] MEDS ORDERED: LIDOCAINE 1% INJ 10MG/ML (20 ML MDV) ONE (11:28)
[2021-03-16] MEDS ORDERED: LACTATED RINGERS 1,000 ML IV ONE ×2 (11:28→12:29)
[2021-03-16] MEDS ORDERED: KETOROLAC 15 MG/ML 1 ML VIAL ONE (11:28)
[2021-03-16] MEDS ORDERED: MIDAZOLAM 2 MG/2 ML VIAL ONE (11:28)
[2021-03-16] MEDS ORDERED: PROPOFOL 10 MG/ML 20 ML VIAL IV ONE (11:28)
[2021-03-16] MEDS ORDERED: fentaNYL (PF) 50 MCG/ML 2 ML AMP ONE (11:28)
[2021-03-16] MEDS ORDERED: ceFAZolin 1,000 MG in SODIUM CHLORIDE 0.9% 1,000 ML IRRIGATION ONE (11:52)
--- NOTE | 2021-03-16 12:11 | P.OP ---
Date of Procedure: 03/16/21 Preoperative Diagnosis: Infected right knee infrapatellar bursitis Postoperative Diagnosis: Same Procedure(s) Performed: Incision and drainage/irrigation and debridement right knee infrapatellar septic bursitis Anesthesia: STAN Surgeon: Wilmar Garcia Peel Oven Tender #1: Salomon Haider Estimated Blood Loss (ml): 10 Pathology: other (Gram stain/cultures) Condition: stable Disposition: PACU Indications for Procedure: The patient's a 55-year-old male who presents with a one-week history of right leg cellulitis/infection/septic infrapatellar bursitis has been treated with oral antibiotics and most recently several days of IV antibiotic was persistence of his symptoms. A discussion of the risks and benefits of operative intervention was made with the patient. He opted to proceed. Risks of surgery to include persistence of infection and possible need for subsequent procedures was discussed. Informed consent was obtained. Operative Findings: As below Description of Procedure: The patient was brought to the operating room, and after induction of general anesthesia the right lower extremity was prepped and draped in normal fashion. The tourniquet was inflated to 270 mm retro-. A 5 cm incision was then made centered starting at the inferior pole patella extending distally. Skin was incised sharply. Subcu tissues were divided sharply. Electrocautery was used for hemostasis. Significant bursal thickening was noted. There is no definite purulence. Deep cultures were obtained. The bursal tissue was sharply excised with a scalpel down to the level of the patellar tendon. Pulsatile lavage was then utilized copiously. The skin was then loosely reapproximated over a Sly drain with simple 3-0 nylon sutures. A sterile dressing was applied. The tourniquet was deflated with less than 30 minutes total tourniquet time. The patient was awoken from general anesthesia and transferred to recovery room in good condition. Blood loss was estimated at 10 mL. No complications were incurred. Sponge and needle counts were correct at the end of the case.
[2021-03-16] MEDS ORDERED: ONDANSETRON 4 MG/2 ML VIAL IVP ONE (12:20)
[2021-03-16] MEDS ORDERED: KETOROLAC 15 MG/ML 1 ML VIAL IVP ONE (12:20)
[2021-03-16] MEDS ORDERED: HYDROmorphone 0.5 MG/0.5 ML SYRINGE IVP ONE ×4 (12:20→12:39)
[2021-03-16 12:23] LABS: Glucose,Whole Blood 95 mg/dL (75-99)
[2021-03-16] MEDS ORDERED: HYDROmorphone 0.5 MG/0.5 ML SYRINGE IVP PRN (13:01)
[2021-03-16] MEDS ORDERED: HYDROcodone/APAP 5-325MG 1 EACH TAB PO PRN (13:02)
[2021-03-16] MEDS: VANCOMYCIN 1,500 MG in SODIUM CHLORIDE 0.9% 250 ML IVPB SCH ×2 (13:14→23:28)
[2021-03-16] MEDS: cloZAPine 100 MG TAB PO SCH (20:32)
[2021-03-16] MEDS: ATORVASTATIN 10 MG TAB PO SCH (20:32)
[2021-03-16] MEDS: LITHIUM CARBONATE 300 MG CAP PO SCH (20:33)
[2021-03-17] MEDS: LEVOTHYROXINE 50 MCG TAB PO SCH (05:39)
[2021-03-17] MEDS: lamoTRIgine 100 MG TAB PO SCH ×2 (09:38→21:28)
[2021-03-17] MEDS: HEPARIN SODIUM,PORCINE/PF 5,000 UNIT/0.5 ML SYRINGE SQ SCH ×2 (09:38→15:55)
[2021-03-17] MEDS: MECLIZINE 25 MG TAB PO SCH ×2 (09:39→21:32)
[2021-03-17] MEDS: GLYCOPYRROLATE 1 MG TAB PO SCH ×2 (09:39→21:32)
[2021-03-17] MEDS: PROPRANOLOL LA 80 MG CAP.SA.24H PO SCH (09:40)
[2021-03-17] MEDS ORDERED: VANCOMYCIN TROUGH DUE 1 EACH MISC MISCELLANE ONE (11:00)
[2021-03-17 11:33] LABS: Basophils % (A) 0 %; Eosinophils # (A) 0.1 k/uL (0-0.7); Eosinophils % (A) 1 %; HCT 36.5 % (39.0-53.0); HGB 12.5 gm/dL (13.0-17.5); Lymphocytes # (A) 0.9 k/uL (1.0-4.8); Lymphocytes % (A) 11 %; MCH 30.2 pg (25.0-35.0); MCHC 34.3 g/dL (31.0-37.0); MCV 87.8 fL (80.0-100.0); Mean Platelet Volume 6.2; Monocytes # (A) 0.3 k/uL (0-1.0); Monocytes % (A) 4 %; Neutrophils # (A) 6.7 k/uL (1.3-7.7); Neutrophils % (A) 84 %; Platelet Count 295 k/uL (150-450); RBC 4.16 m/uL (4.30-5.90); RDW 12.9 % (11.5-15.5)
[2021-03-17 12:08] LABS: African American GFR (CKD) 77 (>60 ml/min/1.73 sqM); Anion Gap 6 mmol/L; Blood Urea Nitrogen 21 mg/dL (9-20); Calcium 9.3 mg/dL (8.4-10.2); Carbon Dioxide 28 mmol/L (22-30); Chloride 107 mmol/L (98-107); Glucose 163 mg/dL (74-99); Non-African American GFR(CKD) 66 (>60 ml/min/1.73 sqM); Potassium 3.7 mmol/L (3.5-5.1); Sodium 141 mmol/L (137-145)
[2021-03-17] MEDS: VANCOMYCIN 1,500 MG in SODIUM CHLORIDE 0.9% 250 ML IVPB SCH (12:18)
--- NOTE | 2021-03-17 13:02 | P.PN ---
Subjective Progress Note Date: 03/17/21 Principal diagnosis: infected right knee infrapatellar bursitis upon entering room this morning, patient was an getting around the room and sitting down on bed without issue. Patient says he is in minimal pain and doing well from surgery yesterday. He is able to flex and extend knee without pain. He says he has been eating food and has had bowel movements as well. Patient denies any fever, chills, change in vision, chest pain, shortness of breath. Patient denies any saddle anesthesia. Objective - Vital Signs Vital signs: Vital Signs Temp 98.2 F 03/17/21 11:24 Pulse 81 03/17/21 11:24 Resp 20 03/17/21 11:24 BP 151/91 03/17/21 11:24 Pulse Ox 95 03/17/21 11:24 Intake & Output 03/16/21 03/17/21 03/17/21 18:59 06:59 18:59 Intake Total 1101 1210 Output Total 3 Balance 1098 1210 Intake: IV 851 Intake, IV Titration 250 250 Amount Vancomycin 1,500 mg In 250 250 Sodium Chloride 0.9% 250 ml @ 125 mls/hr IVPB Q12H [facility] Rx#:[id number] Oral 960 Output: Estimated Blood Loss 3 Other: Voiding Method Toilet # Voids 1 - Exam on exam, patient is able to flex and extend knee without pain. Dorsalis pedis pulses are present 2+ bilaterally. Negative Homans bilaterally. sensation is intact in feet bilaterally. Patient is able to ambulate independently around the room. Silvio wrap was partially removed as well as dressings over incision to expose some incision. Incision appears to be intact with minimal serosanguineous drainage from the drain. - Labs CBC & Chem 7: 03/17/21 11:16 03/17/21 11:16 Labs: Abnormal Lab Results - Last 24 Hours (Table) 03/17/21 03/17/21 Range/Units 11:16 11:16 RBC 4.16 L (4.30-5.90) m/uL Hgb 12.5 L (13.0-17.5) gm/dL Hct 36.5 L (39.0-53.0) % Lymphocytes # 0.9 L (1.0-4.8) k/uL BUN 21 H (9-20) mg/dL Glucose 163 H (74-99) mg/dL Microbiology - Last 24 Hours (Table) 03/16/21 12:00 Gram Stain - Preliminary Knee - Right Wound Culture - Preliminary 03/16/21 12:00 Gram Stain - Preliminary Knee - Right Wound Culture - Preliminary 03/16/21 12:00 Anaerobic Culture - Preliminary Knee - Right 03/16/21 12:00 Fungal Culture - Preliminary Knee - Right 03/16/21 12:00 Fungal Culture - Preliminary Knee - Right 03/16/21 12:00 Anaerobic Culture - Preliminary Knee - Right 03/12/21 14:10 Blood Culture - Preliminary Blood No Growth after 96 hours 03/12/21 14:31 Blood Culture - Preliminary Blood No Growth after 96 hours Assessment and Plan Assessment: infected right knee infrapatellar bursitis Plan: 1. infected right knee infrapatellar bursitis - incision and drainage performed yesterday, 03/16/2021. Cultures taken. awaiting results from lab 2. pain management - stable at this time 3. GI prophylaxis/DVT prophylaxis - continue heparin while inpatient 4. PT/OT 5. discharge planning Time with Patient: Less than 30
--- NOTE | 2021-03-17 17:38 | PN ---
PROGRESS NOTE DATE OF SERVICE: 03/17/2021 REASON FOR FOLLOWUP: Right knee infrapatellar bursitis. INTERVAL HISTORY: Patient is currently afebrile. Patient is status post I and D of the right bursa. Patient tolerated the procedure. Pain is currently controlled. No chest pain, shortness of breath or cough. No abdominal pain or diarrhea. PHYSICAL EXAMINATION: Blood pressure 151/91 with a pulse of 81, temperature 98.2. He is 95% on room air. General description is a middle-aged male lying in bed in no distress. Respiratory system: Unlabored breathing, clear to auscultation anteriorly. HEART S1, S2. Regular rate and rhythm. Abdomen soft, no tenderness. Right knee is currently dressed up. No obvious drainage on the dressing. LABORATORY STUDIES: Hemoglobin is 12.5, white count 8.0, BUN of 21, creatinine 1.24. Cultures currently pending. DIAGNOSTIC IMPRESSION AND PLAN: Patient with right knee infrapatellar bursitis status post I and D and debridement of the right knee bursa. Cultures are pending. Patient is covered with vancomycin to continue. Discharge antibiotics depending upon clinical response and cultures. Continue supportive care. MMODL / IJN: [id number] /
[2021-03-17] MEDS: ACETAMINOPHEN TAB 325 MG TAB PO PRN (20:12)
[2021-03-17] MEDS: cloZAPine 100 MG TAB PO SCH (21:28)
[2021-03-17] MEDS: ATORVASTATIN 10 MG TAB PO SCH (21:29)
[2021-03-17] MEDS: LITHIUM CARBONATE 300 MG CAP PO SCH (21:29)
--- NOTE | 2021-03-17 22:18 | P.PN ---
Subjective Progress Note Date: 03/16/21 Principal diagnosis: Right lower extremity swelling/cellulitis Patient is a 55-year-old male with a known history of diabetes type 2 [id number], hypertension, hyperlipidemia, obstructive sleep apnea, GERD, anxiety/depression/bipolar/schizoaffective disorder presents to ER due to complaints of right leg swelling and redness. Patient was seen at Dr. Bethea's office and was referred to ER due to right lower extremity cellulitis and failed antibiotic therapy with Bactrim. Patient states that redness and pain started below his right knee about a week ago and was started on Bactrim as an outpatient. Patient is having increasing leg swelling and redness extending to lower leg up to ankle. Otherwise patient denied any complaints of fever or chills. No nausea vomiting abdominal pain or diarrhea. No injury. No fall. Patient is having increasing pain and tightness to the right lower leg. Patient had x-ray of the right leg 03/06/2021 showed arthropathy. Small amount of fluid in the suprapatellar bursa could be correlated with MRI as clinically warranted. Laboratory data showed WBC 10.3, hemoglobin 12.6 and platelets 345 Sodium 140 potassium 4.2 chloride 106 BUN 16 and creatinine 1.26 COVID-19 PCR not detected and liver enzymes are not elevated 03/13/2021 Patient is currently lying in the bed comfortably. Right lower extremity swelling and redness is slightly improved. Patient is able to bear weight. Still having right infrapatellar region is indurated and tenderness with palpation. Patient has been afebrile. Continued on antibiotics of vancomycin. Blood cultures negative so far. No complaints of chest pain or shortness of breath. No nausea vomiting abdominal pain or diarrhea. Right lower extremity duplex scan is negative for DVT. 03/14/2021 Patient is resting in the bed awake alert 1x3. Patient is still having right lower extremity swelling and redness and also tenderness of the right infra patella region. Otherwise patient is afebrile. Still unable to bear weight completely. Continued on antibiotics and home vancomycin. ID and orthopedic surgery will be consulted and continue with pain management. Denies any chest pain or shortness of breath. Patient has been afebrile. No nausea vomiting or abdominal pain or diarrhea. 03/15/2021 Patient is currently lying in the bed comfortably. Still having right leg swelling and redness is improving. Right infrapatellar tenderness is not improving. Patient was seen by orthopedic surgery and is planning for I&D tomorrow. Follow-up culture reports. Continue with antibiotics in the form of vancomycin. Patient is allergic to penicillin. ID is on board. Otherwise patient has been afebrile. Nothing by mouth and repeat labs tomorrow. No complaints of chest pain or shortness breath. No nausea vomiting abdominal pain or diarrhea. No headache or dizziness or lightheadedness. 03/16/2021 Patient is currently lying in the bed. Awake alert oriented x3. Patient underwent I&D and irrigation and debridement of right knee infrapatellar septic bursitis. Follow-up culture reports. Patient is being continued on antibiotics in the form of vancomycin. ID is on board. Pain is controlled. Right lower extremity redness is improving. No complaints of chest pain or shortness of. No fever no chills. No headache or dizziness lightheadedness. Laboratory showed creatinine 1.22 Current medications reviewed. Objective - Vital Signs Vital signs: Vital Signs Temp 97.1 F L 03/16/21 12:10 Pulse 67 03/16/21 12:59 Resp 16 03/16/21 12:59 BP 150/99 03/16/21 12:59 Pulse Ox 100 03/16/21 12:59 Intake & Output 03/15/21 03/16/21 03/16/21 18:59 06:59 18:59 Intake Total 250 851 Output Total 0 3 Balance 0 250 848 Intake: IV 851 Intake, IV Titration 250 Amount Vancomycin 1,500 mg In 250 Sodium Chloride 0.9% 250 ml @ 125 mls/hr IVPB Q12H [facility] Rx#:[id number] Output: Stool 0 Estimated Blood Loss 3 Other: Voiding Method Toilet # Voids 1 3 - Exam PHYSICAL EXAMINATION: Patient is lying in the bed comfortably, no acute distress, awake alert and oriented.. HEENT: Normocephalic. Neck is supple. Pupils reactive. Nostrils clear. Oral cavity is moist. Ears reveal no drainage. Neck reveals no JVD, carotid bruits, or thyromegaly. CHEST EXAMINATION: Trachea is central. Symmetrical expansion. Lung park clear to auscultation and percussion. CARDIAC: Normal S1, S2 with no gallops. No murmurs ABDOMEN: Soft. Bowel sounds normal. No organomegaly. No abdominal bruits. Extremities: Patient does have swelling of the right lower extremity and redness extending below the knee and up to ankle. Tenderness and warmth.. No clubbing or cyanosis Tenderness and induration over the right infrapatellar region. Neurologically awake, alert, oriented x3 with well-coordinated movements. No focal deficits noted Skin: No rash or skin lesions. Psychiatric: Coperative. Nonsuicidal Musculoskeletal: No joint swelling or deformity. Normal range of motion. - Labs CBC & Chem 7: 03/17/21 11:16 03/17/21 11:16 Labs: Abnormal Lab Results - Last 24 Hours (Table) 03/15/21 Range/Units 09:24 ESR 19 H (0-15) mm/hr Microbiology - Last 24 Hours (Table) 03/12/21 14:31 Blood Culture - Preliminary Blood No Growth after 72 hours 03/12/21 14:10 Blood Culture - Preliminary Blood No Growth after 72 hours Assessment and Plan Assessment: Right lower extremity swelling/cellulitis failed outpatient therapy. Ruled out DVT.Unlikely related to diabetes. Right infrapatellar possible septic bursitis Diabetes type 2 [id number] Obstructive sleep apnea on CPAP Hypertension Hyperlipidemia GERD Anxiety, Bipolar, Depression, Schizoaffective Disorder DVT prophylaxis with heparin subcu Plan: Patient will be continued on IV hydration with normal saline and antibiotics in the form of vancomycin. Follow-up blood culture reports. Ultrasound duplex of the right lower extremity negative for DVT. Patient is still having right infra patellar tenderness and redness and swelling. ID and orthopedic surgery is following. I&D of rt infra pattellar busrasa done today. followup cultures. Continue with home medications and follow-up closely. Further recommendations based on clinical course. Time with Patient: Greater than 30
--- NOTE | 2021-03-17 22:22 | P.PN ---
Subjective Progress Note Date: 03/17/21 Principal diagnosis: Right lower extremity swelling/cellulitis Patient is a 55-year-old male with a known history of diabetes type 2 [id number], hypertension, hyperlipidemia, obstructive sleep apnea, GERD, anxiety/depression/bipolar/schizoaffective disorder presents to ER due to complaints of right leg swelling and redness. Patient was seen at Dr. Bethea's office and was referred to ER due to right lower extremity cellulitis and failed antibiotic therapy with Bactrim. Patient states that redness and pain started below his right knee about a week ago and was started on Bactrim as an outpatient. Patient is having increasing leg swelling and redness extending to lower leg up to ankle. Otherwise patient denied any complaints of fever or chills. No nausea vomiting abdominal pain or diarrhea. No injury. No fall. Patient is having increasing pain and tightness to the right lower leg. Patient had x-ray of the right leg 03/06/2021 showed arthropathy. Small amount of fluid in the suprapatellar bursa could be correlated with MRI as clinically warranted. Laboratory data showed WBC 10.3, hemoglobin 12.6 and platelets 345 Sodium 140 potassium 4.2 chloride 106 BUN 16 and creatinine 1.26 COVID-19 PCR not detected and liver enzymes are not elevated 03/13/2021 Patient is currently lying in the bed comfortably. Right lower extremity swelling and redness is slightly improved. Patient is able to bear weight. Still having right infrapatellar region is indurated and tenderness with palpation. Patient has been afebrile. Continued on antibiotics of vancomycin. Blood cultures negative so far. No complaints of chest pain or shortness of breath. No nausea vomiting abdominal pain or diarrhea. Right lower extremity duplex scan is negative for DVT. 03/14/2021 Patient is resting in the bed awake alert 1x3. Patient is still having right lower extremity swelling and redness and also tenderness of the right infra patella region. Otherwise patient is afebrile. Still unable to bear weight completely. Continued on antibiotics and home vancomycin. ID and orthopedic surgery will be consulted and continue with pain management. Denies any chest pain or shortness of breath. Patient has been afebrile. No nausea vomiting or abdominal pain or diarrhea. 03/15/2021 Patient is currently lying in the bed comfortably. Still having right leg swelling and redness is improving. Right infrapatellar tenderness is not improving. Patient was seen by orthopedic surgery and is planning for I&D tomorrow. Follow-up culture reports. Continue with antibiotics in the form of vancomycin. Patient is allergic to penicillin. ID is on board. Otherwise patient has been afebrile. Nothing by mouth and repeat labs tomorrow. No complaints of chest pain or shortness breath. No nausea vomiting abdominal pain or diarrhea. No headache or dizziness or lightheadedness. 03/16/2021 Patient is currently lying in the bed. Awake alert oriented x3. Patient underwent I&D and irrigation and debridement of right knee infrapatellar septic bursitis. Follow-up culture reports. Patient is being continued on antibiotics in the form of vancomycin. ID is on board. Pain is controlled. Right lower extremity redness is improving. No complaints of chest pain or shortness of. No fever no chills. No headache or dizziness lightheadedness. Laboratory showed creatinine 1.22 03/17/2021 Patient is currently lying in bed. Able to ambulate to the bathroom. Pain in the right patella area is improving. Right leg redness is also improving. Patient has been afebrile. No nausea vomiting abdominal pain or diarrhea. No chest pain or shortness of breath. Patient is status post I&D and irrigation of right patella bursitis. Follow-up culture reports. Continued on antibiotics in the form of vancomycin. Laboratory data showed WBC 8.0 hemoglobin 12.5 BUN 21 creatinine 1.24 and vancomycin trough level is 17.7 Current medications reviewed. Objective - Vital Signs Vital signs: Vital Signs Temp 98.0 F 03/17/21 20:15 Pulse 85 03/17/21 20:15 Resp 16 03/17/21 20:15 BP 165/99 03/17/21 20:15 Pulse Ox 96 03/17/21 20:15 Intake & Output 03/17/21 03/17/21 03/18/21 06:59 18:59 06:59 Intake Total 1210 250 Balance 1210 250 Intake: Intake, IV Titration 250 250 Amount Vancomycin 1,250 mg In 250 Sodium Chloride 0.9% 250 ml @ 125 mls/hr IVPB Q12H [facility] Rx#:[id number] Vancomycin 1,500 mg In 250 Sodium Chloride 0.9% 250 ml @ 125 mls/hr IVPB Q12H [facility] Rx#:[id number] Oral 960 Other: Voiding Method Toilet # Voids 1 - Exam PHYSICAL EXAMINATION: Patient is lying in the bed comfortably, no acute distress, awake alert and oriented.. HEENT: Normocephalic. Neck is supple. Pupils reactive. Nostrils clear. Oral cavity is moist. Ears reveal no drainage. Neck reveals no JVD, carotid bruits, or thyromegaly. CHEST EXAMINATION: Trachea is central. Symmetrical expansion. Lung park clear to auscultation and percussion. CARDIAC: Normal S1, S2 with no gallops. No murmurs ABDOMEN: Soft. Bowel sounds normal. No organomegaly. No abdominal bruits. Extremities: No clubbing or cyanosis. Right lower extremity redness is improving. Minimal right infrapatellar tenderness. Neurologically awake, alert, oriented x3 with well-coordinated movements. No focal deficits noted Skin: No rash or skin lesions. Psychiatric: Coperative. Nonsuicidal Musculoskeletal: No joint swelling or deformity. Normal range of motion. - Labs CBC & Chem 7: 03/17/21 11:16 03/17/21 11:16 Labs: Abnormal Lab Results - Last 24 Hours (Table) 03/17/21 03/17/21 Range/Units 11:16 11:16 RBC 4.16 L (4.30-5.90) m/uL Hgb 12.5 L (13.0-17.5) gm/dL Hct 36.5 L (39.0-53.0) % Lymphocytes # 0.9 L (1.0-4.8) k/uL BUN 21 H (9-20) mg/dL Glucose 163 H (74-99) mg/dL Microbiology - Last 24 Hours (Table) 03/12/21 14:31 Blood Culture - Preliminary Blood No Growth after 120 hours 03/12/21 14:10 Blood Culture - Preliminary Blood No Growth after 120 hours 03/16/21 12:00 Gram Stain - Preliminary Knee - Right Wound Culture - Preliminary 03/16/21 12:00 Gram Stain - Preliminary Knee - Right Wound Culture - Preliminary Assessment and Plan Assessment: Right lower extremity swelling/cellulitis failed outpatient therapy. Ruled out DVT.Unlikely related to diabetes. Right infrapatellar septic bursitis. Status post I&D and irrigation. Follow- up culture report. Diabetes type 2 [id number] Obstructive sleep apnea on CPAP Hypertension Hyperlipidemia GERD Anxiety, Bipolar, Depression, Schizoaffective Disorder DVT prophylaxis with heparin subcu Plan: Patient will be continued on IV hydration with normal saline and antibiotics in the form of vancomycin. Follow-up blood culture reports. Ultrasound duplex of the right lower extremity negative for DVT. Patient is still having right infra patellar tenderness and redness and swelling. ID and orthopedic surgery is following. I&D of rt infra pattellar busrasa done on 02/14. followup cultures. Continue with home medications and follow-up closely. Further recommendations based on clinical course. Time with Patient: Greater than 30
[2021-03-18] MEDS: LEVOTHYROXINE 50 MCG TAB PO SCH (05:54)
[2021-03-18] MEDS: GLYCOPYRROLATE 1 MG TAB PO SCH ×2 (08:26→21:37)
[2021-03-18] MEDS: lamoTRIgine 100 MG TAB PO SCH ×2 (08:26→21:36)
[2021-03-18] MEDS: PROPRANOLOL LA 80 MG CAP.SA.24H PO SCH (08:26)
[2021-03-18] MEDS: HEPARIN SODIUM,PORCINE/PF 5,000 UNIT/0.5 ML SYRINGE SQ SCH ×3 (08:26→15:11)
[2021-03-18] MEDS: MECLIZINE 25 MG TAB PO SCH ×2 (08:26→21:37)
--- NOTE | 2021-03-18 09:11 | P.PN ---
Subjective Progress Note Date: 03/18/21 Principal diagnosis: infected right knee infrapatellar bursitis upon entering room this morning, patient was an getting around the room and sitting down on bed without issue. Patient says he is in minimal pain and doing well from surgery. He is able to flex and extend knee without pain. He says he has been eating food and has had bowel movements as well. Patient denies a [place] fever, chills, change in vision, chest pain, shortness of breath. Patient denies any saddle anesthesia. Objective - Vital Signs Vital signs: Vital Signs Temp 98.2 F 03/18/21 04:20 Pulse 67 03/18/21 04:20 Resp 16 03/18/21 04:20 BP 142/87 03/18/21 04:20 Pulse Ox 92 L 03/18/21 04:20 Intake & Output 03/17/21 03/18/21 03/18/21 18:59 06:59 18:59 Intake Total 250 85682 Output Total 0 Balance 250 71811 Intake: Intake, IV Titration 250 Amount Vancomycin 1,250 mg In 250 Sodium Chloride 0.9% 250 ml @ 125 mls/hr IVPB Q12H [facility] Rx#:[id number] Oral [id number] Output: Stool 0 Other: Voiding Method Toilet Toilet # Voids 4 - Exam on exam, patient is able to flex and extend knee without pain. Dorsalis pedis pulses are present 2+ bilaterally. Negative Homans bilaterally. sensation is intact in feet bilaterally. Patient is able to ambulate independently around the room. Silvio wrap was removed as well as Kerlix bandage and ABDs. Incision appears to be intact with minimal serosanguineous drainage from the drain. Drain was removed. Adaptics was placed over incision as well as Telfa and nonstick dressings. New Silvio wrap was applied. - Labs CBC & Chem 7: 03/17/21 11:16 03/17/21 11:16 Labs: Abnormal Lab Results - Last 24 Hours (Table) 03/17/21 03/17/21 Range/Units 11:16 11:16 RBC 4.16 L (4.30-5.90) m/uL Hgb 12.5 L (13.0-17.5) gm/dL Hct 36.5 L (39.0-53.0) % Lymphocytes # 0.9 L (1.0-4.8) k/uL BUN 21 H (9-20) mg/dL Glucose 163 H (74-99) mg/dL Microbiology - Last 24 Hours (Table) 03/12/21 14:31 Blood Culture - Preliminary Blood No Growth after 120 hours 03/12/21 14:10 Blood Culture - Preliminary Blood No Growth after 120 hours 03/16/21 12:00 Gram Stain - Preliminary Knee - Right Wound Culture - Preliminary 03/16/21 12:00 Gram Stain - Preliminary Knee - Right Wound Culture - Preliminary Assessment and Plan Assessment: infected right knee infrapatellar bursitis Plan: 1. infected right knee infrapatellar bursitis - incision and drainage performed 03/16/2021. Cultures taken. awaiting results from lab. Drain was removed. Adaptic and Telfa was applied over the incision as well as new Silvio wrap 2. pain management - stable at this time 3. GI prophylaxis/DVT prophylaxis - continue heparin while inpatient 4. PT/OT 5. discharge planning Time with Patient: Less than 30
[2021-03-18] MEDS: VANCOMYCIN 1,250 MG in SODIUM CHLORIDE 0.9% 250 ML IVPB SCH ×3 (11:42)
[2021-03-18] MEDS: LITHIUM CARBONATE 300 MG CAP PO SCH (21:37)
[2021-03-18] MEDS: lisinopriL 10 MG TAB PO SCH (21:37)
[2021-03-18] MEDS: cloZAPine 100 MG TAB PO SCH (21:38)
[2021-03-18] MEDS: ATORVASTATIN 10 MG TAB PO SCH (21:38)
[2021-03-19] MEDS: VANCOMYCIN 1,250 MG in SODIUM CHLORIDE 0.9% 250 ML IVPB SCH ×2 (00:12→12:20)
[2021-03-19] MEDS: HEPARIN SODIUM,PORCINE/PF 5,000 UNIT/0.5 ML SYRINGE SQ SCH ×4 (00:12→22:50)
[2021-03-19] MEDS: LEVOTHYROXINE 50 MCG TAB PO SCH (05:38)
[2021-03-19 07:06] LABS: Basophils % (A) 0 %; Eosinophils % (A) 0 %; HGB 11.9 gm/dL (13.0-17.5); Lymphocytes % (A) 10 %; MCH 30.6 pg (25.0-35.0); MCHC 34.9 g/dL (31.0-37.0); MCV 87.6 fL (80.0-100.0); Mean Platelet Volume 6.2; Monocytes # (A) 0.5 k/uL (0-1.0); Monocytes % (A) 5 %; Neutrophils # (A) 8.1 k/uL (1.3-7.7); Neutrophils % (A) 84 %; Platelet Count 286 k/uL (150-450); RBC 3.88 m/uL (4.30-5.90); RDW 13.3 % (11.5-15.5); WBC 9.7 k/uL (3.8-10.6)
[2021-03-19 07:21] LABS: African American GFR (CKD) 77 (>60 ml/min/1.73 sqM); Anion Gap 6 mmol/L; Blood Urea Nitrogen 22 mg/dL (9-20); Calcium 9.3 mg/dL (8.4-10.2); Carbon Dioxide 28 mmol/L (22-30); Chloride 108 mmol/L (98-107); Glucose 109 mg/dL (74-99); Non-African American GFR(CKD) 67 (>60 ml/min/1.73 sqM); Potassium 3.5 mmol/L (3.5-5.1); Sodium 142 mmol/L (137-145)
--- NOTE | 2021-03-19 07:34 | P.PN ---
Subjective Progress Note Date: 03/19/21 Principal diagnosis: Status post I&D septic right knee infrapatellar bursitis Patient was evaluated at bedside, he is resting comfortably. He is having no acute pain with regards to the right knee. He denies any fever or chills. Objective - Vital Signs Vital signs: Vital Signs Temp 98.4 F 03/19/21 04:41 Pulse 71 03/19/21 04:41 Resp 16 03/19/21 04:41 BP 141/84 03/19/21 04:41 Pulse Ox 93 L 03/19/21 04:41 Intake & Output 03/18/21 03/19/21 03/19/21 18:59 06:59 18:59 Intake Total 250 1500 Balance 250 1500 Intake: Intake, IV Titration 250 Amount Vancomycin 1,250 mg In 250 Sodium Chloride 0.9% 250 ml @ 125 mls/hr IVPB Q12H [facility] Rx#:[id number] Oral 1500 Other: Voiding Method Toilet # Voids 2 3 - Exam Right lower extremity: Bandages were changed yesterday at bedside. There is some dried drainage at the proximal distal end of the bandage. I was able to peel back and stressing, there is no active drainage currently. The stitches are in good position and condition. The erythema continues to improve. Still significant areas of fluctuance appreciated on exam. No significant tenderness reproduced around the knee with palpation. Calf is soft, no tenderness with palpation. Distal neurovascular exam is intact. - Labs CBC & Chem 7: 03/19/21 06:30 03/19/21 06:30 Labs: Abnormal Lab Results - Last 24 Hours (Table) 03/19/21 03/19/21 Range/Units 06:30 06:30 RBC 3.88 L (4.30-5.90) m/uL Hgb 11.9 L (13.0-17.5) gm/dL Hct 34.0 L (39.0-53.0) % Neutrophils # 8.1 H (1.3-7.7) k/uL Chloride 108 H (98-107) mmol/L BUN 22 H (9-20) mg/dL Glucose 109 H (74-99) mg/dL Microbiology - Last 24 Hours (Table) 03/12/21 14:10 Blood Culture - Final Blood No Growth after 144 hours 03/12/21 14:31 Blood Culture - Final Blood No Growth after 144 hours 03/16/21 12:00 Anaerobic Culture - Preliminary Knee - Right 03/16/21 12:00 Anaerobic Culture - Preliminary Knee - Right 03/16/21 12:00 Gram Stain - Final Knee - Right Wound Culture - Final 03/16/21 12:00 Gram Stain - Final Knee - Right Wound Culture - Final Assessment and Plan Assessment: Postoperative day #3 status post I&D septic right knee infrapatellar bursitis Plan: An orthopedic standpoint patient remained stable for discharge Plan for follow-up with Dr. Garcia in 1 week for recheck Wound care instructions were discussed with patient, keep incision covered and dry while showering. Keep incisions covered with a small dressing Ice and elevate for symptomatic relief Pending internal medicine and infectious disease recommendations hopeful discharge today Time with Patient: Less than 30
[2021-03-19] MEDS: lamoTRIgine 100 MG TAB PO SCH ×2 (08:12→20:46)
[2021-03-19] MEDS: PROPRANOLOL LA 80 MG CAP.SA.24H PO SCH (08:13)
[2021-03-19] MEDS: GLYCOPYRROLATE 1 MG TAB PO SCH ×2 (08:13→20:48)
[2021-03-19] MEDS: MECLIZINE 25 MG TAB PO SCH ×2 (08:13→20:49)
[2021-03-19] MEDS: lisinopriL 10 MG TAB PO SCH (08:13)
--- NOTE | 2021-03-19 14:05 | PN ---
PROGRESS NOTE DATE OF SERVICE: 03/19/2021 REASON FOR FOLLOWUP: Right knee infrapatellar bursitis. INTERVAL HISTORY: Patient is currently afebrile. The patient is breathing comfortably. Patient denies having any chest pain, shortness of breath or cough. No nausea, vomiting, abdominal pain or pain to the right knee area. PHYSICAL EXAMINATION: Blood pressure 149/99 with a pulse of 72, temperature is 97.7. He is 93% on room air. General description: The patient is a middle-aged male lying in bed in no distress. Respiratory system: Unlabored breathing, clear to auscultation anteriorly. Heart S1, S2. Regular rate and rhythm. Abdomen soft, no tenderness. Right knee overall swelling and redness has decreased. LABS: Hemoglobin is 11.1, white count 9.7, BUN of 22, creatinine 1.23. Culture has been negative so far. DIAGNOSTIC IMPRESSION AND PLAN: Patient with right knee infrapatellar bursitis, status post bursectomy. The culture negative for any resistant gram-positive. Antibiotic will be adjusted to cefazolin and reevaluate the patient tomorrow. Continue supportive care. MMODL / IJN: [id number] /
[2021-03-19 15:12] VITALS: BMI 31.3
[2021-03-19] MEDS: ACETAMINOPHEN TAB 325 MG TAB PO PRN (19:25)
[2021-03-19] MEDS: cloZAPine 100 MG TAB PO SCH (20:47)
[2021-03-19] MEDS: LITHIUM CARBONATE 300 MG CAP PO SCH (20:47)
[2021-03-19] MEDS: ATORVASTATIN 10 MG TAB PO SCH (20:48)
[2021-03-19] MEDS ORDERED: amLODIPine 10 MG TAB PO SCH (21:00)
--- NOTE | 2021-03-20 00:55 | P.PN ---
Subjective Progress Note Date: 03/18/21 Principal diagnosis: Right lower extremity swelling/cellulitis Patient is a 55-year-old male with a known history of diabetes type 2 [id number], hypertension, hyperlipidemia, obstructive sleep apnea, GERD, anxiety/depression/bipolar/schizoaffective disorder presents to ER due to complaints of right leg swelling and redness. Patient was seen at Dr. Bethea's office and was referred to ER due to right lower extremity cellulitis and failed antibiotic therapy with Bactrim. Patient states that redness and pain started below his right knee about a week ago and was started on Bactrim as an outpatient. Patient is having increasing leg swelling and redness extending to lower leg up to ankle. Otherwise patient denied any complaints of fever or chills. No nausea vomiting abdominal pain or diarrhea. No injury. No fall. Patient is having increasing pain and tightness to the right lower leg. Patient had x-ray of the right leg 03/06/2021 showed arthropathy. Small amount of fluid in the suprapatellar bursa could be correlated with MRI as clinically warranted. Laboratory data showed WBC 10.3, hemoglobin 12.6 and platelets 345 Sodium 140 potassium 4.2 chloride 106 BUN 16 and creatinine 1.26 COVID-19 PCR not detected and liver enzymes are not elevated 03/13/2021 Patient is currently lying in the bed comfortably. Right lower extremity swelling and redness is slightly improved. Patient is able to bear weight. Still having right infrapatellar region is indurated and tenderness with palpation. Patient has been afebrile. Continued on antibiotics of vancomycin. Blood cultures negative so far. No complaints of chest pain or shortness of breath. No nausea vomiting abdominal pain or diarrhea. Right lower extremity duplex scan is negative for DVT. 03/14/2021 Patient is resting in the bed awake alert 1x3. Patient is still having right lower extremity swelling and redness and also tenderness of the right infra patella region. Otherwise patient is afebrile. Still unable to bear weight completely. Continued on antibiotics and home vancomycin. ID and orthopedic surgery will be consulted and continue with pain management. Denies any chest pain or shortness of breath. Patient has been afebrile. No nausea vomiting or abdominal pain or diarrhea. 03/15/2021 Patient is currently lying in the bed comfortably. Still having right leg swelling and redness is improving. Right infrapatellar tenderness is not improving. Patient was seen by orthopedic surgery and is planning for I&D tomorrow. Follow-up culture reports. Continue with antibiotics in the form of vancomycin. Patient is allergic to penicillin. ID is on board. Otherwise patient has been afebrile. Nothing by mouth and repeat labs tomorrow. No complaints of chest pain or shortness breath. No nausea vomiting abdominal pain or diarrhea. No headache or dizziness or lightheadedness. 03/16/2021 Patient is currently lying in the bed. Awake alert oriented x3. Patient underwent I&D and irrigation and debridement of right knee infrapatellar septic bursitis. Follow-up culture reports. Patient is being continued on antibiotics in the form of vancomycin. ID is on board. Pain is controlled. Right lower extremity redness is improving. No complaints of chest pain or shortness of. No fever no chills. No headache or dizziness lightheadedness. Laboratory showed creatinine 1.22 03/17/2021 Patient is currently lying in bed. Able to ambulate to the bathroom. Pain in the right patella area is improving. Right leg redness is also improving. Patient has been afebrile. No nausea vomiting abdominal pain or diarrhea. No chest pain or shortness of breath. Patient is status post I&D and irrigation of right patella bursitis. Follow-up culture reports. Continued on antibiotics in the form of vancomycin. Laboratory data showed WBC 8.0 hemoglobin 12.5 BUN 21 creatinine 1.24 and vancomycin trough level is 17.7 03/18/2021 Patient is currently resting in the bed comfortably. Right knee pain is better. Status post I&D of bursitis. Drainage was removed. Patient has been afebrile. Continued on antibiotics in the form of vancomycin. Follow-up culture reports. Orthopedic surgery and ID is on board. Lab data reviewed. Current medications reviewed. Objective - Vital Signs Vital signs: Vital Signs Temp 97.9 F 03/18/21 20:08 Pulse 61 03/18/21 20:08 Resp 16 03/18/21 20:08 BP 170/105 03/18/21 20:08 Pulse Ox 99 03/18/21 20:08 Intake & Output 03/18/21 03/18/21 03/19/21 06:59 18:59 06:59 Intake Total 97694 250 Output Total 0 Balance 250 Intake: Intake, IV Titration 250 Amount Vancomycin 1,250 mg In 250 Sodium Chloride 0.9% 250 ml @ 125 mls/hr IVPB Q12H [facility] Rx#:[id number] Oral Output: Stool 0 Other: Voiding Method Toilet # Voids 4 2 - Exam PHYSICAL EXAMINATION: Patient is lying in the bed comfortably, no acute distress, awake alert and oriented.. HEENT: Normocephalic. Neck is supple. Pupils reactive. Nostrils clear. Oral cavity is moist. Ears reveal no drainage. Neck reveals no JVD, carotid bruits, or thyromegaly. CHEST EXAMINATION: Trachea is central. Symmetrical expansion. Lung park clear to auscultation and percussion. CARDIAC: Normal S1, S2 with no gallops. No murmurs ABDOMEN: Soft. Bowel sounds normal. No organomegaly. No abdominal bruits. Extremities: No clubbing or cyanosis. Right lower extremity redness is improving. Minimal right infrapatellar tenderness. Neurologically awake, alert, oriented x3 with well-coordinated movements. No focal deficits noted Skin: No rash or skin lesions. Psychiatric: Coperative. Nonsuicidal Musculoskeletal: No joint swelling or deformity. Normal range of motion. - Labs CBC & Chem 7: 03/19/21 06:30 03/19/21 06:30 Labs: Microbiology - Last 24 Hours (Table) 03/12/21 14:10 Blood Culture - Final Blood No Growth after 144 hours 03/12/21 14:31 Blood Culture - Final Blood No Growth after 144 hours 03/16/21 12:00 Anaerobic Culture - Preliminary Knee - Right 03/16/21 12:00 Anaerobic Culture - Preliminary Knee - Right 03/16/21 12:00 Gram Stain - Final Knee - Right Wound Culture - Final 03/16/21 12:00 Gram Stain - Final Knee - Right Wound Culture - Final Assessment and Plan Assessment: Right lower extremity swelling/cellulitis failed outpatient therapy. Ruled out DVT.Unlikely related to diabetes. Right infrapatellar septic bursitis. Status post I&D and irrigation. Follow- up culture report. Diabetes type 2 [id number] Obstructive sleep apnea on CPAP Hypertension Hyperlipidemia GERD Anxiety, Bipolar, Depression, Schizoaffective Disorder DVT prophylaxis with heparin subcu Plan: Patient will be continued on IV hydration with normal saline and antibiotics in the form of vancomycin. Follow-up blood culture reports. Ultrasound duplex of the right lower extremity negative for DVT. Patient is still having right infra patellar tenderness and redness and swelling. ID and orthopedic surgery is following. I&D of rt infra pattellar busrasa done on 02/14. followup cultures. Continue with home medications and follow-up closely. Further recommendations based on clinical course.
--- NOTE | 2021-03-20 00:58 | P.PN ---
Subjective Progress Note Date: 03/19/21 Principal diagnosis: Right lower extremity swelling/cellulitis Patient is a 55-year-old male with a known history of diabetes type 2 [id number], hypertension, hyperlipidemia, obstructive sleep apnea, GERD, anxiety/depression/bipolar/schizoaffective disorder presents to ER due to complaints of right leg swelling and redness. Patient was seen at Dr. Bethea's office and was referred to ER due to right lower extremity cellulitis and failed antibiotic therapy with Bactrim. Patient states that redness and pain started below his right knee about a week ago and was started on Bactrim as an outpatient. Patient is having increasing leg swelling and redness extending to lower leg up to ankle. Otherwise patient denied any complaints of fever or chills. No nausea vomiting abdominal pain or diarrhea. No injury. No fall. Patient is having increasing pain and tightness to the right lower leg. Patient had x-ray of the right leg 03/06/2021 showed arthropathy. Small amount of fluid in the suprapatellar bursa could be correlated with MRI as clinically warranted. Laboratory data showed WBC 10.3, hemoglobin 12.6 and platelets 345 Sodium 140 potassium 4.2 chloride 106 BUN 16 and creatinine 1.26 COVID-19 PCR not detected and liver enzymes are not elevated 03/13/2021 Patient is currently lying in the bed comfortably. Right lower extremity swelling and redness is slightly improved. Patient is able to bear weight. Still having right infrapatellar region is indurated and tenderness with palpation. Patient has been afebrile. Continued on antibiotics of vancomycin. Blood cultures negative so far. No complaints of chest pain or shortness of breath. No nausea vomiting abdominal pain or diarrhea. Right lower extremity duplex scan is negative for DVT. 03/14/2021 Patient is resting in the bed awake alert 1x3. Patient is still having right lower extremity swelling and redness and also tenderness of the right infra patella region. Otherwise patient is afebrile. Still unable to bear weight completely. Continued on antibiotics and home vancomycin. ID and orthopedic surgery will be consulted and continue with pain management. Denies any chest pain or shortness of breath. Patient has been afebrile. No nausea vomiting or abdominal pain or diarrhea. 03/15/2021 Patient is currently lying in the bed comfortably. Still having right leg swelling and redness is improving. Right infrapatellar tenderness is not improving. Patient was seen by orthopedic surgery and is planning for I&D tomorrow. Follow-up culture reports. Continue with antibiotics in the form of vancomycin. Patient is allergic to penicillin. ID is on board. Otherwise patient has been afebrile. Nothing by mouth and repeat labs tomorrow. No complaints of chest pain or shortness breath. No nausea vomiting abdominal pain or diarrhea. No headache or dizziness or lightheadedness. 03/16/2021 Patient is currently lying in the bed. Awake alert oriented x3. Patient underwent I&D and irrigation and debridement of right knee infrapatellar septic bursitis. Follow-up culture reports. Patient is being continued on antibiotics in the form of vancomycin. ID is on board. Pain is controlled. Right lower extremity redness is improving. No complaints of chest pain or shortness of. No fever no chills. No headache or dizziness lightheadedness. Laboratory showed creatinine 1.22 03/17/2021 Patient is currently lying in bed. Able to ambulate to the bathroom. Pain in the right patella area is improving. Right leg redness is also improving. Patient has been afebrile. No nausea vomiting abdominal pain or diarrhea. No chest pain or shortness of breath. Patient is status post I&D and irrigation of right patella bursitis. Follow-up culture reports. Continued on antibiotics in the form of vancomycin. Laboratory data showed WBC 8.0 hemoglobin 12.5 BUN 21 creatinine 1.24 and vancomycin trough level is 17.7 03/18/2021 Patient is currently resting in the bed comfortably. Right knee pain is better. Status post I&D of bursitis. Drainage was removed. Patient has been afebrile. Continued on antibiotics in the form of vancomycin. Follow-up culture reports. Orthopedic surgery and ID is on board. Lab data reviewed. 03/19/2021 Patient is currently resting in the bed comfortably. Able to flex his right knee better. No fever no chills. Culture showed no growth so far. Antibiotics changed to cefazolin. ID is on board. Anticipate discharge in next 24 hours with final ID recommendations. Follow-up with Dr. Martin in 1 week. Current medications reviewed. Objective - Vital Signs Vital signs: Vital Signs Temp 98.3 F 05/11/21 19:51 Pulse 72 03/19/21 19:51 Resp 16 03/19/21 19:51 BP 177/110 03/19/21 19:51 Pulse Ox 98 03/19/21 19:51 Intake & Output 03/19/21 03/19/21 03/20/21 06:59 18:59 06:59 Intake Total 1500 50 Balance 1500 50 Weight 97.522 kg Intake: Intake, IV Titration 50 Amount ceFAZolin 2 gm In Sodium 50 Chloride 0.9% 50 ml @ 100 mls/hr IVPB Q8HR [facility] Rx# :[id number] Oral 1500 Other: Voiding Method Toilet Toilet # Voids 3 - Exam PHYSICAL EXAMINATION: Patient is lying in the bed comfortably, no acute distress, awake alert and oriented.. HEENT: Normocephalic. Neck is supple. Pupils reactive. Nostrils clear. Oral cavity is moist. Ears reveal no drainage. Neck reveals no JVD, carotid bruits, or thyromegaly. CHEST EXAMINATION: Trachea is central. Symmetrical expansion. Lung park clear to auscultation and percussion. CARDIAC: Normal S1, S2 with no gallops. No murmurs ABDOMEN: Soft. Bowel sounds normal. No organomegaly. No abdominal bruits. Extremities: No clubbing or cyanosis. Right lower extremity redness is improving. Minimal right infrapatellar tenderness. Neurologically awake, alert, oriented x3 with well-coordinated movements. No focal deficits noted Skin: No rash or skin lesions. Psychiatric: Coperative. Nonsuicidal Musculoskeletal: No joint swelling or deformity. Normal range of motion. - Labs CBC & Chem 7: 03/19/21 06:30 03/19/21 06:30 Labs: Abnormal Lab Results - Last 24 Hours (Table) 03/19/21 03/19/21 Range/Units 06:30 06:30 RBC 3.88 L (4.30-5.90) m/uL Hgb 11.9 L (13.0-17.5) gm/dL Hct 34.0 L (39.0-53.0) % Neutrophils # 8.1 H (1.3-7.7) k/uL Chloride 108 H (98-107) mmol/L BUN 22 H (9-20) mg/dL Glucose 109 H (74-99) mg/dL Assessment and Plan Assessment: Right lower extremity swelling/cellulitis failed outpatient therapy. Ruled out DVT.Unlikely related to diabetes. Right infrapatellar septic bursitis. Status post I&D and irrigation. Culture showed no growth. Diabetes type 2 [id number] Obstructive sleep apnea on CPAP Hypertension Hyperlipidemia GERD Anxiety, Bipolar, Depression, Schizoaffective Disorder DVT prophylaxis with heparin subcu Plan: s/p I&D of rt infra pattellar busrasa done on 02/14. Patient will be continued on antibiotics in the form of vancomycin. Culture showed no growth. Antibiotics changed to Cefazolin. Ultrasound duplex of the right lower extremity negative for DVT. ID and orthopedic surgery is following. Continue with home medications and follow-up closely. Further recommendations based on clinical course.
[2021-03-20] MEDS: LEVOTHYROXINE 50 MCG TAB PO SCH (05:11)
[2021-03-20 06:23] LABS: Basophils % (A) 0 %; Eosinophils % (A) 0 %; HCT 34.5 % (39.0-53.0); HGB 11.7 gm/dL (13.0-17.5); Lymphocytes # (A) 0.9 k/uL (1.0-4.8); Lymphocytes % (A) 11 %; MCH 29.9 pg (25.0-35.0); MCV 88.1 fL (80.0-100.0); Mean Platelet Volume 6.6; Monocytes # (A) 0.4 k/uL (0-1.0); Monocytes % (A) 5 %; Neutrophils % (A) 83 %; Platelet Count 265 k/uL (150-450); RBC 3.92 m/uL (4.30-5.90); RDW 13.5 % (11.5-15.5); WBC 8.5 k/uL (3.8-10.6)
[2021-03-20] MEDS: HEPARIN SODIUM,PORCINE/PF 5,000 UNIT/0.5 ML SYRINGE SQ SCH ×2 (09:01→16:38)
[2021-03-20] MEDS: GLYCOPYRROLATE 1 MG TAB PO SCH (09:01)
[2021-03-20] MEDS: MECLIZINE 25 MG TAB PO SCH (09:02)
[2021-03-20] MEDS: PROPRANOLOL LA 80 MG CAP.SA.24H PO SCH (09:02)
[2021-03-20] MEDS: lamoTRIgine 100 MG TAB PO SCH (09:02)
[2021-03-20] MEDS: lisinopriL 10 MG TAB PO SCH (09:02)
[2021-03-20] MEDS ORDERED: VANCOMYCIN TROUGH DUE 1 EACH MISC MISCELLANE ONE (11:00)
--- NOTE | 2021-03-20 12:44 | PN ---
PROGRESS NOTE DATE OF SERVICE: 03/20/2021 REASON FOR FOLLOWUP: Right knee infrapatellar bursitis. INTERVAL HISTORY: Patient is currently afebrile. The patient is breathing comfortably. Patient denies having any chest pain, shortness of breath or cough. No abdominal pain or any worsening pain to the right knee area. PHYSICAL EXAMINATION: Blood pressure 131/79, pulse of 73, temperature 98.4. He is 95% on room air. General description is a middle-aged male lying in bed in no distress. Respiratory system: Unlabored breathing, clear to auscultation anteriorly. Heart S1, S2. Regular rate and rhythm. Abdomen soft, no tenderness. The right knee swelling has been minimal drainage. LABS: White count 8.5. Local culture has been negative so far. DIAGNOSTIC IMPRESSION AND PLAN: Patient with right knee infected bursitis status post bursectomy. The patient has shown overall improvement currently on cefazolin. We will finish therapy with oral Keflex. Prescription sent to the pharmacy. Close outpatient followup. MMODL / IJN: [id number] /
[2021-03-20 13:10] VITALS: BP 159/95; PULSE 65; RESP 17; TEMP 97.9
--- NOTE | 2021-04-09 10:34 | P.DS ---
Providers Date of admission: 03/14/21 07:27 Expected date of discharge: 03/20/21 Attending physician: Seth Morgan Consults: 03/14/21 14:33 Consult Physician Urgent Consulting Provider: Kelle Thomson Consult Reason/Comments: cellulitis/ failed outpatient Do you want consulting provider notified?: Yes 03/14/21 17:11 Consult Physician Urgent Consulting Provider: Wilmar Garcia Consult Reason/Comments: Right knee patellar bursitis Do you want consulting provider notified?: Yes Primary care physician: Neema Moran Hospital Course: Discharge diagnosis Right lower extremity swelling/cellulitis failed outpatient therapy. Ruled out DVT.Unlikely related to diabetes. improved. Right infrapatellar septic bursitis. Status post I&D and irrigation. Culture showed no growth. Diabetes type 2 [id number] Obstructive sleep apnea on CPAP Hypertension Hyperlipidemia GERD Anxiety, Bipolar, Depression, Schizoaffective Disorder DVT prophylaxis with heparin subcu Hospital course Patient is a 55-year-old male with a known history of diabetes type 2 [id number], hypertension, hyperlipidemia, obstructive sleep apnea, GERD, anxiety/depression/bipolar/schizoaffective disorder presents to ER due to complaints of right leg swelling and redness. Patient was seen at Dr. Bethea's office and was referred to ER due to right lower extremity cellulitis and failed antibiotic therapy with Bactrim. Patient states that redness and pain started below his right knee about a week ago and was started on Bactrim as an outpatient. Patient is having increasing leg swelling and redness extending to lower leg up to ankle. Otherwise patient denied any complaints of fever or chills. No nausea vomiting abdominal pain or diarrhea. No injury. No fall. Patient is having increasing pain and tightness to the right lower leg. Patient had x-ray of the right leg 03/06/2021 showed arthropathy. Small amount of fluid in the suprapatellar bursa could be correlated with MRI as clinically warranted. Laboratory data showed WBC 10.3, hemoglobin 12.6 and platelets 345 Sodium 140 potassium 4.2 chloride 106 BUN 16 and creatinine 1.26 COVID-19 PCR not detected and liver enzymes are not elevated 03/13/2021 Patient is currently lying in the bed comfortably. Right lower extremity swelling and redness is slightly improved. Patient is able to bear weight. Still having right infrapatellar region is indurated and tenderness with palpation. Patient has been afebrile. Continued on antibiotics of vancomycin. Blood cultures negative so far. No complaints of chest pain or shortness of breath. No nausea vomiting abdominal pain or diarrhea. Right lower extremity duplex scan is negative for DVT. 03/14/2021 Patient is resting in the bed awake alert 1x3. Patient is still having right lower extremity swelling and redness and also tenderness of the right infra patella region. Otherwise patient is afebrile. Still unable to bear weight completely. Continued on antibiotics and home vancomycin. ID and orthopedic surgery will be consulted and continue with pain management. Denies any chest pain or shortness of breath. Patient has been afebrile. No nausea vomiting or abdominal pain or diarrhea. 03/15/2021 Patient is currently lying in the bed comfortably. Still having right leg swelling and redness is improving. Right infrapatellar tenderness is not improving. Patient was seen by orthopedic surgery and is planning for I&D tomorrow. Follow-up culture reports. Continue with antibiotics in the form of vancomycin. Patient is allergic to penicillin. ID is on board. Otherwise patient has been afebrile. Nothing by mouth and repeat labs tomorrow. No complaints of chest pain or shortness breath. No nausea vomiting abdominal pain or diarrhea. No headache or dizziness or lightheadedness. 03/16/2021 Patient is currently lying in the bed. Awake alert oriented x3. Patient underwent I&D and irrigation and debridement of right knee infrapatellar septic bursitis. Follow-up culture reports. Patient is being continued on antibiotics in the form of vancomycin. ID is on board. Pain is controlled. Right lower extremity redness is improving. No complaints of chest pain or shortness of. No fever no chills. No headache or dizziness lightheadedness. Laboratory showed creatinine 1.22 03/17/2021 Patient is currently lying in bed. Able to ambulate to the bathroom. Pain in the right patella area is improving. Right leg redness is also improving. Patient has been afebrile. No nausea vomiting abdominal pain or diarrhea. No chest pain or shortness of breath. Patient is status post I&D and irrigation of right patella bursitis. Follow-up culture reports. Continued on antibiotics in the form of vancomycin. Laboratory data showed WBC 8.0 hemoglobin 12.5 BUN 21 creatinine 1.24 and vancomycin trough level is 17.7 03/18/2021 Patient is currently resting in the bed comfortably. Right knee pain is better. Status post I&D of bursitis. Drainage was removed. Patient has been afebrile. Continued on antibiotics in the form of vancomycin. Follow-up culture reports. Orthopedic surgery and ID is on board. Lab data reviewed. 03/19/2021 Patient is currently resting in the bed comfortably. Able to flex his right knee better. No fever no chills. Culture showed no growth so far. Antibiotics changed to cefazolin. ID is on board. Anticipate discharge in next 24 hours with final ID recommendations. Follow-up with Dr. Martin in 1 week. 03/20/2021 Patient is currently lying in the bed comfortably. Right lower extremity swelling and redness is almost resolved. Able to flex right knee better. Ambulating without support to the bathroom. Right knee I&D site is bandaged. Patient will be continued on oral antibiotic course and follow-up with orthopedic surgery in the clinic in 1 week. Otherwise patient has been afebrile. No complaints of chest pain or shortness of breath. No other acute overnight issues. Patient is being discharged home today. PHYSICAL EXAMINATION: Patient is lying in the bed comfortably, no acute distress, awake alert and oriented.. HEENT: Normocephalic. Neck is supple. Pupils reactive. Nostrils clear. Oral cavity is moist. Ears reveal no drainage. Neck reveals no JVD, carotid bruits, or thyromegaly. CHEST EXAMINATION: Trachea is central. Symmetrical expansion. Lung park clear to auscultation and percussion. CARDIAC: Normal S1, S2 with no gallops. No murmurs ABDOMEN: Soft. Bowel sounds normal. No organomegaly. No abdominal bruits. Extremities: No clubbing or cyanosis. no redness. Minimal right infrapatellar tenderness. Neurologically awake, alert, oriented x3 with well-coordinated movements. No focal deficits noted Skin: No rash or skin lesions. Psychiatric: Coperative. Nonsuicidal Musculoskeletal: No joint swelling or deformity. Normal range of motion. Discharge vitals reviewed. Patient Condition at Discharge: Stable Plan - Discharge Summary New Discharge Prescriptions: New Cephalexin [Keflex] 500 mg PO Q6HR 10 Days #40 cap Continue cloZAPine [Clozaril] 150 mg PO HS 30 Days #45 tab Rosuvastatin Calcium [Crestor] 5 mg PO HS 30 Days #30 tab Propranolol HCl [Inderal Xl] 80 mg PO DAILY 30 Days #30 cap [place] Carbonate 1,200 mg PO HS 30 Days #120 cap Glycopyrrolate [Robinul Forte] 2 mg PO BID 30 Days #60 tab Levothyroxine Sodium [Synthroid] 50 mcg PO DAILY 30 Days #30 tab Linagliptin [Tradjenta] 5 mg PO DAILY 30 Days #30 tab lisinopriL [Zestril] 20 mg PO DAILY 30 Days #30 tab Cetirizine HCl [Zyrtec] 10 mg PO DAILY clomiPRAMINE [Anafranil] 100 mg PO BID lamoTRIgine [LaMICtal] 150 mg PO BID Meclizine [Antivert] 25 mg PO BID Discontinued amLODIPine [Norvasc] 10 mg PO DAILY #14 tab Sulfamethoxazole/Trimethoprim [Bactrim DS 800-160 mg] 1 tab PO BID Discharge Medication List Glycopyrrolate [Robinul Forte] 2 mg PO BID 30 Days #60 tab 12/26/19 [Rx] Levothyroxine Sodium [Synthroid] 50 mcg PO DAILY 30 Days #30 tab 12/26/19 [Rx] Linagliptin [Tradjenta] 5 mg PO DAILY 30 Days #30 tab 12/26/19 [Rx] [place] Carbonate 1,200 mg PO HS 30 Days #120 cap 12/26/19 [Rx] Propranolol HCl [Inderal Xl] 80 mg PO DAILY 30 Days #30 cap 12/26/19 [Rx] Rosuvastatin Calcium [Crestor] 5 mg PO HS 30 Days #30 tab 12/26/19 [Rx] cloZAPine [Clozaril] 150 mg PO HS 30 Days #45 tab 12/26/19 [Rx] lisinopriL [Zestril] 20 mg PO DAILY 30 Days #30 tab 12/26/19 [Rx] Cetirizine HCl [Zyrtec] 10 mg PO DAILY 03/12/21 [History] Meclizine [Antivert] 25 mg PO BID 03/12/21 [History] clomiPRAMINE [Anafranil] 100 mg PO BID 03/12/21 [History] lamoTRIgine [LaMICtal] 150 mg PO BID 03/12/21 [History] Cephalexin [Keflex] 500 mg PO Q6HR 10 Days #40 cap 03/20/21 [Rx] Follow up Appointment(s)/Referral(s): Luisa Bethea MD [Primary Care Provider] - 1-2 days [facility], [NON-STAFF] - 1 Week Kelle Thomson MD [STAFF PHYSICIAN] - 1 Week Wilmar Garcia MD [STAFF PHYSICIAN] - 1 Week Activity/Diet/Wound Care/Special Instructions: Orthopedic discharge instructions: 1. Keep incisions clean, dry, and intact 2. Do not remove the stitches 3. Keep incision covered and dry while showering 4. Recommend use of a [id number] knee compression sleeve 5. [facility] at [facility] weeks, please call office with any questions [phone] Wound Care Orders: 1. Cover incision with Emulsion (Vaseline) gauze 2. Wrap in Gauze (Kerlix) 3. Wrap in Silvio Bandage. 4. Change dressing every day. Discharge Disposition: HOME WITH HOME HEALTH SERVICES
== END 2021-03-20 18:07 | disposition home health service (06) | DRG 501 ==
LOC: EC 13:55 → 4SSUR 15:02 → 5NMEDONC 22:44 → OBSVTOIN 03-14 07:27
PROVIDERS: ADMIT Internal Medicine; ATTEND Internal Medicine
PROC: 0M9N0ZX Drainage of Right Knee Bursa and Ligament, Open Approach, Diagnostic (ICD-10-PCS; principal; 2021-03-16 11:05)
PROC: 0LBQ0ZZ Excision of Right Knee Tendon, Open Approach (ICD-10-PCS; principal; 2021-03-16 11:05)
DX: M70.41 Prepatellar bursitis, right knee (principal); L03.115 Cellulitis of right lower limb; K21.9 Gastro-esophageal reflux disease without esophagitis; M17.11 Unilateral primary osteoarthritis, right knee; E11.9 Type 2 diabetes mellitus without complications; E78.5 Hyperlipidemia, unspecified; F25.9 Schizoaffective disorder, unspecified; F41.9 Anxiety disorder, unspecified; F42.9 Obsessive-compulsive disorder, unspecified; G47.33 Obstructive sleep apnea (adult) (pediatric); Z99.89 Dependence on other enabling machines and devices; Z20.822 Contact with and (suspected) exposure to COVID-19; I10 Essential (primary) hypertension; Z79.84 Long term (current) use of oral hypoglycemic drugs; Z79.890 Hormone replacement therapy; Z79.899 Other long term (current) drug therapy; Z82.49 Family history of ischemic heart disease and other diseases of the circulatory system; Z83.3 Family history of diabetes mellitus; Z88.0 Allergy status to penicillin; Z88.8 Allergy status to other drugs, medicaments and biological substances; Z80.9 Family history of malignant neoplasm, unspecified
CPT/HCPCS: 36415; 80048; 80053; 80202; 82565; 83036; 85025; 85610; 85652; 86140; 87040; 87070; 87075; 87102; 87205; 87636; 90471; 90715; 99285

== ENCOUNTER 2023-01-12 09:40 | Inpatient (IN) | payer MEDICARE, OTHER ==
[2023-01-12 10:15] LABS: Basophils % (A) 0 %; Eosinophils % (A) 0 %; HCT 36.9 % (39.0-53.0); HGB 12.6 gm/dL (13.0-17.5); Lymphocytes # (A) 0.9 k/uL (1.0-4.8); Lymphocytes % (A) 5 %; MCHC 34.1 g/dL (31.0-37.0); MCV 85.2 fL (80.0-100.0); Mean Platelet Volume 7.5; Monocytes % (A) 6 %; Neutrophils % (A) 88 %; Platelet Count 371 k/uL (150-450); RBC 4.32 m/uL (4.30-5.90); RDW 14.4 % (11.5-15.5); WBC 18.1 k/uL (3.8-10.6)
[2023-01-12 10:23] LABS: Partial Thromboplastin Time 22.7 sec (22.0-30.0); Prothrombin Time 10.8 sec (9.0-12.0)
--- NOTE | 2023-01-12 10:29 | XR ---
EXAMINATION TYPE: XR abdomen 2V DATE OF EXAM: 01/12/2023 COMPARISON: 08/12/2014 HISTORY: Pain TECHNIQUE: One view abdominal series FINDINGS: The osseous structures are intact. The bowel gas pattern is nonspecific. Dilated small bowel loops w ith air-fluid levels. Lung bases clear. Postsurgical change right pelvis with bilateral hip arthropat hy. Calcifications in the abdomen and pelvis noted. IMPRESSION: 1. Findings are highly suspicious for bowel obstruction.
--- NOTE | 2023-01-12 10:30 | XR ---
EXAMINATION TYPE: XR chest 2V DATE OF EXAM: 01/12/2023 COMPARISON: 08/12/2014 TECHNIQUE: PA and lateral views submitted. HISTORY: Chest pain FINDINGS: Limited inspiration with bilateral consolidation. Heart is enlarged and there is no overt failure or pneumothorax. Hypertrophic changes of the spine. Dilated bowel loops in the abdomen. IMPRESSION: 1. Right basilar atelectasis or infiltrate. 2. Correlate for bowel obstruction.
[2023-01-12 10:35] LABS: Creatine Kinase 38 U/L (55-170)
[2023-01-12 10:40] LABS: Albumin 3.8 g/dL (3.5-5.0); Calcium 8.7 mg/dL (8.4-10.2); Potassium 4.8 mmol/L (3.5-5.1); Total Bilirubin 0.8 mg/dL (0.2-1.3); Total Protein 6.3 g/dL (6.3-8.2)
[2023-01-12 10:45] LABS: Creatine Kinase MB 1.6 ng/mL (0.0-2.4); Troponin I <0.012 ng/mL (0.000-0.034)
--- NOTE | 2023-01-12 11:50 | ED ---
General Adult HPI - General Chief complaint: Chest Pain Stated complaint: CHEST/ABD PAIN Time Seen by Provider: 01/12/23 10:38 Source: patient, RN notes reviewed, old records reviewed Mode of arrival: wheelchair - History of Present Illness Initial comments: This a 57-year-old male presents emergency Department complaining of chest pain for the last 2 weeks. Patient also complains of nausea and vomiting. Patient also was not having a bowel movement for a while. Patient denies any fever chills or cough per patient denies any palpitations. Patient denies shortness of breath. Patient denies any diaphoretic episodes. Patient denies any diarrhea. Patient states he used to be a heavy drinker but quit 8 years ago. Patient states his abdomen is considerably more distended than normal - Related Data Home Medications Medication Instructions Recorded Confirmed Cetirizine HCl [Zyrtec] 10 mg PO DAILY 03/12/21 01/12/23 Meclizine [Antivert] 25 mg PO BID 03/12/21 01/12/23 clomiPRAMINE [Anafranil] 100 mg PO BID 03/12/21 01/12/23 lamoTRIgine [LaMICtal] 150 mg PO BID 03/12/21 01/12/23 Linagliptin [Tradjenta] 5 mg PO DAILY 01/12/23 01/12/23 Omeprazole [PriLOSEC] 40 mg PO DAILY 01/12/23 01/12/23 Propranolol HCl [Propranolol HCl 80 mg PO DAILY 01/12/23 01/12/23 ER] amLODIPine [Norvasc] 10 mg PO DAILY 01/12/23 01/12/23 Previous Rx's Medication Instructions Recorded Glycopyrrolate [Robinul Forte] 2 mg PO BID 30 Days #60 tab 12/26/19 Levothyroxine Sodium [Synthroid] 50 mcg PO DAILY 30 Days #30 tab 12/26/19 [place] Carbonate 1,200 mg PO HS 30 Days #120 cap 12/26/19 Rosuvastatin Calcium [Crestor] 5 mg PO HS 30 Days #30 tab 12/26/19 cloZAPine [Clozaril] 150 mg PO HS 30 Days #45 tab 12/26/19 Allergies Allergy/AdvReac Type Severity Reaction Status Date / Time Penicillins Allergy Unknown Verified 01/12/23 12:13 Childhood risperidone [From Risperdal] Allergy Unknown Verified 01/12/23 12:13 divalproex sodium AdvReac Anxiety, Verified 01/12/23 12:13 [From Depakote] weight gain Review of Systems ROS Statement: Those systems with pertinent positive or pertinent negative responses have been documented in the HPI. ROS Other: All systems not noted in ROS Statement are negative. Past Medical History Past Medical History: Diabetes Mellitus, GERD/Reflux, Hyperlipidemia, Hypertension, Sleep Apnea/CPAP/BIPAP Additional Past Medical History / Comment(s): Family history of premature coronary artery disease. OCD. History of Any Multi-Drug Resistant Organisms: None Reported Past Surgical History: Hernia Repair Past Anesthesia/Blood Transfusion Reactions: No Reported Reaction Past Psychological History: Anxiety, Bipolar, Depression, Schizoaffective Disorder Smoking Status: Never smoker Past Alcohol Use History: None Reported Past Drug Use History: None Reported - Past Family History Father Family Medical History: Congestive Heart Failure (CHF), Coronary Artery Disease (CAD), Diabetes Mellitus Mother Family Medical History: Cancer General Exam - General Exam Comments Initial Comments: GENERAL: Patient is well-developed and well-nourished. Patient is nontoxic and well- hydrated and is in mild distress. ENT: Neck is soft and supple. No significant lymphadenopathy is noted. Oropharynx is clear. Moist mucous membranes. Neck has full range of motion without eliciting any pain. EYES: The sclera were anicteric and conjunctiva were pink and moist. Extraocular movements were intact and pupils were equal round and reactive to light. Eyelids were unremarkable. PULMONARY: Unlabored respirations. Good breath sounds bilaterally. No audible rales rhonchi or wheezing was noted. CARDIOVASCULAR: There is a regular rate and rhythm without any murmurs gallops or rubs. ABDOMEN: Patient's abdomen is distended and has decreased breath sounds SKIN: Skin is clear with no lesions or rashes and otherwise unremarkable. NEUROLOGIC: Patient is alert and oriented x3. Cranial nerves II through XII are grossly intact. Motor and sensory are also intact. Normal speech, volume and content. Symmetrical smile. MUSCULOSKELETAL: Normal extremities with adequate strength and full range of motion. No lower extremity swelling or edema. No calf tenderness. LYMPHATICS: No significant lymphadenopathy is noted PSYCHIATRIC: Normal psychiatric evaluation. Course Vital Signs 01/12/23 09:46 Temperature 98.3 F Pulse Rate 103 H Respiratory 18 Rate Blood Pressure 118/86 O2 Sat by Pulse 98 Oximetry Medical Decision Making - Medical Decision Making EKG as interpreted by myself and shows a sinus tachycardia at 102 bpm NE inter danielle is 160 QRS is 98 QT interval 340 QTC is 399. Patient's EKG shows no ST segment elevation or depression. Was pt. sent in by a medical professional or institution ([facility] Alba, PATTERN KEEPER, urgent care, hospital, or group home...) When possible be specific @ -No Did you speak to anyone other than the patient for history (EMS, parent, family, police, friend...)? What history was obtained from this source @ -No Did you review nursing and triage notes (agree or disagree)? Why? @ -I reviewed and agree with nursing and triage notes Were old charts reviewed (outside hosp., previous admission, EMS record, old EKG, old radiological studies, urgent care reports/EKG's, group home records)? Report findings @ -No old charts were reviewed Differential Diagnosis (chest pain, altered mental status, abdominal pain women, abdominal pain men, vaginal bleeding, weakness, fever, dyspnea, syncope, headache, dizziness, GI bleed, back pain, seizure, CVA, palpatations, mental health, musculoskeletal)? @ -Differential Abdominal Pain Men: Appendicitis, cholecystitis, diverticulosis, ischemic bowel, pancreatitis, hepatitis, UTI, gastroenteritis, AAA, incarcerated hernia, bowel obstruction, constipation, inflammatory bowel, hepatitis, peptic ulcer disease, splenic infarction, perforated viscus, testicular torsion, this is not meant to be an all-inclusive list EKG interpreted by me (3pts min.). @ -As above X-rays interpreted by me (1pt min.). @ -None done CT interpreted by me (1pt min.). @ -CT of the abdomen was interpreted by myself. CT showed small bowel U/S interpreted by me (1pt. min.). @ -None done What testing was considered but not performed or refused? (CT, X-rays, U/S, labs)? Why? @ -None What meds were considered but not given or refused? Why? @ -None Did you discuss the management of the patient with other professionals (professionals i.e. HAILE Alba, PATTERN KEEPER, lab, RT, psych nurse, manager social, microfilming document preparer, teacher, access control officer, block and case maker)? Give summary @ -I spoke with some physicians agreed to admit the patient admitted the nicki ent wrote admitting orders. Was smoking cessation discussed for >3mins.? @ -No Was critical care preformed (if so, how long)? @ -No Were there social determinants of health that impacted care today? How? (H omelessness, low income, unemployed, alcoholism, drug addiction, transportation, low edu. Level, literacy, decrease access to med. care, nursing home, rehab)? @ -No Was there de-escalation of care discussed even if they declined (Discuss DNR or withdrawal of care, Hospice)? DNR status @ -No What co-morbidities impacted this encounter? (DM, HTN, Smoking, COPD, CAD, Cancer, CVA, ARF, Chemo, Hep., AIDS, mental health diagnosis, sleep apnea, morbid obesity)? @ -None Was patient admitted / discharged? Hospital course, mention meds given and route, prescriptions, significant lab abnormalities, going to OR and other pertinent info. @ -Patient will be admitted to the hospital. Patient has small bowel obstruction. NG tube was placed. Dr. Cordero was consulted. I also spoke some physicians he agreed to admit the patient admitted the patient wrote admitting orders Undiagnosed new problem with uncertain prognosis? @ -No Drug Therapy requiring intensive monitoring for toxicity (Heparin, Nitro, Insulin, Cardizem)? @ -No Were any procedures done? @ -No Diagnosis/symptom? @ -Small bowel structures Acute, or Chronic, or Acute on Chronic? @ -Acute Uncomplicated (without systemic symptoms) or Complicated (systemic symptoms)? @ -Complicated Side effects of treatment? @ -No Exacerbation, Progression, or Severe Exacerbation? @ -No Poses a threat to life or bodily function? How? (Chest pain, [place], PR, pneumonia, PE, COPD, DKA, ARF, appy, cholecystitis, CVA, Diverticulitis, Homicidal, Suicidal, threat to staff... and all critical care pts) @ -No Diagnosis/symptom? @ -Acute renal failure Acute, or Chronic, or Acute on Chronic? @ -Acute Uncomplicated (without systemic symptoms) or Complicated (systemic symptoms)? @ -Uncomplicated Side effects of treatment? @ -none Exacerbation, Progression, or Severe Exacerbation] @ -no Poses a threat to life or bodily function? @ -no - Lab Data Result diagrams: 01/12/23 10:04 01/12/23 10:04 Lab Results 01/12/23 01/12/23 01/12/23 Range/Units 10:04 10:04 10:04 WBC 18.1 H (3.8-10.6) k/uL RBC 4.32 (4.30-5.90) m/uL Hgb 12.6 L (13.0-17.5) gm/dL Hct 36.9 L (39.0-53.0) % MCV 85.2 (80.0-100.0) fL MCH 29.0 (25.0-35.0) pg MCHC 34.1 (31.0-37.0) g/dL RDW 14.4 (11.5-15.5) % Plt Count 371 (150-450) k/uL MPV 7.5 Neutrophils % 88 % Lymphocytes % 5 % Monocytes % 6 % Eosinophils % 0 % Basophils % 0 % Neutrophils # 16.0 H (1.3-7.7) k/uL Lymphocytes # 0.9 L (1.0-4.8) k/uL Monocytes # 1.0 (0-1.0) k/uL Eosinophils # 0.0 (0-0.7) k/uL Basophils # 0.0 (0-0.2) k/uL PT 10.8 (9.0-12.0) sec INR 1.0 (<1.2) APTT 22.7 (22.0-30.0) sec Sodium 132 L (137-145) mmol/L Potassium 4.8 (3.5-5.1) mmol/L Chloride 95 L (98-107) mmol/L Carbon Dioxide 29 (22-30) mmol/L Anion Gap 8 mmol/L BUN 59 H (9-20) mg/dL Creatinine 2.11 H (0.66-1.25) mg/dL Est GFR (CKD-EPI)AfAm 40 (>60 ml/min/1.73 sqM) Est GFR (CKD-EPI)NonAf 34 (>60 ml/min/1.73 sqM) Glucose 252 H (74-99) mg/dL Plasma Lactic Acid Jamie (0.7-2.0) mmol/L Calcium 8.7 (8.4-10.2) mg/dL Total Bilirubin 0.8 (0.2-1.3) mg/dL AST 21 (17-59) U/L ALT 15 (4-49) U/L Alkaline Phosphatase 75 (38-126) U/L Total Creatine Kinase (55-170) U/L CK-MB (CK-2) (0.0-2.4) ng/mL CK-MB (CK-2) Rel Index Troponin I (0.000-0.034) ng/mL Total Protein 6.3 (6.3-8.2) g/dL Albumin 3.8 (3.5-5.0) g/dL 01/12/23 01/12/23 Range/Units 10:04 10:04 WBC (3.8-10.6) k/uL RBC (4.30-5.90) m/uL Hgb (13.0-17.5) gm/dL Hct (39.0-53.0) % MCV (80.0-100.0) fL MCH (25.0-35.0) pg MCHC (31.0-37.0) g/dL RDW (11.5-15.5) % Plt Count (150-450) k/uL MPV Neutrophils % % Lymphocytes % % Monocytes % % Eosinophils % % Basophils % % Neutrophils # (1.3-7.7) k/uL Lymphocytes # (1.0-4.8) k/uL Monocytes # (0-1.0) k/uL Eosinophils # (0-0.7) k/uL Basophils # (0-0.2) k/uL PT (9.0-12.0) sec INR (<1.2) APTT (22.0-30.0) sec Sodium (137-145) mmol/L Potassium (3.5-5.1) mmol/L Chloride (98-107) mmol/L Carbon Dioxide (22-30) mmol/L Anion Gap mmol/L BUN (9-20) mg/dL Creatinine (0.66-1.25) mg/dL Est GFR (CKD-EPI)AfAm (>60 ml/min/1.73 sqM) Est GFR (CKD-EPI)NonAf (>60 ml/min/1.73 sqM) Glucose (74-99) mg/dL Plasma Lactic Acid Jamie 1.2 (0.7-2.0) mmol/L Calcium (8.4-10.2) mg/dL Total Bilirubin (0.2-1.3) mg/dL AST (17-59) U/L ALT (4-49) U/L Alkaline Phosphatase (38-126) U/L Total Creatine Kinase 38 L (55-170) U/L CK-MB (CK-2) 1.6 (0.0-2.4) ng/mL CK-MB (CK-2) Rel Index 4.2 Troponin I <0.012 (0.000-0.034) ng/mL Total Protein (6.3-8.2) g/dL Albumin (3.5-5.0) g/dL Disposition Clinical Impression: Bowel obstruction, Acute renal failure Disposition: ADMITTED IP TO THIS HOSP Referrals: None,Stated [Primary Care Provider] - 1-2 days Time of Disposition: 12:29
--- NOTE | 2023-01-12 12:02 | CT ---
EXAMINATION TYPE: CT abdomen pelvis wo con CT DLP: 1068.4 mGycm, Automated exposure control for dose reduction was used. DATE OF EXAM: 01/12/2023 11:23 AM COMPARISON: None. CLINICAL INDICATION:Male, 57 years old with history of Abdominal pain; abdominal pain, distention TECHNIQUE: Axial CT of the abdomen and pelvis. Sagittal and coronal reformats were created on a [employer] workstation. Contrast used: None Oral contrast used: without Oral Contrast FINDINGS: LOWER CHEST: Unremarkable ABDOMEN LIVER: Unremarkable GALLBLADDER AND BILE DUCTS: Unremarkable. PANCREAS: Unremarkable. SPLEEN: Unremarkable. ADRENAL GLANDS: Unremarkable. KIDNEYS AND URETERS: No evidence of hydronephrosis or renal calculus. The ureters are unremarkable. PELVIS BLADDER: Unremarkable REPRODUCTIVE: Unremarkable. ABDOMEN & PELVIS STOMACH AND BOWEL: Distal esophagus is dilated with debris. The gastric lumen is dilated. There is di ffuse small bowel feces with dilation of the small bowel measuring up to 4.0 cm. Transition point fel t to be on series 201 image 61 at the large bowel transverse colon proximal one third. There is nondi stention of the large bowel after this transition point. This extends to the rectum. The appendix is normal. PERITONEUM/RETROPERITONEUM: No evidence of pneumoperitoneum or free fluid. VASCULATURE: No evidence of aortic aneurysm. MUSCULOSKELETAL: No acute osseous abnormalities LYMPH NODES: No gross evidence for lymphadenopathy. SOFT TISSUE/ABDOMINAL WALL: Surgical changes to the right inguinal region. Small fat-containing ingui nal hernia on the left. Small fat-containing umbilical hernia. IMPRESSION: 1. Dilated small bowel, cecum/ascending colon with transition point within the proximal third of the transverse colon with focal narrowing and nondistention of the remainder of the colon. Findings may represent stricture versus mass. Direct visualization recommended to rule out underlying malignancy. 2. Small bowel dilatation is small bowel feces throughout suggesting delayed transit/fecal stasis. 3. Dilated stomach and esophagus filled with ingested contents likely secondary to #1.
[2023-01-12] MEDS ORDERED: ASPIRIN 325 MG TAB PO STA (12:29)
--- NOTE | 2023-01-12 13:08 | XR ---
EXAMINATION TYPE: XR chest 1V portable DATE OF EXAM: 01/12/2023 COMPARISON: 2022 at 10:20 AM HISTORY: Placement. TECHNIQUE: Single frontal view of the chest is obtained. IMPRESSION: Lungs appear clear. The cardiac silhouette is mildly enlarged and the pulmonary vessels are within normal limits. There is to be an NG tube, however the tip is not clearly visualized, however does not appear to exte nd into the abdomen and may be within the esophagus. Recommend repositioning and imaging.
[2023-01-12] MEDS ORDERED: SODIUM CHLORIDE 0.9% 1,000 ML IV ONE (13:14)
--- NOTE | 2023-01-12 13:32 | XR ---
EXAMINATION TYPE: XR chest 1V portable DATE OF EXAM: 01/12/2023 COMPARISON: NONE HISTORY: NG placement TECHNIQUE: Single frontal view of the chest is obtained. FINDINGS: NG tube seen extending into the abdomen likely near the gastroesophageal junction. Recomme nd x-ray of the upper abdomen There is bibasilar subsegmental consolidation. No pleural effusion, pneumothorax, or overt failure. H eart size normal. Arthropathy of the right shoulder. IMPRESSION: 1. The NG tube can be seen to the region of the gastroesophageal junction. 2. Bilateral atelectasis favored over pneumonia.
--- NOTE | 2023-01-12 14:11 | XR ---
EXAMINATION TYPE: XR KUB DATE OF EXAM: 01/12/2023 COMPARISON: NONE HISTORY: NG tube placement TECHNIQUE: One view abdominal series FINDINGS: Multiple dilated small bowel loops are seen. There appears to be a kink NG tube which extends to the upper left quadrant and then toward the right could represent placement within the distal gastric ant rum or duodenal ball. Osseous structures intact. Calcifications are seen. IMPRESSION: 1. NG tube appears to extend into the left abdomen and then takes a abrupt turn to the right. May be slight kinking of the tube. Tip could be within the distal gastric antrum or duodenal bulb. 2. Severely dilated bowel loops compatible with obstruction.
[2023-01-12] MEDS ORDERED: ONDANSETRON 4 MG/2 ML VIAL IVP PRN (14:50)
--- NOTE | 2023-01-12 15:01 | P.GSCN ---
History of Present Illness Consult date: 01/12/23 History of present illness: CHIEF COMPLAINT: Abdominal pain and chest pain HISTORY OF PRESENT ILLNESS: This is a 57-year-old male with psychiatric history. Past surgical history includes a left inguinal hernia repair. He presents for hospital with complaints of abdominal pain and chest pain 2 weeks. He reports that he's been having nausea and vomiting. And it is been several days since she's had a bowel movement or flatus. Abdomen is distended. He denies any prior history of bowel obstruction. Computed tomography scan of the abdomen shows dilated small bowel, cecum/ascending colon with transition point within the proximal third of the transverse colon with focal narrowing and non- distention of the remainder of the colon. Findings may represent stricture versus mass. Patient denies any prior cardiac history. PAST MEDICAL HISTORY: See below. Diabetes mellitus, hypertension, hyperlipidemia, anxiety, bipolar, depression, schizoaffective disorder, obstructive sleep apnea PAST SURGICAL HISTORY: See below MEDICATIONS: See below ALLERGIES: See below SOCIAL HISTORY: No illicit drug use. REVIEW OF SYSTEMS: CONSTITUTIONAL: Denies fever or chills. HEENT: Denies blurred vision, vision changes, or eye pain. Denies hemoptysis CARDIOVASCULAR: Denies chest pain or pressure. RESPIRATORY: No shortness of breath. GASTROINTESTINAL: See HPI for pertinent findings HEMATOLOGIC: Denies bleeding disorders. GENITOURINARY: Denies any blood in urine or increased urinary frequency. SKIN: Denies pruitis. Denies rash. PHYSICAL EXAM: VITAL SIGNS: Reviewed GENERAL: Well-developed in no acute distress. HEENT: No sclera icterus. Extraocular movements grossly intact. Moist buccal mucosa. Head is atraumatic, normocephalic. No nasal drainage. ABDOMEN: Distended. Diffuse tenderness NEUROLOGIC: Alert and oriented. Cranial nerves II through XII grossly intact. LABORATORY DATA: WBC is 18.1 hgb 12.6 platelets 371 Sodium 132 potassium is 4.8 creatinine 2.11 Lactic acid 1.2 Troponin negative IMAGING: Computed tomography scan abdomen and pelvis dilated small bowel, cecum/ascending colon with transition point within the proximal third of the transverse colon with focal narrowing and nondistention of the remainder of the colon. Findings may represent stricture versus mass. Direct visualization recommended to rule out underlying malignancy. Small bowel dilatation and small bowel feces throughout suggesting delayed transit/fecal stasis. Dilated stomach and esophagus filled with ingested contents likely secondary to #1. ASSESSMENT: 1. Small bowel obstruction with transition point in the proximal third of the transverse colon. Findings may represent stricture versus mass. 2. History of left inguinal hernia surgical repair 3. Leukocytosis 5. Acute kidney injury PLAN: -Patient is scheduled for exploratory laparotomy with colectomy tomorrow with Dr. Cordero -Keep patient nothing by mouth -NG tube placed for decompression -Recommend IV antibiotics -Continue IV fluids Physician Seating Upholsterer note has been reviewed by physician. Signing provider agrees with the documented findings, assessment, and plan of care. Past Medical History Past Medical History: Diabetes Mellitus, GERD/Reflux, Hyperlipidemia, Hypertension, Sleep Apnea/CPAP/BIPAP Additional Past Medical History / Comment(s): Family history of premature coronary artery disease. OCD. History of Any Multi-Drug Resistant Organisms: None Reported Past Surgical History: Hernia Repair Past Anesthesia/Blood Transfusion Reactions: No Reported Reaction Past Psychological History: Anxiety, Bipolar, Depression, Schizoaffective Disorder Smoking Status: Never smoker Past Alcohol Use History: None Reported Past Drug Use History: None Reported - Past Family History Father Family Medical History: Congestive Heart Failure (CHF), Coronary Artery Disease (CAD), Diabetes Mellitus Mother Family Medical History: Cancer Medications and Allergies Home Medications Medication Instructions Recorded Confirmed Type Glycopyrrolate [Robinul Forte] 2 mg PO BID 30 Days #60 tab 12/26/19 01/12/23 Rx Levothyroxine Sodium [Synthroid] 50 mcg PO DAILY 30 Days #30 tab 12/26/19 01/12/23 Rx [place] Carbonate 1,200 mg PO HS 30 Days #120 cap 12/26/19 01/12/23 Rx Rosuvastatin Calcium [Crestor] 5 mg PO HS 30 Days #30 tab 12/26/19 01/12/23 Rx cloZAPine [Clozaril] 150 mg PO HS 30 Days #45 tab 12/26/19 01/12/23 Rx Cetirizine HCl [Zyrtec] 10 mg PO DAILY 03/12/21 01/12/23 History Meclizine [Antivert] 25 mg PO BID 03/12/21 01/12/23 History clomiPRAMINE [Anafranil] 100 mg PO BID 03/12/21 01/12/23 History lamoTRIgine [LaMICtal] 150 mg PO BID 03/12/21 01/12/23 History Linagliptin [Tradjenta] 5 mg PO DAILY 01/12/23 01/12/23 History Omeprazole [PriLOSEC] 40 mg PO DAILY 01/12/23 01/12/23 History Propranolol HCl [Propranolol HCl 80 mg PO DAILY 01/12/23 01/12/23 History ER] amLODIPine [Norvasc] 10 mg PO DAILY 01/12/23 01/12/23 History Allergies Allergy/AdvReac Type Severity Reaction Status Date / Time Penicillins Allergy Unknown Verified 01/12/23 12:13 Childhood risperidone [From Risperdal] Allergy Unknown Verified 01/12/23 12:13 divalproex sodium AdvReac Anxiety, Verified 01/12/23 12:13 [From Depakote] weight gain Surgical - Exam Vital Signs Temp Pulse Resp BP Pulse Ox 98.3 F 103 H 18 118/86 98 01/12/23 09:46 01/12/23 09:46 01/12/23 09:46 01/12/23 09:46 01/12/23 09:46 Results - Labs 01/12/23 10:04 01/12/23 10:04 Abnormal Lab Results - Last 24 Hours (Table) 01/12/23 01/12/23 01/12/23 Range/Units 10:04 10:04 10:04 WBC 18.1 H (3.8-10.6) k/uL Hgb 12.6 L (13.0-17.5) gm/dL Hct 36.9 L (39.0-53.0) % Neutrophils # 16.0 H (1.3-7.7) k/uL Lymphocytes # 0.9 L (1.0-4.8) k/uL Sodium 132 L (137-145) mmol/L Chloride 95 L (98-107) mmol/L BUN 59 H (9-20) mg/dL Creatinine 2.11 H (0.66-1.25) mg/dL Glucose 252 H (74-99) mg/dL Total Creatine Kinase 38 L (55-170) U/L Diabetes panel 01/12/23 Range/Units 10:04 Sodium 132 L (137-145) mmol/L Potassium 4.8 (3.5-5.1) mmol/L Chloride 95 L (98-107) mmol/L Carbon Dioxide 29 (22-30) mmol/L BUN 59 H (9-20) mg/dL Creatinine 2.11 H (0.66-1.25) mg/dL Glucose 252 H (74-99) mg/dL Calcium 8.7 (8.4-10.2) mg/dL AST 21 (17-59) U/L ALT 15 (4-49) U/L Alkaline Phosphatase 75 (38-126) U/L Total Protein 6.3 (6.3-8.2) g/dL Albumin 3.8 (3.5-5.0) g/dL Calcium panel 01/12/23 Range/Units 10:04 Calcium 8.7 (8.4-10.2) mg/dL Albumin 3.8 (3.5-5.0) g/dL Pituitary panel 01/12/23 Range/Units 10:04 Sodium 132 L (137-145) mmol/L Potassium 4.8 (3.5-5.1) mmol/L Chloride 95 L (98-107) mmol/L Carbon Dioxide 29 (22-30) mmol/L BUN 59 H (9-20) mg/dL Creatinine 2.11 H (0.66-1.25) mg/dL Glucose 252 H (74-99) mg/dL Calcium 8.7 (8.4-10.2) mg/dL Adrenal panel 01/12/23 Range/Units 10:04 Sodium 132 L (137-145) mmol/L Potassium 4.8 (3.5-5.1) mmol/L Chloride 95 L (98-107) mmol/L Carbon Dioxide 29 (22-30) mmol/L BUN 59 H (9-20) mg/dL Creatinine 2.11 H (0.66-1.25) mg/dL Glucose 252 H (74-99) mg/dL Calcium 8.7 (8.4-10.2) mg/dL Total Bilirubin 0.8 (0.2-1.3) mg/dL AST 21 (17-59) U/L ALT 15 (4-49) U/L Alkaline Phosphatase 75 (38-126) U/L Total Protein 6.3 (6.3-8.2) g/dL Albumin 3.8 (3.5-5.0) g/dL
[2023-01-12] MEDS ORDERED: SODIUM CHLORIDE 0.9% 2,000 ML IV ONE (15:05)
--- NOTE | 2023-01-12 15:07 | P.HPIM ---
History of Present Illness H&P Date: 01/12/23 History of Presenting Illness: Patient is a very pleasant 57-year-old male with a past medical history of type II [id number] diabetes mellitus, hypertension, hyperlipidemia, GERD, schizoaffective disorder, anxiety, bipolar, depression, and previous inguinal hernia with repair. Presented to the emergency department with a chief complaint of abdominal/epigastric/chest pain, nausea, vomiting, abdominal distention and constipation 2 weeks. Patient reports vomiting dark black coffee-colored emesis and inability to have a bowel movement 2 weeks. He reports pain institute diffuse abdomen radiating up into his epigastric region and chest. He denies having any fevers, chills, palpitations, shortness of breath, cough or congestion, hemoptysis, melena, or hematochezia. Patient reports decreased appetite and inability to hold down oral intake. He does report decreased urinary output, but denies any retention or difficulties initiating a stream. Reports concerns of dehydration. Patient underwent full evaluation in the emergency department. Labs completed and reviewed. He was found to have leukocytosis with WBC count of 18.1 and normocytic anemia with hemoglobin of 12.6. Coagulation profile normal findings. BMP revealing hypon atremia with sodium 132 and hypochloremia with chloride 95 and acute kidney injury with BUN 59, creatinine 2.11, and GFR of 34 as well as hyperglycemia with glucose of 252. Troponin less than 0.012. EKG showing sinus with T-wave inversion in lateral leads I and aVL, T-wave inversion is new finding when compared to previous EKG completed 12/12/19. Chest x-ray completed and report reviewed stating limited inspiration with bilateral consolidation and right basilar atelectasis or infiltrate. CT abdomen and pelvis without contrast completed and radiology report reviewed showing dilated small bowel, cecum/ascending colon with transition point within the proximal third of the transverse colon with focal narrowing in none distention of the remainder of the colon, findings possibly representing stricture versus mass, small bowel dilation with small bowel feces throughout suggesting delayed transit/fecal stasis and dilated stomach and esophagus filled with ingested contents. Discussed these findings with the ED physicianin detail and patient was accepted for admission to general surgery unit with telemetry under our services with consultation to general surgery. Review of systems: Pertinent positives and negatives as discussed in HPI, a complete review of systems was performed and all other systems are negative. Physical exam: Vital signs reviewed and stable. General: Nontoxic, no distress and appears stated age. Derm: Skin warm and dry, normal coloration for ethnicity. Head: Atraumatic, normocephalic and symmetric. Eyes: EOMs intact, no lid lag, and anicteric sclera Mouth: no lip lesions, mucus membranes moist Cardiovascular: regular rate and rhythm with normal S1S2, no murmur, positive posterior tibial pulses bilaterally, and cap refill < 2 seconds. Lungs: Respirations even, regular, and unlabored on room air. Lungs CTA bilaterally, no rhonchi, no rales, no wheezing, and no accessory muscle usage. Abdominal: Abdomen taught pal distended with diffuse tenderness upon pation, no guarding, no appreciable organomegaly Ext: ROM intact. No gross muscle atrophy, no edema, no contractures Neuro: Speech clear, face symmetrical and CN II-XII grossly intact with no noted focal neuro deficits Psych: Alert and oriented to person, place, time, and situation. Appropriate and pleasant affect. Assessment and Plan of Care: Abdominal pain with intractable nausea and vomiting Small bowel obstruction Acute kidney injury, secondary to dehydration Dehydration secondary to intractable nausea and vomiting Leukocytosis Normocytic anemia Hyponatremia Hypochloremia EKG changes - Labs completed and reviewed. CBC revealing leukocytosis with WBC count of 18.1 and normocytic anemia with hemoglobin of 12.6. Coagulation profile normal findings. BMP revealing hyponatremia with sodium 132 and hypochloremia with chloride 95 and acute kidney injury with BUN 59, creatinine 2.11, and GFR of 34 as well as hyperglycemia with glucose of 252. Troponin less than 0.012. -EKG showing sinus with T-wave inversion in lateral leads I and aVL, T-wave inversion is new finding when compared to previous EKG completed 12/12/19. -Chest x-ray completed and report reviewed stating limited inspiration with bilateral consolidation and right basilar atelectasis or infiltrate. -CT abdomen and pelvis without contrast completed and radiology report reviewed showing dilated small bowel, cecum/ascending colon with transition point within the proximal third of the transverse colon with focal narrowing in none distention of the remainder of the colon, findings possibly representing stricture versus mass, small bowel dilation with small bowel feces throughout suggesting delayed transit/fecal stasis and dilated stomach and esophagus filled with ingested contents. -Discussed these findings with the ED physicianin detail and patient was accepted for admission to general surgery unit with telemetry under our services with consultation to general surgery. -Consult placed to general surgery. -Heart score 3. with risk of MACE 0.9-1.7%. We will place patient on telemetry monitoring and trend troponins every 3 hours 2. If troponins remain negative, no need for further cardiac testing or evaluation at this time. -Discussed with general surgery PA and NG tube inserted and placed to low intermittent suction. -CBC to be trended every 6 hours and patient started on Protonix 40 mg IVP twice daily secondary to reports of coffee-ground emesis. -Patient to maintain NPO status and Order placed for 2 L bolus 0.9% normal saline and patient started on maintenance infusion of 125 mL's per hour secondary to dehydration and acute kidney injury. -Leukocytosis possibly secondary to hemoconcentration of blood, however cannot rule out infection. Patient started on IV antibiotics with cefepime and Flagyl pending further findings. -Order placed for repeat morning BMP to monitor for improvement of acute kidney injury once rehydrated. If no improvement or worsening of renal function, order will be placed for nephrology. -Order placed for bladder scan and urinalysis. Diabetes mellitus with hyperglycemia -Hold oral glycemic medications and patient placed on glycemic protocol with NovoLog sliding scale every 6 hours and [id number] glucose every 6 hours. Schizoaffective disorder Anxiety and depression Bipolar disorder -Resume patient's home medication regimen with Lamictal, Clozaril and lithium. -Hold Glycopyrrolate and clomipramine and recommend discontinuation of these medications upon discharge as these are anticholinergic drugs and well known adverse reaction is bowel obstruction. -Consult placed to psychiatry for assistance with medication management as patient will need to be placed on additional antipsychotics, possibly Cogentin secondary to discontinuation of above. -Order placed for lithium level. CODE STATUS: Full code DVT prophylaxis: SCDs Discussed with: Patient, ED physician, RN, and general surgery PA. Anticipated discharge date: Clinical course to determine Anticipated discharge place: Home PATIENT SEEN INDEPENDENTLY BY NURSE PRACTITIONER. This document was prepared using [employer] dictation software. Please allow for errors in command and control officer while rare they do occur. Edwar Bermudez NP rendered care for this patient independently, reviewed the findings and plan as documented in the note above. I did not physically speak with or examine the patient on this date. Past Medical History Past Medical History: Diabetes Mellitus, GERD/Reflux, Hyperlipidemia, Hypertension, Sleep Apnea/CPAP/BIPAP Additional Past Medical History / Comment(s): Family history of premature coronary artery disease. OCD. History of Any Multi-Drug Resistant Organisms: None Reported Past Surgical History: Hernia Repair Past Anesthesia/Blood Transfusion Reactions: No Reported Reaction Past Psychological History: Anxiety, Bipolar, Depression, Schizoaffective Disorder Smoking Status: Never smoker Past Alcohol Use History: None Reported Past Drug Use History: None Reported - Past Family History Father Family Medical History: Congestive Heart Failure (CHF), Coronary Artery Disease (CAD), Diabetes Mellitus Mother Family Medical History: Cancer Medications and Allergies Home Medications Medication Instructions Recorded Confirmed Type Glycopyrrolate [Robinul Forte] 2 mg PO BID 30 Days #60 tab 12/26/19 01/12/23 Rx Levothyroxine Sodium [Synthroid] 50 mcg PO DAILY 30 Days #30 tab 12/26/19 01/12/23 Rx [place] Carbonate 1,200 mg PO HS 30 Days #120 cap 12/26/19 01/12/23 Rx Rosuvastatin Calcium [Crestor] 5 mg PO HS 30 Days #30 tab 12/26/19 01/12/23 Rx cloZAPine [Clozaril] 150 mg PO HS 30 Days #45 tab 12/26/19 01/12/23 Rx Cetirizine HCl [Zyrtec] 10 mg PO DAILY 03/12/21 01/12/23 History Meclizine [Antivert] 25 mg PO BID 03/12/21 01/12/23 History clomiPRAMINE [Anafranil] 100 mg PO BID 03/12/21 01/12/23 History lamoTRIgine [LaMICtal] 150 mg PO BID 03/12/21 01/12/23 History Linagliptin [Tradjenta] 5 mg PO DAILY 01/12/23 01/12/23 History Omeprazole [PriLOSEC] 40 mg PO DAILY 01/12/23 01/12/23 History Propranolol HCl [Propranolol HCl 80 mg PO DAILY 01/12/23 01/12/23 History ER] amLODIPine [Norvasc] 10 mg PO DAILY 01/12/23 01/12/23 History Allergies Allergy/AdvReac Type Severity Reaction Status Date / Time Penicillins Allergy Unknown Verified 01/12/23 12:13 Childhood risperidone [From Risperdal] Allergy Unknown Verified 01/12/23 12:13 divalproex sodium AdvReac Anxiety, Verified 01/12/23 12:13 [From Depakote] weight gain Physical Exam Vitals: Vital Signs Temp Pulse Resp BP Pulse Ox 01/12/23 13:00 100 18 132/90 94 L 01/12/23 09:46 98.3 F 103 H 18 118/86 98 Intake and Output 01/11/23 01/12/23 01/12/23 22:59 06:59 14:59 Other: Weight 104.326 kg Results CBC & Chem 7: 01/13/23 06:04 01/13/23 06:04 Labs: Abnormal Lab Results - Last 24 Hours (Table) 01/12/23 01/12/23 01/12/23 Range/Units 10:04 10:04 10:04 WBC 18.1 H (3.8-10.6) k/uL Hgb 12.6 L (13.0-17.5) gm/dL Hct 36.9 L (39.0-53.0) % Neutrophils # 16.0 H (1.3-7.7) k/uL Lymphocytes # 0.9 L (1.0-4.8) k/uL Sodium 132 L (137-145) mmol/L Chloride 95 L (98-107) mmol/L BUN 59 H (9-20) mg/dL Creatinine 2.11 H (0.66-1.25) mg/dL Glucose 252 H (74-99) mg/dL Total Creatine Kinase 38 L (55-170) U/L
[2023-01-12] MEDS ORDERED: DEXAMETHASONE SOD PHOSPHATE 4 MG/ML 1 ML VIAL IV ONE (15:41)
[2023-01-12] MEDS ORDERED: ONDANSETRON 4 MG/2 ML VIAL IVP ONE (15:41)
[2023-01-12 15:57] LABS: Appearance,Urine Clear (Clear); Bilirubin,Urine Negative (Negative); Blood,Urine Negative (Negative); Color,Urine Yellow; Glucose,Urine (UA) Negative (Negative); Hyaline Casts,Urine 26 /lpf (0-2); Ketones,Urine Negative (Negative); Leukocyte Esterase,Urine Negative (Negative); Mucus,Urine Rare /hpf; Nitrite,Urine Negative (Negative); Protein,Urine 1+ (Negative); RBC,Urine <1 /hpf (0-5); Specific Gravity,Urine 1.022 (1.001-1.035); Squamous Epithelial Cell,Urine <1 /hpf (0-4); WBC,Urine 1 /hpf (0-5)
[2023-01-12] MEDS ORDERED: LEVOFLOXACIN 500MG-D5W PMX 500 MG in DEXTROSE/WATER 1 100ML.BAG IVPB SCH (16:00)
--- NOTE | 2023-01-12 16:15 | XR ---
And abdomen. DATE: 01/12/2023 at 3:53 PM. COMPARISON: 01/12/2023 at 2:01 PM. CLINICAL HISTORY: NG tube placement. IMPRESSION: There is an NG tube tip within the expected location of the gastroesophageal junction. Recommend adva ncement. Dilated loops of small bowel are seen in the upper abdomen and midabdomen along its visualized portio ns compatible small bowel obstruction.
[2023-01-12] MEDS: CEFEPIME 2 GM in SODIUM CHLORIDE 0.9% 100 ML IVPB SCH (17:04)
[2023-01-12 19:05] LABS: RBC 3.71 m/uL (4.30-5.90)
[2023-01-12 19:06] LABS: HCT 33.2 % (39.0-53.0); MCH 29.7 pg (25.0-35.0); MCHC 33.3 g/dL (31.0-37.0); MCV 89.3 fL (80.0-100.0); Platelet Count 285 k/uL (150-450); RDW 14.3 % (11.5-15.5)
[2023-01-12] MEDS: PANTOPRAZOLE 40 MG/10 ML VIAL IVP SCH (22:55)
[2023-01-12] MEDS: LITHIUM CARBONATE 300 MG CAP PO SCH (22:56)
[2023-01-12] MEDS: lamoTRIgine 100 MG TAB PO SCH (22:56)
[2023-01-12] MEDS: cloZAPine 100 MG TAB PO SCH (22:57)
[2023-01-12] MEDS: ATORVASTATIN 10 MG TAB PO SCH (22:58)
[2023-01-12] MEDS: metroNIDAZOLE-NS PMX 500 MG in SALINE 1 100ML.BAG IVPB SCH ×2 (23:18)
[2023-01-13] MEDS: CEFEPIME 2 GM in SODIUM CHLORIDE 0.9% 100 ML IVPB SCH ×4 (01:25→23:28)
[2023-01-13 06:25] LABS: Basophils % (A) 0 %; Eosinophils % (A) 0 %; HCT 30.4 % (39.0-53.0); HGB 10.2 gm/dL (13.0-17.5); Lymphocytes # (A) 0.7 k/uL (1.0-4.8); Lymphocytes % (A) 10 %; MCH 29.6 pg (25.0-35.0); MCHC 33.5 g/dL (31.0-37.0); MCV 88.5 fL (80.0-100.0); Mean Platelet Volume 7.3; Monocytes # (A) 0.7 k/uL (0-1.0); Monocytes % (A) 9 %; Neutrophils % (A) 79 %; Platelet Count 234 k/uL (150-450); RBC 3.43 m/uL (4.30-5.90); RDW 14.4 % (11.5-15.5); WBC 7.6 k/uL (3.8-10.6)
[2023-01-13 06:38] LABS: African American GFR (CKD) 72 (>60 ml/min/1.73 sqM); Anion Gap 4 mmol/L; Blood Urea Nitrogen 42 mg/dL (9-20); Carbon Dioxide 28 mmol/L (22-30); Chloride 105 mmol/L (98-107); Glucose 140 mg/dL (74-99); Magnesium 2.4 mg/dL (1.6-2.3); Non-African American GFR(CKD) 63 (>60 ml/min/1.73 sqM); Potassium 3.8 mmol/L (3.5-5.1); Sodium 137 mmol/L (137-145)
[2023-01-13] MEDS ORDERED: HYDROmorphone 0.5 MG/0.5 ML SYRINGE IVP PRN (07:00)
[2023-01-13] MEDS ORDERED: ASPIRIN 325 MG TAB PO SCH (09:00)
[2023-01-13 09:16] LABS: Glucose,Whole Blood 135 mg/dL (70-110)
[2023-01-13 09:24] LABS: HCT 31.4 % (39.6-50.0); MCH 28.8 pg (27.0-32.0); MCHC 31.8 g/dL (32.0-37.0); MCV 90.5 fL (80.0-97.0); Mean Platelet Volume 9.9 fL (9.5-12.2); NRBC Per 100 WBC 0 /100 WBCS (0.0-0.0); Platelet Count 269 X 10*3/uL (140-440); RBC 3.47 X 10*6/uL (4.40-5.60); RDW 14.1 % (11.5-14.5); WBC 11.05 X 10*3/uL (4.50-10.00)
[2023-01-13] MEDS: metroNIDAZOLE-NS PMX 500 MG in SALINE 1 100ML.BAG IVPB SCH ×3 (09:58→23:33)
[2023-01-13] MEDS: lamoTRIgine 100 MG TAB PO SCH ×2 (10:04→20:36)
[2023-01-13] MEDS: LEVOTHYROXINE 50 MCG TAB PO SCH (10:04)
[2023-01-13] MEDS ORDERED: SODIUM CHLORIDE 0.9% 1,000 ML IV ONE (10:48)
[2023-01-13 11:04] LABS: Glucose,Whole Blood 154 mg/dL (70-110)
[2023-01-13] MEDS ORDERED: MIDAZOLAM 2 MG/2 ML VIAL IVP ONE (11:11)
--- NOTE | 2023-01-13 11:44 | P.ANPRN ---
Procedure Note - Anesthesia - Nerve Block Performed Bilateral Erector Spinae Single Time Out Performed: Yes (1110) Date of Procedure: 01/13/23 Procedure Start Time: 11:11 Procedure Stop Time: 11:17 Location of Patient: PreOp Indication: Acute Post-Operative Pain, Requested by Surgeon Specifically requested for management of pain by : Bebeto Cordero Sedation Type: Sedate with meaningful contact maintained Preparation: Sterile Prep Position: Sitting Catheter: None Needle Types: Pajunk Needle Gauge: 21 Ultrasound used to visualize needle placement: Yes Ultrasound used to observe medication spread: Yes Injectate: 0.5% Ropivacaine (see comment for volume) (15cc +10cc nacl pf each side) Narrative: t10 Blood Aspirated: No Pain Paresthesia on Injection Noted: No Resistance on Injection: Normal Image Stored and Saved: Yes Events: Uneventful and Well Tolerated
[2023-01-13] MEDS: amLODIPine 10 MG TAB PO SCH (12:06)
[2023-01-13] MEDS: PANTOPRAZOLE 40 MG/10 ML VIAL IVP SCH ×2 (12:06→20:36)
[2023-01-13] MEDS: PROPRANOLOL LA 80 MG CAP.SA.24H PO SCH (12:07)
[2023-01-13] MEDS ORDERED: LIDOCAINE 2% INJ 20 MG/ML (2 ML VIAL) ONE (12:08)
[2023-01-13] MEDS ORDERED: SUCCINYLCHOLINE CHLORIDE 200 MG/10 ML VIAL IV ONE (12:08)
[2023-01-13] MEDS ORDERED: fentaNYL (PF) 50 MCG/ML 2 ML AMP ONE (12:08)
[2023-01-13] MEDS ORDERED: ROCURONIUM 10 MG/ML (5 ML VIAL) IV ONE (12:08)
[2023-01-13] MEDS ORDERED: SODIUM CHLORIDE 0.9% (PF) 10 ML VIAL ONE (12:08)
[2023-01-13] MEDS ORDERED: ROPIVACAINE 5 MG/ML 30 ML VIAL ONE (12:08)
[2023-01-13] MEDS ORDERED: NEOSTIGMINE 1 MG/ML 10 ML VIAL ONE (12:08)
[2023-01-13] MEDS ORDERED: PROPOFOL 10 MG/ML 20 ML VIAL IV ONE (12:08)
[2023-01-13] MEDS ORDERED: GLYCOPYRROLATE 0.2 MG/ML 2 ML VIAL ONE (12:08)
[2023-01-13] MEDS ORDERED: LACTATED RINGERS 1,000 ML IV ONE (13:02)
--- NOTE | 2023-01-13 13:18 | P.OP ---
Date of Procedure: 01/13/23 Preoperative Diagnosis: Colonic obstruction Postoperative Diagnosis: Possible stricture of transverse colon Massively dilated proximal transverse right colon and small bowel Procedure(s) Performed: Right colectomy Partial omentectomy Anesthesia: STAN Surgeon: Bebeto Cordero Estimated Blood Loss (ml): 25 Pathology: other (Terminal ileum, transverse colon, right colon) Condition: stable Disposition: PACU Description of Procedure: Patient's placed on the operative table in supine position. He received general endotracheal tube as he. His abdomen was prepped and draped in usual sterile fashion. A skin incision was made in the midline. The nasal cautery the subcu tissue divided. The fascia was divided midline. The small bowel was visualized. The small bowel was massively dilated. Small bowel was followed towards the cecum and the cecum was also very dilated. The colon was dilated to the level of the proximal transverse colon. And then there was collapsed colon beyond this. This point decided perform a extended right colectomy. The terminal ileum was transected with a GI stapler. And then the collapsed transverse colon was transected with a GI stapler. Using the Enseal device mesentery the bowel was divided. The omentum was also taken with the Enseal device. The specimen sent to pathology. Next a [id number] functional end-to-end staple anastomosis created using STEFFANIE and TA stapler. The [id number] functional end-to-end staple S was created. And then a 3-0 GI silk suture was placed as a crotch stitch. There appeared to be no obstruction of the anastomosis. The abdomen was areas of bleeding seen. The fascia is closed loop #1 PDS suture. It was closed lou. Patient top she will was sent to recovery room in stable condition.
--- NOTE | 2023-01-13 14:04 | P.PN ---
Progress Note - Text Progress Note Date: 01/13/23 This provider attempted to assess the patient at approximately 1:35 PM on . Patient is currently in the operating room. Psychiatric consult was placed for evaluation of medication management as the patient is prescribed anticholinergic medications. Review of the patient's psychotropic medications reveals that the patient is currently prescribed Clozaril, lithium, and Lamictal. Clozaril is an antipsychotic medication for severely treatment resistant psychotic disorders. It is likely recommended that the patient continue this medication as there are issues with gastric intestinal motility with any antipsychotic medication and he is likely prescribed this medication when other medication trials have failed. Symptomatic management with stool softeners and high fiber diet are recommended. Furthermore, the patient is also provided pain management with Dilaudid which may also contribute to hypomanic motility of the gastric intestinal tract. Psychiatry will reattempt to evaluate the patient tomorrow. Please call us with any questions or concerns. Terry Landeros MD
[2023-01-13] MEDS: LACTATED RINGERS 1,000 ML IV SCH ×2 (15:12→19:25)
--- NOTE | 2023-01-13 16:56 | P.PN ---
Subjective Progress Note Date: 01/13/23 Patient is a very pleasant 57-year-old male with a past medical history of type II [id number] diabetes mellitus, hypertension, hyperlipidemia, GERD, schizoaffective disorder, anxiety, bipolar, depression, and previous inguinal hernia with repair. Presented to the emergency department with a chief complaint of abdominal/epigastric/chest pain, nausea, vomiting, abdominal di stention and constipation 2 weeks. Patient reports vomiting dark black coffee- colored emesis and inability to have a bowel movement 2 weeks. He reports pain institute diffuse abdomen radiating up into his epigastric region and chest. He denies having any fevers, chills, palpitations, shortness of breath, cough or congestion, hemoptysis, melena, or hematochezia. Patient reports decreased appe tite and inability to hold down oral intake. He does report decreased urinary output, but denies any retention or difficulties initiating a stream. Reports concerns of dehydration. Patient underwent full evaluation in the emergency department. Labs completed and reviewed. He was found to have leukocytosis with WBC count of 18.1 and normocytic anemia with hemoglobin of 12.6. Coagulation profile normal findings. BMP revealing hyponatremia with sodium 132 and hypochloremia with chloride 95 and acute kidney injury with BUN 59, creatinine 2.11, and GFR of 34 as well as hyperglycemia with glucose of 252. Troponin less than 0.012. EKG showing sinus tachycardia at 102 bpm with T-wave inversion in lateral leads I and aVL, T-wave inversion is new finding when compared to previous EKG completed 12/12/19. Chest x-ray completed and report reviewed stating limited inspiration with bilateral consolidation and right basilar atelectasis or infiltrate. CT abdomen and pelvis without contrast com pleted and radiology report reviewed showing dilated small bowel, cecum/ascending colon with transition point within the proximal third of the transverse colon with focal narrowing in none distention of the remainder of the colon, findings possibly representing stricture versus mass, small bowel dil ation with small bowel feces throughout suggesting delayed transit/fecal stasis and dilated stomach and esophagus filled with ingested contents. Discussed these findings with the ED physicianin detail and patient was accepted for admission to general surgery unit with telemetry under our services with consultation to general surgery. Patient taken for colectomy on 01/13/23. Physical exam: Vital signs reviewed and stable. General: Nontoxic, no distress and appears stated age. Derm: Skin warm and dry, normal coloration for ethnicity. Head: Atraumatic, normocephalic and symmetric. Eyes: EOMs intact, no lid lag, and anicteric sclera Mouth: no lip lesions, mucus membranes moist Cardiovascular: regular rate and rhythm with normal S1S2, no murmur, positive posterior tibial pulses bilaterally, and cap refill < 2 seconds. Lungs: Respirations even, regular, and unlabored on room air. Lungs CTA bilaterally, no rhonchi, no rales, no wheezing, and no accessory muscle usage. Abdominal: Abdomen taught pal distended with diffuse tenderness upon pation, no guarding, no appreciable organomegaly Ext: ROM intact. No gross muscle atrophy, no edema, no contractures Neuro: Speech clear, face symmetrical and CN II-XII grossly intact with no noted focal neuro deficits Psych: Alert and oriented to person, place, time, and situation. Appropriate and pleasant affect. Assessment and Plan of Care: Small bowel obstruction Abdominal pain with intractable nausea and vomiting, resolved Acute kidney injury, secondary to dehydration. Improved. Dehydration secondary to intractable nausea and vomiting. Resolved. Leukocytosis, resolved. Normocytic anemia, stable Hyponatremia, resolved Hypochloremia, resolved - Labs completed and reviewed. CBC revealing resolution of leukocytosis with WBCs decreasing from previous 18.1 down to 7.6 simply with IV fluid hydration. Hemoglobin stable at 10.2. BMP revealing significant improvement in renal function with BUN of 42, creatinine 1.28, and GFR of 63 from previous BUN of 59, creatinine 2.11, and GFR 34. -Discussed with general surgery PA and surgeon. Pt underwent right colectomy. NG tube to remain in place pending evaluation surgical tomorrow morning. -GI bleed ruled out, patient to continue with Protonix 40 mg IVP twice daily for GI prophylaxis at this time. -Started on IV fluid hydration with 0.9% normal saline at 100 mL's per hour. -Urinalysis obtained and was negative for infection. Bladder scan was negative for retention. Acute kidney injury is believed to be secondary to dehydration and significantly improved after IV fluid hydration as stated above. Order placed for repeat morning CBC to follow up on normocytic anemia as well as BMP to monitor renal function for full resolution of acute kidney injury. EKG changes -EKG showing sinus tachycardia at 102 bpm with T-wave inversion in lateral leads I and aVL, T-wave inversion is new finding when compared to previous EKG comp leted 12/12/19 upon personal review and interpretation of both. -Heart score 3. with risk of MACE 0.9-1.7%. Troponins were trended overnight all resulting at less than 0.0123 draws. Patient asymptomatic at this time. Therefore recommending no need for further cardiac testing or evaluation at this time. Diabetes mellitus with hyperglycemia -Continue glycemic protocol with NovoLog sliding scale every 4 hours while patient remains nothing by mouth Schizoaffective disorder Anxiety and depression Bipolar disorder -Resume patient's home medication regimen with Lamictal, Clozaril and lithium. -Hold Glycopyrrolate and clomipramine and recommend discontinuation of these medications upon discharge as these are anticholinergic drugs and well known adverse reaction is bowel obstruction. -Consult placed to psychiatry for assistance with medication management as patient will need to be placed on additional antipsychotics, possibly Cogentin secondary to discontinuation of above. Discussed with Dr. Landeros whom stated he will reevaluate patient tomorrow morning and make medication recommendations at that time. -Wenden level reviewed and was therapeutic at 0.8. CODE STATUS: Full code DVT prophylaxis: SCDs Discussed with: Patient, ED physician, RN, and general surgery PA. Anticipated discharge date: Clinical course to determine Anticipated discharge place: Home PATIENT SEEN INDEPENDENTLY BY NURSE PRACTITIONER. This document was prepared using [employer] dictation software. Please allow for errors in j2ee architect while rare they do occur. Edwar Bermudez NP rendered care for this patient independently, reviewed the findings and plan as documented in the note above. I did not physically speak with or examine the patient on this date. Objective - Vital Signs Vital signs: Vital Signs Temp 97.8 F 01/13/23 07:30 Pulse 101 H 01/13/23 07:30 Resp 18 01/13/23 07:30 BP 144/88 01/13/23 07:30 Pulse Ox 90 L 01/13/23 07:30 FiO2 Intake & Output 01/12/23 01/13/23 01/13/23 18:59 06:59 18:59 Output Total 135 1150 Balance -135 -1150 Weight 104.326 kg Output: Urine 135 1150 Other: Voiding Method Urinal # Voids 1 0 - Labs CBC & Chem 7: 01/16/23 07:28 01/16/23 07:28 Labs: Abnormal Lab Results - Last 24 Hours (Table) 01/12/23 01/12/23 01/12/23 Range/Units 10:04 10:04 10:04 WBC 18.1 H (3.8-10.6) k/uL RBC (4.30-5.90) m/uL Hgb 12.6 L (13.0-17.5) gm/dL Hct 36.9 L (39.0-53.0) % Neutrophils # 16.0 H (1.3-7.7) k/uL Lymphocytes # 0.9 L (1.0-4.8) k/uL Sodium 132 L (137-145) mmol/L Chloride 95 L (98-107) mmol/L BUN 59 H (9-20) mg/dL Creatinine 2.11 H (0.66-1.25) mg/dL Glucose 252 H (74-99) mg/dL Calcium (8.4-10.2) mg/dL Magnesium (1.6-2.3) mg/dL Total Creatine Kinase 38 L (55-170) U/L Urine Protein (Negative) Hyaline Casts (0-2) /lpf Urine Mucus (None) /hpf 01/12/23 01/12/23 01/13/23 Range/Units 14:43 18:50 06:04 WBC 13.0 H (3.8-10.6) k/uL RBC 3.71 L 3.43 L (4.30-5.90) m/uL Hgb 11.0 L 10.2 L (13.0-17.5) gm/dL Hct 33.2 L 30.4 L (39.0-53.0) % Neutrophils # (1.3-7.7) k/uL Lymphocytes # 0.7 L (1.0-4.8) k/uL Sodium (137-145) mmol/L Chloride (98-107) mmol/L BUN (9-20) mg/dL Creatinine (0.66-1.25) mg/dL Glucose (74-99) mg/dL Calcium (8.4-10.2) mg/dL Magnesium (1.6-2.3) mg/dL Total Creatine Kinase (55-170) U/L Urine Protein 1+ H (Negative) Hyaline Casts 26 H (0-2) /lpf Urine Mucus Rare H (None) /hpf 01/13/23 Range/Units 06:04 WBC (3.8-10.6) k/uL RBC (4.30-5.90) m/uL Hgb (13.0-17.5) gm/dL Hct (39.0-53.0) % Neutrophils # (1.3-7.7) k/uL Lymphocytes # (1.0-4.8) k/uL Sodium (137-145) mmol/L Chloride (98-107) mmol/L BUN 42 H (9-20) mg/dL Creatinine 1.28 H (0.66-1.25) mg/dL Glucose 140 H (74-99) mg/dL Calcium 8.0 L (8.4-10.2) mg/dL Magnesium 2.4 H (1.6-2.3) mg/dL Total Creatine Kinase (55-170) U/L Urine Protein (Negative) Hyaline Casts (0-2) /lpf Urine Mucus (None) /hpf
[2023-01-13] MEDS ORDERED: DEXTROSE 50% SYRINGE 50 ML IVP PRN ×2 (17:24)
[2023-01-13 17:48] LABS: Glucose,Whole Blood 156 mg/dL (70-110)
[2023-01-13] MEDS: ATORVASTATIN 10 MG TAB PO SCH (20:38)
[2023-01-13] MEDS: LITHIUM CARBONATE 300 MG CAP PO SCH (20:38)
[2023-01-13] MEDS: cloZAPine 100 MG TAB PO SCH (20:38)
[2023-01-13] MEDS: SODIUM CHLORIDE 0.9% 1,000 ML IV SCH (20:39)
[2023-01-13 21:20] LABS: Glucose,Whole Blood 132 mg/dL (70-110)
[2023-01-13] MEDS: HYDROmorphone 1 MG/ML 1 ML SYRINGE IVP PRN (22:38)
[2023-01-14 00:55] LABS: Glucose,Whole Blood 156 mg/dL (70-110)
[2023-01-14] MEDS: HYDROmorphone 1 MG/ML 1 ML SYRINGE IVP PRN ×3 (04:50→21:45)
[2023-01-14 05:19] LABS: Glucose,Whole Blood 149 mg/dL (70-110)
[2023-01-14] MEDS: LEVOTHYROXINE 50 MCG TAB PO SCH (05:32)
[2023-01-14] MEDS: SODIUM CHLORIDE 0.9% 1,000 ML IV SCH ×2 (05:33→08:42)
[2023-01-14 07:52] LABS: Basophils % (A) 0 %; Eosinophils % (A) 0 %; HCT 30.5 % (39.0-53.0); HGB 9.9 gm/dL (13.0-17.5); Lymphocytes # (A) 0.6 k/uL (1.0-4.8); Lymphocytes % (A) 8 %; MCH 29.5 pg (25.0-35.0); MCHC 32.5 g/dL (31.0-37.0); MCV 90.9 fL (80.0-100.0); Mean Platelet Volume 7.4; Monocytes # (A) 0.5 k/uL (0-1.0); Monocytes % (A) 6 %; Neutrophils # (A) 6.4 k/uL (1.3-7.7); Neutrophils % (A) 83 %; Platelet Count 221 k/uL (150-450); RBC 3.35 m/uL (4.30-5.90); RDW 14.4 % (11.5-15.5); WBC 7.7 k/uL (3.8-10.6)
[2023-01-14] MEDS: lamoTRIgine 100 MG TAB PO SCH ×2 (08:29→19:58)
[2023-01-14] MEDS: amLODIPine 10 MG TAB PO SCH (08:29)
[2023-01-14] MEDS: PROPRANOLOL LA 80 MG CAP.SA.24H PO SCH (08:29)
[2023-01-14] MEDS: PANTOPRAZOLE 40 MG/10 ML VIAL IVP SCH ×2 (08:38→19:58)
[2023-01-14] MEDS: metroNIDAZOLE-NS PMX 500 MG in SALINE 1 100ML.BAG IVPB SCH ×2 (08:40→17:03)
[2023-01-14] MEDS: CEFEPIME 2 GM in SODIUM CHLORIDE 0.9% 100 ML IVPB SCH ×2 (08:41→17:03)
[2023-01-14] MEDS: LACTATED RINGERS 1,000 ML IV SCH (08:47)
[2023-01-14 08:51] LABS: Glucose,Whole Blood 160 mg/dL (70-110)
[2023-01-14] MEDS ORDERED: ACETAMINOPHEN IV (For NPO) 1,000 MG in EMPTY BAG 1 BAG IVPB SCH (10:20)
[2023-01-14 10:51] LABS: African American GFR (CKD) 87.1 (60.0-200.0); Albumin/Globulin Ratio 1.58 (1.60-3.17); Anion Gap 9.6 mmol/L (10.00-18.00); BUN/Creat Ratio 20.73 Ratio (12.00-20.00); Blood Urea Nitrogen 22.8 mg/dL (9.0-27.0); Calcium 8.4 mg/dL (8.7-10.3); Carbon Dioxide 20.4 mmol/L (20.0-27.5); Globulin 1.9 g/dL (1.6-3.3); Magnesium 2.4 mg/dL (1.5-2.4); Non-African American GFR(CKD) 75.2 (60.0-200.0); Total Bilirubin 0.2 mg/dL (0.30-1.20); Total Protein 4.9 g/dL (6.2-8.2)
--- NOTE | 2023-01-14 11:05 | P.PN ---
Subjective Progress Note Date: 01/14/23 CHIEF COMPLAINT: Colonic obstruction HISTORY OF PRESENT ILLNESS: Patient is postop day #1 status post right colectomy and partial omentectomy for possible stricture of the transverse colon and massive dilated proximal transverse right colon and small bowel. Patient complains of abdominal pain at incision site. He reports his pain about a 6 out of 10. He reports that his pain is different than his admitting pain. Denies any nausea. Does have NG tube in place with 500 mL brownish output. Denies any bowel activity. Afebrile. Mildly tachycardic. WBC is 7.7 Hgb 9.9 pulse to 21 sodium is 146 potassium is 4.0 creatinine 1.1 PHYSICAL EXAM: VITAL SIGNS: Reviewed. GENERAL: Well-developed in no acute distress. HEENT: No sclera icterus. Extraocular movements grossly intact. Moist buccal mucosa. Head is atraumatic, normocephalic. ABDOMEN: Softer than yesterday. Distended. Prevana wound VAC in place. Incisional dressing clean, dry and intact NEUROLOGIC: Alert and oriented. Cranial nerves II through XII grossly intact. ASSESSMENT: 1. Massively dilated proximal transverse right colon and small bowel with possible stricture of the transverse colon status post right colectomy and pa rtial omentectomy PLAN: -Continue NG tube for decompression -Keep patient nothing by mouth -Continue IV fluids -IV Tylenol added for pain -Continue IV Dilaudid PRN -Encouraged patient to use incentive spirometer -GI prophylaxis Protonix and DVT prophylaxis subcu heparin Physician Polymerization Oven Tender note has been reviewed by physician. Signing provider agrees with the documented findings, assessment, and plan of care. Objective - Vital Signs Vital signs: Vital Signs Temp 98.7 F 01/14/23 07:25 Pulse 110 H 01/14/23 07:25 Resp 18 01/14/23 07:25 BP 149/82 01/14/23 07:25 Pulse Ox 93 L 01/14/23 07:25 FiO2 Intake & Output 01/13/23 01/14/23 01/14/23 18:59 06:59 18:59 Intake Total 1100 Output Total 1720 1300 Balance -620 -1300 Weight 104.326 kg Intake: IV 1100 Output: Urine 1670 1300 Estimated Blood Loss 50 Other: Voiding Method Urinal Indwelling Catheter - Labs CBC & Chem 7: 01/14/23 07:12 01/14/23 07:12 Labs: Abnormal Lab Results - Last 24 Hours (Table) 01/13/23 01/13/23 01/13/23 Range/Units 06:04 11:02 17:46 RBC (4.30-5.90) m/uL Hgb (13.0-17.5) gm/dL Hct (39.0-53.0) % Lymphocytes # (1.0-4.8) k/uL Sodium (135-145) mmol/L Chloride (96-109) mmol/L Anion Gap (10.00-18.00) mmol/L BUN/Creatinine Ratio (12.00-20.00) Ratio Glucose (70-110) mg/dL POC Glucose (mg/dL) 154 H 156 H (70-110) mg/dL Hemoglobin A1c 6.9 H (0.0-6.0) % Calcium (8.7-10.3) mg/dL Total Bilirubin (0.30-1.20) mg/dL Total Protein (6.2-8.2) g/dL Albumin (3.8-4.9) g/dL Albumin/Globulin Ratio (1.60-3.17) g/dL 01/13/23 01/14/23 01/14/23 Range/Units 21:18 00:48 05:14 RBC (4.30-5.90) m/uL Hgb (13.0-17.5) gm/dL Hct (39.0-53.0) % Lymphocytes # (1.0-4.8) k/uL Sodium (135-145) mmol/L Chloride (96-109) mmol/L Anion Gap (10.00-18.00) mmol/L BUN/Creatinine Ratio (12.00-20.00) Ratio Glucose (70-110) mg/dL POC Glucose (mg/dL) 132 H 156 H 149 H (70-110) mg/dL Hemoglobin A1c (0.0-6.0) % Calcium (8.7-10.3) mg/dL Total Bilirubin (0.30-1.20) mg/dL Total Protein (6.2-8.2) g/dL Albumin (3.8-4.9) g/dL Albumin/Globulin Ratio (1.60-3.17) g/dL 01/14/23 01/14/23 01/14/23 Range/Units 07:12 07:12 08:50 RBC 3.35 L (4.30-5.90) m/uL Hgb 9.9 L (13.0-17.5) gm/dL Hct 30.5 L (39.0-53.0) % Lymphocytes # 0.6 L (1.0-4.8) k/uL Sodium 146 H (135-145) mmol/L Chloride 116 H (96-109) mmol/L Anion Gap 9.60 L (10.00-18.00) mmol/L BUN/Creatinine Ratio 20.73 H (12.00-20.00) Ratio Glucose 149 H (70-110) mg/dL POC Glucose (mg/dL) 160 H (70-110) mg/dL Hemoglobin A1c (0.0-6.0) % Calcium 8.4 L (8.7-10.3) mg/dL Total Bilirubin 0.20 L (0.30-1.20) mg/dL Total Protein 4.9 L (6.2-8.2) g/dL Albumin 3.0 L (3.8-4.9) g/dL Albumin/Globulin Ratio 1.58 L (1.60-3.17) g/dL
[2023-01-14] MEDS: HEPARIN SODIUM,PORCINE/PF 5,000 UNIT/0.5 ML SYRINGE SQ SCH ×2 (11:08→19:59)
[2023-01-14] MEDS ORDERED: SODIUM CHLORIDE 0.9% 1,000 ML IV ONE (12:03)
[2023-01-14] MEDS: SODIUM CHLORIDE 0.45% 1,000 ML IV SCH (12:50)
[2023-01-14 13:14] LABS: Glucose,Whole Blood 175 mg/dL (70-110)
--- NOTE | 2023-01-14 13:57 | P.CN ---
Psychiatric Consult - . Consult date: 01/14/23 Consult:: 01/14/23 13:56 IDENTIFYING DATA: This patient is a 57-year-old male with a significant history of schizoaffective disorder, depressive type presents to our hospital on 01/12/2023 with complaints of nausea, vomiting, and chest pain. HISTORY OF PRESENT ILLNESS: The patient presented to the hospital on 2022, presented to emergency department with complaints of nausea, vomiting, chest pain, and was noted to have a very distended abdomen. Furthermore, the patient reported vomiting coffee colored emesis and no bowel movement for the past 2 weeks. The patient was admitted for bowel obstruction and underwent a right colectomy and partial omentectomy on 01/13/2023. Psychiatry has been consulted for evaluation and management of the patient's medications as they are anticholinergic. Upon assessment by this provider, the patient is currently denying any suicidal or homicidal ideation, intention, and/or plan. He reports no access to firearms or other weapons. He does report that he does experience auditory hallucinations however states that they are not severe at this time. He reports that they are constantly present. He denies any current visual hallucinations however he also states that they are often present. He also reports that they are not severe. He is not endorsing any paranoia or other delusions. He does report mild depression but states that this is situational due to his current medical issues. He does report some trouble sleeping but also attributes this to his medical issues. He denies any significant symptoms of mary or hypomania. He denies any increased goal-directed activity, grandiosity, or mood lability. The patient is currently on a home regimen that includes Clozaril, lithium, clomipramine, Lamictal, and glycopyrrolate. Glycopyrrolate and clomipramine have been held due to anticholinergic effects however the patient was continued on Clozaril, lithium, and Lamictal. The patient currently expresses no issues or concerns and states that he is okay on holding the clomipramine at this time as he is uncertain as to how that medication has been fighting any significant benefit. He acknowledges that he would follow-up in the outpatient setting with [facility] or come back to the hospital if he is experiencing any worsening of his psychiatric symptoms. PAST PSYCHIATRIC HISTORY: Patient has a history of schizoaffective disorder, depressive type, obsessive-compulsive disorder, and alcohol use disorder . As per chart review, the patient has been on a regimen of BuSpar, Lamictal, lithium, Luvox, Klonopin, and other psychiatric medications he cannot recall in the past. He was last hospitalized on our psychiatric unit in November 2019. Prior to that, the patient has over 20 inpatient psychiatric admissions. He is open with [facility]. PAST MEDICAL HISTORY: Past Medical History: Diabetes Mellitus, GERD/Reflux, Hyperlipidemia, Hypertension, Sleep Apnea/CPAP/BIPAP Additional Past Medical History / Comment(s): Family history of premature coronary artery disease. OCD. History of Any Multi-Drug Resistant Organisms: None Reported Past Surgical History: Hernia Repair Past Anesthesia/Blood Transfusion Reactions: No Reported Reaction Past Psychological History: Anxiety, Bipolar, Depression, Schizoaffective Disorder Smoking Status: Never smoker Past Alcohol Use History: None Reported Past Drug Use History: None Reported ALLERGIES: Penicillin, risperidone, Depakote CHEMICAL DEPENDENCY HISTORY: Patient has a history of severe alcohol use disorder however is currently denying any substance abuse. He denies any tobacco, alcohol, marijuana, or illicit drug use. FAMILY PSYCHIATRIC/SUBSTANCE USE HISTORY: No reported family psychiatric history. SOCIAL HISTORY: Patient was born in [place] and raised in [place]. He graduated high school. He reports good support. He is single, never , has no children. He receives Social Security disability. Currently lives alone. He has 2 sisters. MENTAL STATUS EXAM: General Appearance: Patient appears to be stated age is alert, pleasant, and cooperative. Patient appears to have fair hygiene and grooming wearing hospital gown with fair eye contact. Patient has a urine catheter in place. Behavior: Patient is calmly sitting upright in his chair without any agitated behavior. Speech: Patient's speech is fluent and nonpressured. Mood/Affect: Patient reports their mood is "a little depressed because of my health", affect is euthymic with appropriate range Suicidality/Homicidality: Patient denies having any suicidal or homicidal ideation intent or plan. Perceptions: Patient endorses auditory hallucinations. Denies any current visual hallucinations. Though content/process: There is no evidence of any delusional thought content and thought process is linear and goal-directed. Memory and concentration: AOX3, grossly intact for the purposes of this session. Can spell "WORLD" backwards Judgment and insight: Good Vital Signs Temp 98.2 F 01/14/23 12:44 Pulse 111 H 01/14/23 12:44 Resp 16 01/14/23 12:44 BP 124/84 01/14/23 12:44 Pulse Ox 99 01/14/23 12:44 FiO2 Intake & Output 01/13/23 01/14/23 01/14/23 18:59 06:59 18:59 Intake Total 1100 Output Total 1720 1300 Balance -620 -1300 Weight 104.326 kg Intake: IV 1100 Output: Urine 1670 1300 Estimated Blood Loss 50 Other: Voiding Method Urinal Indwelling Catheter Indwelling Catheter Laboratory Results WBC 7.7 k/uL (3.8-10.6) 01/14/23 07:12 RBC 3.35 m/uL (4.30-5.90) L 01/14/23 07:12 Hgb 9.9 gm/dL (13.0-17.5) L 01/14/23 07:12 Hct 30.5 % (39.0-53.0) L 01/14/23 07:12 MCV 90.9 fL (80.0-100.0) 01/14/23 07:12 MCH 29.5 pg (25.0-35.0) 01/14/23 07:12 MCHC 32.5 g/dL (31.0-37.0) 01/14/23 07:12 RDW 14.4 % (11.5-15.5) 01/14/23 07:12 Plt Count 221 k/uL (150-450) 01/14/23 07:12 MPV 7.4 01/14/23 07:12 Absolute Nucleated RBC 0 X 10*3/uL (0.00-0.00) 01/13/23 01:05 Neutrophils % 83 % 01/14/23 07:12 Lymphocytes % 8 % 01/14/23 07:12 Monocytes % 6 % 01/14/23 07:12 Eosinophils % 0 % 01/14/23 07:12 Basophils % 0 % 01/14/23 07:12 Neutrophils # 6.4 k/uL (1.3-7.7) 01/14/23 07:12 Lymphocytes # 0.6 k/uL (1.0-4.8) L 01/14/23 07:12 Monocytes # 0.5 k/uL (0-1.0) 01/14/23 07:12 Eosinophils # 0.0 k/uL (0-0.7) 01/14/23 07:12 Basophils # 0.0 k/uL (0-0.2) 01/14/23 07:12 NRBC/100 WBC Diff 0 /100 WBCS (0.0-0.0) 01/13/23 01:05 PT 10.8 sec (9.0-12.0) 01/12/23 10:04 INR 1.0 (<1.2) 01/12/23 10:04 APTT 22.7 sec (22.0-30.0) 01/12/23 10:04 Sodium 146 mmol/L (135-145) H 01/14/23 07:12 Potassium 4.0 mmol/L (3.5-5.5) 01/14/23 07:12 Chloride 116 mmol/L (96-109) H 01/14/23 07:12 Carbon Dioxide 20.4 mmol/L (20.0-27.5) 01/14/23 07:12 Anion Gap 9.60 mmol/L (10.00-18.00) L 01/14/23 07:12 BUN 22.8 mg/dL (9.0-27.0) 01/14/23 07:12 Creatinine 1.1 mg/dL (0.6-1.5) 01/14/23 07:12 Est GFR (CKD-EPI)AfAm 87.1 (60.0-200.0) 01/14/23 07:12 Est GFR (CKD-EPI)NonAf 75.2 (60.0-200.0) 01/14/23 07:12 BUN/Creatinine Ratio 20.73 Ratio (12.00-20.00) H 01/14/23 07:12 Glucose 149 mg/dL (70-110) H 01/14/23 07:12 POC Glucose (mg/dL) 175 mg/dL (70-110) H 01/14/23 13:12 POC Glu Appeals Reviewer Veteran ID Mich Jeong 01/14/23 13:[address] Glu mg/dL 152 01/13/23 06:04 Hemoglobin A1c 6.9 % (0.0-6.0) H 01/13/23 06:04 Plasma Lactic Acid Jamie 1.2 mmol/L (0.7-2.0) 01/12/23 10:04 Calcium 8.4 mg/dL (8.7-10.3) L 01/14/23 07:12 Magnesium 2.4 mg/dL (1.5-2.4) 01/14/23 07:12 Total Bilirubin 0.20 mg/dL (0.30-1.20) L 01/14/23 07:12 AST 16 U/L (14-35) 01/14/23 07:12 ALT 12 U/L (10-49) 01/14/23 07:12 Alkaline Phosphatase 55 U/L (41-126) 01/14/23 07:12 Total Creatine Kinase 38 U/L (55-170) L 01/12/23 10:04 CK-MB (CK-2) 1.6 ng/mL (0.0-2.4) 01/12/23 10:04 CK-MB (CK-2) Rel Index 4.2 01/12/23 10:04 Troponin I <0.012 ng/mL (0.000-0.034) 01/12/23 21:39 Total Protein 4.9 g/dL (6.2-8.2) L 01/14/23 07:12 Albumin 3.0 g/dL (3.8-4.9) L 01/14/23 07:12 Globulin 1.9 g/dL (1.6-3.3) 01/14/23 07:12 Albumin/Globulin Ratio 1.58 g/dL (1.60-3.17) L 01/14/23 07:12 Urine Color Yellow 01/12/23 14:43 Urine Appearance Clear (Clear) 01/12/23 14:43 Urine pH 6.0 (5.0-8.0) 01/12/23 14:43 Ur Specific [place] 1.022 (1.001-1.035) 01/12/23 14:43 Urine Protein 1+ (Negative) H 01/12/23 14:43 Urine Glucose (UA) Negative (Negative) 01/12/23 14:43 Urine Ketones Negative (Negative) 01/12/23 14:43 Urine Blood Negative (Negative) 01/12/23 14:43 Urine Nitrite Negative (Negative) 01/12/23 14:43 Urine Bilirubin Negative (Negative) 01/12/23 14:43 Urine Urobilinogen 2.0 mg/dL (<2.0) 01/12/23 14:43 Ur Leukocyte Esterase Negative (Negative) 01/12/23 14:43 Urine RBC <1 /hpf (0-5) 01/12/23 14:43 Urine WBC 1 /hpf (0-5) 01/12/23 14:43 Ur Squamous Epith Cells <1 /hpf (0-4) 01/12/23 14:43 Hyaline Casts 26 /lpf (0-2) H 01/12/23 14:43 Urine Mucus Rare /hpf (None) H 01/12/23 14:43 Purdy 0.8 mmol/L 01/12/23 15:52 Blood Type O Positive 01/12/23 17:04 Blood Type Confirm O Positive 01/12/23 10:04 Blood Type Recheck No Previous Record 01/12/23 17:04 Bld Type Recheck Status CABO Indicated 01/12/23 17:04 Antibody Screen NEGATIVE 01/12/23 17:04 Spec Expiration Date 01/15/2023230301/12/23 17:04 IMPRESSIONS: Small bowel obstruction Schizoaffective disorder, depressive type Obsessive-compulsive disorder Alcohol use disorder, in sustained remission PLAN: -Continue your medical and surgical management -At this time patient DOES NOT meet criteria for inpatient psychiatric admission. The patient is currently not presenting with any acute symptoms of psychosis or mary. He is not endorsing any suicidal or homicidal ideation, intention, and/or plan. He is future and goal oriented. He displays excellent insight and judgment. -Patient properly safety plans with this provider and acknowledges that he would follow-up with his outpatient [facility] team or return to the hospital should his psychiatric symptoms worsen. -Would recommend the following medication changes/additions: Agree with holding Clomipramine and Glycopyrrolate due to anticholinergic effects. The patient has tried and failed numerous antipsychotic medications and is currently on a regimen of Clozaril. Clozaril is a strongly anticholinergic medication however the benefits of the medication appear necessary and continuing this medication is recommended at this time. Clompiramine is currently utilized to manage OCD. To replace clompiramine we will start Cital opram (least anticholinergic) antidepressant. Concern for discontinuation syndrome from abrupt discontinuation of TCA antidepressant as well. Glycopyyrolate is used for management of sialorrhea secondary to Clozaril. It is not pertinent to controlling psychiatric symptoms and would not need replacement at this time. Agree to continue Lamictal and Purdy. -Patient does not require 1:1 sitter for safety -Patient is recommended to follow up with his [facility] team in the outpatient setting. He is cleared psychiatrically for discharge. -Psychiatry will follow loosely, please contact with any questions. 01/14/23 13:56
--- NOTE | 2023-01-14 16:56 | P.PN ---
Subjective Progress Note Date: 01/14/23 Hospital course: Patient is a very pleasant 57-year-old male with a past medical history of type II [id number] diabetes mellitus, hypertension, hyperlipidemia, GERD, schizoaffective disorder, anxiety, bipolar, depression, and previous inguinal hernia with repair. Presented to the emergency department with a chief complaint of abdominal/epigastric/chest pain, nausea, vomiting, abdominal distention and constipation 2 weeks. Patient reports vomiting dark black coffee-colored emesis and inability to have a bowel movement 2 weeks. He reports pain institute diffuse abdomen radiating up into his epigastric region and chest. He denies having any fevers, chills, palpitations, shortness of breath, cough or congestion, hemoptysis, melena, or hematochezia. Patient reports decreased appetite and inability to hold down oral intake. He does report decreased urinary output, but denies any retention or difficulties initiating a stream. Reports concerns of dehydration. Patient underwent full evaluation in the emergency department. Labs completed and reviewed. He was found to have leukocytosis with WBC count of 18.1 and normocytic anemia with hemoglobin of 12.6. Coagulation profile normal findings. BMP revealing hyponatremia with sodium 132 and hypochloremia with chloride 95 and acute kidney injury with BUN 59, creatinine 2.11, and GFR of 34 as well as hyperglycemia with glucose of 252. Troponin less than 0.012. EKG showing sinus tachycardia at 102 bpm with T-wave inversion in lateral leads I and aVL, T-wave inversion is new finding when compared to previous EKG completed 12/12/19. Chest x-ray completed and report reviewed stating limited inspiration with bilateral consolidation and right basilar atelectasis or infiltrate. CT abdomen and pelvis without contrast completed and radiology report reviewed showing dilated small bowel, cecum/ascending colon with transition point within the proximal third of the transverse colon with focal narrowing in none distention of the remainder of the colon, findings possibly representing stricture versus mass, small bowel dilation with small bowel feces throughout suggesting delayed transit/fecal stasis and dilated stomach and esophagus filled with ingested contents. Discussed these findings with the ED physicianin detail and patient was accepted for admission to general surgery unit with telemetry under our services with consultation to general surgery. Patient taken for colectomy on 01/13/23. Physical exam: Patient seen and fully evaluated at bedside this morning. He is postoperative day 1. Patient sitting up in chair and reports controlled postoperative pain at this time. NG tube remains in place to low intermittent suction. Patient denies any nausea or vomiting. Richards catheter in place. Vital signs reviewed and stable. General: Nontoxic, no distress and appears stated age. Derm: Skin warm and dry, normal coloration for ethnicity. Head: Atraumatic, normocephalic and symmetric. Eyes: EOMs intact, no lid lag, and anicteric sclera Mouth: no lip lesions, mucus membranes moist Cardiovascular: regular rate and rhythm with normal S1S2, no murmur, positive posterior tibial pulses bilaterally, and cap refill < 2 seconds. Lungs: Respirations even, regular, and unlabored on room air. Lungs CTA bilaterally, no rhonchi, no rales, no wheezing, and no accessory muscle usage. Abdominal: Abdomen taught pal distended with diffuse tenderness upon pation, no guarding, no appreciable organomegaly Ext: ROM intact. No gross muscle atrophy, no edema, no contractures Neuro: Speech clear, face symmetrical and CN II-XII grossly intact with no noted focal neuro deficits Psych: Alert and oriented to person, place, time, and situation. Appropriate and pleasant affect. Assessment and Plan of Care: Hyperchloremic hypernatremia -Reviewed morning labs. BMP revealing elevated sodium of 146 and elevated chloride of 116, patient has been receiving IV fluid hydration with 0.9% normal saline at 100 mL's per hour. -0.9% normal saline discontinued and patient started on 0.45% NS at 75 mL's per hour. -Order placed for repeat morning BMP to follow up on sodium and chloride results and additional changes to infusion rate/fluid to be made based upon these f indings. Small bowel obstruction, status post colectomy on 01/13/23, postoperative day 1 Normocytic anemia, stable -Labs completed and reviewed. CBC continued revealing resolution of leukocytosis with WBC 7.7 and stable normocytic anemia with hemoglobin of 9.9. BMP revealing total resolution of TRACY with BUN 22.8, creatinine 1.1, and GFR of 75.2. -Discussed with general surgery PA and patient to remain nothing by mouth until 24 hours postop and diet may then be advanced to clear liquids. -GI bleed was ruled out, patient to continue with Protonix 40 mg IVP twice daily for GI prophylaxis at this time. -Order placed for repeat morning CBC to follow up on normocytic anemia. EKG changes -EKG showing sinus tachycardia at 102 bpm with T-wave inversion in lateral leads I and aVL, T-wave inversion is new finding when compared to previous EKG completed 12/12/19 upon personal review and interpretation of both. -Heart score 3. with risk of MACE 0.9-1.7%. Troponins were trended overnight all resulting at less than 0.0123 draws. Patient asymptomatic at this time. Therefore recommending no need for further cardiac testing or evaluation at this time. Diabetes mellitus with hyperglycemia -Continue glycemic protocol with NovoLog sliding scale every 4 hours while patient remains nothing by mouth. Fasting blood glucose this morning 160. Schizoaffective disorder Anxiety and depression Bipolar disorder -Resume patient's home medication regimen with Lamictal, Clozaril and lithium. -Hold Glycopyrrolate and clomipramine and recommend discontinuation of these medications upon discharge as these are anticholinergic drugs and well known adverse reaction is bowel obstruction. -Consult placed to psychiatry for assistance with medication management as patient will need to be placed on additional antipsychotics, possibly Cogentin secondary to discontinuation of above. -[place] level reviewed and was therapeutic at 0.8. Resolved: Abdominal pain with intractable nausea and vomiting. Secondary to small bowel obstruction. Resolved. Acute kidney injury, secondary to dehydration. Resolved. Dehydration secondary to intractable nausea and vomiting. Resolved. Leukocytosis, Resolved. Hyponatremia, resolved Hypochloremia, resolved CODE STATUS: Full code DVT prophylaxis: SCDs Discussed with: Patient, RN, and general surgery PA. Anticipated discharge date: Clinical course to determine Anticipated discharge place: Home Patient was seen independently by nurse practitioner. This document was prepared using [employer] dictation software. Please allow for errors in family medicine physician while rare they do occur. Edwar Bermudez NP rendered care for this patient independently, reviewed the findings and plan as documented in the note above. I did not physically speak with or examine the patient on this date. Objective - Vital Signs Vital signs: Vital Signs Temp 98.7 F 01/14/23 07:25 Pulse 110 H 01/14/23 07:25 Resp 18 01/14/23 07:25 BP 149/82 01/14/23 07:25 Pulse Ox 93 L 01/14/23 07:25 FiO2 Intake & Output 01/13/23 01/14/23 01/14/23 18:59 06:59 18:59 Intake Total 1100 Output Total 1720 1300 Balance -620 -1300 Weight 104.326 kg Intake: IV 1100 Output: Urine 1670 1300 Estimated Blood Loss 50 Other: Voiding Method Urinal Indwelling Catheter - Labs CBC & Chem 7: 01/16/23 07:28 01/16/23 07:28 Labs: Abnormal Lab Results - Last 24 Hours (Table) 01/13/23 01/13/23 01/13/23 Range/Units 01:05 06:04 09:14 WBC 11.05 H (4.50-10.00) X 10*3/uL RBC 3.47 L (4.40-5.60) X 10*6/uL Hgb 10.0 L (13.0-17.0) g/dL Hct 31.4 L (39.6-50.0) % MCHC 31.8 L (32.0-37.0) g/dL Lymphocytes # (1.0-4.8) k/uL POC Glucose (mg/dL) 135 H (70-110) mg/dL Hemoglobin A1c 6.9 H (0.0-6.0) % 01/13/23 01/13/23 01/13/23 Range/Units 11:02 17:46 21:18 WBC (4.50-10.00) X 10*3/uL RBC (4.40-5.60) X 10*6/uL Hgb (13.0-17.0) g/dL Hct (39.6-50.0) % MCHC (32.0-37.0) g/dL Lymphocytes # (1.0-4.8) k/uL POC Glucose (mg/dL) 154 H 156 H 132 H (70-110) mg/dL Hemoglobin A1c (0.0-6.0) % 01/14/23 01/14/23 01/14/23 Range/Units 00:48 05:14 07:12 WBC (4.50-10.00) X 10*3/uL RBC 3.35 L (4.40-5.60) X 10*6/uL Hgb 9.9 L (13.0-17.0) g/dL Hct 30.5 L (39.6-50.0) % MCHC (32.0-37.0) g/dL Lymphocytes # 0.6 L (1.0-4.8) k/uL POC Glucose (mg/dL) 156 H 149 H (70-110) mg/dL Hemoglobin A1c (0.0-6.0) %
[2023-01-14 17:34] LABS: Glucose,Whole Blood 159 mg/dL (70-110)
[2023-01-14] MEDS: ACETAMINOPHEN IV (For NPO) 1,000 MG in EMPTY BAG 1 BAG IVPB SCH (18:32)
[2023-01-14] MEDS: ATORVASTATIN 10 MG TAB PO SCH (19:58)
[2023-01-14] MEDS: LITHIUM CARBONATE 300 MG CAP PO SCH (19:59)
[2023-01-14] MEDS: cloZAPine 100 MG TAB PO SCH (19:59)
[2023-01-14 21:13] LABS: Glucose,Whole Blood 221 mg/dL (70-110)
[2023-01-15] MEDS: ACETAMINOPHEN IV (For NPO) 1,000 MG in EMPTY BAG 1 BAG IVPB SCH ×4 (00:07→21:10)
[2023-01-15] MEDS: CEFEPIME 2 GM in SODIUM CHLORIDE 0.9% 100 ML IVPB SCH ×3 (00:08→15:18)
[2023-01-15] MEDS: SODIUM CHLORIDE 0.45% 1,000 ML IV SCH ×3 (00:14→15:18)
[2023-01-15] MEDS: metroNIDAZOLE-NS PMX 500 MG in SALINE 1 100ML.BAG IVPB SCH ×3 (00:33→15:17)
[2023-01-15] MEDS: LEVOTHYROXINE 50 MCG TAB PO SCH (05:37)
[2023-01-15 05:48] LABS: Glucose,Whole Blood 140 mg/dL (70-110)
[2023-01-15 07:28] LABS: Glucose,Whole Blood 190 mg/dL (70-110)
[2023-01-15] MEDS: PANTOPRAZOLE 40 MG/10 ML VIAL IVP SCH ×2 (08:52→21:12)
[2023-01-15] MEDS: HYDROmorphone 1 MG/ML 1 ML SYRINGE IVP PRN ×2 (08:52→21:15)
[2023-01-15] MEDS: lamoTRIgine 100 MG TAB PO SCH ×2 (08:52→21:10)
[2023-01-15] MEDS: PROPRANOLOL LA 80 MG CAP.SA.24H PO SCH (08:52)
[2023-01-15] MEDS: HEPARIN SODIUM,PORCINE/PF 5,000 UNIT/0.5 ML SYRINGE SQ SCH ×2 (08:52→21:11)
[2023-01-15 08:53] LABS: HCT 27.4 % (39.6-50.0); HGB 8.6 g/dL (13.0-17.0); MCH 28.9 pg (27.0-32.0); MCHC 31.4 g/dL (32.0-37.0); MCV 91.9 fL (80.0-97.0); Mean Platelet Volume 9.8 fL (9.5-12.2); NRBC Per 100 WBC 0 /100 WBCS (0.0-0.0); Platelet Count 217 X 10*3/uL (140-440); RBC 2.98 X 10*6/uL (4.40-5.60); RDW 14.4 % (11.5-14.5); WBC 8.57 X 10*3/uL (4.50-10.00)
[2023-01-15] MEDS: CITALOPRAM HYDROBROMIDE 10 MG TAB PO SCH (08:53)
[2023-01-15] MEDS: amLODIPine 10 MG TAB PO SCH (08:53)
[2023-01-15 09:10] LABS: African American GFR (CKD) 97.8 (60.0-200.0); Albumin 2.8 g/dL (3.8-4.9); Albumin/Globulin Ratio 1.56 (1.60-3.17); Anion Gap 3.1 mmol/L (10.00-18.00); BUN/Creat Ratio 17.2 Ratio (12.00-20.00); Blood Urea Nitrogen 17.2 mg/dL (9.0-27.0); Calcium 8.4 mg/dL (8.7-10.3); Carbon Dioxide 25.9 mmol/L (20.0-27.5); Globulin 1.8 g/dL (1.6-3.3); Magnesium 2.3 mg/dL (1.5-2.4); Non-African American GFR(CKD) 84.4 (60.0-200.0); Potassium 3.8 mmol/L (3.5-5.5); Total Bilirubin 0.2 mg/dL (0.30-1.20); Total Protein 4.6 g/dL (6.2-8.2)
[2023-01-15 12:39] LABS: Glucose,Whole Blood 169 mg/dL (70-110)
--- NOTE | 2023-01-15 14:42 | P.PN ---
Subjective Progress Note Date: 01/15/23 CHIEF COMPLAINT: Colonic obstruction HISTORY OF PRESENT ILLNESS: Patient is postop day #2 status post right colectomy and partial omentectomy for possible stricture of the transverse colon and massive dilated proximal transverse right colon and small bowel. Patient does complain of pain in the incision site. NG tube was discontinued. He has been started on clear liquid diet. Richards catheter removed. He denies any bowel activity. Denies any nausea or vomiting. Afebrile. Patient has had mild tac hycardia. Heart rate this afternoon his improved at 76. WBC is 8.57 Hgb 8.6 platelets 217 sounds 142 potassium 3.8 creatinine 1.0 PHYSICAL EXAM: VITAL SIGNS: Reviewed. GENERAL: Well-developed in no acute distress. HEENT: No sclera icterus. Extraocular movements grossly intact. Moist buccal mucosa. Head is atraumatic, normocephalic. ABDOMEN: Softer than yesterday. Distended. Prevana wound VAC in place and is clean, dry and intact NEUROLOGIC: Alert and oriented. Cranial nerves II through XII grossly intact. ASSESSMENT: 1. Massively dilated proximal transverse right colon and small bowel with possible stricture of the transverse colon status post right colectomy and partial omentectomy PLAN: -Continue clear liquid diet -Encouraged patient to increase Activity level -Restart IV Tylenol for pain control -Continue IV fluids -Encouraged patient to use incentive spirometer -GI prophylaxis Protonix and DVT prophylaxis subcu heparin Physician Tank Charger note has been reviewed by physician. Signing provider agrees with the documented findings, assessment, and plan of care. Objective - Vital Signs Vital signs: Vital Signs Temp 97.6 F 01/15/23 13:58 Pulse 76 01/15/23 13:58 Resp 16 01/15/23 13:58 BP 100/69 01/15/23 13:58 Pulse Ox 98 01/15/23 13:58 FiO2 Intake & Output 01/14/23 01/15/23 01/15/23 18:59 06:59 18:59 Intake Total 2200 321 Output Total 950 800 Balance 1250 -800 321 Intake: IV 300 Cefepime 2 gm In Sodium 100 Chloride 0.9% 100 ml @ 25 mls/hr IVPB Q8HR [facility] Rx# :[id number] metroNIDAZOLE-NS PMX 500 200 mg In Saline 1 100ml.bag @ 100 mls/hr IVPB Q8HR [facility] Rx#:[id number] Intake, IV Titration 1900 Amount ACETAMINOPHEN IV (For NPO 200 ) 1,000 mg In Empty Bag 1 bag @ 400 mls/hr IVPB Q6HR [facility] Rx#:[id number] Sodium Chloride 0.45% 1, 700 000 ml @ 125 mls/hr IV . Q8H [facility] Rx#:[id number] Sodium Chloride 0.9% 1, 1000 000 ml @ 999 mls/hr IV . Q1H1M [facility] Rx#:[id number] Oral 321 Output: Gastric Drainage 150 Urine 800 800 Other: Voiding Method Indwelling Catheter Indwelling Catheter - Labs CBC & Chem 7: 01/15/23 04:51 01/15/23 04:51 Labs: Abnormal Lab Results - Last 24 Hours (Table) 01/14/23 01/14/23 01/15/23 Range/Units 17:33 21:12 04:51 RBC 2.98 L (4.40-5.60) X 10*6/uL Hgb 8.6 L (13.0-17.0) g/dL Hct 27.4 L (39.6-50.0) % MCHC 31.4 L (32.0-37.0) g/dL Chloride (96-109) mmol/L Anion Gap (10.00-18.00) mmol/L Glucose (70-110) mg/dL POC Glucose (mg/dL) 159 H 221 H (70-110) mg/dL Calcium (8.7-10.3) mg/dL Total Bilirubin (0.30-1.20) mg/dL Total Protein (6.2-8.2) g/dL Albumin (3.8-4.9) g/dL Albumin/Globulin Ratio (1.60-3.17) g/dL 01/15/23 01/15/23 01/15/23 Range/Units 04:51 05:46 07:26 RBC (4.40-5.60) X 10*6/uL Hgb (13.0-17.0) g/dL Hct (39.6-50.0) % MCHC (32.0-37.0) g/dL Chloride 113 H (96-109) mmol/L Anion Gap 3.10 L (10.00-18.00) mmol/L Glucose 113 H (70-110) mg/dL POC Glucose (mg/dL) 140 H 190 H (70-110) mg/dL Calcium 8.4 L (8.7-10.3) mg/dL Total Bilirubin 0.20 L (0.30-1.20) mg/dL Total Protein 4.6 L (6.2-8.2) g/dL Albumin 2.8 L (3.8-4.9) g/dL Albumin/Globulin Ratio 1.56 L (1.60-3.17) g/dL 01/15/23 Range/Units 12:38 RBC (4.40-5.60) X 10*6/uL Hgb (13.0-17.0) g/dL Hct (39.6-50.0) % MCHC (32.0-37.0) g/dL Chloride (96-109) mmol/L Anion Gap (10.00-18.00) mmol/L Glucose (70-110) mg/dL POC Glucose (mg/dL) 169 H (70-110) mg/dL Calcium (8.7-10.3) mg/dL Total Bilirubin (0.30-1.20) mg/dL Total Protein (6.2-8.2) g/dL Albumin (3.8-4.9) g/dL Albumin/Globulin Ratio (1.60-3.17) g/dL
[2023-01-15] MEDS: LACTATED RINGERS 1,000 ML IV SCH (15:19)
[2023-01-15] MEDS ORDERED: DEXTROSE 50% SYRINGE 50 ML IVP PRN ×2 (15:20)
--- NOTE | 2023-01-15 15:24 | P.PN ---
Subjective Progress Note Date: 01/15/23 Hospital course: Patient is a very pleasant 57-year-old male with a past medical history of type II [id number] diabetes mellitus, hypertension, hyperlipidemia, GERD, schizoaffective disorder, anxiety, bipolar, depression, and previous inguinal hernia with repair. Presented to the emergency department with a chief complaint of abdominal/epigastric/chest pain, nausea, vomiting, abdominal distention and constipation 2 weeks. Patient reports vomiting dark black coffee-colored emesis and inability to have a bowel movement 2 weeks. He reports pain institute diffuse abdomen radiating up into his epigastric region and chest. He denies having any fevers, chills, palpitations, shortness of breath, cough or congestion, hemoptysis, melena, or hematochezia. Patient reports decreased appetite and inability to hold down oral intake. He does report decreased urinary output, but denies any retention or difficulties initiating a stream. Reports concerns of dehydration. Patient underwent full evaluation in the emergency department. Labs completed and reviewed. He was found to have leukocytosis with WBC count of 18.1 and normocytic anemia with hemoglobin of 12.6. Coagulation profile normal findings. BMP revealing hyponatremia with sodium 132 and hypochloremia with chloride 95 and acute kidney injury with BUN 59, creatinine 2.11, and GFR of 34 as well as hyperglycemia with glucose of 252. Troponin less than 0.012. EKG showing sinus tachycardia at 102 bpm with T-wave inversion in lateral leads I and aVL, T-wave inversion is new finding when compared to previous EKG completed 12/12/19. Chest x-ray completed and report reviewed stating limited inspiration with bilateral consolidation and right basilar atelectasis or infiltrate. CT abdomen and pelvis without contrast completed and radiology report reviewed showing dilated small bowel, cecum/ascending colon with transition point within the proximal third of the transverse colon with focal narrowing in none distention of the remainder of the colon, findings possibly representing stricture versus mass, small bowel dilation with small bowel feces throughout suggesting delayed transit/fecal stasis and dilated stomach and esophagus filled with ingested contents. Discussed these findings with the ED physicianin detail and patient was accepted for admission to general surgery unit with telemetry under our services with consultation to general surgery. Patient taken for colectomy on 01/13/23. Physical exam: Patient seen and fully evaluated at bedside this morning. He is postoperative day 2. NG tube was discontinued and patient ambulating in the horn with physical therapy. He is tolerating a clear liquid diet and denies having any episodes of nausea or vomiting but also continues to deny any flatus or bowel movements. Patient reports mild to moderate postoperative pain and remains on scheduled Ofirmev and PRN dilaudid. Vital signs reviewed and stable. General: Nontoxic, no distress and appears stated age. Derm: Skin warm and dry, normal coloration for ethnicity. Head: Atraumatic, normocephalic and symmetric. Eyes: EOMs intact, no lid lag, and anicteric sclera Mouth: no lip lesions, mucus membranes moist Cardiovascular: regular rate and rhythm with normal S1S2, no murmur, positive posterior tibial pulses bilaterally, and cap refill < 2 seconds. Lungs: Respirations even, regular, and unlabored on room air. Lungs CTA bilaterally, no rhonchi, no rales, no wheezing, and no accessory muscle usage. Abdominal: Abdomen taught pal distended with diffuse tenderness upon pation, no guarding, no appreciable organomegaly Ext: ROM intact. No gross muscle atrophy, no edema, no contractures Neuro: Speech clear, face symmetrical and CN II-XII grossly intact with no noted focal neuro deficits Psych: Alert and oriented to person, place, time, and situation. Appropriate and pleasant affect. Assessment and Plan of Care: Hyperchloremic hypernatremia, improving -Reviewed morning labs. BMP revealing resolution of hypernatremia with sodium decreasing from 146 down to 142 and chloride improving from 116 down to 113. -0.45% NS decreased down to 75 mL's per hour from previous 125 mL per hour. -Order placed for repeat morning BMP to follow up on sodium and chloride results and additional changes to infusion rate/fluid to be made based upon these findings. Small bowel obstruction, status post colectomy on 01/13/23, postoperative day 2 Normocytic anemia, stable -Labs completed and reviewed. CBC showing stable normocytic anemia with hemoglobin of 8.6. No need for transfusion at this time. -Discussed with general surgery PA and patient to remain on clear liquid diet at this time. -Continue with Protonix 40 mg IVP twice daily for GI prophylaxis at this time. -Order placed for repeat morning CBC to follow up on normocytic anemia to continue to monitor for improvement. EKG changes -EKG showing sinus tachycardia at 102 bpm with T-wave inversion in lateral leads I and aVL, T-wave inversion is new finding when compared to previous EKG completed 12/12/19 upon personal review and interpretation of both. -Heart score 3. with risk of MACE 0.9-1.7%. Troponins were trended overnight all resulting at less than 0.0123 draws. Patient asymptomatic at this time. Therefore recommending no need for further cardiac testing or evaluation at this time. Diabetes mellitus with hyperglycemia -Continue glycemic protocol with NovoLog sliding scale every 4 hours while patient remains nothing by mouth. Fasting blood glucose this morning 113. Schizoaffective disorder Anxiety and depression Obsessive compulsive disorder Bipolar disorder -Continue patient's home medication regimen with Lamictal, Clozaril and lithium. -Discontinued Glycopyrrolate and clomipramine. -Psychiatry following, documentation reviewed, psychiatrist recommending starting patient on citalopram 10 mg daily to replace clomipramine and no need to replace Glycopyrrolate -[place] level therapeutic at 0.8. Resolved: Abdominal pain with intractable nausea and vomiting. Secondary to small bowel obstruction. Resolved. Acute kidney injury, secondary to dehydration. Resolved. Dehydration secondary to intractable nausea and vomiting. Resolved. Leukocytosis, Resolved. Hyponatremia, resolved Hypochloremia, resolved CODE STATUS: Full code DVT prophylaxis: SCDs Discussed with: Patient, RN, and general surgery PA. Anticipated discharge date: Clinical course to determine Anticipated discharge place: Home Patient was seen independently by nurse practitioner. This document was prepared using [employer] dictation software. Please allow for errors in roll contour grinder while rare they do occur. Edwar Bermudez NP rendered care for this patient independently, reviewed the findings and plan as documented in the note above. I did not physically speak with or examine the patient on this date. Objective - Vital Signs Vital signs: Vital Signs Temp 97.6 F 01/15/23 08:00 Pulse 107 H 01/15/23 08:00 Resp 16 01/15/23 08:00 BP 118/83 01/15/23 08:00 Pulse Ox 97 01/15/23 08:00 FiO2 Intake & Output 01/14/23 01/15/23 01/15/23 18:59 06:59 18:59 Intake Total 2200 Output Total 950 800 Balance 1250 -800 Intake: IV 300 Cefepime 2 gm In Sodium 100 Chloride 0.9% 100 ml @ 25 mls/hr IVPB Q8HR [facility] Rx# :[id number] metroNIDAZOLE-NS PMX 500 200 mg In Saline 1 100ml.bag @ 100 mls/hr IVPB Q8HR [facility] Rx#:[id number] Intake, IV Titration 1900 Amount ACETAMINOPHEN IV (For NPO 200 ) 1,000 mg In Empty Bag 1 bag @ 400 mls/hr IVPB Q6HR [facility] Rx#:[id number] Sodium Chloride 0.45% 1, 700 000 ml @ 125 mls/hr IV . Q8H [facility] Rx#:[id number] Sodium Chloride 0.9% 1, 1000 000 ml @ 999 mls/hr IV . Q1H1M [facility] Rx#:[id number] Output: Gastric Drainage 150 Urine 800 800 Other: Voiding Method Indwelling Catheter Indwelling Catheter - Labs CBC & Chem 7: 01/16/23 07:28 01/16/23 07:28 Labs: Abnormal Lab Results - Last 24 Hours (Table) 01/14/23 01/14/23 01/14/23 Range/Units 07:12 13:12 17:33 RBC (4.40-5.60) X 10*6/uL Hgb (13.0-17.0) g/dL Hct (39.6-50.0) % MCHC (32.0-37.0) g/dL Sodium 146 H (135-145) mmol/L Chloride 116 H (96-109) mmol/L Anion Gap 9.60 L (10.00-18.00) mmol/L BUN/Creatinine Ratio 20.73 H (12.00-20.00) Ratio Glucose 149 H (70-110) mg/dL POC Glucose (mg/dL) 175 H 159 H (70-110) mg/dL Calcium 8.4 L (8.7-10.3) mg/dL Total Bilirubin 0.20 L (0.30-1.20) mg/dL Total Protein 4.9 L (6.2-8.2) g/dL Albumin 3.0 L (3.8-4.9) g/dL Albumin/Globulin Ratio 1.58 L (1.60-3.17) g/dL 01/14/23 01/15/23 01/15/23 Range/Units 21:12 04:51 04:51 RBC 2.98 L (4.40-5.60) X 10*6/uL Hgb 8.6 L (13.0-17.0) g/dL Hct 27.4 L (39.6-50.0) % MCHC 31.4 L (32.0-37.0) g/dL Sodium (135-145) mmol/L Chloride 113 H (96-109) mmol/L Anion Gap 3.10 L (10.00-18.00) mmol/L BUN/Creatinine Ratio (12.00-20.00) Ratio Glucose 113 H (70-110) mg/dL POC Glucose (mg/dL) 221 H (70-110) mg/dL Calcium 8.4 L (8.7-10.3) mg/dL Total Bilirubin 0.20 L (0.30-1.20) mg/dL Total Protein 4.6 L (6.2-8.2) g/dL Albumin 2.8 L (3.8-4.9) g/dL Albumin/Globulin Ratio 1.56 L (1.60-3.17) g/dL 01/15/23 01/15/23 Range/Units 05:46 07:26 RBC (4.40-5.60) X 10*6/uL Hgb (13.0-17.0) g/dL Hct (39.6-50.0) % MCHC (32.0-37.0) g/dL Sodium (135-145) mmol/L Chloride (96-109) mmol/L Anion Gap (10.00-18.00) mmol/L BUN/Creatinine Ratio (12.00-20.00) Ratio Glucose (70-110) mg/dL POC Glucose (mg/dL) 140 H 190 H (70-110) mg/dL Calcium (8.7-10.3) mg/dL Total Bilirubin (0.30-1.20) mg/dL Total Protein (6.2-8.2) g/dL Albumin (3.8-4.9) g/dL Albumin/Globulin Ratio (1.60-3.17) g/dL
[2023-01-15 17:21] LABS: Glucose,Whole Blood 141 mg/dL (70-110)
[2023-01-15] MEDS: INSULIN ASPART (NovoLOG) 100 UNIT/ML VIAL SQ SCH ×2 (18:04→21:11)
[2023-01-15] MEDS: TAMSULOSIN 0.4 MG CAP.ER.24H PO SCH (18:09)
[2023-01-15 20:17] LABS: Glucose,Whole Blood 180 mg/dL (70-110)
[2023-01-15] MEDS: LITHIUM CARBONATE 300 MG CAP PO SCH (21:12)
[2023-01-15] MEDS: cloZAPine 100 MG TAB PO SCH (21:12)
[2023-01-15] MEDS: ATORVASTATIN 10 MG TAB PO SCH (21:12)
[2023-01-16] MEDS: CEFEPIME 2 GM in SODIUM CHLORIDE 0.9% 100 ML IVPB SCH ×3 (00:31→15:56)
[2023-01-16] MEDS: metroNIDAZOLE-NS PMX 500 MG in SALINE 1 100ML.BAG IVPB SCH ×3 (00:32→15:56)
[2023-01-16] MEDS: SODIUM CHLORIDE 0.45% 1,000 ML IV SCH ×2 (02:18→15:56)
[2023-01-16] MEDS: ACETAMINOPHEN IV (For NPO) 1,000 MG in EMPTY BAG 1 BAG IVPB SCH ×2 (03:34→08:16)
[2023-01-16] MEDS: LEVOTHYROXINE 50 MCG TAB PO SCH (05:41)
[2023-01-16 07:20] LABS: Glucose,Whole Blood 104 mg/dL (70-110)
[2023-01-16] MEDS: INSULIN ASPART (NovoLOG) 100 UNIT/ML VIAL SQ SCH ×3 (07:47→17:31)
[2023-01-16] MEDS: amLODIPine 10 MG TAB PO SCH (08:15)
[2023-01-16] MEDS: lamoTRIgine 100 MG TAB PO SCH ×2 (08:15→20:27)
[2023-01-16] MEDS: CITALOPRAM HYDROBROMIDE 10 MG TAB PO SCH (08:15)
[2023-01-16] MEDS: PANTOPRAZOLE 40 MG/10 ML VIAL IVP SCH ×2 (08:16→20:30)
[2023-01-16] MEDS: HEPARIN SODIUM,PORCINE/PF 5,000 UNIT/0.5 ML SYRINGE SQ SCH ×2 (08:16→20:30)
[2023-01-16] MEDS: PROPRANOLOL LA 80 MG CAP.SA.24H PO SCH (08:17)
[2023-01-16 08:34] LABS: ALT 13 U/L (4-49); AST 18 U/L (17-59); African American GFR (CKD) >90 (>60 ml/min/1.73 sqM); Albumin 2.4 g/dL (3.5-5.0); Albumin/Globulin Ratio 1.1; Alkaline Phosphatase 55 U/L (38-126); Anion Gap 3 mmol/L; Blood Urea Nitrogen 14 mg/dL (9-20); Calcium 7.9 mg/dL (8.4-10.2); Carbon Dioxide 23 mmol/L (22-30); Chloride 111 mmol/L (98-107); Globulin 2.1 g/dL; Glucose 91 mg/dL (74-99); Magnesium 2.3 mg/dL (1.6-2.3); Non-African American GFR(CKD) 78 (>60 ml/min/1.73 sqM); Potassium 3.5 mmol/L (3.5-5.1); Sodium 137 mmol/L (137-145); Total Bilirubin 0.3 mg/dL (0.2-1.3); Total Protein 4.5 g/dL (6.3-8.2)
[2023-01-16] MEDS: TAMSULOSIN 0.4 MG CAP.ER.24H PO SCH (08:40)
[2023-01-16 11:00] LABS: HCT 27.5 % (39.6-50.0); HGB 8.5 g/dL (13.0-17.0); MCH 28.3 pg (27.0-32.0); MCHC 30.9 g/dL (32.0-37.0); MCV 91.7 fL (80.0-97.0); Mean Platelet Volume 9.8 fL (9.5-12.2); NRBC Per 100 WBC 0 /100 WBCS (0.0-0.0); Platelet Count 244 X 10*3/uL (140-440); RDW 14.4 % (11.5-14.5); WBC 9.77 X 10*3/uL (4.50-10.00)
[2023-01-16 11:38] LABS: Glucose,Whole Blood 148 mg/dL (70-110)
[2023-01-16] MEDS ORDERED: HYDROcodone/APAP 5-325MG 1 EACH TAB PO PRN (14:01)
--- NOTE | 2023-01-16 14:03 | P.PN ---
Subjective Progress Note Date: 01/16/23 CHIEF COMPLAINT: Colonic obstruction HISTORY OF PRESENT ILLNESS: Patient is postop day #3 status post right colectomy and partial omentectomy for possible stricture of the transverse colon and massive dilated proximal transverse right colon and small bowel. Patient complains of pain at incision site. Denies any nausea or vomiting. Still no bowel activity. Afebrile. Tachycardia has resolved. WBC is 9.77 hemoglobin 8.5 platelets 244 sons 137 potassium 3.5 creatinine 1.07 Patient seen and examined with Dr. Cordero PHYSICAL EXAM: VITAL SIGNS: Reviewed. GENERAL: Well-developed in no acute distress. HEENT: No sclera icterus. Extraocular movements grossly intact. Moist buccal mucosa. Head is atraumatic, normocephalic. ABDOMEN: Soft. Distended. Tender at incision site. Pre[place]ana wound VAC in place and is clean, dry and intact NEUROLOGIC: Alert and oriented. Cranial nerves II through XII grossly intact. ASSESSMENT: 1. Massively dilated proximal transverse right colon and small bowel with possible stricture of the transverse colon status post right colectomy and partial omentectomy PLAN: -Downgrade diet nothing by mouth except for ice chips until bowel activity occurs -Encouraged patient to increase Activity level -Consult PT OT -[place] added for po pain meds -Add colace -Continue IV fluids -Encouraged patient to use incentive spirometer -GI prophylaxis Protonix and DVT prophylaxis subcu heparin Physician Quality Worker note has been reviewed by physician. Signing provider agrees with the documented findings, assessment, and plan of care. Objective - Vital Signs Vital signs: Vital Signs Temp 97.9 F 01/16/23 07:20 Pulse 84 01/16/23 07:20 Resp 16 01/16/23 07:50 BP 112/72 01/16/23 07:20 Pulse Ox 93 L 01/16/23 07:50 FiO2 Intake & Output 01/15/23 01/16/23 01/16/23 18:59 06:59 18:59 Intake Total 321 Output Total 350 1100 400 Balance -400 Intake: Oral 321 Output: Urine 350 1100 400 Other: Voiding Method Indwelling Catheter - Labs CBC & Chem 7: 01/16/23 07:28 01/16/23 07:28 Labs: Abnormal Lab Results - Last 24 Hours (Table) 01/15/23 01/15/23 01/15/23 Range/Units 12:38 17:20 20:13 Chloride (98-107) mmol/L POC Glucose (mg/dL) 169 H 141 H 180 H (70-110) mg/dL Calcium (8.4-10.2) mg/dL Total Protein (6.3-8.2) g/dL Albumin (3.5-5.0) g/dL 01/16/23 Range/Units 07:28 Chloride 111 H (98-107) mmol/L POC Glucose (mg/dL) (70-110) mg/dL Calcium 7.9 L (8.4-10.2) mg/dL Total Protein 4.5 L (6.3-8.2) g/dL Albumin 2.4 L (3.5-5.0) g/dL
[2023-01-16] MEDS: LACTATED RINGERS 1,000 ML IV SCH (15:28)
[2023-01-16 17:18] LABS: Glucose,Whole Blood 103 mg/dL (70-110)
--- NOTE | 2023-01-16 17:20 | P.PN ---
Subjective Progress Note Date: 01/16/23 Hospital course: Patient is a very pleasant 57-year-old male with a past medical history of type II [id number] diabetes mellitus, hypertension, hyperlipidemia, GERD, schizoaffective disorder, anxiety, bipolar, depression, and previous inguinal hernia with repair. Presented to the emergency department with a chief complaint of abdominal/epigastric/chest pain, nausea, vomiting, abdominal distention and constipation 2 weeks. Patient reports vomiting dark black coffee-colored emesis and inability to have a bowel movement 2 weeks. He reports pain institute diffuse abdomen radiating up into his epigastric region and chest. He denies having any fevers, chills, palpitations, shortness of breath, cough or congestion, hemoptysis, melena, or hematochezia. Patient reports decreased appetite and inability to hold down oral intake. He does report decreased urinary output, but denies any retention or difficulties initiating a stream. Reports concerns of dehydration. Patient underwent full evaluation in the emergency department. Labs completed and reviewed. He was found to have leukocytosis with WBC count of 18.1 and normocytic anemia with hemoglobin of 12.6. Coagulation profile normal findings. BMP revealing hyponatremia with sodium 132 and hypochloremia with chloride 95 and acute kidney injury with BUN 59, creatinine 2.11, and GFR of 34 as well as hyperglycemia with glucose of 252. Troponin less than 0.012. EKG showing sinus tachycardia at 102 bpm with T-wave inversion in lateral leads I and aVL, T-wave inversion is new finding when compared to previous EKG completed 12/12/19. Chest x-ray completed and report reviewed stating limited inspiration with bilateral consolidation and right basilar atelectasis or infiltrate. CT abdomen and pelvis without contrast completed and radiology report reviewed showing dilated small bowel, cecum/ascending colon with transition point within the proximal third of the transverse colon with focal narrowing in none distention of the remainder of the colon, findings possibly representing stricture versus mass, small bowel dilation with small bowel feces throughout suggesting delayed transit/fecal stasis and dilated stomach and esophagus filled with ingested contents. Discussed these findings with the ED physicianin detail and patient was accepted for admission to general surgery unit with telemetry under our services with consultation to general surgery. Patient taken for colectomy on 01/13/23. Physical exam: Patient seen and fully evaluated at bedside this morning. He is postoperative day 3. Patient was sitting up in chair at bedside. He continues to report mild postoperative pain. He denies having any nausea or vomiting. Patient denies passing flatus or having bowel movement. Discussed plan of care with general surgery PA stating they are going to downgrade patient from clear liquids back to ice chips only until bowel activity occurs. Vital signs reviewed and stable. General: Nontoxic, no distress and appears stated age. Derm: Skin warm and dry, normal coloration for ethnicity. Head: Atraumatic, normocephalic and symmetric. Eyes: EOMs intact, no lid lag, and anicteric sclera Mouth: no lip lesions, mucus membranes moist Cardiovascular: regular rate and rhythm with normal S1S2, no murmur, positive posterior tibial pulses bilaterally, and cap refill < 2 seconds. Lungs: Respirations even, regular, and unlabored on room air. Lungs CTA bilaterally, no rhonchi, no rales, no wheezing, and no accessory muscle usage. Abdominal: Abdomen soft and slightly distended, wound VAC in place. Minimal bowel sounds noted. Ext: ROM intact. No gross muscle atrophy, no edema, no contractures Neuro: Speech clear, face symmetrical and CN II-XII grossly intact with no noted focal neuro deficits Psych: Alert and oriented to person, place, time, and situation. Appropriate and pleasant affect. Assessment and Plan of Care: Hyperchloremic hypernatremia, improving -Reviewed morning labs. BMP revealing resolution of hypernatremia with sodium decreasing from 146 down to 142 and chloride improving from 116 down to 113. -0.45% NS decreased down to 75 mL's per hour from previous 125 mL per hour. -Order placed for repeat morning BMP to follow up on sodium and chloride results and additional changes to infusion rate/fluid to be made based upon these findings. Small bowel obstruction, status post colectomy on 01/13/23, postoperative day 3 Postoperative blood loss anemia, expected finding and stable -Labs completed and reviewed. CBC showing stable normocytic anemia with hemoglobin of 8.5. No need for transfusion at this time. I reviewed the documentation as provided by the NAV above, who is the original author of this note. I agree with the documented assessment and plan, with the following changes: none -Discussed plan of care with general surgery PA stating they are going to downgrade patient from clear liquids back to ice chips only until bowel activity occurs. -Continue with Protonix 40 mg IVP twice daily for GI prophylaxis at this time. -Order placed for repeat morning CBC to follow up on normocytic anemia to continue to monitor for improvement. EKG changes -EKG showing sinus tachycardia at 102 bpm with T-wave inversion in lateral leads I and aVL, T-wave inversion is new finding when compared to previous EKG completed 12/12/19 upon personal review and interpretation of both. -Heart score 3. with risk of MACE 0.9-1.7%. Troponins were trended overnight all resulting at less than 0.0123 draws. Patient asymptomatic at this time. Therefore recommending no need for further cardiac testing or evaluation at this time. Diabetes mellitus with hyperglycemia -Continue glycemic protocol with NovoLog sliding scale every 4 hours while patient remains nothing by mouth. Fasting blood glucose this morning 113. Schizoaffective disorder Anxiety and depression Obsessive compulsive disorder Bipolar disorder -Continue patient's home medication regimen with Lamictal, Clozaril and lithium. -Discontinued Glycopyrrolate and clomipramine. -Psychiatry following, documentation reviewed, psychiatrist placed patient on citalopram 10 mg daily to replace clomipramine and no need to replace Glycopyrrolate -[place] level therapeutic at 0.8. Resolved: Abdominal pain with intractable nausea and vomiting. Secondary to small bowel obstruction. Resolved. Acute kidney injury, secondary to dehydration. Resolved. Dehydration secondary to intractable nausea and vomiting. Resolved. Leukocytosis, Resolved. Hyponatremia, resolved Hypochloremia, resolved CODE STATUS: Full code DVT prophylaxis: SCDs Discussed with: Patient, RN, and general surgery PA. Anticipated discharge date: Clinical course to determine Anticipated discharge place: Home Patient was seen independently by nurse practitioner. This document was prepared using [employer] dictation software. Please allow for errors in sales representative trainee while rare they do occur. I reviewed the documentation as provided by the NAV above, who is the original author of this note. I agree with the documented assessment and plan, with the following changes: none Objective - Vital Signs Vital signs: Vital Signs Temp 97.9 F 01/16/23 07:20 Pulse 84 01/16/23 07:20 Resp 16 01/16/23 07:50 BP 112/72 01/16/23 07:20 Pulse Ox 93 L 01/16/23 07:50 FiO2 Intake & Output 01/15/23 01/16/23 01/16/23 18:59 06:59 18:59 Intake Total 321 Output Total 350 1100 400 Balance - Intake: Oral 321 Output: Urine 350 1100 400 Other: Voiding Method Indwelling Catheter - Labs CBC & Chem 7: 01/16/23 07:28 01/16/23 07:28 Labs: Abnormal Lab Results - Last 24 Hours (Table) 01/15/23 01/15/23 01/15/23 Range/Units 12:38 17:20 20:13 Chloride (98-107) mmol/L POC Glucose (mg/dL) 169 H 141 H 180 H (70-110) mg/dL Calcium (8.4-10.2) mg/dL Total Protein (6.3-8.2) g/dL Albumin (3.5-5.0) g/dL 01/16/23 Range/Units 07:28 Chloride 111 H (98-107) mmol/L POC Glucose (mg/dL) (70-110) mg/dL Calcium 7.9 L (8.4-10.2) mg/dL Total Protein 4.5 L (6.3-8.2) g/dL Albumin 2.4 L (3.5-5.0) g/dL
--- NOTE | 2023-01-16 19:28 | CDI ---
Documentation Clarification Form Date: 01/16/2023 From: Martine Jack RN,CCDS Admit Date: 01/12/2023 1:14:00 PM Patient Name: Huan Muniz Visit Number: [id number] Discharge Date: ATTENTION: The Clinical Documentation Specialists (CDI) and [facility] Coding Staff appreciate your assistance in clarifying documentation. Please respond to the clarification below the line at the bottom and electronically sign. The CDI & [facility] Coding staff will review the response and follow-up if needed. Please note: Queries are made part of the Legal Health Record. If you have any questions, please contact the author of this message via ITS. Dr. Malcom Bruner Unspecified postoperative blood loss anemia is documented in the progress note on 01/16/23. Additional specificity regarding the acuity of anemia is requested. History/Risk Factors: Diabetes mellitus, hypertension, Hyperlipidemia, Schizoaffective disorder Inguinal hernia Clinical indicators: 57-year-old male with complaints of abdominal, epigastric, chest pain with nausea and vomiting. CT abdomen and pelvis report showing dilated small bowel, cecum/ascending colon with transition point within the proximal third of the transverse colon with focal narrowing nondistention of the remainder of the colon. Small bowel dilation. Dilates stomach and esophagus flied with ingested contents. 01/13 Procedure: Right colectomy. Partial omentectomy 01/12 HGB 12.6 HCT 36.9 01/13 HGB 10.0 HCT 31.4 01/14 HGB 9.9 HCT 30.4 01/15 HGB 8.6 HCT 27.5 01/16 HGB 8.5 HCT 27.5 Treatment: Monitor CBC Daily Protonix 40 MG IVP BID Please clarify the type and acuity of postoperative blood loss anemia: [ ] Acute blood loss anemia, expected [ ] Unable to determine [ ] Other, please specify (Template Last Revised: December 2020) Acute Postoperative blood loss anemia, expected finding and stable Dictated By: Edwar Bermudez Signed By: <Electronically signed by Edwar MALIN> 01/18/23 1507 <Electronically signed by Darwin Esquivel MD> 01/19/23 0812 <Electronically signed by Darwin Esquivel MD> MTDD
[2023-01-16] MEDS: ATORVASTATIN 10 MG TAB PO SCH (20:28)
[2023-01-16] MEDS: DOCUSATE 100 MG CAP PO SCH (20:28)
[2023-01-16] MEDS: cloZAPine 100 MG TAB PO SCH (20:29)
[2023-01-16] MEDS: LITHIUM CARBONATE 300 MG CAP PO SCH (20:29)
[2023-01-16 20:51] LABS: Glucose,Whole Blood 100 mg/dL (70-110)
[2023-01-17] MEDS: INSULIN ASPART (NovoLOG) 100 UNIT/ML VIAL SQ SCH ×5 (00:11→20:25)
[2023-01-17] MEDS: metroNIDAZOLE-NS PMX 500 MG in SALINE 1 100ML.BAG IVPB SCH ×4 (00:18→23:52)
[2023-01-17] MEDS: CEFEPIME 2 GM in SODIUM CHLORIDE 0.9% 100 ML IVPB SCH ×4 (00:18→23:51)
[2023-01-17] MEDS: SODIUM CHLORIDE 0.45% 1,000 ML IV SCH ×2 (00:20→16:16)
[2023-01-17] MEDS: LEVOTHYROXINE 50 MCG TAB PO SCH (06:17)
[2023-01-17 07:36] LABS: Glucose,Whole Blood 92 mg/dL (70-110)
[2023-01-17] MEDS: lamoTRIgine 100 MG TAB PO SCH ×2 (09:12→20:28)
[2023-01-17] MEDS: amLODIPine 10 MG TAB PO SCH (09:12)
[2023-01-17] MEDS: TAMSULOSIN 0.4 MG CAP.ER.24H PO SCH (09:12)
[2023-01-17] MEDS: DOCUSATE 100 MG CAP PO SCH ×2 (09:12→20:20)
[2023-01-17] MEDS: HEPARIN SODIUM,PORCINE/PF 5,000 UNIT/0.5 ML SYRINGE SQ SCH ×2 (09:13→20:20)
[2023-01-17] MEDS: PROPRANOLOL LA 80 MG CAP.SA.24H PO SCH (09:13)
[2023-01-17] MEDS: PANTOPRAZOLE 40 MG/10 ML VIAL IVP SCH ×2 (09:13→20:20)
[2023-01-17] MEDS: CITALOPRAM HYDROBROMIDE 10 MG TAB PO SCH (09:13)
[2023-01-17 10:18] LABS: HCT 29.1 % (39.0-53.0); HGB 9.3 gm/dL (13.0-17.5); Hypochromasia Slight; MCH 28.8 pg (25.0-35.0); MCHC 31.9 g/dL (31.0-37.0); MCV 90.4 fL (80.0-100.0); Platelet Count 282 k/uL (150-450); Poikilocytosis Slight; RBC 3.21 m/uL (4.30-5.90); RDW 14.3 % (11.5-15.5); WBC 9.6 k/uL (3.8-10.6)
[2023-01-17 10:32] LABS: ALT 15 U/L (4-49); AST 25 U/L (17-59); African American GFR (CKD) >90 (>60 ml/min/1.73 sqM); Albumin 2.5 g/dL (3.5-5.0); Alkaline Phosphatase 58 U/L (38-126); Anion Gap 9 mmol/L; Blood Urea Nitrogen 11 mg/dL (9-20); Calcium 8.1 mg/dL (8.4-10.2); Carbon Dioxide 18 mmol/L (22-30); Chloride 120 mmol/L (98-107); Globulin 2.4 g/dL; Glucose 95 mg/dL (74-99); Magnesium 2.4 mg/dL (1.6-2.3); Non-African American GFR(CKD) 87 (>60 ml/min/1.73 sqM); Potassium 3.5 mmol/L (3.5-5.1); Sodium 147 mmol/L (137-145); Total Bilirubin 0.4 mg/dL (0.2-1.3); Total Protein 4.9 g/dL (6.3-8.2)
[2023-01-17 11:15] LABS: Glucose,Whole Blood 100 mg/dL (70-110)
[2023-01-17] MEDS: LACTATED RINGERS 1,000 ML IV SCH (13:48)
[2023-01-17 16:56] LABS: Glucose,Whole Blood 114 mg/dL (70-110)
--- NOTE | 2023-01-17 18:35 | P.PN ---
Subjective Progress Note Date: 01/17/23 Hospital course: Patient is a very pleasant 57-year-old male with a past medical history of type II [id number] diabetes mellitus, hypertension, hyperlipidemia, GERD, schizoaffective disorder, anxiety, bipolar, depression, and previous inguinal hernia with repair. Presented to the emergency department with a chief complaint of abdominal/epigastric/chest pain, nausea, vomiting, abdominal distention and constipation 2 weeks. Patient reports vomiting dark black coffee-colored emesis and inability to have a bowel movement 2 weeks. He reports pain institute diffuse abdomen radiating up into his epigastric region and chest. He denies having any fevers, chills, palpitations, shortness of breath, cough or congestion, hemoptysis, melena, or hematochezia. Patient reports decreased appetite and inability to hold down oral intake. He does report decreased urinary output, but denies any retention or difficulties initiating a stream. Reports concerns of dehydration. Patient underwent full evaluation in the emergency department. Labs completed and reviewed. He was found to have leukocytosis with WBC count of 18.1 and normocytic anemia with hemoglobin of 12.6. Coagulation profile normal findings. BMP revealing hyponatremia with sodium 132 and hypochloremia with chloride 95 and acute kidney injury with BUN 59, creatinine 2.11, and GFR of 34 as well as hyperglycemia with glucose of 252. Troponin less than 0.012. EKG showing sinus tachycardia at 102 bpm with T-wave inversion in lateral leads I and aVL, T-wave inversion is new finding when compared to previous EKG completed 12/12/19. Chest x-ray completed and report reviewed stating limited inspiration with bilateral consolidation and right basilar atelectasis or infiltrate. CT abdomen and pelvis without contrast completed and radiology report reviewed showing dilated small bowel, cecum/ascending colon with transition point within the proximal third of the transverse colon with focal narrowing in none distention of the remainder of the colon, findings possibly representing stricture versus mass, small bowel dilation with small bowel feces throughout suggesting delayed transit/fecal stasis and dilated stomach and esophagus filled with ingested contents. Discussed these findings with the ED physicianin detail and patient was accepted for admission to general surgery unit with telemetry under our services with consultation to general surgery. Patient taken for colectomy on 01/13/23. Physical exam: Patient seen and fully evaluated at bedside this morning. He is postoperative day 4 Patient continues to have reports of mild postoperative pain/discomfort. Patient continues to have abdominal distention and denies having any flatus or bowel movements at this time. Vital signs reviewed and stable. General: Nontoxic, no distress and appears stated age. Derm: Skin warm and dry, normal coloration for ethnicity. Head: Atraumatic, normocephalic and symmetric. Eyes: EOMs intact, no lid lag, and anicteric sclera Mouth: no lip lesions, mucus membranes moist Cardiovascular: regular rate and rhythm with normal S1S2, no murmur, positive posterior tibial pulses bilaterally, and cap refill < 2 seconds. Lungs: Respirations even, regular, and unlabored on room air. Lungs CTA bilaterally, no rhonchi, no rales, no wheezing, and no accessory muscle usage. Abdominal: Abdomen soft and slightly distended, wound VAC in place. Ext: ROM intact. No gross muscle atrophy, no edema, no contractures Neuro: Speech clear, face symmetrical and CN II-XII grossly intact with no noted focal neuro deficits Psych: Alert and oriented to person, place, time, and situation. Appropriate and pleasant affect. Assessment and Plan of Care: Hyperchloremic hypernatremia, improving -Reviewed morning labs. BMP hypernatremia with sodium 147 and hyperchloremia with chloride of 120. -0.45% NS discontinued and patient started on D5 0.45% normal saline at 75 mL's per hour as blood glucose only 95 as well. -Order placed for repeat morning BMP to follow up on sodium and chloride results and additional changes to infusion rate/fluid to be made based upon these findings. -Order placed for [id number] glucose every 4 hours and to remain every 4 hours until no longer NPO. Small bowel obstruction, status post right colectomy and partial omentectomy on 01/13/23, postoperative day 4 Dilated proximal transverse right colon Acute Postoperative blood loss anemia, expected finding and stable -Labs completed and reviewed. CBC showing stable normocytic anemia with hemoglobin of 9.3. No need for transfusion at this time. -Gen. surgery following, reviewed documentation in chart stating pt to remain NPO until return of bowel function -Continue with Protonix 40 mg IVP twice daily for GI prophylaxis at this time. -Order placed for repeat morning CBC to follow up on normocytic anemia to continue to monitor for improvement. EKG changes -EKG showing sinus tachycardia at 102 bpm with T-wave inversion in lateral leads I and aVL, T-wave inversion is new finding when compared to previous EKG completed 12/12/19 upon personal review and interpretation of both. -Heart score 3. with risk of MACE 0.9-1.7%. Troponins were trended overnight all resulting at less than 0.0123 draws. Patient asymptomatic at this time. Therefore recommending no need for further cardiac testing or evaluation at this time. Diabetes mellitus with hyperglycemia -Continue glycemic protocol with NovoLog sliding scale every 4 hours while patient remains nothing by mouth. Fasting blood glucose this morning 113. Schizoaffective disorder Anxiety and depression Obsessive compulsive disorder Bipolar disorder -Continue patient's home medication regimen with Lamictal, Clozaril and lithium. -Discontinued Glycopyrrolate and clomipramine. -Psychiatry following, documentation reviewed, psychiatrist placed patient on citalopram 10 mg daily to replace clomipramine and no need to replace Glycopyrrolate -[place] level therapeutic at 0.8. Resolved: Acute kidney injury, secondary to dehydration. Resolved. Dehydration secondary to intractable nausea and vomiting. Resolved. Leukocytosis, Resolved. Hyponatremia, resolved Hypochloremia, resolved CODE STATUS: Full code DVT prophylaxis: SCDs Discussed with: Patient and RN Anticipated discharge date: Clinical course to determine Anticipated discharge place: Home Patient was seen independently by nurse practitioner. This document was prepared using [employer] dictation software. Please allow for errors in jukebox routeman while rare they do occur. I reviewed the documentation as provided by the NAV above, who is the original author of this note. I agree with the documented assessment and plan, with the following changes: none Objective - Vital Signs Vital signs: Vital Signs Temp 98.2 F 01/17/23 07:24 Pulse 94 01/17/23 07:24 Resp 16 01/17/23 07:24 BP 121/73 01/17/23 07:24 Pulse Ox 95 01/17/23 07:55 FiO2 Intake & Output 01/16/23 01/17/23 01/17/23 18:59 06:59 18:59 Intake Total 100 Output Total 1050 3600 Balance -1050 -3500 Weight 104.326 kg Intake: Oral 100 Output: Urine 1050 3600 Other: Voiding Method Indwelling Catheter Indwelling Catheter - Labs CBC & Chem 7: 01/17/23 10:01 01/17/23 10:01 Labs: Abnormal Lab Results - Last 24 Hours (Table) 01/16/23 01/16/23 Range/Units 07:28 11:37 RBC 3.00 L (4.40-5.60) X 10*6/uL Hgb 8.5 L (13.0-17.0) g/dL Hct 27.5 L (39.6-50.0) % MCHC 30.9 L (32.0-37.0) g/dL POC Glucose (mg/dL) 148 H (70-110) mg/dL
[2023-01-17 20:04] LABS: Glucose,Whole Blood 119 mg/dL (70-110)
[2023-01-17] MEDS: cloZAPine 100 MG TAB PO SCH (20:19)
[2023-01-17] MEDS: ATORVASTATIN 10 MG TAB PO SCH (20:20)
[2023-01-17] MEDS: LITHIUM CARBONATE 300 MG CAP PO SCH (20:20)
[2023-01-17] MEDS: DEXTROSE 5%-0.45% NACL 1,000 ML IV SCH (20:28)
--- NOTE | 2023-01-17 20:44 | P.PN ---
Subjective Progress Note Date: 01/17/23 CHIEF COMPLAINT: Bowel obstruction HISTORY OF PRESENT ILLNESS: The patient is a 57-year-old male status post colectomy 01/13/2023 for colectomy due to bowel obstruction. He is resting comfortably. No new complaints. ROS: No reports of nausea and vomiting. No fevers or chills. No new chest pain. No productive sputum. Morbid obesity excess calories, BMI 35.0 PHYSICAL EXAM: VITAL SIGNS: Reviewed CONSTITUTIONAL: Well developed and in no acute distress. EYES: Conjuctivae without sclera icterus. Extraocular movements grossly intact. HEAD, EARS, NOSE, THROAT: Moist buccal mucosa. Head is atraumatic, normocephalic. Hears conversational speech. No nasal drainage. RESPIRATORY: Non-labored respirations and equal bilateral excursions. CARDIOVASCULAR: Palpable 2+ radial pulses. ABDOMEN: No peritonitis. Dressing intact. MUSCULOSKELETAL: No gross deformity of the lower extremities noted. No clubbing. No cyanosis. SKIN: Good skin turgor. Well perfused. NEUROLOGIC: Cranial nerves II through XII grossly intact. No focal or lateralizing signs. PSYCH: Lethargic. CLINICAL LABS: Reviewed. WBC normal. Hemoglobin 9.3, low, anemia ASSESSMENT: 1. Large bowel obstruction status post colectomy 2. Chronic iron deficiency anemia 3. Morbid obesity due to excess calories, BMI 35.0 PLAN: 1. Monitor hemoglobin for anemia 2. Monitor for bowel function. 3. Abdominal x-rays ordered. Objective - Vital Signs Vital signs: Vital Signs Temp 98.8 F 01/17/23 12:12 Pulse 90 01/17/23 12:12 Resp 18 01/17/23 12:12 BP 111/69 01/17/23 12:12 Pulse Ox 91 L 01/17/23 12:12 FiO2 Intake & Output 01/17/23 01/17/23 01/18/23 06:59 18:59 07:59 Intake Total 100 0 Output Total 3600 2800 Balance -3500 -2800 Intake: Oral 100 0 Output: Urine 3600 2800 Other: Voiding Method Indwelling Catheter Indwelling Catheter - Labs CBC & Chem 7: 01/17/23 10:01 01/17/23 10:01 Labs: Abnormal Lab Results - Last 24 Hours (Table) 01/17/23 01/17/23 01/17/23 Range/Units 10:01 10:01 16:54 RBC 3.21 L (4.30-5.90) m/uL Hgb 9.3 L (13.0-17.5) gm/dL Hct 29.1 L (39.0-53.0) % Sodium 147 H (137-145) mmol/L Chloride 120 H (98-107) mmol/L Carbon Dioxide 18 L (22-30) mmol/L POC Glucose (mg/dL) 114 H (70-110) mg/dL Calcium 8.1 L (8.4-10.2) mg/dL Magnesium 2.4 H (1.6-2.3) mg/dL Total Protein 4.9 L (6.3-8.2) g/dL Albumin 2.5 L (3.5-5.0) g/dL 01/17/23 Range/Units 20:02 RBC (4.30-5.90) m/uL Hgb (13.0-17.5) gm/dL Hct (39.0-53.0) % Sodium (137-145) mmol/L Chloride (98-107) mmol/L Carbon Dioxide (22-30) mmol/L POC Glucose (mg/dL) 119 H (70-110) mg/dL Calcium (8.4-10.2) mg/dL Magnesium (1.6-2.3) mg/dL Total Protein (6.3-8.2) g/dL Albumin (3.5-5.0) g/dL
[2023-01-18 01:18] LABS: Glucose,Whole Blood 129 mg/dL (70-110)
[2023-01-18] MEDS: LEVOTHYROXINE 50 MCG TAB PO SCH (05:17)
[2023-01-18 05:21] LABS: Glucose,Whole Blood 129 mg/dL (70-110)
[2023-01-18] MEDS: metroNIDAZOLE-NS PMX 500 MG in SALINE 1 100ML.BAG IVPB SCH ×2 (07:20→16:37)
[2023-01-18 07:41] LABS: Glucose,Whole Blood 148 mg/dL (70-110)
[2023-01-18] MEDS: INSULIN ASPART (NovoLOG) 100 UNIT/ML VIAL SQ SCH ×4 (07:42→22:19)
[2023-01-18 08:56] LABS: HCT 27.7 % (39.6-50.0); HGB 8.7 g/dL (13.0-17.0); MCH 29.3 pg (27.0-32.0); MCHC 31.4 g/dL (32.0-37.0); MCV 93.3 fL (80.0-97.0); Mean Platelet Volume 9.4 fL (9.5-12.2); NRBC Per 100 WBC 0.2 /100 WBCS (0.0-0.0); Platelet Count 316 X 10*3/uL (140-440); RBC 2.97 X 10*6/uL (4.40-5.60); RDW 14.6 % (11.5-14.5)
[2023-01-18] MEDS: DOCUSATE 100 MG CAP PO SCH ×2 (09:09→22:17)
[2023-01-18] MEDS: HEPARIN SODIUM,PORCINE/PF 5,000 UNIT/0.5 ML SYRINGE SQ SCH ×2 (09:09→22:19)
[2023-01-18] MEDS: amLODIPine 10 MG TAB PO SCH (09:09)
[2023-01-18] MEDS: lamoTRIgine 100 MG TAB PO SCH ×2 (09:09→22:18)
[2023-01-18] MEDS: TAMSULOSIN 0.4 MG CAP.ER.24H PO SCH (09:09)
[2023-01-18] MEDS: CITALOPRAM HYDROBROMIDE 10 MG TAB PO SCH (09:09)
[2023-01-18] MEDS: PROPRANOLOL LA 80 MG CAP.SA.24H PO SCH (09:10)
[2023-01-18 09:11] LABS: Magnesium 2.4 mg/dL (1.5-2.4)
[2023-01-18 09:22] LABS: ALT 20 U/L (10-49); AST 39 U/L (14-35); African American GFR (CKD) 85.3 (60.0-200.0); Albumin 2.8 g/dL (3.8-4.9); Albumin/Globulin Ratio 1.33 (1.60-3.17); Alkaline Phosphatase 59 U/L (41-126); BUN/Creat Ratio 12.23 Ratio (12.00-20.00); Blood Urea Nitrogen 13.7 mg/dL (9.0-27.0); Calcium 8.6 mg/dL (8.7-10.3); Carbon Dioxide 19.6 mmol/L (20.0-27.5); Chloride 121 mmol/L (96-109); Globulin 2.1 g/dL (1.6-3.3); Glucose 135 mg/dL (70-110); Non-African American GFR(CKD) 73.6 (60.0-200.0); Potassium 3.5 mmol/L (3.5-5.5); Sodium 150 mmol/L (135-145); Total Bilirubin <0.15 mg/dL (0.30-1.20)
--- NOTE | 2023-01-18 10:25 | XR ---
EXAMINATION TYPE: XR abdomen 2V DATE OF EXAM: 01/18/2023 10:16 AM INDICATION: Patient age:Male; 57 years old; Reason for study: evaluate post op colectomy; COMPARISON: 623 TECHNIQUE: Two views of the abdomen were obtained. FINDINGS: Skin lou project over the right abdomen. Overall the films underpenetrated no radiopaqu e foreign bodies. No abnormal calcifications. No obvious pneumoperitoneum visualized. Bowel gas pattern is nonspecific. There remains a few gaseous dilated loops of bowel. Surgical clips are seen in the right pelvis. IMPRESSION: Nonspecific bowel gas pattern without radiographic evidence for acute process with persistent few gas eous dilated loops of bowel.
[2023-01-18] MEDS: CEFEPIME 2 GM in SODIUM CHLORIDE 0.9% 100 ML IVPB SCH ×2 (10:28→16:38)
[2023-01-18] MEDS: PANTOPRAZOLE 40 MG/10 ML VIAL IVP SCH ×2 (10:40→22:18)
[2023-01-18] MEDS: DEXTROSE 5%-0.45% NACL 1,000 ML IV SCH (10:41)
[2023-01-18 11:21] LABS: Glucose,Whole Blood 158 mg/dL (70-110)
[2023-01-18] MEDS ORDERED: DEXTROSE 5% IN WATER 1,000 ML IV ONE (12:32)
--- NOTE | 2023-01-18 12:40 | P.PN ---
Subjective Progress Note Date: 01/18/23 Hospital course: Patient is a very pleasant 57-year-old male with a past medical history of type II [id number] diabetes mellitus, hypertension, hyperlipidemia, GERD, schizoaffective disorder, anxiety, bipolar, depression, and previous inguinal hernia with repair. Presented to the emergency department with a chief complaint of abdominal/epigastric/chest pain, nausea, vomiting, abdominal distention and constipation 2 weeks. Patient reports vomiting dark black coffee-colored emesis and inability to have a bowel movement 2 weeks. He reports pain institute diffuse abdomen radiating up into his epigastric region and chest. He denies having any fevers, chills, palpitations, shortness of breath, cough or congestion, hemoptysis, melena, or hematochezia. Patient reports decreased appetite and inability to hold down oral intake. He does report decreased urinary output, but denies any retention or difficulties initiating a stream. Reports concerns of dehydration. Patient underwent full evaluation in the emergency department. Labs completed and reviewed. He was found to have leukocytosis with WBC count of 18.1 and normocytic anemia with hemoglobin of 12.6. Coagulation profile normal findings. BMP revealing hyponatremia with sodium 132 and hypochloremia with chloride 95 and acute kidney injury with BUN 59, creatinine 2.11, and GFR of 34 as well as hyperglycemia with glucose of 252. Troponin less than 0.012. EKG showing sinus tachycardia at 102 bpm with T-wave inversion in lateral leads I and aVL, T-wave inversion is new finding when compared to previous EKG completed 12/12/19. Chest x-ray completed and report reviewed stating limited inspiration with bilateral consolidation and right basilar atelectasis or infiltrate. CT abdomen and pelvis without contrast completed and radiology report reviewed showing dilated small bowel, cecum/ascending colon with transition point within the proximal third of the transverse colon with focal narrowing in none distention of the remainder of the colon, findings possibly representing stricture versus mass, small bowel dilation with small bowel feces throughout suggesting delayed transit/fecal stasis and dilated stomach and esophagus filled with ingested contents. Discussed these findings with the ED physicianin detail and patient was accepted for admission to general surgery unit with telemetry under our services with consultation to general surgery. Patient taken for colectomy on 01/13/23. Awaiting for return of bowel function. Repeat abdominal x-ray completed on 01/18/23 reviewed and radiology report showing nonspecific bowel gas pattern without radiographic evidence for acute process with persistent few gaseous dilated loops of bowel remaining. Physical exam: Patient seen and fully evaluated at bedside this morning. He is postoperative day 5 patient was sleeping and easily awoken via verbal stimuli. Patient remai ns NPO with ice chips only. Patient continues to deny passing any flatus or having any bowel movements at this time. Abdominal x-ray was reordered and radiology report reviewed showing nonspecific bowel gas pattern without radiographic evidence for acute process with persistent few gaseous dilated loops of bowel remaining. Patient has had significant urinary output over the past 24 hours with a documented 7450 mL. Morning labs revealing worsening hyperchloremic hypernatremia with sodium of 115 chloride of 121. Vital signs reviewed and stable. General: Nontoxic, no distress and appears stated age. Derm: Skin warm and dry, normal coloration for ethnicity. Head: Atraumatic, normocephalic and symmetric. Eyes: EOMs intact, no lid lag, and anicteric sclera Mouth: no lip lesions, mucus membranes moist Cardiovascular: regular rate and rhythm with normal S1S2, no murmur, positive posterior tibial pulses bilaterally, and cap refill < 2 seconds. Lungs: Respirations even, regular, and unlabored on room air. Lungs CTA bilaterally, no rhonchi, no rales, no wheezing, and no accessory muscle usage. Abdominal: Abdomen soft and slightly distended, dressing intact midline and wound VAC in place. Ext: ROM intact. No gross muscle atrophy, no edema, no contractures Neuro: Speech clear, face symmetrical and CN II-XII grossly intact with no noted focal neuro deficits Psych: Alert and oriented to person, place, time, and situation. Appropriate and pleasant affect. Assessment and Plan of Care: Hyperchloremic hypernatremia, worsening -Morning labs reviewed showing worsening hyperchloremic hypernatremia with sodium of 150 and chloride of 121, blood glucose normal findings at 135 and renal function remains stable with BUN of 13.7, creatinine 1.1, and GFR of 73.6. -Urinary output over the past 24 hours significantly increased. Documented urinary output over the past 24 hours was 7450 mL. -Pt has a 2.2 L free water deficit. Discontinued D5 0.45% and started patient on D5W at 125 mL's per hour. -Concerns for possible diabetes insipidus as patient is a diabetic and on lithium. -Eyota discontinued at this time. -Order placed for stat lithium level, TSH, urine sodium, and urine osmolality -Order placed for consult to painter interior finish. Called and discussed plan of care with Dr. Pederson painter interior finish, he was in agreement with D5W with 125 mL's per hour and instructed once urine osmolality has resulted and urinary output remains elevated he recommends administering DDAVP 2 g subcu 1 dose and repeat sodium level every 6 hours. -Continue [id number] glucose every 4 hours until no longer NPO. -Order placed for repeat sodium levels every 6 hours and we will repeat BMP tomorrow morning. Small bowel obstruction, status post right colectomy and partial omentectomy on 01/13/23, postoperative day 5 Dilated proximal transverse right colon Acute Postoperative blood loss anemia, expected finding and stable -Labs completed and reviewed. CBC showing stable normocytic anemia with hemoglobin of 8.7, mild leukocytosis with WBC count of 11.10. No need for transfusion at this time. -Order placed for 2 view abdominal x-ray this morning, and followed up on radiology report stating nonspecific bowel gas pattern without radiographic evidence for acute process with persistent few gaseous dilated loops of bowel remaining. -Gen. surgery following and discussed plan of care with Dr. Mendoza. Pt to continue NPO status with ice chips only. -Continue with Protonix 40 mg IVP twice daily for GI prophylaxis at this time. -Order placed for repeat morning CBC to follow up on normocytic anemia to continue to monitor for improvement/resolution and follow up with mild leukocytosis. -Patient to continue with IV antibiotics cefepime and Flagyl -Management of post surgical wound/wound VAC per general surgery team. EKG changes -EKG showing sinus tachycardia at 102 bpm with T-wave inversion in lateral leads I and aVL, T-wave inversion is new finding when compared to previous EKG completed 12/12/19 upon personal review and interpretation of both. -Heart score 3. with risk of MACE 0.9-1.7%. Troponins were trended overnight all resulting at less than 0.0123 draws. Patient asymptomatic at this time. Therefore recommending no need for further cardiac testing or evaluation at this time. Diabetes mellitus with hyperglycemia -Continue glycemic protocol with NovoLog sliding scale every 4 hours while patient remains nothing by mouth. Fasting blood glucose this morning 135. Schizoaffective disorder Anxiety and depression Obsessive compulsive disorder Bipolar disorder -Continue patient's home medication regimen with Lamictal and Clozaril. Eyota discontinued secondary to concerns of diabetes insipidus. -Discontinued Glycopyrrolate and clomipramine. -Psychiatry following, documentation reviewed, psychiatrist placed patient on citalopram 10 mg daily to replace clomipramine and no need to replace Glycopyrrolate -Eyota level therapeutic at 0.8. Resolved: Acute kidney injury, secondary to dehydration. Resolved. Hyponatremia, resolved Hypochloremia, resolved CODE STATUS: Full code DVT prophylaxis: SCDs Discussed with: Patient, painter interior finish, general surgeon and RN Anticipated discharge date: Clinical course to determine Anticipated discharge place: Home Patient was seen independently by nurse practitioner. This document was prepared using [employer] Scheduling dictation software. Please allow for errors in shirring machine operator automatic while rare they do occur. I reviewed the documentation as provided by the NAV above, who is the original author of this note. I agree with the documented assessment and plan, with the following changes: none Objective - Vital Signs Vital signs: Vital Signs Temp 97.8 F 01/18/23 07:24 Pulse 93 01/18/23 07:24 Resp 18 01/18/23 07:24 BP 134/73 01/18/23 07:24 Pulse Ox 96 01/18/23 07:54 FiO2 Intake & Output 01/17/23 01/18/23 01/18/23 17:59 06:59 18:59 Intake Total Output Total Balance Intake: Oral Output: Urine Other: Voiding Method - Labs CBC & Chem 7: 01/19/23 05:58 01/19/23 05:58 Labs: Abnormal Lab Results - Last 24 Hours (Table) 01/17/23 01/17/23 01/17/23 Range/Units 10:01 10:01 16:54 WBC (4.50-10.00) X 10*3/uL RBC 3.21 L (4.30-5.90) m/uL Hgb 9.3 L (13.0-17.5) gm/dL Hct 29.1 L (39.0-53.0) % MCHC (32.0-37.0) g/dL RDW (11.5-14.5) % MPV (9.5-12.2) fL Absolute Nucleated RBC (0.00-0.00) X 10*3/uL NRBC/100 WBC Diff (0.0-0.0) /100 WBCS Sodium 147 H (137-145) mmol/L Chloride 120 H (98-107) mmol/L Carbon Dioxide 18 L (22-30) mmol/L POC Glucose (mg/dL) 114 H (70-110) mg/dL Calcium 8.1 L (8.4-10.2) mg/dL Magnesium 2.4 H (1.6-2.3) mg/dL Total Protein 4.9 L (6.3-8.2) g/dL Albumin 2.5 L (3.5-5.0) g/dL 01/17/23 01/18/23 01/18/23 Range/Units 20:02 01:14 05:20 WBC (4.50-10.00) X 10*3/uL RBC (4.30-5.90) m/uL Hgb (13.0-17.5) gm/dL Hct (39.0-53.0) % MCHC (32.0-37.0) g/dL RDW (11.5-14.5) % MPV (9.5-12.2) fL Absolute Nucleated RBC (0.00-0.00) X 10*3/uL NRBC/100 WBC Diff (0.0-0.0) /100 WBCS Sodium (137-145) mmol/L Chloride (98-107) mmol/L Carbon Dioxide (22-30) mmol/L POC Glucose (mg/dL) 119 H 129 H 129 H (70-110) mg/dL Calcium (8.4-10.2) mg/dL Magnesium (1.6-2.3) mg/dL Total Protein (6.3-8.2) g/dL Albumin (3.5-5.0) g/dL 01/18/23 01/18/23 Range/Units 06:07 07:28 WBC 11.10 H (4.50-10.00) X 10*3/uL RBC 2.97 L (4.30-5.90) m/uL Hgb 8.7 L (13.0-17.5) gm/dL Hct 27.7 L (39.0-53.0) % MCHC 31.4 L (32.0-37.0) g/dL RDW 14.6 H (11.5-14.5) % MPV 9.4 L (9.5-12.2) fL Absolute Nucleated RBC 0.02 H (0.00-0.00) X 10*3/uL NRBC/100 WBC Diff 0.2 H (0.0-0.0) /100 WBCS Sodium (137-145) mmol/L Chloride (98-107) mmol/L Carbon Dioxide (22-30) mmol/L POC Glucose (mg/dL) 148 H (70-110) mg/dL Calcium (8.4-10.2) mg/dL Magnesium (1.6-2.3) mg/dL Total Protein (6.3-8.2) g/dL Albumin (3.5-5.0) g/dL
[2023-01-18] MEDS: LACTATED RINGERS 1,000 ML IV SCH (14:39)
[2023-01-18] MEDS ORDERED: DESMOPRESSIN ACETATE 4 MCG/ML VIAL (MDV) SQ STA (14:50)
[2023-01-18 15:13] LABS: Lithium 0.7 mmol/L; Sodium 147 mmol/L (137-145)
[2023-01-18 16:28] LABS: Glucose,Whole Blood 184 mg/dL (70-110)
--- NOTE | 2023-01-18 20:29 | P.PN ---
Subjective Progress Note Date: 01/18/23 CHIEF COMPLAINT: Bowel obstruction HISTORY OF PRESENT ILLNESS: The patient is a 57-year-old male status post colectomy 01/13/2023 for colectomy due to bowel obstruction. He denies moderate abdominal pain. He has an appetite. ROS: No fevers or chills. No new chest pain. No productive sputum. Morbid obesity excess calories, BMI 35.0 PHYSICAL EXAM: VITAL SIGNS: Reviewed CONSTITUTIONAL: Well developed and in no acute distress. EYES: Conjuctivae without sclera icterus. Extraocular movements grossly intact. HEAD, EARS, NOSE, THROAT: Moist buccal mucosa. Head is atraumatic, normocephalic. Hears conversational speech. No nasal drainage. RESPIRATORY: Non-labored respirations and equal bilateral excursions. CARDIOVASCULAR: Palpable 2+ radial pulses. ABDOMEN: No peritonitis. Midline dressing intact. Abdominal binder present. Expected incisional tenderness along midline and left lower quadrant. MUSCULOSKELETAL: No gross deformity of the lower extremities noted. No clubbing. No cyanosis. SKIN: Good skin turgor. Well perfused. NEUROLOGIC: Cranial nerves II through XII grossly intact. No focal or lateralizing signs. PSYCH: Lethargic. CLINICAL LABS: Reviewed. WBC elevated, 11.1. Hemoglobin down 9.3 to 8.7 ASSESSMENT: 1. Large bowel obstruction status post colectomy 2. Chronic iron deficiency anemia 3. Morbid obesity due to excess calories, BMI 35.0 PLAN: 1. May start full liquid diet 2. Monitor WBC. Objective - Vital Signs Vital signs: Vital Signs Temp 98.2 F 01/18/23 16:00 Pulse 77 01/18/23 16:00 Resp 14 01/18/23 16:00 BP 131/76 01/18/23 16:00 Pulse Ox 97 01/18/23 16:00 FiO2 Intake & Output 01/18/23 01/18/23 01/19/23 06:59 18:59 06:59 Intake Total 480 Output Total 2525 Balance -2044 Intake: Oral 480 Output: Urine 2525 Other: Voiding Method Indwelling Catheter - Labs CBC & Chem 7: 01/18/23 06:07 01/18/23 18:24 Labs: Abnormal Lab Results - Last 24 Hours (Table) 01/17/23 01/18/23 01/18/23 Range/Units 20:02 01:14 05:20 WBC (4.50-10.00) X 10*3/uL RBC (4.40-5.60) X 10*6/uL Hgb (13.0-17.0) g/dL Hct (39.6-50.0) % MCHC (32.0-37.0) g/dL RDW (11.5-14.5) % MPV (9.5-12.2) fL Absolute Nucleated RBC (0.00-0.00) X 10*3/uL NRBC/100 WBC Diff (0.0-0.0) /100 WBCS Sodium (135-145) mmol/L Chloride (96-109) mmol/L Carbon Dioxide (20.0-27.5) mmol/L Anion Gap (10.00-18.00) mmol/L Glucose (70-110) mg/dL POC Glucose (mg/dL) 119 H 129 H 129 H (70-110) mg/dL Calcium (8.7-10.3) mg/dL Total Bilirubin (0.30-1.20) mg/dL AST (14-35) U/L Total Protein (6.2-8.2) g/dL Albumin (3.8-4.9) g/dL Albumin/Globulin Ratio (1.60-3.17) g/dL 01/18/23 01/18/23 01/18/23 Range/Units 06:07 06:07 07:28 WBC 11.10 H (4.50-10.00) X 10*3/uL RBC 2.97 L (4.40-5.60) X 10*6/uL Hgb 8.7 L (13.0-17.0) g/dL Hct 27.7 L (39.6-50.0) % MCHC 31.4 L (32.0-37.0) g/dL RDW 14.6 H (11.5-14.5) % MPV 9.4 L (9.5-12.2) fL Absolute Nucleated RBC 0.02 H (0.00-0.00) X 10*3/uL NRBC/100 WBC Diff 0.2 H (0.0-0.0) /100 WBCS Sodium 150 H (135-145) mmol/L Chloride 121 H (96-109) mmol/L Carbon Dioxide 19.6 L (20.0-27.5) mmol/L Anion Gap 9.50 L (10.00-18.00) mmol/L Glucose 135 H (70-110) mg/dL POC Glucose (mg/dL) 148 H (70-110) mg/dL Calcium 8.6 L (8.7-10.3) mg/dL Total Bilirubin <0.15 L (0.30-1.20) mg/dL AST 39 H (14-35) U/L Total Protein 5.0 L (6.2-8.2) g/dL Albumin 2.8 L (3.8-4.9) g/dL Albumin/Globulin Ratio 1.33 L (1.60-3.17) g/dL 01/18/23 01/18/23 01/18/23 Range/Units 11:16 14:28 16:27 WBC (4.50-10.00) X 10*3/uL RBC (4.40-5.60) X 10*6/uL Hgb (13.0-17.0) g/dL Hct (39.6-50.0) % MCHC (32.0-37.0) g/dL RDW (11.5-14.5) % MPV (9.5-12.2) fL Absolute Nucleated RBC (0.00-0.00) X 10*3/uL NRBC/100 WBC Diff (0.0-0.0) /100 WBCS Sodium 147 H (135-145) mmol/L Chloride (96-109) mmol/L Carbon Dioxide (20.0-27.5) mmol/L Anion Gap (10.00-18.00) mmol/L Glucose (70-110) mg/dL POC Glucose (mg/dL) 158 H 184 H (70-110) mg/dL Calcium (8.7-10.3) mg/dL Total Bilirubin (0.30-1.20) mg/dL AST (14-35) U/L Total Protein (6.2-8.2) g/dL Albumin (3.8-4.9) g/dL Albumin/Globulin Ratio (1.60-3.17) g/dL 01/18/23 Range/Units 18:24 WBC (4.50-10.00) X 10*3/uL RBC (4.40-5.60) X 10*6/uL Hgb (13.0-17.0) g/dL Hct (39.6-50.0) % MCHC (32.0-37.0) g/dL RDW (11.5-14.5) % MPV (9.5-12.2) fL Absolute Nucleated RBC (0.00-0.00) X 10*3/uL NRBC/100 WBC Diff (0.0-0.0) /100 WBCS Sodium 146 H (135-145) mmol/L Chloride (96-109) mmol/L Carbon Dioxide (20.0-27.5) mmol/L Anion Gap (10.00-18.00) mmol/L Glucose (70-110) mg/dL POC Glucose (mg/dL) (70-110) mg/dL Calcium (8.7-10.3) mg/dL Total Bilirubin (0.30-1.20) mg/dL AST (14-35) U/L Total Protein (6.2-8.2) g/dL Albumin (3.8-4.9) g/dL Albumin/Globulin Ratio (1.60-3.17) g/dL
[2023-01-18 20:48] LABS: Glucose,Whole Blood 205 mg/dL (70-110)
[2023-01-18] MEDS: ATORVASTATIN 10 MG TAB PO SCH (22:17)
[2023-01-18] MEDS: cloZAPine 100 MG TAB PO SCH (22:37)
[2023-01-19] MEDS: CEFEPIME 2 GM in SODIUM CHLORIDE 0.9% 100 ML IVPB SCH ×3 (00:34→17:03)
[2023-01-19] MEDS: metroNIDAZOLE-NS PMX 500 MG in SALINE 1 100ML.BAG IVPB SCH ×3 (00:35→17:03)
[2023-01-19 00:48] LABS: Glucose,Whole Blood 162 mg/dL (70-110)
[2023-01-19 04:11] LABS: Glucose,Whole Blood 163 mg/dL (70-110)
[2023-01-19 06:25] LABS: HCT 27.5 % (39.0-53.0); HGB 9.2 gm/dL (13.0-17.5); MCH 29.6 pg (25.0-35.0); MCHC 33.5 g/dL (31.0-37.0); MCV 88.4 fL (80.0-100.0); Platelet Count 303 k/uL (150-450); Poikilocytosis Slight; RBC 3.11 m/uL (4.30-5.90); RDW 14.5 % (11.5-15.5); WBC 8.8 k/uL (3.8-10.6)
[2023-01-19] MEDS: LEVOTHYROXINE 50 MCG TAB PO SCH (06:27)
[2023-01-19 06:32] LABS: Glucose,Whole Blood 177 mg/dL (70-110)
[2023-01-19] MEDS: INSULIN ASPART (NovoLOG) 100 UNIT/ML VIAL SQ SCH ×4 (06:35→20:28)
[2023-01-19 06:38] LABS: ALT 30 U/L (4-49); AST 49 U/L (17-59); African American GFR (CKD) >90 (>60 ml/min/1.73 sqM); Albumin 2.6 g/dL (3.5-5.0); Alkaline Phosphatase 68 U/L (38-126); Anion Gap 7 mmol/L; Blood Urea Nitrogen 7 mg/dL (9-20); Calcium 8.1 mg/dL (8.4-10.2); Carbon Dioxide 24 mmol/L (22-30); Chloride 113 mmol/L (98-107); Glucose 153 mg/dL (74-99); Magnesium 2.2 mg/dL (1.6-2.3); Non-African American GFR(CKD) >90 (>60 ml/min/1.73 sqM); Sodium 144 mmol/L (137-145); Total Bilirubin 0.2 mg/dL (0.2-1.3); Total Protein 5.1 g/dL (6.3-8.2)
[2023-01-19] MEDS: TAMSULOSIN 0.4 MG CAP.ER.24H PO SCH (09:01)
[2023-01-19] MEDS: HEPARIN SODIUM,PORCINE/PF 5,000 UNIT/0.5 ML SYRINGE SQ SCH ×2 (09:01→20:28)
[2023-01-19] MEDS: PANTOPRAZOLE 40 MG/10 ML VIAL IVP SCH ×2 (09:01→20:26)
[2023-01-19] MEDS: DOCUSATE 100 MG CAP PO SCH ×2 (09:01→20:26)
[2023-01-19] MEDS: lamoTRIgine 100 MG TAB PO SCH ×2 (09:01→20:27)
[2023-01-19] MEDS: PROPRANOLOL LA 80 MG CAP.SA.24H PO SCH (09:03)
[2023-01-19] MEDS: POTASSIUM CHLORIDE ER 20 MEQ TAB.ER PO SCH ×2 (09:05→12:29)
--- NOTE | 2023-01-19 10:57 | P.PN ---
Subjective Progress Note Date: 01/19/23 CHIEF COMPLAINT: Colonic obstruction HISTORY OF PRESENT ILLNESS: Patient is postop day #6 status post right colectomy and partial omentectomy for possible stricture of the transverse colon and massive dilated proximal transverse right colon and small bowel. Patient lying comfortably. He is having flatus. He reports his pain is controlled. Denies any nausea or vomiting. He's currently on a low fiber diet. Afebrile. WBC did go down from 11-8.8 over 9.2 platelets 303 Na 144 potassium 3.0 creatinine 0.76 and magnesium 2.2 abdominal x-ray nonspecific bowel gas pattern without x-ray evidence for acute process with persistent few gas shows dilated loops of bowel. Nephrology consulted for possible diabetes insipidus. Patient seen and examined with Dr. Cordero PHYSICAL EXAM: VITAL SIGNS: Reviewed. GENERAL: Well-developed in no acute distress. HEENT: No sclera icterus. Extraocular movements grossly intact. Moist buccal mucosa. Head is atraumatic, normocephalic. ABDOMEN: Soft. Distended. nontender Prevana wound VAC in place and is clean, dry and intact NEUROLOGIC: lethargic but arousable ASSESSMENT: 1. Massively dilated proximal transverse right colon and small bowel with pos sible stricture of the transverse colon status post right colectomy and partial omentectomy 2. Hypokalemia PLAN: -Downgrade diet to full liquids until patient has BM -Ordered lactulose 30ml BID -Medicine replacing potassium -Encouraged patient to ambulate -Consult placed for gearcase assembler for possible ECF placement -Continue supportive care -Encouraged patient to use incentive spirometer -GI prophylaxis Protonix and DVT prophylaxis subcu heparin Physician Materials Management Manager note has been reviewed by physician. Signing provider agrees with the documented findings, assessment, and plan of care. Objective - Vital Signs Vital signs: Vital Signs Temp 97.9 F 01/19/23 04:00 Pulse 79 01/19/23 04:00 Resp 18 01/19/23 04:00 BP 142/81 01/19/23 04:00 Pulse Ox 96 01/19/23 09:00 FiO2 Intake & Output 01/18/23 01/19/23 01/19/23 18:59 06:59 18:59 Intake Total 480 2700 120 Output Total 2525 2000 Balance -2044 700 120 Weight 97.5 kg Intake: IV 200 Cefepime 2 gm In Sodium 100 Chloride 0.9% 100 ml @ 25 mls/hr IVPB Q8HR [facility] Rx# :[id number] metroNIDAZOLE-NS PMX 500 100 mg In Saline 1 100ml.bag @ 100 mls/hr IVPB Q8HR [facility] Rx#:[id number] Oral 480 2500 120 Output: Urine 2525 2000 Other: Voiding Method Indwelling Catheter Indwelling Catheter - Labs CBC & Chem 7: 01/19/23 05:58 01/19/23 05:58 Labs: Abnormal Lab Results - Last 24 Hours (Table) 01/18/23 01/18/23 01/18/23 Range/Units 11:16 14:28 16:27 RBC (4.30-5.90) m/uL Hgb (13.0-17.5) gm/dL Hct (39.0-53.0) % Sodium 147 H (137-145) mmol/L Potassium (3.5-5.1) mmol/L Chloride (98-107) mmol/L BUN (9-20) mg/dL Glucose (74-99) mg/dL POC Glucose (mg/dL) 158 H 184 H (70-110) mg/dL Calcium (8.4-10.2) mg/dL Total Protein (6.3-8.2) g/dL Albumin (3.5-5.0) g/dL 01/18/23 01/18/23 01/19/23 Range/Units 18:24 20:47 00:45 RBC (4.30-5.90) m/uL Hgb (13.0-17.5) gm/dL Hct (39.0-53.0) % Sodium 146 H (137-145) mmol/L Potassium (3.5-5.1) mmol/L Chloride (98-107) mmol/L BUN (9-20) mg/dL Glucose (74-99) mg/dL POC Glucose (mg/dL) 205 H 162 H (70-110) mg/dL Calcium (8.4-10.2) mg/dL Total Protein (6.3-8.2) g/dL Albumin (3.5-5.0) g/dL 01/19/23 01/19/23 01/19/23 Range/Units 04:09 05:58 05:58 RBC 3.11 L (4.30-5.90) m/uL Hgb 9.2 L (13.0-17.5) gm/dL Hct 27.5 L (39.0-53.0) % Sodium (137-145) mmol/L Potassium 3.0 L (3.5-5.1) mmol/L Chloride 113 H (98-107) mmol/L BUN 7 L (9-20) mg/dL Glucose 153 H (74-99) mg/dL POC Glucose (mg/dL) 163 H (70-110) mg/dL Calcium 8.1 L (8.4-10.2) mg/dL Total Protein 5.1 L (6.3-8.2) g/dL Albumin 2.6 L (3.5-5.0) g/dL 01/19/23 Range/Units 06:31 RBC (4.30-5.90) m/uL Hgb (13.0-17.5) gm/dL Hct (39.0-53.0) % Sodium (137-145) mmol/L Potassium (3.5-5.1) mmol/L Chloride (98-107) mmol/L BUN (9-20) mg/dL Glucose (74-99) mg/dL POC Glucose (mg/dL) 177 H (70-110) mg/dL Calcium (8.4-10.2) mg/dL Total Protein (6.3-8.2) g/dL Albumin (3.5-5.0) g/dL
[2023-01-19 12:06] LABS: Glucose,Whole Blood 261 mg/dL (70-110)
[2023-01-19] MEDS: LACTULOSE 20 GM/30 ML CUP PO SCH ×2 (12:29→20:29)
[2023-01-19 16:33] LABS: Glucose,Whole Blood 242 mg/dL (70-110)
--- NOTE | 2023-01-19 16:48 | P.NPCON ---
History of Present Illness - Reason for Consult hypernatremia - History of Present Illness Patient is a 57 yr old male with h/o HTN, DM type 2, admitted with c/o abdominal pain. Pt is s/p right colectomy and omentectomy on 01/13/23 Patient was maintained on lithium as well. Post operatively patient had polyuria with up to 7 L of urine documented for 24 hrs, Sodium was also elevated. Received 1 dose of DDAVP yesterday and maintained on D5W. Sodium is 144 from 150 Cr 0.7, 24 hr UOP 4.5L last 24 hrs. No recent hypotension noted. Review of Systems as per HPI Past Medical History Past Medical History: Diabetes Mellitus, GERD/Reflux, Hyperlipidemia, Hypertension, Sleep Apnea/CPAP/BIPAP Additional Past Medical History / Comment(s): Family history of premature coronary artery disease. OCD. History of Any Multi-Drug Resistant Organisms: None Reported Past Surgical History: Hernia Repair Past Anesthesia/Blood Transfusion Reactions: No Reported Reaction Past Psychological History: Anxiety, Bipolar, Depression, Schizoaffective Disorder Smoking Status: Never smoker Past Alcohol Use History: None Reported Past Drug Use History: None Reported - Past Family History Father Family Medical History: Congestive Heart Failure (CHF), Coronary Artery Disease (CAD), Diabetes Mellitus Mother Family Medical History: Cancer Medications and Allergies Home Medications Medication Instructions Recorded Confirmed Type Glycopyrrolate [Robinul Forte] 2 mg PO BID 30 Days #60 tab 12/26/19 01/12/23 Rx Levothyroxine Sodium [Synthroid] 50 mcg PO DAILY 30 Days #30 tab 12/26/19 01/12/23 Rx Glade Carbonate 1,200 mg PO HS 30 Days #120 cap 12/26/19 01/12/23 Rx Rosuvastatin Calcium [Crestor] 5 mg PO HS 30 Days #30 tab 12/26/19 01/12/23 Rx cloZAPine [Clozaril] 150 mg PO HS 30 Days #45 tab 12/26/19 01/12/23 Rx Cetirizine HCl [Zyrtec] 10 mg PO DAILY 03/12/21 01/12/23 History Meclizine [Antivert] 25 mg PO BID 03/12/21 01/12/23 History clomiPRAMINE [Anafranil] 100 mg PO BID 03/12/21 01/12/23 History lamoTRIgine [LaMICtal] 150 mg PO BID 03/12/21 01/12/23 History Linagliptin [Tradjenta] 5 mg PO DAILY 01/12/23 01/12/23 History Omeprazole [PriLOSEC] 40 mg PO DAILY 01/12/23 01/12/23 History Propranolol HCl [Propranolol HCl 80 mg PO DAILY 01/12/23 01/12/23 History ER] amLODIPine [Norvasc] 10 mg PO DAILY 01/12/23 01/12/23 History Allergies Allergy/AdvReac Type Severity Reaction Status Date / Time Penicillins Allergy Unknown Verified 01/12/23 12:13 Childhood risperidone [From Risperdal] Allergy Unknown Verified 01/12/23 12:13 divalproex sodium AdvReac Anxiety, Verified 01/12/23 12:13 [From Depakote] weight gain Physical Exam Vitals: Vital Signs Temp Pulse Resp BP BP Pulse Ox 01/19/23 12:00 97.6 F 77 20 111/73 99 01/19/23 09:00 96 01/19/23 08:00 98 F 87 20 114/76 98 01/19/23 04:00 97.9 F 79 18 142/81 93 L 01/19/23 00:00 71 15 130/87 98 01/18/23 20:00 97.6 F 80 16 138/80 96 Intake and Output 01/19/23 01/19/23 01/19/23 06:59 14:59 22:59 Intake Total 2700 600 Output Total 1999 1999 Balance 700 -1400 Intake: IV 200 Cefepime 2 gm In Sodium 100 Chloride 0.9% 100 ml @ 25 mls/hr IVPB Q8HR [facility] Rx# :[id number] metroNIDAZOLE-NS PMX 500 100 mg In Saline 1 100ml.bag @ 100 mls/hr IVPB Q8HR [facility] Rx#:[id number] Oral 2500 600 Output: Urine 1999 1999 Other: Voiding Method Indwelling Catheter Indwelling Catheter Indwelling Catheter # Bowel Movements 1 Weight 97.5 kg 97.5 kg Awake, comfortable, no acute distress. Lungs are clear CVS S1 and S2 Abdomen is soft, mild tenderness Lower extremities show no edema ESCALATOR OPERATOR exam is grossly intact. Results - Lab Results Most recent lab results Calcium 8.1 mg/dL (8.4-10.2) L 01/19/23 05:58 Magnesium 2.2 mg/dL (1.6-2.3) 01/19/23 05:58 01/19/23 05:58 01/19/23 05:58 Assessment and Plan Assessment: 1. 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 Also a component of hyperglycemia. Improved with 1 dose of DDAVP. Glade is appropriately discontinued. Sodium has improved. 2. S/p omentectomy and right colectomy on 01/13/23 3. Hypokalemia, s/p replacement 4. Bipolar disorder on lithium, currently on hold. Plan: Continue D5W. Repeat another dose of DDAVP. Repeat sodium this evening. Control blood sugars
[2023-01-19] MEDS: amLODIPine 10 MG TAB PO SCH (16:49)
[2023-01-19] MEDS ORDERED: POTASSIUM CHLORIDE ER 20 MEQ TAB.ER PO STA (16:50)
[2023-01-19] MEDS: CITALOPRAM HYDROBROMIDE 10 MG TAB PO SCH (17:01)
[2023-01-19] MEDS: LACTATED RINGERS 1,000 ML IV SCH (17:02)
--- NOTE | 2023-01-19 17:56 | P.PN ---
Subjective Progress Note Date: 01/19/23 Hospital course: Patient is a very pleasant 57-year-old male with a past medical history of type II [id number] diabetes mellitus, hypertension, hyperlipidemia, GERD, schizoaffective disorder, anxiety, bipolar, depression, and previous inguinal hernia with repair. Presented to the emergency department with a chief complaint of abdominal/epigastric/chest pain, nausea, vomiting, abdominal distention and constipation 2 weeks. Patient reports vomiting dark black coffee-colored emesis and inability to have a bowel movement 2 weeks. He reports pain institute diffuse abdomen radiating up into his epigastric region and chest. He denies having any fevers, chills, palpitations, shortness of breath, cough or congestion, hemoptysis, melena, or hematochezia. Patient reports decreased appetite and inability to hold down oral intake. He does report decreased urinary output, but denies any retention or difficulties initiating a stream. Reports concerns of dehydration. Patient underwent full evaluation in the emergency department. Labs completed and reviewed. He was found to have leukocytosis with WBC count of 18.1 and normocytic anemia with hemoglobin of 12.6. Coagulation profile normal findings. BMP revealing hyponatremia with sodium 132 and hypochloremia with chloride 95 and acute kidney injury with BUN 59, creatinine 2.11, and GFR of 34 as well as hyperglycemia with glucose of 252. Troponin less than 0.012. EKG showing sinus tachycardia at 102 bpm with T-wave inversion in lateral leads I and aVL, T-wave inversion is new finding when compared to previous EKG completed 12/12/19. Chest x-ray completed and report reviewed stating limited inspiration with bilateral consolidation and right basilar atelectasis or infiltrate. CT abdomen and pelvis without contrast completed and radiology report reviewed showing dilated small bowel, cecum/ascending colon with transition point within the proximal third of the transverse colon with focal narrowing in none distention of the remainder of the colon, findings possibly representing stricture versus mass, small bowel dilation with small bowel feces throughout suggesting delayed transit/fecal stasis and dilated stomach and esophagus filled with ingested contents. Discussed these findings with the ED physicianin detail and patient was accepted for admission to general surgery unit with telemetry under our services with consultation to general surgery. Patient taken for colectomy on 01/13/23. Awaiting for return of bowel function. Repeat abdominal x-ray completed on 01/18/23 reviewed and radiology report showing nonspecific bowel gas pattern without radiographic evidence for acute process with persistent few gaseous dilated loops of bowel remaining. Physical exam: Patient seen and fully evaluated at bedside this morning. He is postoperative day 6 patient much more awake today. He was advanced to a full liquid diet thi s morning. He reports passing flatus but denies having any bowel movements at this time. Patient reports mild abdominal pain/discomfort but denies having any nausea or vomiting. Vital signs reviewed and stable. General: Nontoxic, no distress and appears stated age. Derm: Skin warm and dry, normal coloration for ethnicity. Head: Atraumatic, normocephalic and symmetric. Eyes: EOMs intact, no lid lag, and anicteric sclera Mouth: no lip lesions, mucus membranes moist Cardiovascular: regular rate and rhythm with normal S1S2, no murmur, positive posterior tibial pulses bilaterally, and cap refill < 2 seconds. Lungs: Respirations even, regular, and unlabored on room air. Lungs CTA bilate rally, no rhonchi, no rales, no wheezing, and no accessory muscle usage. Abdominal: Abdomen soft and slightly distended, dressing intact midline and wound VAC in place. Ext: ROM intact. No gross muscle atrophy, no edema, no contractures Neuro: Speech clear, face symmetrical and CN II-XII grossly intact with no noted focal neuro deficits Psych: Alert and oriented to person, place, time, and situation. Appropriate and pleasant affect. 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 BMP revealing resolution of hypernatremia. Sodium was monitored every 6 hours decreasing from 150 down to 148 and this morning it is 144 with D5W infusion. -Patient did receive 1 dose of DDAVP and had successful decrease in urinary output to 4525 mL over the past 24 hours.. -Nephrology following, recommending continuing of D5W and repeating a second dose of DDAVP. -Order placed for K-dur 40 mEq 1 dose for morning potassium of 3.0. -[place] remains discontinued and reconsulted psychiatry at this time for assistance with medication recommendations for replacement. -Followed up on repeat lithium level and it was therapeutic at 0.7. Urine osmolality was 215 and random urine sodium was 93. -Continue [id number] glucose every 4 hours -Order placed for repeat BMP tomorrow morning. Small bowel obstruction, status post right colectomy and partial omentectomy on 01/13/23, postoperative day 6 Dilated proximal transverse right colon Acute Postoperative blood loss anemia, expected finding and stable -Labs completed and reviewed. CBC showing stable normocytic anemia with hemoglobin of 9.2 and resolution of leukocytosis with WBC count of 8.8. No need for transfusion at this time. -Gen. surgery following and discussed plan of care with general surgery PA stating patient to remain on full liquids until has bowel movement and starting patient on lactulose 30 mg twice daily. -Continue with Protonix 40 mg IVP twice daily for GI prophylaxis at this time. -Order placed for repeat morning CBC to follow up on normocytic anemia to continue to monitor for improvement/resolution and follow up with mild leukocytosis. -Patient completed 7 day course of IV antibiotics cefepime and Flagyl on 01/18/23 -Management of post surgical wound/wound VAC per general surgery team. EKG changes -EKG showing sinus tachycardia at 102 bpm with T-wave inversion in lateral leads I and aVL, T-wave inversion is new finding when compared to previous EKG completed 12/12/19 upon personal review and interpretation of both. -Heart score 3. with risk of MACE 0.9-1.7%. Troponins were trended overnight all resulting at less than 0.0123 draws. Patient asymptomatic at this time. Therefore recommending no need for further cardiac testing or evaluation at this time. Diabetes mellitus with hyperglycemia -Continue glycemic protocol with NovoLog sliding scale every 4 hours while patient remains nothing by mouth. The glucose levels have ranged from 148-205 over the past 24 hours. Schizoaffective disorder Anxiety and depression Obsessive compulsive disorder Bipolar disorder -Continue patient's home medication regimen with Lamictal and Clozaril. [place] discontinued secondary to development of diabetes insipidus. -Discontinued Glycopyrrolate and clomipramine. -Psychiatry following, documentation reviewed, psychiatrist placed patient on citalopram 10 mg daily to replace clomipramine and no need to replace Glycopyrrolate -[place] level therapeutic at 0.8 with repeat lithium level of 0.7. Resolved: Acute kidney injury, secondary to dehydration. Resolved. Hyponatremia, resolved Hypochloremia, resolved CODE STATUS: Full code DVT prophylaxis: SCDs Discussed with: Patient, curriculum specialist, general surgeon PA and RN Anticipated discharge date: Clinical course to determine Anticipated discharge place: Home Patient was seen independently by nurse practitioner. This document was prepared using [employer] dictation software. Please allow for errors in ice crusher while rare they do occur. I reviewed the documentation as provided by the NAV above, who is the original author of this note. I agree with the documented assessment and plan, with the following changes: none Objective - Vital Signs Vital signs: Vital Signs Temp 97.9 F 01/19/23 04:00 Pulse 79 01/19/23 04:00 Resp 18 01/19/23 04:00 BP 142/81 01/19/23 04:00 Pulse Ox 93 L 01/19/23 04:00 FiO2 Intake & Output 01/18/23 01/19/23 01/19/23 18:59 06:59 18:59 Intake Total 480 2700 Output Total 2525 2000 Balance -2044 700 Weight 97.5 kg Intake: IV 200 Cefepime 2 gm In Sodium 100 Chloride 0.9% 100 ml @ 25 mls/hr IVPB Q8HR [facility] Rx# :[id number] metroNIDAZOLE-NS PMX 500 100 mg In Saline 1 100ml.bag @ 100 mls/hr IVPB Q8HR [facility] Rx#:[id number] Oral 480 2500 Output: Urine 2525 2000 Other: Voiding Method Indwelling Catheter Indwelling Catheter - Labs CBC & Chem 7: 01/20/23 06:20 01/20/23 06:20 Labs: Abnormal Lab Results - Last 24 Hours (Table) 01/18/23 01/18/23 01/18/23 Range/Units 06:07 11:16 14:28 RBC (4.30-5.90) m/uL Hgb (13.0-17.5) gm/dL Hct (39.0-53.0) % Sodium 150 H 147 H (135-145) mmol/L Potassium (3.5-5.1) mmol/L Chloride 121 H (96-109) mmol/L Carbon Dioxide 19.6 L (20.0-27.5) mmol/L Anion Gap 9.50 L (10.00-18.00) mmol/L BUN (9-20) mg/dL Glucose 135 H (70-110) mg/dL POC Glucose (mg/dL) 158 H (70-110) mg/dL Calcium 8.6 L (8.7-10.3) mg/dL Total Bilirubin <0.15 L (0.30-1.20) mg/dL AST 39 H (14-35) U/L Total Protein 5.0 L (6.2-8.2) g/dL Albumin 2.8 L (3.8-4.9) g/dL Albumin/Globulin Ratio 1.33 L (1.60-3.17) g/dL 01/18/23 01/18/23 01/18/23 Range/Units 16:27 18:24 20:47 RBC (4.30-5.90) m/uL Hgb (13.0-17.5) gm/dL Hct (39.0-53.0) % Sodium 146 H (135-145) mmol/L Potassium (3.5-5.1) mmol/L Chloride (96-109) mmol/L Carbon Dioxide (20.0-27.5) mmol/L Anion Gap (10.00-18.00) mmol/L BUN (9-20) mg/dL Glucose (70-110) mg/dL POC Glucose (mg/dL) 184 H 205 H (70-110) mg/dL Calcium (8.7-10.3) mg/dL Total Bilirubin (0.30-1.20) mg/dL AST (14-35) U/L Total Protein (6.2-8.2) g/dL Albumin (3.8-4.9) g/dL Albumin/Globulin Ratio (1.60-3.17) g/dL 01/19/23 01/19/23 01/19/23 Range/Units 00:45 04:09 05:58 RBC 3.11 L (4.30-5.90) m/uL Hgb 9.2 L (13.0-17.5) gm/dL Hct 27.5 L (39.0-53.0) % Sodium (135-145) mmol/L Potassium (3.5-5.1) mmol/L Chloride (96-109) mmol/L Carbon Dioxide (20.0-27.5) mmol/L Anion Gap (10.00-18.00) mmol/L BUN (9-20) mg/dL Glucose (70-110) mg/dL POC Glucose (mg/dL) 162 H 163 H (70-110) mg/dL Calcium (8.7-10.3) mg/dL Total Bilirubin (0.30-1.20) mg/dL AST (14-35) U/L Total Protein (6.2-8.2) g/dL Albumin (3.8-4.9) g/dL Albumin/Globulin Ratio (1.60-3.17) g/dL 01/19/23 01/19/23 Range/Units 05:58 06:31 RBC (4.30-5.90) m/uL Hgb (13.0-17.5) gm/dL Hct (39.0-53.0) % Sodium (135-145) mmol/L Potassium 3.0 L (3.5-5.1) mmol/L Chloride 113 H (96-109) mmol/L Carbon Dioxide (20.0-27.5) mmol/L Anion Gap (10.00-18.00) mmol/L BUN 7 L (9-20) mg/dL Glucose 153 H (70-110) mg/dL POC Glucose (mg/dL) 177 H (70-110) mg/dL Calcium 8.1 L (8.7-10.3) mg/dL Total Bilirubin (0.30-1.20) mg/dL AST (14-35) U/L Total Protein 5.1 L (6.2-8.2) g/dL Albumin 2.6 L (3.8-4.9) g/dL Albumin/Globulin Ratio (1.60-3.17) g/dL
[2023-01-19] MEDS ORDERED: DESMOPRESSIN ACETATE 4 MCG/ML VIAL (MDV) SQ ONE (18:00)
[2023-01-19] MEDS ORDERED: POTASSIUM CHLORIDE ER 20 MEQ TAB.ER PO SCH (18:00)
--- NOTE | 2023-01-19 18:17 | P.PN ---
Progress Note - Text Progress Note Date: 01/18/23 Interval history: Patient was seen resting in bed and was directable and agreeable to speak with writer technical publications. He is somewhat disheveled. He oriented to person, place, month/year/day, and situation. At this time patient denies any suicidal or homicidal ideation, intent or plan. Denies any auditory or visual hallucinations. He reports he has been on Clozapine for several years and it's the only thing that works for him. He follows with [facility] Dr. Thomson. He reports chronic auditory hallucinations, but he has learned to ignore them. He denies visual hallucinations. Mental status exam: General Appearance: Patient appears to be stated age is alert, directable, and cooperative. Behavior: No agitated behavior. Patient is calm and directable. Speech: Patient's speech is fluent and non-pressured. Mood/Affect: Mood is good, affect is congruent and constricted. Suicidality/Homicidality: Patient denies having any suicidal or homicidal ideation intent or plan. Perceptions: He reports chronic auditory hallucinations, but he has learned to ignore them. He denies visual hallucinations. Though content/process: No delusional thought content on my assessment, and thought process is organized. Memory and concentration: AOX3, grossly intact for the purposes of this session Judgment and insight: average IMPRESSIONS: Small bowel obstruction Schizoaffective disorder, depressive type Obsessive-compulsive disorder Alcohol use disorder, in sustained remission PLAN: -Continue your medical and surgical management -At this time patient DOES NOT meet criteria for inpatient psychiatric admission. The patient is currently not presenting with any acute symptoms of psychosis or mary. He is not endorsing any suicidal or homicidal ideation, intention, and/or plan. - Clozapine level ordered for Thursday. Please follow results. - Depending on Clozapine level, consider lowering Clozapine from 150 mg QHS to 25 mg QAM/100 mg QHS. - Agree with Dr. Landeros's recommendations from 01/14/23: "Agree with holding Clomipramine and Glycopyrrolate due to anticholinergic effects. The patient has tried and failed numerous antipsychotic medications and is currently on a regimen of Clozaril. Clozaril is a strongly anticholinergic medication however the benefits of the medication appear necessary and continuing this medication is recommended at this time. Clompiramine is currently utilized to manage OCD. To replace clompiramine we will start Citalopram (least anticholinergic) antidepressant. Concern for discontinuation syndrome from abrupt discontinuation of TCA antidepressant as well. Glycopyyrolate is used for management of sialorrhea secondary to Clozaril. It is not pertinent to controlling psychiatric symptoms and would not need replacement at this time. Agree to continue Lamictal and [place]." -In addition to the recommendations above, please note the following recommendations from the FDA regarding Clozapine prescribing: --Avoid co-prescribing clozapine with other anticholinergic medicines that can cause gastrointestinal hypomotility. --Consider prophylactic use of laxatives. --Encourage appropriate hydration, physical activity, and foods that are high in fiber. -Patient does not require 1:1 sitter for safety -Patient is recommended to follow up with his [facility] team in the outpatient setting. He is cleared psychiatrically for discharge. -Psychiatry will follow loosely, please contact with any questions.
[2023-01-19 19:47] LABS: Glucose,Whole Blood 205 mg/dL (70-110)
[2023-01-19] MEDS: ATORVASTATIN 10 MG TAB PO SCH (20:26)
[2023-01-19] MEDS: cloZAPine 100 MG TAB PO SCH (20:27)
[2023-01-19 23:57] LABS: Glucose,Whole Blood 177 mg/dL (70-110)
[2023-01-20 05:53] LABS: Glucose,Whole Blood 165 mg/dL (70-110)
[2023-01-20] MEDS: INSULIN ASPART (NovoLOG) 100 UNIT/ML VIAL SQ SCH ×4 (05:55→20:52)
[2023-01-20] MEDS: LEVOTHYROXINE 50 MCG TAB PO SCH (05:57)
[2023-01-20 07:02] LABS: HCT 27.3 % (39.0-53.0); HGB 8.9 gm/dL (13.0-17.5); Hypochromasia Slight; MCH 28.9 pg (25.0-35.0); MCHC 32.6 g/dL (31.0-37.0); MCV 88.7 fL (80.0-100.0); Mean Platelet Volume 6.8; Platelet Count 322 k/uL (150-450); Poikilocytosis Slight; RBC 3.07 m/uL (4.30-5.90); RDW 14.7 % (11.5-15.5); WBC 16.7 k/uL (3.8-10.6)
[2023-01-20 07:14] LABS: ALT 25 U/L (4-49); AST 26 U/L (17-59); African American GFR (CKD) >90 (>60 ml/min/1.73 sqM); Albumin 2.4 g/dL (3.5-5.0); Alkaline Phosphatase 62 U/L (38-126); Anion Gap 5 mmol/L; Blood Urea Nitrogen 7 mg/dL (9-20); Calcium 8.2 mg/dL (8.4-10.2); Carbon Dioxide 22 mmol/L (22-30); Chloride 115 mmol/L (98-107); Glucose 135 mg/dL (74-99); Magnesium 2.1 mg/dL (1.6-2.3); Non-African American GFR(CKD) >90 (>60 ml/min/1.73 sqM); Potassium 3.6 mmol/L (3.5-5.1); Sodium 142 mmol/L (137-145); Total Bilirubin 0.2 mg/dL (0.2-1.3); Total Protein 4.7 g/dL (6.3-8.2)
[2023-01-20] MEDS: DOCUSATE 100 MG CAP PO SCH ×2 (08:48→20:52)
[2023-01-20] MEDS: amLODIPine 10 MG TAB PO SCH (08:48)
[2023-01-20] MEDS: lamoTRIgine 100 MG TAB PO SCH ×2 (08:48→20:52)
[2023-01-20] MEDS: HEPARIN SODIUM,PORCINE/PF 5,000 UNIT/0.5 ML SYRINGE SQ SCH ×2 (08:48→20:51)
[2023-01-20] MEDS: TAMSULOSIN 0.4 MG CAP.ER.24H PO SCH (08:48)
[2023-01-20] MEDS: PROPRANOLOL LA 80 MG CAP.SA.24H PO SCH (08:48)
[2023-01-20] MEDS: PANTOPRAZOLE 40 MG/10 ML VIAL IVP SCH ×2 (08:48→20:52)
[2023-01-20] MEDS: CITALOPRAM HYDROBROMIDE 10 MG TAB PO SCH (08:48)
[2023-01-20] MEDS: LACTULOSE 20 GM/30 ML CUP PO SCH ×2 (08:49→20:52)
--- NOTE | 2023-01-20 11:18 | P.PN ---
Subjective Progress Note Date: 01/20/23 CHIEF COMPLAINT: Colonic obstruction HISTORY OF PRESENT ILLNESS: Patient is postop day #7 status post right colectomy and partial omentectomy for possible stricture of the transverse colon and massive dilated proximal transverse right colon and small bowel. Patient is more awake this morning. He did have 4 bowel movements 1 with some solid stool the rest were liquidy stools. He has pain at the incision site which is staying about the same. He denies any nausea vomiting. Currently on a full liquid diet. Patient followed by nephrology regarding diabetes insipidus and hypernatremia. Afebrile. WBC is up at 16.7 hgb8.9 plt 322 na 142 k 3.6 cr 0.93 Patient seen and examined with Dr. Cordero PHYSICAL EXAM: VITAL SIGNS: Reviewed. GENERAL: Well-developed in no acute distress. HEENT: No sclera icterus. Extraocular movements grossly intact. Moist buccal mucosa. Head is atraumatic, normocephalic. ABDOMEN: Soft. tender at incision site. Prevana wound VAC in place and is clean, dry and intact ASSESSMENT: 1. Massively dilated proximal transverse right colon and small bowel with pos sible stricture of the transverse colon status post right colectomy and partial omentectomy 2. Hypokalemia resolved PLAN: -Continue Full liquid diet until increase in bowel activity -continue lactulose 30ml BID -Repeat CBC in AM -Encouraged patient to ambulate -Continue supportive care -Encouraged patient to use incentive spirometer -Patient needs ECF at discharge -Take Prevana off tomorrow -GI prophylaxis Protonix and DVT prophylaxis subcu heparin Physician Testing And Regulating Technician note has been reviewed by physician. Signing provider agrees with the documented findings, assessment, and plan of care. Objective - Vital Signs Vital signs: Vital Signs Temp 97.8 F 01/20/23 08:46 Pulse 50 L 01/20/23 08:46 Resp 14 01/20/23 08:46 BP 98/67 01/20/23 08:46 Pulse Ox 98 01/20/23 08:46 FiO2 Intake & Output 01/19/23 01/20/23 01/20/23 18:59 06:59 18:59 Intake Total 1880 240 Output Total 2000 450 Balance -120 -450 240 Weight 97.5 kg 94 kg Intake: IV 200 Cefepime 2 gm In Sodium 100 Chloride 0.9% 100 ml @ 25 mls/hr IVPB Q8HR [facility] Rx# :[id number] metroNIDAZOLE-NS PMX 500 100 mg In Saline 1 100ml.bag @ 100 mls/hr IVPB Q8HR [facility] Rx#:[id number] Intake, IV Titration 900 Amount Dextrose 5% in Water 1, 900 000 ml @ 125 mls/hr IV . Q8H [facility] Rx#:[id number] Oral 780 240 Output: Urine 2000 450 Other: Voiding Method Indwelling Catheter Urinal # Voids 1 # Bowel Movements 1 2 - Labs CBC & Chem 7: 01/20/23 06:20 01/20/23 06:20 Labs: Abnormal Lab Results - Last 24 Hours (Table) 01/19/23 01/19/23 01/19/23 Range/Units 11:54 16:30 19:45 WBC (3.8-10.6) k/uL RBC (4.30-5.90) m/uL Hgb (13.0-17.5) gm/dL Hct (39.0-53.0) % Chloride (98-107) mmol/L BUN (9-20) mg/dL Glucose (74-99) mg/dL POC Glucose (mg/dL) 261 H 242 H 205 H (70-110) mg/dL Calcium (8.4-10.2) mg/dL Total Protein (6.3-8.2) g/dL Albumin (3.5-5.0) g/dL 01/19/23 01/20/23 01/20/23 Range/Units 23:47 05:51 06:20 WBC 16.7 H (3.8-10.6) k/uL RBC 3.07 L (4.30-5.90) m/uL Hgb 8.9 L (13.0-17.5) gm/dL Hct 27.3 L (39.0-53.0) % Chloride (98-107) mmol/L BUN (9-20) mg/dL Glucose (74-99) mg/dL POC Glucose (mg/dL) 177 H 165 H (70-110) mg/dL Calcium (8.4-10.2) mg/dL Total Protein (6.3-8.2) g/dL Albumin (3.5-5.0) g/dL 01/20/23 Range/Units 06:20 WBC (3.8-10.6) k/uL RBC (4.30-5.90) m/uL Hgb (13.0-17.5) gm/dL Hct (39.0-53.0) % Chloride 115 H (98-107) mmol/L BUN 7 L (9-20) mg/dL Glucose 135 H (74-99) mg/dL POC Glucose (mg/dL) (70-110) mg/dL Calcium 8.2 L (8.4-10.2) mg/dL Total Protein 4.7 L (6.3-8.2) g/dL Albumin 2.4 L (3.5-5.0) g/dL
--- NOTE | 2023-01-20 11:27 | P.PN ---
Subjective Patient is seen for follow-up for hyponatremia secondary to diabetes insipidus, currently improved with discontinuation of lithium and 2 doses of DDAVP. Status post D5W, currently off of IV fluids. Sodium is at 142 today. Objective - Vital Signs Vital signs: Vital Signs Temp 97.8 F 01/20/23 08:46 Pulse 50 L 01/20/23 08:46 Resp 14 01/20/23 08:46 BP 98/67 01/20/23 08:46 Pulse Ox 98 01/20/23 08:46 FiO2 Intake & Output 01/19/23 01/20/23 01/20/23 18:59 06:59 18:59 Intake Total 1880 1200 Output Total 2000 450 Balance -120 -450 1200 Weight 97.5 kg 94 kg Intake: IV 200 Cefepime 2 gm In Sodium 100 Chloride 0.9% 100 ml @ 25 mls/hr IVPB Q8HR [facility] Rx# :[id number] metroNIDAZOLE-NS PMX 500 100 mg In Saline 1 100ml.bag @ 100 mls/hr IVPB Q8HR [facility] Rx#:[id number] Intake, IV Titration 900 160 Amount Dextrose 5% in Water 1, 900 000 ml @ 125 mls/hr IV . Q8H [facility] Rx#:[id number] Lactated Ringers 1,000 ml 160 @ 0 mls/hr IV .[facility] Rx#:[id number] Oral 780 1040 Output: Urine 2000 450 Other: Voiding Method Indwelling Catheter Urinal Urinal # Voids 1 # Bowel Movements 1 2 - Exam Awake, comfortable, no acute distress. Lungs are clear CVS S1 and S2 Abdomen is soft, mild tenderness Lower extremities show no edema [employer] exam is grossly intact. - Labs CBC & Chem 7: 01/20/23 06:20 01/20/23 06:20 Labs: Abnormal Lab Results - Last 24 Hours (Table) 01/19/23 01/19/23 01/19/23 Range/Units 11:54 16:30 19:45 WBC (3.8-10.6) k/uL RBC (4.30-5.90) m/uL Hgb (13.0-17.5) gm/dL Hct (39.0-53.0) % Chloride (98-107) mmol/L BUN (9-20) mg/dL Glucose (74-99) mg/dL POC Glucose (mg/dL) 261 H 242 H 205 H (70-110) mg/dL Calcium (8.4-10.2) mg/dL Total Protein (6.3-8.2) g/dL Albumin (3.5-5.0) g/dL 01/19/23 01/20/23 01/20/23 Range/Units 23:47 05:51 06:20 WBC 16.7 H (3.8-10.6) k/uL RBC 3.07 L (4.30-5.90) m/uL Hgb 8.9 L (13.0-17.5) gm/dL Hct 27.3 L (39.0-53.0) % Chloride (98-107) mmol/L BUN (9-20) mg/dL Glucose (74-99) mg/dL POC Glucose (mg/dL) 177 H 165 H (70-110) mg/dL Calcium (8.4-10.2) mg/dL Total Protein (6.3-8.2) g/dL Albumin (3.5-5.0) g/dL 01/20/23 Range/Units 06:20 WBC (3.8-10.6) k/uL RBC (4.30-5.90) m/uL Hgb (13.0-17.5) gm/dL Hct (39.0-53.0) % Chloride 115 H (98-107) mmol/L BUN 7 L (9-20) mg/dL Glucose 135 H (74-99) mg/dL POC Glucose (mg/dL) (70-110) mg/dL Calcium 8.2 L (8.4-10.2) mg/dL Total Protein 4.7 L (6.3-8.2) g/dL Albumin 2.4 L (3.5-5.0) g/dL Assessment and Plan Assessment: 1. 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 Also a component of hyperglycemia. Improved with 2 doses of DDAVP. [place] is appropriately discontinued. Sodium has improved. 2. S/p omentectomy and right colectomy on 01/13/23 3. Hypokalemia, s/p replacement 4. Bipolar disorder on lithium, currently on hold. Plan: Continue off of lithium Hold DDAVP today Repeat sodium in a.m. Encourage increased oral intake, particularly fluids Control blood sugars
[2023-01-20 11:44] LABS: Glucose,Whole Blood 197 mg/dL (70-110)
--- NOTE | 2023-01-20 12:52 | P.PN ---
Progress Note - Text Progress Note Date: 01/20/23 Interval history: Patient was seen resting in bed and was directable and agreeable to speak with publications writer. Currently the patient is reporting he is feeling better. He states he has been passing "a lot" of stool. He states he wants to be able to participate in more physical therapy and expresses a desire to walk around as it helps him feel better. He is not endorsing any suicidal or homicidal ideation, intention, and/or plan. He is not reporting any paranoia or other delusions. He continues to experience auditory hallucinations that are demeaning to him and at times commands him however he is able to ignore this. He is agreeable to titration of his medication due to the discontinuation of his lithium. He expresses no concerns to this provider. Mental status exam: General Appearance: Patient appears to be stated age is alert, directable, and cooperative. Behavior: No agitated behavior. Patient is calm and directable. Speech: Patient's speech is fluent and non-pressured. Mood/Affect: Mood is good, affect is congruent and at times bright. Suicidality/Homicidality: Patient denies having any suicidal or homicidal ideation intent or plan. Perceptions: He reports chronic auditory hallucinations, but he has learned to ignore them. He denies visual hallucinations. Though content/process: No delusional thought content on my assessment, and thought process is organized. Memory and concentration: AOX3, grossly intact for the purposes of this session Judgment and insight: average Vital Signs Temp 98.1 F 01/20/23 12:00 Pulse 70 01/20/23 12:00 Resp 14 01/20/23 12:00 BP 115/77 01/20/23 12:00 Pulse Ox 98 01/20/23 12:00 FiO2 Intake & Output 01/19/23 01/20/23 01/20/23 18:59 06:59 18:59 Intake Total 1880 1200 Output Total 2000 450 350 Balance -120 -450 850 Weight 97.5 kg 94 kg Intake: IV 200 Cefepime 2 gm In Sodium 100 Chloride 0.9% 100 ml @ 25 mls/hr IVPB Q8HR [facility] Rx# :[id number] metroNIDAZOLE-NS PMX 500 100 mg In Saline 1 100ml.bag @ 100 mls/hr IVPB Q8HR [facility] Rx#:[id number] Intake, IV Titration 900 160 Amount Dextrose 5% in Water 1, 900 000 ml @ 125 mls/hr IV . Q8H [facility] Rx#:[id number] Lactated Ringers 1,000 ml 160 @ 0 mls/hr IV .[facility] Rx#:[id number] Oral 780 1040 Output: Urine 2000 450 350 Other: Voiding Method Indwelling Catheter Urinal Urinal # Voids 1 # Bowel Movements 1 2 Laboratory Results - Last 24 Hours 01/19/23 01/19/23 01/19/23 16:30 19:45 23:47 WBC RBC Hgb Hct MCV MCH MCHC RDW Plt Count MPV Hypochromasia Poikilocytosis Sodium Potassium Chloride Carbon Dioxide Anion Gap BUN Creatinine Est GFR (CKD-EPI)AfAm Est GFR (CKD-EPI)NonAf Glucose POC Glucose (mg/dL) 242 H 205 H 177 H POC Glu [employer]dnance Artificer Helper ID Janay Neff Robert Edgerton, Brooke Calcium Magnesium Total Bilirubin AST ALT Alkaline Phosphatase Total Protein Albumin 01/20/23 01/20/23 01/20/23 05:51 06:20 06:20 WBC 16.7 H RBC 3.07 L Hgb 8.9 L Hct 27.3 L MCV 88.7 MCH 28.9 MCHC 32.6 RDW 14.7 Plt Count 322 MPV 6.8 Hypochromasia Slight Poikilocytosis Slight Sodium 142 Potassium 3.6 Chloride 115 H Carbon Dioxide 22 Anion Gap 5 BUN 7 L Creatinine 0.93 Est GFR (CKD-EPI)AfAm >90 Est GFR (CKD-EPI)NonAf >90 Glucose 135 H POC Glucose (mg/dL) 165 H POC Glu [employer]dnance Artificer Helper ID Osbaldo Peace Calcium 8.2 L Magnesium 2.1 Total Bilirubin 0.2 AST 26 ALT 25 Alkaline Phosphatase 62 Total Protein 4.7 L Albumin 2.4 L 01/20/23 11:42 WBC RBC Hgb Hct MCV MCH MCHC RDW Plt Count MPV Hypochromasia Poikilocytosis Sodium Potassium Chloride Carbon Dioxide Anion Gap BUN Creatinine Est GFR (CKD-EPI)AfAm Est GFR (CKD-EPI)NonAf Glucose POC Glucose (mg/dL) 197 H POC Glu [employer]dnance Artificer Helper ID Rupa Johnson Calcium Magnesium Total Bilirubin AST ALT Alkaline Phosphatase Total Protein Albumin IMPRESSIONS: Small bowel obstruction Schizoaffective disorder, depressive type Obsessive-compulsive disorder Alcohol use disorder, in sustained remission PLAN: -Continue your medical and surgical management -At this time patient DOES NOT meet criteria for inpatient psychiatric admission. The patient is currently not presenting with any acute symptoms of psychosis or mary. He is not endorsing any suicidal or homicidal ideation, intention, and/or plan. - Increase Clozapine to 175 mg at bedtime after review of Clozapine levels. Patient is also passing stool. 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 - Continue Lamictal - Increase Citalopram to 20 mg daily for depression/OCD/anxiety. -In addition to the recommendations above, please note the following recommendations from the FDA regarding Clozapine prescribing: -Encourage appropriate hydration, physical activity, and foods that are high in fiber. -Patient does not require 1:1 sitter for safety -Patient is recommended to follow up with his [facility] team in the outpatient se tting. He is cleared psychiatrically for discharge. -Psychiatry will follow loosely, please contact with any questions.
--- NOTE | 2023-01-20 15:47 | P.PN ---
Subjective Progress Note Date: 01/20/23 Hospital course: Patient is a very pleasant 57-year-old male with a past medical history of type II [id number] diabetes mellitus, hypertension, hyperlipidemia, GERD, schizoaffective disorder, anxiety, bipolar, depression, and previous inguinal hernia with repair. Presented to the emergency department with a chief complaint of abdominal/epigastric/chest pain, nausea, vomiting, abdominal distention and constipation 2 weeks. Patient reports vomiting dark black coffee-colored emesis and inability to have a bowel movement 2 weeks. He reports pain institute diffuse abdomen radiating up into his epigastric region and chest. He denies having any fevers, chills, palpitations, shortness of breath, cough or congestion, hemoptysis, melena, or hematochezia. Patient reports decreased appetite and inability to hold down oral intake. He does report decreased urinary output, but denies any retention or difficulties initiating a stream. Reports concerns of dehydration. Patient underwent full evaluation in the emergency department. Labs completed and reviewed. He was found to have leukocytosis with WBC count of 18.1 and normocytic anemia with hemoglobin of 12.6. Coagulation profile normal findings. BMP revealing hyponatremia with sodium 132 and hypochloremia with chloride 95 and acute kidney injury with BUN 59, creatinine 2.11, and GFR of 34 as well as hyperglycemia with glucose of 252. Troponin less than 0.012. EKG showing sinus tachycardia at 102 bpm with T-wave inversion in lateral leads I and aVL, T-wave inversion is new finding when compared to previous EKG completed 12/12/19. Chest x-ray completed and report reviewed stating limited inspiration with bilateral consolidation and right basilar atelectasis or infiltrate. CT abdomen and pelvis without contrast completed and radiology report reviewed showing dilated small bowel, cecum/ascending colon with transition point within the proximal third of the transverse colon with focal narrowing in none distention of the remainder of the colon, findings possibly representing stricture versus mass, small bowel dilation with small bowel feces throughout suggesting delayed transit/fecal stasis and dilated stomach and esophagus filled with ingested contents. Discussed these findings with the ED physicianin detail and patient was accepted for admission to general surgery unit with telemetry under our services with consultation to general surgery. Patient taken for colectomy on 01/13/23. Awaiting for return of bowel function. Repeat abdominal x-ray completed on 01/18/23 reviewed and radiology report showing nonspecific bowel gas pattern without radiographic evidence for acute process with persistent few gaseous dilated loops of bowel remaining. Physical exam: Patient seen and fully evaluated at bedside this morning. He is postoperative day 7. Patient was sitting up in the chair, he is tolerating a full liquid diet . Patient reports passing flatus and reports 2-3 bowel movements since being placed on lactulose. Vital signs reviewed and stable. General: Nontoxic, no distress and appears stated age. Derm: Skin warm and dry, normal coloration for ethnicity. Head: Atraumatic, normocephalic and symmetric. Eyes: EOMs intact, no lid lag, and anicteric sclera Mouth: no lip lesions, mucus membranes moist Cardiovascular: regular rate and rhythm with normal S1S2, no murmur, positive posterior tibial pulses bilaterally, and cap refill < 2 seconds. Lungs: Respirations even, regular, and unlabored on room air. Lungs CTA bilaterally, no rhonchi, no rales, no wheezing, and no accessory muscle usage. Abdominal: Abdomen soft and slightly distended, dressing intact midline and wound VAC in place. Ext: ROM intact. No gross muscle atrophy, no edema, no contractures Neuro: Speech clear, face symmetrical and CN II-XII grossly intact with no noted focal neuro deficits Psych: Alert and oriented to person, place, time, and situation. Appropriate and pleasant affect. Assessment and Plan of Care: Diabetes insipidus -Morning labs reviewed. CBC showing leukocytosis with WBC count of 16.7 and normocytic anemia with hemoglobin of 8.9. BMP showing hyperchloremia with chloride of 115 -Patient has received a total of 2 doses of DDAVP and had successful decrease in urinary output to 2450 mL over the past 24 hours.. -Nephrology following and discussed plan of care with Dr. Flores. She is recommending holding off on DDAVP today and monitoring how urinary output responds and to repeat sodium level tomorrow morning. -[place] remains discontinued and reconsulted psychiatry for assistance with medication recommendations for replacement of lithium. -Continued close monitoring of glucose levels with meals and at bedtime and continue NovoLog sliding scale to maintain tight glycemic control. -Order placed for repeat BMP tomorrow morning to follow up on sodium levels. -Continue with strict I's and O's for close monitoring of urinary output. Small bowel obstruction, status post right colectomy and partial omentectomy on 3/7/23, postoperative day 7 Dilated proximal transverse right colon Acute Postoperative blood loss anemia, expected finding and stable Leukocytosis -CBC showing leukocytosis with WBC count of 16.7 and normocytic anemia with hemoglobin of 8.9. -Patient completed 7 day course of IV antibiotics cefepime and Flagyl on 01/18/23 and on 01/20/23 WBC count increased to 16.7 from previous 8.8. -Discussed with general surgery PA and it was decided to restart patient on IV antibiotics pending further results. -Patient to remain on full liquid diet and advance as recommended by general surgery team. -Continue with Protonix 40 mg IVP twice daily for GI prophylaxis at this time. -Order placed for repeat morning CBC to follow up on normocytic anemia and leukocytosis.. -Management of post surgical wound/wound VAC per general surgery team. EKG changes -EKG showing sinus tachycardia at 102 bpm with T-wave inversion in lateral leads I and aVL, T-wave inversion is new finding when compared to previous EKG completed 12/12/19 upon personal review and interpretation of both. -Heart score 3. with risk of MACE 0.9-1.7%. Troponins were trended overnight all resulting at less than 0.0123 draws. Patient asymptomatic at this time. Therefore recommending no need for further cardiac testing or evaluation at this time. Diabetes mellitus with hyperglycemia -Continue glycemic protocol with NovoLog sliding scale every 4 hours while patient remains nothing by mouth. The glucose levels have ranged from 148-205 over the past 24 hours. Schizoaffective disorder Anxiety and depression Obsessive compulsive disorder Bipolar disorder -Continue patient's home medication regimen with Lamictal and Clozaril. [place] discontinued secondary to development of diabetes insipidus. Glycopyrrolate and clomipramine were discontinued secondary to small bowel obstruction. -Psychiatry following for medication management and recommendations since discontinuation of Glycopyrrolate, clomipramine, and lithium. -[place] level therapeutic at 0.8 with repeat lithium level of 0.7. Resolved: Acute kidney injury, secondary to dehydration. Resolved. Hypokalemia, resolved Hyponatremia, resolved Hypochloremia, resolved Hypernatremia, resolved Hyperchloremia, resolved CODE STATUS: Full code DVT prophylaxis: SCDs Discussed with: Patient, shear helper, general surgeon PA and RN Anticipated discharge date: Clinical course to determine Anticipated discharge place: Home Patient was seen independently by nurse practitioner. This document was prepared using [employer] dictation software. Please allow for errors in incendiary powder mixer while rare they do occur. I reviewed the documentation as provided by the NAV above, who is the original author of this note. I agree with the documented assessment and plan, with the following changes: none Objective - Vital Signs Vital signs: Vital Signs Temp 97.8 F 01/20/23 08:46 Pulse 50 L 01/20/23 08:46 Resp 14 01/20/23 08:46 BP 98/67 01/20/23 08:46 Pulse Ox 98 01/20/23 08:46 FiO2 Intake & Output 01/19/23 01/20/23 01/20/23 18:59 06:59 18:59 Intake Total 1880 240 Output Total 2000 450 Balance -120 -450 240 Weight 97.5 kg 94 kg Intake: IV 200 Cefepime 2 gm In Sodium 100 Chloride 0.9% 100 ml @ 25 mls/hr IVPB Q8HR [facility] Rx# :[id number] metroNIDAZOLE-NS PMX 500 100 mg In Saline 1 100ml.bag @ 100 mls/hr IVPB Q8HR [facility] Rx#:[id number] Intake, IV Titration 900 Amount Dextrose 5% in Water 1, 900 000 ml @ 125 mls/hr IV . Q8H [facility] Rx#:[id number] Oral 780 240 Output: Urine 2000 450 Other: Voiding Method Indwelling Catheter Urinal # Voids 1 # Bowel Movements 1 2 - Labs CBC & Chem 7: 01/20/23 06:20 01/20/23 06:20 Labs: Abnormal Lab Results - Last 24 Hours (Table) 01/19/23 01/19/23 01/19/23 Range/Units 11:54 16:30 19:45 WBC (3.8-10.6) k/uL RBC (4.30-5.90) m/uL Hgb (13.0-17.5) gm/dL Hct (39.0-53.0) % Chloride (98-107) mmol/L BUN (9-20) mg/dL Glucose (74-99) mg/dL POC Glucose (mg/dL) 261 H 242 H 205 H (70-110) mg/dL Calcium (8.4-10.2) mg/dL Total Protein (6.3-8.2) g/dL Albumin (3.5-5.0) g/dL 01/19/23 01/20/23 01/20/23 Range/Units 23:47 05:51 06:20 WBC 16.7 H (3.8-10.6) k/uL RBC 3.07 L (4.30-5.90) m/uL Hgb 8.9 L (13.0-17.5) gm/dL Hct 27.3 L (39.0-53.0) % Chloride (98-107) mmol/L BUN (9-20) mg/dL Glucose (74-99) mg/dL POC Glucose (mg/dL) 177 H 165 H (70-110) mg/dL Calcium (8.4-10.2) mg/dL Total Protein (6.3-8.2) g/dL Albumin (3.5-5.0) g/dL 01/20/23 Range/Units 06:20 WBC (3.8-10.6) k/uL RBC (4.30-5.90) m/uL Hgb (13.0-17.5) gm/dL Hct (39.0-53.0) % Chloride 115 H (98-107) mmol/L BUN 7 L (9-20) mg/dL Glucose 135 H (74-99) mg/dL POC Glucose (mg/dL) (70-110) mg/dL Calcium 8.2 L (8.4-10.2) mg/dL Total Protein 4.7 L (6.3-8.2) g/dL Albumin 2.4 L (3.5-5.0) g/dL
[2023-01-20 16:36] LABS: Glucose,Whole Blood 220 mg/dL (70-110)
[2023-01-20] MEDS: metroNIDAZOLE-NS PMX 500 MG in SALINE 1 100ML.BAG IVPB SCH ×2 (16:49→23:41)
[2023-01-20] MEDS: LACTATED RINGERS 1,000 ML IV SCH (17:06)
[2023-01-20] MEDS: CEFEPIME 2 GM in SODIUM CHLORIDE 0.9% 100 ML IVPB SCH (17:50)
[2023-01-20 20:25] LABS: Glucose,Whole Blood 213 mg/dL (70-110)
[2023-01-20] MEDS: cloZAPine 25 MG TAB PO SCH (20:51)
[2023-01-20] MEDS: cloZAPine 100 MG TAB PO SCH (20:51)
[2023-01-20] MEDS: ATORVASTATIN 10 MG TAB PO SCH (20:52)
[2023-01-21] MEDS: CEFEPIME 2 GM in SODIUM CHLORIDE 0.9% 100 ML IVPB SCH ×4 (01:02→23:53)
[2023-01-21 06:13] LABS: Glucose,Whole Blood 160 mg/dL (70-110)
[2023-01-21] MEDS: INSULIN ASPART (NovoLOG) 100 UNIT/ML VIAL SQ SCH ×4 (06:14→22:01)
[2023-01-21] MEDS: LEVOTHYROXINE 50 MCG TAB PO SCH (06:16)
[2023-01-21 09:26] LABS: Basophils # (A) 0.1 k/uL (0-0.2); Basophils % (A) 0 %; Eosinophils % (A) 0 %; HGB 9.9 gm/dL (13.0-17.5); Hypochromasia Moderate; Lymphocytes % (A) 7 %; MCH 29.4 pg (25.0-35.0); MCHC 32.1 g/dL (31.0-37.0); MCV 91.4 fL (80.0-100.0); Mean Platelet Volume 7.7; Monocytes # (A) 0.5 k/uL (0-1.0); Monocytes % (A) 4 %; Neutrophils # (A) 11.8 k/uL (1.3-7.7); Neutrophils % (A) 88 %; Platelet Count 312 k/uL (150-450); Poikilocytosis Slight; RBC 3.38 m/uL (4.30-5.90); WBC 13.5 k/uL (3.8-10.6)
[2023-01-21 09:31] LABS: ALT 23 U/L (4-49); AST 22 U/L (17-59); African American GFR (CKD) >90 (>60 ml/min/1.73 sqM); Albumin 2.9 g/dL (3.5-5.0); Alkaline Phosphatase 76 U/L (38-126); Anion Gap 11 mmol/L; Blood Urea Nitrogen 5 mg/dL (9-20); Calcium 8.5 mg/dL (8.4-10.2); Carbon Dioxide 20 mmol/L (22-30); Chloride 114 mmol/L (98-107); Glucose 163 mg/dL (74-99); Magnesium 2.1 mg/dL (1.6-2.3); Non-African American GFR(CKD) >90 (>60 ml/min/1.73 sqM); Potassium 3.3 mmol/L (3.5-5.1); Sodium 145 mmol/L (137-145); Total Bilirubin 0.4 mg/dL (0.2-1.3); Total Protein 5.5 g/dL (6.3-8.2)
[2023-01-21] MEDS: TAMSULOSIN 0.4 MG CAP.ER.24H PO SCH (09:54)
[2023-01-21] MEDS: PROPRANOLOL LA 80 MG CAP.SA.24H PO SCH (09:54)
[2023-01-21] MEDS: amLODIPine 10 MG TAB PO SCH (09:55)
[2023-01-21] MEDS: DOCUSATE 100 MG CAP PO SCH ×2 (09:55→22:01)
[2023-01-21] MEDS: CITALOPRAM HYDROBROMIDE 20 MG TAB PO SCH (09:55)
[2023-01-21] MEDS: lamoTRIgine 100 MG TAB PO SCH ×2 (09:55→22:01)
[2023-01-21] MEDS: LACTULOSE 20 GM/30 ML CUP PO SCH ×2 (09:56→22:00)
[2023-01-21] MEDS: HEPARIN SODIUM,PORCINE/PF 5,000 UNIT/0.5 ML SYRINGE SQ SCH ×2 (09:56→22:00)
[2023-01-21] MEDS: metroNIDAZOLE-NS PMX 500 MG in SALINE 1 100ML.BAG IVPB SCH (10:09)
[2023-01-21] MEDS: PANTOPRAZOLE 40 MG/10 ML VIAL IVP SCH ×2 (10:10→22:00)
[2023-01-21] MEDS ORDERED: POTASSIUM CHLORIDE ER 20 MEQ TAB.ER PO STA (10:16)
--- NOTE | 2023-01-21 10:18 | P.PN ---
Subjective Progress Note Date: 01/21/23 CHIEF COMPLAINT: Colonic obstruction HISTORY OF PRESENT ILLNESS: Patient is postop day #8 status post right colectomy and partial omentectomy for possible stricture of the transverse colon and massive dilated proximal transverse right colon and small bowel. Patient is sitting up in bed comfortably. He is awake and alert. His stools are having more formed pieces. He reports his pain is controlled. He denies any nausea or vomiting. He is asking if possible for has been of diet. Patient reports that he wants to ambulate. Afebrile. Heart rate 102 WBC is down from 16.7-13.5. Antibiotics were restarted yesterday. Hgb 9.9 platelets 312 sodium is 145 potassium is 3.3 creatinine 0.86 Patient seen and examined with Dr. Cordero PHYSICAL EXAM: VITAL SIGNS: Reviewed. GENERAL: Well-developed in no acute distress. HEENT: No sclera icterus. Extraocular movements grossly intact. Moist buccal mucosa. Head is atraumatic, normocephalic. ABDOMEN: Soft. Incision site clean dry and intact. Prevana wound vac off. There is a mild rash around incision. ASSESSMENT: 1. Massively dilated proximal transverse right colon and small bowel with possible stricture of the transverse colon status post right colectomy and partial omentectomy 2. Hypokalemia PLAN: -Advance diet to regular -continue lactulose 30ml BID -Continue antibiotics -Encouraged patient to ambulate -Continue supportive care -Encouraged patient to use incentive spirometer -Patient needs ECF at discharge -Patient can shower -GI prophylaxis Protonix and DVT prophylaxis subcu heparin Physician [employer] [facility] note has been reviewed by physician. Signing provider agrees with the documented findings, assessment, and plan of care. Objective - Vital Signs Vital signs: Vital Signs Temp 98 F 01/21/23 08:00 Pulse 102 H 01/21/23 08:00 Resp 16 01/21/23 08:00 BP 133/71 01/21/23 08:00 Pulse Ox 93 L 01/21/23 08:00 FiO2 Intake & Output 01/20/23 01/21/23 01/21/23 18:59 06:59 18:59 Intake Total 1436 200 Output Total 350 8668 700 Balance 9583 -0773 -700 Weight 92 kg Intake: Intake, IV Titration 160 200 Amount Cefepime 2 gm In Sodium 100 Chloride 0.9% 100 ml @ 25 mls/hr IVPB Q8HR [facility] Rx# :[id number] Lactated Ringers 1,000 ml 160 @ 0 mls/hr IV .[facility] Rx#:[id number] metroNIDAZOLE-NS PMX 500 100 mg In Saline 1 100ml.bag @ 100 mls/hr IVPB Q8HR [facility] Rx#:[id number] Oral 1276 Output: Urine 350 1925 700 Other: Voiding Method Urinal Urinal Urinal # Voids 1 1 # Bowel Movements 1 1 1 - Labs CBC & Chem 7: 01/21/23 07:58 01/21/23 07:58 Labs: Abnormal Lab Results - Last 24 Hours (Table) 01/20/23 01/20/23 01/20/23 Range/Units 11:42 16:34 20:22 WBC (3.8-10.6) k/uL RBC (4.30-5.90) m/uL Hgb (13.0-17.5) gm/dL Hct (39.0-53.0) % Neutrophils # (1.3-7.7) k/uL Potassium (3.5-5.1) mmol/L Chloride (98-107) mmol/L Carbon Dioxide (22-30) mmol/L BUN (9-20) mg/dL Glucose (74-99) mg/dL POC Glucose (mg/dL) 197 H 220 H 213 H (70-110) mg/dL Total Protein (6.3-8.2) g/dL Albumin (3.5-5.0) g/dL 01/21/23 01/21/23 01/21/23 Range/Units 06:10 07:58 07:58 WBC 13.5 H (3.8-10.6) k/uL RBC 3.38 L (4.30-5.90) m/uL Hgb 9.9 L (13.0-17.5) gm/dL Hct 31.0 L (39.0-53.0) % Neutrophils # 11.8 H (1.3-7.7) k/uL Potassium 3.3 L (3.5-5.1) mmol/L Chloride 114 H (98-107) mmol/L Carbon Dioxide 20 L (22-30) mmol/L BUN 5 L (9-20) mg/dL Glucose 163 H (74-99) mg/dL POC Glucose (mg/dL) 160 H (70-110) mg/dL Total Protein 5.5 L (6.3-8.2) g/dL Albumin 2.9 L (3.5-5.0) g/dL
[2023-01-21 10:56] VITALS: BMI 30.8
[2023-01-21] MEDS: DESMOPRESSIN 0.2 MG TAB PO SCH ×2 (11:38→22:03)
[2023-01-21 11:51] LABS: Glucose,Whole Blood 256 mg/dL (70-110)
--- NOTE | 2023-01-21 12:51 | P.PN ---
Subjective Progress Note Date: 01/21/23 Hospital Course: Patient is a very pleasant 57-year-old male with a past medical history of type II rrw-qibvukg-zuyfnzagc diabetes mellitus, hypertension, hyperlipidemia, GERD, schizoaffective disorder, anxiety, bipolar, depression, and previous inguinal hernia with repair. Presented to the emergency department with a chief complaint of abdominal/epigastric/chest pain, nausea, vomiting, abdominal distention and constipation 2 weeks. Patient reports vomiting dark black coffee-colored emesis and inability to have a bowel movement 2 weeks. He reports pain institute diffuse abdomen radiating up into his epigastric region and chest. He denies having any fevers, chills, palpitations, shortness of breath, cough or congestion, hemoptysis, melena, or hematochezia. Patient reports decreased appetite and inability to hold down oral intake. He does report decreased urinary output, but denies any retention or difficulties initiating a stream. Reports concerns of dehydration. Patient underwent full evaluation in the emergency department. Labs completed and reviewed. He was found to have leukocytosis with WBC count of 18.1 and normocytic anemia with hemoglobin of 12.6. Coagulation profile normal findings. BMP revealing hyponatremia with sodium 132 and hypochloremia with chloride 95 and acute kidney injury with BUN 59, creatinine 2.11, and GFR of 34 as well as hyperglycemia with glucose of 252. Troponin less than 0.012. EKG showing sinus tachycardia at 102 bpm with T-wave inversion in lateral leads I and aVL, T-wave inversion is new finding when compared to previous EKG completed 12/12/19. Chest x-ray completed and report reviewed stating limited inspiration with bilateral consolidation and right basilar atelectasis or infiltrate. CT abdomen and pelvis without contrast completed and radiology report reviewed showing dilated small bowel, cecum/ascending colon with transition point within the proximal third of the transverse colon with focal narrowing in none distention of the remainder of the colon, findings possibly representing stricture versus mass, small bowel dilation with small bowel feces throughout suggesting delayed transit/fecal stasis and dilated stomach and esophagus filled with ingested contents. Discussed these findings with the ED physicianin detail and patient was accepted for admission to general surgery unit with telemetry under our services with consultation to general surgery. Patient taken for colectomy on 01/13/23. Awaiting for return of bowel function. Repeat abdominal x-ray completed on 01/18/23 reviewed and radiology report showing nonspecific bowel gas pattern without radiographic evidence for acute process with persistent few gaseous dilated loops of bowel remaining. Patient currently having bowel movements, a ble to tolerate some oral intake. Urine output slowly declining. Subjective: Patient seen and examined at bedside. No acute events overnight. He continues to have some abdominal pain around the incisional site. Denies any significant nausea or vomiting. Continues to have urine output, claims that it is decreasing. He is having bowel movements. Denies any chest pain, shortness of breath, palpitations, lightheadedness. Pertinent positives and negatives as discussed above, a complete review of systems was performed and all other systems are negative. Vitals Signs Reviewed. General: nontoxic, no distress, appears at stated age Derm: warm, dry, dressing is dry, intact, clean Head: atraumatic, normocephalic, symmetric Eyes: EOMI, no lid lag, anicteric sclera Mouth: no lip lesion, mucus membranes moist Cardiovascular: S1S2 reg, no murmur Lungs: CTA bilateral, no rhonchi, no rales , no accessory muscle use Abdominal: soft, nontender to palpation, no guarding, no appreciable org anomegaly Ext: no gross muscle atrophy, no edema, no contractures Neuro: CN II-XI grossly intact, no focal neuro deficits Psych: Alert, oriented, appropriate affect Data review today: Lab data: WBC 18.5, hemoglobin 9.9, sodium 145, potassium 3.3, chloride 114, bicarb 20, blood sugars ranged between 160-213 Assessment and Plan: Active: Nephrogenic Diabetes insipidus Hypokalemia Non-anion gap Metabolic acidosis Small bowel obstruction status post right colectomy and partial omentectomy on 01/29 Dilated proximal transverse right colon Acute Postoperative blood loss anemia, expected finding and stable and improving Leukocytosis, reactive Diabetes mellitus with hyperglycemia Schizoaffective disorder Anxiety and depression OCD Bipolar disorder -Urine output has been stable at 2.2 L, net negative at 600 mL, continue to encourage oral intake -Nephrology is following, desmopressin 0.05 mg by mouth twice a day -Patient was given 40 mEq oral potassium by surgery -Nonionic gap metabolic acidosis likely in the setting of acute renal disease -Surgery note reviewed: Advance diet to regular -Remains on IV cefepime 2 g every 8 hours, Flagyl 500 mg 3 times a day -Hemoglobin improving -Repeat CBC tomorrow -On [place] 5 every 4 hours when necessary, Dilaudid 1 mg IV every 3 hours as needed, no doses needed today -A1c was 6.9, currently on low-dose sliding scale insulin, no changes given multiple changes to diet -If continues to remain hyper glycemic despite consistent diet, can consider adding long-acting insulin at 8 -Psychiatry following, clozapine increased, citalopram increased, continue Lamictal Resolved: Acute kidney injury Hyponatremia Hypochloremia Hypernatremia DVT ppx: Subcu heparin Code status: Full Code Anticipated discharge place: rehab Anticipated discharge time: 1-2 days Objective - Vital Signs Vital signs: Vital Signs Temp 97.7 F 01/21/23 12:00 Pulse 94 01/21/23 12:00 Resp 18 01/21/23 12:00 BP 136/83 01/21/23 12:00 Pulse Ox 94 L 01/21/23 12:00 FiO2 Intake & Output 01/20/23 01/21/23 01/21/23 18:59 06:59 18:59 Intake Total 1436 200 Output Total 350 1925 700 Balance 1086 -1725 -700 Weight 92 kg 92 kg Intake: Intake, IV Titration 160 200 Amount Cefepime 2 gm In Sodium 100 Chloride 0.9% 100 ml @ 25 mls/hr IVPB Q8HR [facility] Rx# :[id number] Lactated Ringers 1,000 ml 160 @ 0 mls/hr IV .STK-MED ONE Rx#:[id number] metroNIDAZOLE-NS PMX 500 100 mg In Saline 1 100ml.bag @ 100 mls/hr IVPB Q8HR [facility] Rx#:[id number] Oral 1276 Output: Urine 350 1925 700 Other: Voiding Method Urinal Urinal Urinal # Voids 1 1 # Bowel Movements 1 1 1 - Labs CBC & Chem 7: 01/21/23 07:58 01/21/23 07:58 Labs: Abnormal Lab Results - Last 24 Hours (Table) 01/20/23 01/20/23 01/21/23 Range/Units 16:34 20:22 06:10 WBC (3.8-10.6) k/uL RBC (4.30-5.90) m/uL Hgb (13.0-17.5) gm/dL Hct (39.0-53.0) % Neutrophils # (1.3-7.7) k/uL Potassium (3.5-5.1) mmol/L Chloride (98-107) mmol/L Carbon Dioxide (22-30) mmol/L BUN (9-20) mg/dL Glucose (74-99) mg/dL POC Glucose (mg/dL) 220 H 213 H 160 H (70-110) mg/dL Total Protein (6.3-8.2) g/dL Albumin (3.5-5.0) g/dL 01/21/23 01/21/23 01/21/23 Range/Units 07:58 07:58 11:49 WBC 13.5 H (3.8-10.6) k/uL RBC 3.38 L (4.30-5.90) m/uL Hgb 9.9 L (13.0-17.5) gm/dL Hct 31.0 L (39.0-53.0) % Neutrophils # 11.8 H (1.3-7.7) k/uL Potassium 3.3 L (3.5-5.1) mmol/L Chloride 114 H (98-107) mmol/L Carbon Dioxide 20 L (22-30) mmol/L BUN 5 L (9-20) mg/dL Glucose 163 H (74-99) mg/dL POC Glucose (mg/dL) 256 H (70-110) mg/dL Total Protein 5.5 L (6.3-8.2) g/dL Albumin 2.9 L (3.5-5.0) g/dL
--- NOTE | 2023-01-21 13:36 | P.PN ---
Progress Note - Text Progress Note Date: 01/21/23 Interval history: Patient was seen resting in bed and was directable and agreeable to speak with engineering technical writer. Currently, the patient is not reporting any suicidal or homicidal ideation, intention, and/or plan. He continues to report auditory hallucinations however states that they are stable. He denies any visual hallucinations. He is denying any paranoia or other delusions. He has been adherent with his medication and is not endorsing any significant side effect. He reports that both his physical as well as mental health have been improving. He reports no issues regarding his sleep or appetite. Mental status exam: Grossly unchanged from yesterday General Appearance: Patient appears to be stated age is alert, directable, and cooperative. Behavior: No agitated behavior. Patient is calm and directable. Speech: Patient's speech is fluent and non-pressured. Mood/Affect: Mood is good, affect is congruent and at times bright. Suicidality/Homicidality: Patient denies having any suicidal or homicidal ideation intent or plan. Perceptions: He reports chronic auditory hallucinations, but he has learned to ignore them. He denies visual hallucinations. Though content/process: No delusional thought content on my assessment, and thought process is organized. Memory and concentration: AOX3, grossly intact for the purposes of this session Judgment and insight: average Vital Signs Temp 97.7 F 01/21/23 12:00 Pulse 94 01/21/23 12:00 Resp 18 01/21/23 12:00 BP 136/83 01/21/23 12:00 Pulse Ox 94 L 01/21/23 12:00 FiO2 Intake & Output 01/20/23 01/21/23 01/21/23 18:59 06:59 18:59 Intake Total 1436 200 Output Total 350 1925 700 Balance 2786 -1722 -700 Weight 92 kg 92 kg Intake: Intake, IV Titration 160 200 Amount Cefepime 2 gm In Sodium 100 Chloride 0.9% 100 ml @ 25 mls/hr IVPB Q8HR [facility] Rx# :[id number] Lactated Ringers 1,000 ml 160 @ 0 mls/hr IV .STK-MED ONE Rx#:[id number] metroNIDAZOLE-NS PMX 500 100 mg In Saline 1 100ml.bag @ 100 mls/hr IVPB Q8HR [facility] Rx#:[id number] Oral 1276 Output: Urine 350 1925 700 Other: Voiding Method Urinal Urinal Urinal # Voids 1 1 # Bowel Movements 1 1 1 Laboratory Results WBC 13.5 k/uL (3.8-10.6) H 01/21/23 07:58 RBC 3.38 m/uL (4.30-5.90) L 01/21/23 07:58 Hgb 9.9 gm/dL (13.0-17.5) L 01/21/23 07:58 Hct 31.0 % (39.0-53.0) L 01/21/23 07:58 MCV 91.4 fL (80.0-100.0) 01/21/23 07:58 MCH 29.4 pg (25.0-35.0) 01/21/23 07:58 MCHC 32.1 g/dL (31.0-37.0) 01/21/23 07:58 RDW 15.0 % (11.5-15.5) 01/21/23 07:58 Plt Count 312 k/uL (150-450) 01/21/23 07:58 MPV 7.7 01/21/23 07:58 Absolute Nucleated RBC 0.02 X 10*3/uL (0.00-0.00) H 01/18/23 06:07 Neutrophils % 88 % 01/21/23 07:58 Lymphocytes % 7 % 01/21/23 07:58 Monocytes % 4 % 01/21/23 07:58 Eosinophils % 0 % 01/21/23 07:58 Basophils % 0 % 01/21/23 07:58 Neutrophils # 11.8 k/uL (1.3-7.7) H 01/21/23 07:58 Lymphocytes # 1.0 k/uL (1.0-4.8) 01/21/23 07:58 Monocytes # 0.5 k/uL (0-1.0) 01/21/23 07:58 Eosinophils # 0.0 k/uL (0-0.7) 01/21/23 07:58 Basophils # 0.1 k/uL (0-0.2) 01/21/23 07:58 NRBC/100 WBC Diff 0.2 /100 WBCS (0.0-0.0) H 01/18/23 06:07 Hypochromasia Moderate 01/21/23 07:58 Poikilocytosis Slight 01/21/23 07:58 PT 10.8 sec (9.0-12.0) 01/12/23 10:04 INR 1.0 (<1.2) 01/12/23 10:04 APTT 22.7 sec (22.0-30.0) 01/12/23 10:04 Sodium 145 mmol/L (137-145) 01/21/23 07:58 Potassium 3.3 mmol/L (3.5-5.1) L 01/21/23 07:58 Chloride 114 mmol/L (98-107) H 01/21/23 07:58 Carbon Dioxide 20 mmol/L (22-30) L 01/21/23 07:58 Anion Gap 11 mmol/L 01/21/23 07:58 BUN 5 mg/dL (9-20) L 01/21/23 07:58 Creatinine 0.86 mg/dL (0.66-1.25) 01/21/23 07:58 Est GFR (CKD-EPI)AfAm >90 (>60 ml/min/1.73 sqM) 01/21/23 07:58 Est GFR (CKD-EPI)NonAf >90 (>60 ml/min/1.73 sqM) 01/21/23 07:58 BUN/Creatinine Ratio 12.23 Ratio (12.00-20.00) 01/18/23 06:07 Glucose 163 mg/dL (74-99) H 01/21/23 07:58 POC Glucose (mg/dL) 256 mg/dL (70-110) H 01/21/23 11:49 POC Glu [employer] Director ID Sam Esqueda 01/21/23 11:[address] Glu mg/dL 152 01/13/23 06:04 Hemoglobin A1c 6.9 % (0.0-6.0) H 01/13/23 06:04 Plasma Lactic Acid Jamie 1.2 mmol/L (0.7-2.0) 01/12/23 10:04 Calcium 8.5 mg/dL (8.4-10.2) 01/21/23 07:58 Magnesium 2.1 mg/dL (1.6-2.3) 01/21/23 07:58 Total Bilirubin 0.4 mg/dL (0.2-1.3) 01/21/23 07:58 AST 22 U/L (17-59) 01/21/23 07:58 ALT 23 U/L (4-49) 01/21/23 07:58 Alkaline Phosphatase 76 U/L (38-126) 01/21/23 07:58 Total Creatine Kinase 38 U/L (55-170) L 01/12/23 10:04 CK-MB (CK-2) 1.6 ng/mL (0.0-2.4) 01/12/23 10:04 CK-MB (CK-2) Rel Index 4.2 01/12/23 10:04 Troponin I <0.012 ng/mL (0.000-0.034) 01/12/23 21:39 Total Protein 5.5 g/dL (6.3-8.2) L 01/21/23 07:58 Albumin 2.9 g/dL (3.5-5.0) L 01/21/23 07:58 Globulin 2.1 g/dL (1.6-3.3) 01/18/23 06:07 Albumin/Globulin Ratio 1.33 g/dL (1.60-3.17) L 01/18/23 06:07 TSH 0.558 mIU/L (0.465-4.680) 01/18/23 14:28 Urine Color Yellow 01/12/23 14:43 Urine Appearance Clear (Clear) 01/12/23 14:43 Urine pH 6.0 (5.0-8.0) 01/12/23 14:43 Ur Specific [place] 1.022 (1.001-1.035) 01/12/23 14:43 Urine Protein 1+ (Negative) H 01/12/23 14:43 Urine Glucose (UA) Negative (Negative) 01/12/23 14:43 Urine Ketones Negative (Negative) 01/12/23 14:43 Urine Blood Negative (Negative) 01/12/23 14:43 Urine Nitrite Negative (Negative) 01/12/23 14:43 Urine Bilirubin Negative (Negative) 01/12/23 14:43 Urine Urobilinogen 2.0 mg/dL (<2.0) 01/12/23 14:43 Ur Leukocyte Esterase Negative (Negative) 01/12/23 14:43 Urine RBC <1 /hpf (0-5) 01/12/23 14:43 Urine WBC 1 /hpf (0-5) 01/12/23 14:43 Ur Squamous Epith Cells <1 /hpf (0-4) 01/12/23 14:43 Hyaline Casts 26 /lpf (0-2) H 01/12/23 14:43 Urine Mucus Rare /hpf (None) H 01/12/23 14:43 Urine Osmolality 215 mosm/kg (50-1400) 01/18/23 13:04 Ur Random Sodium 93 mmol/L (40-220) 01/18/23 13:04 [place] 0.7 mmol/L 01/18/23 14:28 Blood Type O Positive 01/12/23 17:04 Blood Type Confirm O Positive 01/12/23 10:04 Blood Type Recheck No Previous Record 01/12/23 17:04 Bld Type Recheck Status CABO Indicated 01/12/23 17:04 Antibody Screen NEGATIVE 01/12/23 17:04 Spec Expiration Date 01/15/2023230301/12/23 17:04 IMPRESSIONS: Schizoaffective disorder, depressive type Obsessive-compulsive disorder Alcohol use disorder, in sustained remission PLAN: -Continue your medical and surgical management -At this time patient DOES NOT meet criteria for inpatient psychiatric admission. The patient is currently not presenting with any acute symptoms of psychosis or mary. He is not endorsing any suicidal or homicidal ideation, intention, and/or plan. -Continue Clozapine 175 mg at bedtime after review of Clozapine levels. - Continue Lamictal -Continue Citalopram 20 mg daily for depression/OCD/anxiety. -In addition to the recommendations above, please note the following recomme ndations from the FDA regarding Clozapine prescribing: -Encourage appropriate hydration, physical activity, and foods that are high in fiber. -Patient does not require 1:1 sitter for safety -Patient is recommended to follow up with his [facility] team in the outpatient setting. He is cleared psychiatrically for discharge. -Psychiatry will sign off at this time.
--- NOTE | 2023-01-21 15:50 | P.PN ---
Subjective Patient is seen for follow-up for hyponatremia secondary to diabetes insipidus, currently improved with discontinuation of lithium and 2 doses of DDAVP. Status post D5W, currently off of IV fluids. Sodium is at 145 today, up from 142 yesterday. Pt did not receive DDAVP yesterday. Objective - Vital Signs Vital signs: Vital Signs Temp 97.7 F 01/21/23 12:00 Pulse 94 01/21/23 12:00 Resp 18 01/21/23 12:00 BP 136/83 01/21/23 12:00 Pulse Ox 94 L 01/21/23 12:00 FiO2 Intake & Output 01/20/23 01/21/23 01/21/23 18:59 06:59 18:59 Intake Total 1436 200 Output Total 350 1925 1625 Balance 1086 -1725 -1625 Weight 92 kg 92 kg Intake: Intake, IV Titration 160 200 Amount Cefepime 2 gm In Sodium 100 Chloride 0.9% 100 ml @ 25 mls/hr IVPB Q8HR [facility] Rx# :[id number] Lactated Ringers 1,000 ml 160 @ 0 mls/hr IV .STK-MED ONE Rx#:[id number] metroNIDAZOLE-NS PMX 500 100 mg In Saline 1 100ml.bag @ 100 mls/hr IVPB Q8HR [facility] Rx#:[id number] Oral 1276 Output: Urine 350 1925 1625 Other: Voiding Method Urinal Urinal Urinal # Voids 1 1 # Bowel Movements 1 1 1 - Exam Awake, comfortable, no acute distress. Lungs are clear CVS S1 and S2 Abdomen is soft, mild tenderness Lower extremities show no edema MORNING SHOW PRODUCER exam is grossly intact. - Labs CBC & Chem 7: 01/21/23 07:58 01/21/23 07:58 Labs: Abnormal Lab Results - Last 24 Hours (Table) 01/20/23 01/20/23 01/21/23 Range/Units 16:34 20:22 06:10 WBC (3.8-10.6) k/uL RBC (4.30-5.90) m/uL Hgb (13.0-17.5) gm/dL Hct (39.0-53.0) % Neutrophils # (1.3-7.7) k/uL Potassium (3.5-5.1) mmol/L Chloride (98-107) mmol/L Carbon Dioxide (22-30) mmol/L BUN (9-20) mg/dL Glucose (74-99) mg/dL POC Glucose (mg/dL) 220 H 213 H 160 H (70-110) mg/dL Total Protein (6.3-8.2) g/dL Albumin (3.5-5.0) g/dL 01/21/23 01/21/23 01/21/23 Range/Units 07:58 07:58 11:49 WBC 13.5 H (3.8-10.6) k/uL RBC 3.38 L (4.30-5.90) m/uL Hgb 9.9 L (13.0-17.5) gm/dL Hct 31.0 L (39.0-53.0) % Neutrophils # 11.8 H (1.3-7.7) k/uL Potassium 3.3 L (3.5-5.1) mmol/L Chloride 114 H (98-107) mmol/L Carbon Dioxide 20 L (22-30) mmol/L BUN 5 L (9-20) mg/dL Glucose 163 H (74-99) mg/dL POC Glucose (mg/dL) 256 H (70-110) mg/dL Total Protein 5.5 L (6.3-8.2) g/dL Albumin 2.9 L (3.5-5.0) g/dL Assessment and Plan Assessment: 1. 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 Also a component of hyperglycemia. Improved with 2 doses of DDAVP. [place] is appropriately discontinued. Sodium has improved. It is slightly higher today. Will start scheduled dose of oral DDAVP 2. S/p omentectomy and right colectomy on 01/13/23 3. Hypokalemia, s/p replacement 4. Bipolar disorder on lithium, currently on hold. Plan: Add scheduled oral dose of DDAVP Continue too hold lithium.
[2023-01-21 15:52] LABS: Clozapine (Clozaril) 538 ng/mL (200-700); Norclozapine 285 ng/mL (200-700)
[2023-01-21] MEDS: metroNIDAZOLE 500 MG TAB PO SCH ×2 (16:07→22:01)
[2023-01-21] MEDS: LACTATED RINGERS 1,000 ML IV SCH (16:08)
[2023-01-21 20:14] LABS: Glucose,Whole Blood 220 mg/dL (70-110)
[2023-01-21] MEDS: ATORVASTATIN 10 MG TAB PO SCH (22:01)
[2023-01-21] MEDS: cloZAPine 100 MG TAB PO SCH (22:02)
[2023-01-21] MEDS: cloZAPine 25 MG TAB PO SCH (22:03)
[2023-01-22 06:06] LABS: Glucose,Whole Blood 237 mg/dL (70-110)
[2023-01-22] MEDS: INSULIN ASPART (NovoLOG) 100 UNIT/ML VIAL SQ SCH ×4 (06:49→20:30)
[2023-01-22] MEDS: LEVOTHYROXINE 50 MCG TAB PO SCH (06:49)
[2023-01-22] MEDS: DESMOPRESSIN 0.2 MG TAB PO SCH ×2 (09:27→20:30)
[2023-01-22] MEDS: PROPRANOLOL LA 80 MG CAP.SA.24H PO SCH (09:28)
[2023-01-22] MEDS: HEPARIN SODIUM,PORCINE/PF 5,000 UNIT/0.5 ML SYRINGE SQ SCH ×2 (09:28→20:30)
[2023-01-22] MEDS: PANTOPRAZOLE 40 MG/10 ML VIAL IVP SCH ×2 (09:29→20:29)
[2023-01-22] MEDS: metroNIDAZOLE 500 MG TAB PO SCH ×3 (09:29→20:30)
[2023-01-22] MEDS: CITALOPRAM HYDROBROMIDE 20 MG TAB PO SCH (09:29)
[2023-01-22] MEDS: amLODIPine 10 MG TAB PO SCH (09:29)
[2023-01-22] MEDS: TAMSULOSIN 0.4 MG CAP.ER.24H PO SCH (09:29)
[2023-01-22] MEDS: lamoTRIgine 100 MG TAB PO SCH ×2 (09:29→20:30)
[2023-01-22] MEDS: DOCUSATE 100 MG CAP PO SCH ×2 (09:29→20:30)
[2023-01-22] MEDS: CEFEPIME 2 GM in SODIUM CHLORIDE 0.9% 100 ML IVPB SCH ×3 (09:33→23:15)
[2023-01-22 10:12] LABS: Basophils % (A) 0 %; Eosinophils % (A) 0 %; HCT 30.3 % (39.0-53.0); HGB 9.8 gm/dL (13.0-17.5); Hypochromasia Slight; Lymphocytes % (A) 12 %; MCHC 32.4 g/dL (31.0-37.0); MCV 89.6 fL (80.0-100.0); Monocytes # (A) 0.4 k/uL (0-1.0); Monocytes % (A) 4 %; Neutrophils # (A) 7.1 k/uL (1.3-7.7); Neutrophils % (A) 83 %; Platelet Count 369 k/uL (150-450); Poikilocytosis Slight; RBC 3.39 m/uL (4.30-5.90); RDW 14.7 % (11.5-15.5); WBC 8.6 k/uL (3.8-10.6)
[2023-01-22 10:29] LABS: African American GFR (CKD) >90 (>60 ml/min/1.73 sqM); Anion Gap 5 mmol/L; Blood Urea Nitrogen 6 mg/dL (9-20); Calcium 8.3 mg/dL (8.4-10.2); Carbon Dioxide 24 mmol/L (22-30); Chloride 113 mmol/L (98-107); Glucose 165 mg/dL (74-99); Magnesium 2.2 mg/dL (1.6-2.3); Non-African American GFR(CKD) >90 (>60 ml/min/1.73 sqM); Potassium 3.3 mmol/L (3.5-5.1); Sodium 142 mmol/L (137-145)
[2023-01-22] MEDS ORDERED: POTASSIUM CHLORIDE ER 20 MEQ TAB.ER PO STA (11:03)
[2023-01-22 11:42] LABS: Glucose,Whole Blood 210 mg/dL (70-110)
[2023-01-22] MEDS: LACTULOSE 20 GM/30 ML CUP PO SCH (11:50)
[2023-01-22] MEDS: POTASSIUM CHLORIDE ER 20 MEQ TAB.ER PO SCH ×2 (11:50→17:20)
--- NOTE | 2023-01-22 12:13 | P.PN ---
Subjective Progress Note Date: 01/22/23 Hospital Course: Patient is a very pleasant 57-year-old male with a past medical history of type II fan-bawjrbr-xoldqsqkp diabetes mellitus, hypertension, hyperlipidemia, GERD, schizoaffective disorder, anxiety, bipolar, depression, and previous inguinal hernia with repair. Presented to the emergency department with a chief complaint of abdominal/epigastric/chest pain, nausea, vomiting, abdominal distention and constipation 2 weeks. Patient reports vomiting dark black coffee-colored emesis and inability to have a bowel movement 2 weeks. He reports pain institute diffuse abdomen radiating up into his epigastric region and chest. He denies having any fevers, chills, palpitations, shortness of breath, cough or congestion, hemoptysis, melena, or hematochezia. Patient reports decreased appetite and inability to hold down oral intake. He does report decreased urinary output, but denies any retention or difficulties initiating a stream. Reports concerns of dehydration. Patient underwent full evaluation in the emergency department. Labs completed and reviewed. He was found to have leukocytosis with WBC count of 18.1 and normocytic anemia with hemoglobin of 12.6. Coagulation profile normal findings. BMP revealing hyponatremia with sodium 132 and hypochloremia with chloride 95 and acute kidney injury with BUN 59, creatinine 2.11, and GFR of 34 as well as hyperglycemia with glucose of 252. Troponin less than 0.012. EKG showing sinus tachycardia at 102 bpm with T-wave inversion in lateral leads I and aVL, T-wave inversion is new finding when compared to previous EKG completed 12/12/19. Chest x-ray completed and report reviewed stating limited inspiration with bilateral consolidation and right basilar atelectasis or infiltrate. CT abdomen and pelvis without contrast completed and radiology report reviewed showing dilated small bowel, cecum/ascending colon with transition point within the proximal third of the transverse colon with focal narrowing in none distention of the remainder of the colon, findings possibly representing stricture versus mass, small bowel dilation with small bowel feces throughout suggesting delayed transit/fecal stasis and dilated stomach and esophagus filled with ingested contents. Discussed these findings with the ED physicianin detail and patient was accepted for admission to general surgery unit with telemetry under our services with consultation to general surgery. Patient taken for colectomy on 01/13/23. Awaiting for return of bowel function. Repeat abdominal x-ray completed on 01/18/23 reviewed and radiology report showing nonspecific bowel gas pattern without radiographic evidence for acute process with persistent few gaseous dilated loops of bowel remaining. Patient currently having bowel movements, able to tolerate some oral intake. Urine output slowly declining. Subjective: Patient seen and examined at bedside. No acute events overnight. Denies any abdominal pain. Denies any significant nausea or vomiting. Continues to have urine output, claims that it is decreasing. He is having bowel movements. Denies any chest pain, shortness of breath, palpitations, lightheadedness. Pertinent positives and negatives as discussed above, a complete review of systems was performed and all other systems are negative. Vitals Signs Reviewed. General: nontoxic, no distress, appears at stated age Derm: warm, dry, dressing is dry, intact, clean Head: atraumatic, normocephalic, symmetric Eyes: EOMI, no lid lag, anicteric sclera Mouth: no lip lesion, mucus membranes moist Cardiovascular: S1S2 reg, no murmur Lungs: CTA bilateral, no rhonchi, no rales , no accessory muscle use Abdominal: soft, nontender to palpation, no guarding, no appreciable organomegaly Ext: no gross muscle atrophy, no edema, no contractures Neuro: CN II-XI grossly intact, no focal neuro deficits Psych: Alert, oriented, appropriate affect Data review today: Lab data: WBC 8.6, hemoglobin 9.8, sodium 142, potassium 3.3, chloride 113, bicarb 24, blood sugars ranged between 210-256 Assessment and Plan: Active: Nephrogenic Diabetes insipidus secondary to lithium therapy Hypokalemia Small bowel obstruction, Dilated proximal transverse right colon status post right colectomy and partial omentectomy on 01/29 Acute Postoperative blood loss anemia, expected finding and stable and improving Diabetes mellitus with hyperglycemia Schizoaffective disorder Anxiety and depression OCD Bipolar disorder -Urine output has been stable at 1 L, continue to encourage oral intake -Nephrology is following, desmopressin 0.05 mg by mouth twice a day -Patient was given 80 mEq oral potassium by nephrology Repeat BMP tomorrow- -Surgery following, patient tolerating solids -Remains on IV cefepime 2 g every 8 hours, Flagyl 500 mg 3 times a day -Hemoglobin improving -On [place] 5 every 4 hours when necessary, Dilaudid 1 mg IV every 3 hours as needed, no doses needed today -A1c was 6.9, currently on low-dose sliding scale insulin, Levemir 5 units at night added -Psychiatry following, on cause pain, citalopram, Lamictal Resolved: Acute kidney injury Hyponatremia Hypochloremia Hypernatremia Non-anion gap Metabolic acidosis Leukocytosis, reactive DVT ppx: Subcu heparin Code status: Full Code Anticipated discharge place: rehab Anticipated discharge time: 1-2 days Objective - Vital Signs Vital signs: Vital Signs Temp 97.8 F 01/22/23 04:00 Pulse 86 01/22/23 11:53 Resp 16 01/22/23 11:53 BP 112/72 01/22/23 11:53 Pulse Ox 93 L 01/22/23 11:53 FiO2 Intake & Output 01/21/23 01/22/23 01/22/23 18:59 06:59 18:59 Intake Total 700 137 Output Total 2725 2225 550 Balance -5 -2225 -413 Weight 92 kg Intake: Oral 700 137 Output: Urine 2725 2225 550 Other: Voiding Method Urinal Urinal Urinal # Bowel Movements 1 1 - Labs CBC & Chem 7: 01/22/23 09:50 01/22/23 09:50 Labs: Abnormal Lab Results - Last 24 Hours (Table) 01/21/23 01/22/23 01/22/23 Range/Units 20:12 06:04 09:50 RBC (4.30-5.90) m/uL Hgb (13.0-17.5) gm/dL Hct (39.0-53.0) % Potassium 3.3 L (3.5-5.1) mmol/L Chloride 113 H (98-107) mmol/L BUN 6 L (9-20) mg/dL Glucose 165 H (74-99) mg/dL POC Glucose (mg/dL) 220 H 237 H (70-110) mg/dL Calcium 8.3 L (8.4-10.2) mg/dL 01/22/23 01/22/23 Range/Units 09:50 11:40 RBC 3.39 L (4.30-5.90) m/uL Hgb 9.8 L (13.0-17.5) gm/dL Hct 30.3 L (39.0-53.0) % Potassium (3.5-5.1) mmol/L Chloride (98-107) mmol/L BUN (9-20) mg/dL Glucose (74-99) mg/dL POC Glucose (mg/dL) 210 H (70-110) mg/dL Calcium (8.4-10.2) mg/dL
--- NOTE | 2023-01-22 14:29 | P.PN ---
Subjective Progress Note Date: 01/22/23 CHIEF COMPLAINT: Colonic obstruction HISTORY OF PRESENT ILLNESS: Patient is postop day #9 status post right colectomy and partial omentectomy for possible stricture of the transverse colon and massive dilated proximal transverse right colon and small bowel. Patient sitting in bedside chair. He reports that his pain is controlled. He has been having bowel movements. Denies any nausea or vomiting. Patient does complain of itching at the incision site Afebrile. WBC is down from 13.5-8.[address] atelets 369 Na 142 potassium 3.3 creatinine 0.8 to magnesium 2.2 Patient seen and examined with Dr. Cordero PHYSICAL EXAM: VITAL SIGNS: Reviewed. GENERAL: Well-developed in no acute distress. HEENT: No sclera icterus. Extraocular movements grossly intact. Moist buccal mucosa. Head is atraumatic, normocephalic. ABDOMEN: Soft. Incision site clean dry and intact. There is a mild rash around incision. ASSESSMENT: 1. Massively dilated proximal transverse right colon and small bowel with possible stricture of the transverse colon status post right colectomy and partial omentectomy 2. Hypokalemia PLAN: -Continue regular diet -Continue lactulose 30ml but decrease dose to daily -Patient had severe constipation and a lot of retained stool noted in the colon. Recommend patient stays on lactulose at least daily even at discharge to avoid constipation -Patient can be discharged from surgical standpoint when medically cleared -Continue antibiotics -Encouraged patient to ambulate -Continue supportive care -Encouraged patient to use incentive spirometer -Patient needs ECF at discharge -Patient can shower -GI prophylaxis Protonix and DVT prophylaxis subcu heparin Physician [employer] note has been reviewed by physician. Signing provider agrees with the documented findings, assessment, and plan of care. Objective - Vital Signs Vital signs: Vital Signs Temp 97.8 F 01/22/23 04:00 Pulse 86 01/22/23 11:53 Resp 16 01/22/23 11:53 BP 112/72 01/22/23 11:53 Pulse Ox 93 L 01/22/23 11:53 FiO2 Intake & Output 01/21/23 01/22/23 01/22/23 18:59 06:59 18:59 Intake Total 700 137 Output Total 8995 2221 1150 Balance -2024 Weight 92 kg Intake: Oral 700 137 Output: Urine 2725 2225 1150 Other: Voiding Method Urinal Urinal Urinal # Bowel Movements 1 1 1 - Labs CBC & Chem 7: 01/22/23 09:50 01/22/23 09:50 Labs: Abnormal Lab Results - Last 24 Hours (Table) 01/21/23 01/22/23 01/22/23 Range/Units 20:12 06:04 09:50 RBC (4.30-5.90) m/uL Hgb (13.0-17.5) gm/dL Hct (39.0-53.0) % Potassium 3.3 L (3.5-5.1) mmol/L Chloride 113 H (98-107) mmol/L BUN 6 L (9-20) mg/dL Glucose 165 H (74-99) mg/dL POC Glucose (mg/dL) 220 H 237 H (70-110) mg/dL Calcium 8.3 L (8.4-10.2) mg/dL 01/22/23 01/22/23 Range/Units 09:50 11:40 RBC 3.39 L (4.30-5.90) m/uL Hgb 9.8 L (13.0-17.5) gm/dL Hct 30.3 L (39.0-53.0) % Potassium (3.5-5.1) mmol/L Chloride (98-107) mmol/L BUN (9-20) mg/dL Glucose (74-99) mg/dL POC Glucose (mg/dL) 210 H (70-110) mg/dL Calcium (8.4-10.2) mg/dL
[2023-01-22 16:46] LABS: Glucose,Whole Blood 276 mg/dL (70-110)
--- NOTE | 2023-01-22 17:03 | P.PN ---
Subjective Patient is seen for follow-up for hyponatremia secondary to diabetes insipidus, currently improved with discontinuation of lithium and DDAVP Status post D5W, currently off of IV fluids. Sodiumis 142 today. No complaints. Objective - Vital Signs Vital signs: Vital Signs Temp 97.8 F 01/22/23 04:00 Pulse 86 01/22/23 11:53 Resp 16 01/22/23 11:53 BP 112/72 01/22/23 11:53 Pulse Ox 93 L 01/22/23 11:53 FiO2 Intake & Output 01/21/23 01/22/23 01/22/23 18:59 06:59 18:59 Intake Total 700 137 Output Total 2725 2225 1150 Balance -2024 Weight 92 kg Intake: Oral 700 137 Output: Urine 2725 2225 1150 Other: Voiding Method Urinal Urinal Urinal # Bowel Movements 1 1 1 - Exam Awake, comfortable, no acute distress. Lungs are clear CVS S1 and S2 Abdomen is soft, mild tenderness Lower extremities show no edema [employer]EL[employer] exam is grossly intact. - Labs CBC & Chem 7: 01/22/23 09:50 01/22/23 09:50 Labs: Abnormal Lab Results - Last 24 Hours (Table) 01/21/23 01/22/23 01/22/23 Range/Units 20:12 06:04 09:50 RBC (4.30-5.90) m/uL Hgb (13.0-17.5) gm/dL Hct (39.0-53.0) % Potassium 3.3 L (3.5-5.1) mmol/L Chloride 113 H (98-107) mmol/L BUN 6 L (9-20) mg/dL Glucose 165 H (74-99) mg/dL POC Glucose (mg/dL) 220 H 237 H (70-110) mg/dL Calcium 8.3 L (8.4-10.2) mg/dL 01/22/23 01/22/23 01/22/23 Range/Units 09:50 11:40 16:39 RBC 3.39 L (4.30-5.90) m/uL Hgb 9.8 L (13.0-17.5) gm/dL Hct 30.3 L (39.0-53.0) % Potassium (3.5-5.1) mmol/L Chloride (98-107) mmol/L BUN (9-20) mg/dL Glucose (74-99) mg/dL POC Glucose (mg/dL) 210 H 276 H (70-110) mg/dL Calcium (8.4-10.2) mg/dL Assessment and Plan Assessment: 1. 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 Also a component of hyperglycemia. Improved with DDAVP. [place] is appropriately discontinued. Sodium has improved. 2. S/p omentectomy and right colectomy on 01/13/23 3. Hypokalemia, s/p replacement 4. Bipolar disorder on lithium, currently on hold. Plan: Continue current dose of DDAVP. Continue too hold lithium.
[2023-01-22] MEDS: LACTATED RINGERS 1,000 ML IV SCH (19:42)
[2023-01-22 19:52] LABS: Glucose,Whole Blood 309 mg/dL (70-110)
[2023-01-22] MEDS: ATORVASTATIN 10 MG TAB PO SCH (20:30)
[2023-01-22] MEDS: cloZAPine 100 MG TAB PO SCH (20:31)
[2023-01-22] MEDS: cloZAPine 25 MG TAB PO SCH (20:31)
[2023-01-22] MEDS ORDERED: INSULIN DETEMIR (LEVEMIR) 100 UNIT/ML SYR SQ SCH (21:00)
[2023-01-23 03:25] VITALS: RESP 18
[2023-01-23 05:54] LABS: Glucose,Whole Blood 174 mg/dL (70-110)
[2023-01-23] MEDS: LEVOTHYROXINE 50 MCG TAB PO SCH (06:01)
[2023-01-23] MEDS: INSULIN ASPART (NovoLOG) 100 UNIT/ML VIAL SQ SCH ×2 (06:01→13:24)
[2023-01-23 08:24] LABS: African American GFR (CKD) >90 (>60 ml/min/1.73 sqM); Anion Gap 7 mmol/L; Blood Urea Nitrogen 9 mg/dL (9-20); Calcium 8.3 mg/dL (8.4-10.2); Carbon Dioxide 23 mmol/L (22-30); Chloride 114 mmol/L (98-107); Glucose 164 mg/dL (74-99); Magnesium 2.2 mg/dL (1.6-2.3); Non-African American GFR(CKD) >90 (>60 ml/min/1.73 sqM); Potassium 3.5 mmol/L (3.5-5.1); Sodium 144 mmol/L (137-145)
[2023-01-23] MEDS ORDERED: LACTULOSE 20 GM/30 ML CUP PO SCH (09:00)
[2023-01-23] MEDS: HEPARIN SODIUM,PORCINE/PF 5,000 UNIT/0.5 ML SYRINGE SQ SCH (09:11)
[2023-01-23] MEDS: PANTOPRAZOLE 40 MG/10 ML VIAL IVP SCH (09:11)
[2023-01-23] MEDS: CEFEPIME 2 GM in SODIUM CHLORIDE 0.9% 100 ML IVPB SCH (09:11)
[2023-01-23] MEDS: PROPRANOLOL LA 80 MG CAP.SA.24H PO SCH (09:12)
[2023-01-23] MEDS: lamoTRIgine 100 MG TAB PO SCH (09:12)
[2023-01-23] MEDS: CITALOPRAM HYDROBROMIDE 20 MG TAB PO SCH (09:12)
[2023-01-23] MEDS: TAMSULOSIN 0.4 MG CAP.ER.24H PO SCH (09:12)
[2023-01-23] MEDS: metroNIDAZOLE 500 MG TAB PO SCH (09:12)
[2023-01-23] MEDS: DESMOPRESSIN 0.2 MG TAB PO SCH (09:12)
[2023-01-23] MEDS: amLODIPine 10 MG TAB PO SCH (09:12)
[2023-01-23] MEDS: DOCUSATE 100 MG CAP PO SCH (09:12)
--- NOTE | 2023-01-23 11:37 | P.DS ---
Providers Date of admission: 01/12/23 13:14 Expected date of discharge: 01/23/23 Attending physician: Malcom Bruner MD Consults: 01/12/23 13:14 Consult Physician Urgent Consulting Provider: Bebeto Cordero Consult Reason/Comments: Bowel obstruction Do you want consulting provider notified?: Yes 01/12/23 18:54 Consult Physician Routine Consulting Provider: Rio Galvan Consult Reason/Comments: Medication management, need to d/c anticholanergics Do you want consulting provider notified?: Yes 01/18/23 12:37 Consult Physician Urgent Consulting Provider: Cyrus Pederson Consult Reason/Comments: rule out diabetes insipidus, hypernatremia excess urinary output Do you want consulting provider notified?: Yes 01/19/23 17:47 Consult Physician Routine Consulting Provider: Rio Galvan Consult Reason/Comments: [place] discontinued d/t Diabetes insipidus. 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 Hypokalemia Small bowel obstruction, Dilated proximal transverse right colon status post right colectomy and partial omentectomy on 01/29 Acute Postoperative blood loss anemia, expected finding and stable and improving Diabetes mellitus with hyperglycemia Schizoaffective disorder Anxiety and depression OCD Bipolar disorder Acute kidney injury Hyponatremia Hypochloremia Hypernatremia Non-anion gap Metabolic acidosis Leukocytosis, reactive Hospital Course: Patient is a very pleasant 57-year-old male with a past medical history of type II [id number] diabetes mellitus, hypertension, hyperlipidemia, GERD, schizoaffective disorder, anxiety, bipolar, depression, and previous inguinal hernia with repair. Presented to the emergency department with a chief complaint of abdominal/epigastric/chest pain, nausea, vomiting, abdominal d istention and constipation 2 weeks. Patient reports vomiting dark black coffee-colored emesis and inability to have a bowel movement 2 weeks. He reports pain institute diffuse abdomen radiating up into his epigastric region and chest. He denies having any fevers, chills, palpitations, shortness of breath, cough or congestion, hemoptysis, melena, or hematochezia. Patient reports decreased appetite and inability to hold down oral intake. He does report decreased urinary output, but denies any retention or difficulties initiating a stream. Reports concerns of dehydration. Patient underwent full evaluation in the emergency department. Labs completed and reviewed. He was found to have leukocytosis with WBC count of 18.1 and normocytic anemia with hemoglobin of 12.6. Coagulation profile normal findings. BMP revealing hyponatremia with sodium 132 and hypochloremia with chloride 95 and acute kidney injury with BUN 59, creatinine 2.11, and GFR of 34 as well as hyperglycemia with glucose of 252. Troponin less than 0.012. EKG showing sinus tachycardia at 102 bpm with T-wave inversion in lateral leads I and aVL, T-wave inversion is new finding when compared to previous EKG completed 12/12/19. Chest x-ray completed and report reviewed stating limited inspiration with bilateral consolidation and right basilar atelectasis or infiltrate. CT abdomen and pelvis without contrast completed and radiology report reviewed showing dilated small bowel, cecum/ascending colon with transition point within the proximal third of the transverse colon with focal narrowing in none distention of the remainder of the colon, findings possibly representing stricture versus mass, small bowel dilation with small bowel feces throughout suggesting delayed transit/fecal stasis and dilated stomach and esophagus filled with ingested contents. Discussed these findings with the ED physicianin detail and patient was accepted for admission to general surgery unit with telemetry under our services with consultation to general surgery. Patient taken for colectomy on 01/13/23. Awaiting for return of bowel function. Repeat abdominal x-ray completed on 01/18/23 reviewed and radiology report showing nonspecific bowel gas pattern without radiographic evidence for acute process with persistent few gaseous dilated loops of bowel remaining. Patient currently having bowel movements, able to tolerate some oral intake. Patient developed nephrogenic diabetes insipidus secondary to lithium use. Psychiatry and nephrology was consulted. Patient was given DDAVP. Urine output slowly declining. [place] is being held. Patient being discharged on oral DDAVP, close follow-up with nephrology as an outpatient Patient seen and examined at bedside. Vital signs reviewed and stable. General: nontoxic, no distress, appears at stated age Derm: warm, dry, dressing is dry, intact, clean Head: atraumatic, normocephalic, symmetric Eyes: EOMI, no lid lag, anicteric sclera Mouth: no lip lesion, mucus membranes moist Cardiovascular: S1S2 reg, no murmur Lungs: CTA bilateral, no rhonchi, no rales , no accessory muscle use Abdominal: soft, nontender to palpation, no guarding, no appreciable organomega ly Ext: no gross muscle atrophy, no edema, no contractures Neuro: CN II-XI grossly intact, no focal neuro deficits Psych: Alert, oriented, appropriate affect A total of 37 minutes of time were spent preparing this complex discharge summary. Patient was discharged on 01/23/23 at 9:50. Patient Condition at Discharge: Stable Plan - Discharge Summary Discharge Rx Participant: No New Discharge Prescriptions: New Citalopram Hydrobromide [CeleXA] 20 mg PO DAILY tab cloZAPine [Clozaril] 75 mg PO HS tab metroNIDAZOLE [Flagyl] 500 mg PO TID tab Tamsulosin [Flomax] 0.4 mg PO PC-BRKFST #0 cap Insulin Detemir (Levemir) [Levemir] 5 unit SQ HS each Atorvastatin [Lipitor] 10 mg PO HS tab Lactulose [Cephulac] 30 gm PO DAILY ml cloZAPine [Clozaril] 100 mg PO HS tab Docusate [Colace] 100 mg PO BID cap Desmopressin [Ddavp] 0.05 mg PO BID tab INSULIN ASPART (NovoLOG) [NovoLOG (formulary)] 0 unit SQ ACHS each Continue Levothyroxine Sodium [Synthroid] 50 mcg PO DAILY 30 Days #30 tab amLODIPine [Norvasc] 10 mg PO DAILY Propranolol HCl [Propranolol HCl ER] 80 mg PO DAILY lamoTRIgine [LaMICtal] 150 mg PO BID Omeprazole [PriLOSEC] 40 mg PO DAILY Discontinued cloZAPine [Clozaril] 150 mg PO HS 30 Days #45 tab Rosuvastatin Calcium [Crestor] 5 mg PO HS 30 Days #30 tab [place] Carbonate 1,200 mg PO HS 30 Days #120 cap Glycopyrrolate [Robinul Forte] 2 mg PO BID 30 Days #60 tab Linagliptin [Tradjenta] 5 mg PO DAILY Cetirizine HCl [Zyrtec] 10 mg PO DAILY clomiPRAMINE [Anafranil] 100 mg PO BID Meclizine [Antivert] 25 mg PO BID Discharge Medication List Levothyroxine Sodium [Synthroid] 50 mcg PO DAILY 30 Days #30 tab 12/26/19 [Rx] lamoTRIgine [LaMICtal] 150 mg PO BID 03/12/21 [History] Omeprazole [PriLOSEC] 40 mg PO DAILY 01/12/23 [History] Propranolol HCl [Propranolol HCl ER] 80 mg PO DAILY 01/12/23 [History] amLODIPine [Norvasc] 10 mg PO DAILY 01/12/23 [History] Atorvastatin [Lipitor] 10 mg PO HS tab 01/23/23 [Rx] Citalopram Hydrobromide [CeleXA] 20 mg PO DAILY tab 01/23/23 [Rx] Desmopressin [Ddavp] 0.05 mg PO BID tab 01/23/23 [Rx] Docusate [Colace] 100 mg PO BID cap 01/23/23 [Rx] INSULIN ASPART (NovoLOG) [NovoLOG (formulary)] 0 unit SQ ACHS each 01/23/23 [Rx] Insulin Detemir (Levemir) [Levemir] 5 unit SQ HS each 01/23/23 [Rx] Lactulose [Cephulac] 30 gm PO DAILY ml 01/23/23 [Rx] Tamsulosin [Flomax] 0.4 mg PO PC-BRKFST #0 cap 01/23/23 [Rx] cloZAPine [Clozaril] 75 mg PO HS tab 01/23/23 [Rx] cloZAPine [Clozaril] 100 mg PO HS tab 01/23/23 [Rx] metroNIDAZOLE [Flagyl] 500 mg PO TID tab 01/23/23 [Rx] Follow up Appointment(s)/Referral(s): Judy Flores MD [STAFF PHYSICIAN] - 1 Week None,Stated [Primary Care Provider] - 1-2 days Bebeto Cordero MD [STAFF PHYSICIAN] - 1 Week Patient Instructions/Handouts: Diabetes Insipidus (DC), Bowel Obstruction (DC), Type 2 Diabetes Management for Adults (DC) Discharge Disposition: TRANSFER TO SNF/ECF
[2023-01-23 12:02] LABS: Glucose,Whole Blood 254 mg/dL (70-110)
--- NOTE | 2023-01-23 12:11 | P.PN ---
Subjective Progress Note Date: 01/23/23 CHIEF COMPLAINT: Colonic obstruction HISTORY OF PRESENT ILLNESS: Patient is postop day #10 status post right colectomy and partial omentectomy for possible stricture of the transverse colon and massive dilated proximal transverse right colon and small bowel. Patient is having multiple pudding consistency bowel movements. Pain is controlled. Denies any nausea or vomiting. He is having stools every 2 hours. Afebrile. He is scheduled for discharge to [facility] today. Patient seen and examined with Dr. Cordero PHYSICAL EXAM: VITAL SIGNS: Reviewed. GENERAL: Well-developed in no acute distress. HEENT: No sclera icterus. Extraocular movements grossly intact. Moist buccal mucosa. Head is atraumatic, normocephalic. ABDOMEN: Soft. Nondistended. Nontender. There is a mild rash around incision. ASSESSMENT: 1. Massively dilated proximal transverse right colon and small bowel with possible stricture of the transverse colon status post right colectomy and partial omentectomy PLAN: -Change lactulose dosing to 30 mL every 2 days. -Patient had severe constipation and a lot of retained stool noted in the colon. Recommend patient stays on lactulose every 2 days even at discharge to avoid constipation -Patient can be discharged from surgical standpoint when medically cleared -Remove every other staple from incision -GI prophylaxis Protonix and DVT prophylaxis subcu heparin Physician Cableman note has been reviewed by physician. Signing provider agrees with the documented findings, assessment, and plan of care. Objective - Vital Signs Vital signs: Vital Signs Temp 97.5 F L 01/23/23 09:10 Pulse 105 H 01/23/23 09:10 Resp 18 01/23/23 09:10 BP 125/86 01/23/23 09:10 Pulse Ox 96 01/23/23 09:10 FiO2 Intake & Output 01/22/23 01/23/23 01/23/23 18:59 06:59 18:59 Intake Total 137 10 Output Total 1150 2024 550 Balance -1012 Intake: IV 10 Invasive Line 4 10 Oral 137 Output: Urine 1150 2024 550 Other: Voiding Method Urinal Urinal Urinal # Voids 2 1 # Bowel Movements 1 1 1 - Labs CBC & Chem 7: 01/22/23 09:50 01/23/23 07:42 Labs: Abnormal Lab Results - Last 24 Hours (Table) 01/22/23 01/22/23 01/23/23 Range/Units 16:39 19:50 05:44 Chloride (98-107) mmol/L Glucose (74-99) mg/dL POC Glucose (mg/dL) 276 H 309 H 174 H (70-110) mg/dL Calcium (8.4-10.2) mg/dL 01/23/23 01/23/23 Range/Units 07:42 12:00 Chloride 114 H (98-107) mmol/L Glucose 164 H (74-99) mg/dL POC Glucose (mg/dL) 254 H (70-110) mg/dL Calcium 8.3 L (8.4-10.2) mg/dL
[2023-01-23 13:51] VITALS: BP 122/64; PULSE 97; TEMP 98.7
--- NOTE | 2023-01-23 15:16 | P.PN ---
Subjective Patient is seen for follow-up for hyponatremia secondary to diabetes insipidus, currently improved with discontinuation of lithium and DDAVP Status post D5W, currently off of IV fluids. Sodiumis 144 today. No complaints. Objective - Vital Signs Vital signs: Vital Signs Temp 98.7 F 01/23/23 12:00 Pulse 97 01/23/23 12:00 Resp 18 01/23/23 12:00 BP 122/64 01/23/23 12:00 Pulse Ox 96 01/23/23 12:00 FiO2 Intake & Output 01/22/23 01/23/23 01/23/23 18:59 06:59 18:59 Intake Total 137 550 Output Total 1150 5 550 Balance -1012 0 Intake: IV 10 Invasive Line 4 10 Oral 137 540 Output: Urine 1150 2024 550 Other: Voiding Method Urinal Urinal Urinal # Voids 2 1 # Bowel Movements 1 1 1 - Exam Awake, comfortable, no acute distress. 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 - Labs CBC & Chem 7: 01/22/23 09:50 01/23/23 07:42 Labs: Abnormal Lab Results - Last 24 Hours (Table) 01/22/23 01/22/23 01/23/23 Range/Units 16:39 19:50 05:44 Chloride (98-107) mmol/L Glucose (74-99) mg/dL POC Glucose (mg/dL) 276 H 309 H 174 H (70-110) mg/dL Calcium (8.4-10.2) mg/dL 01/23/23 01/23/23 Range/Units 07:42 12:00 Chloride 114 H (98-107) mmol/L Glucose 164 H (74-99) mg/dL POC Glucose (mg/dL) 254 H (70-110) mg/dL Calcium 8.3 L (8.4-10.2) mg/dL Assessment and Plan Assessment: 1. 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 Also a component of hyperglycemia. Improved with DDAVP. [place] is appropriately discontinued. Sodium has improved. 2. S/p omentectomy and right colectomy on 01/13/23 3. Hypokalemia, s/p replacement 4. Bipolar disorder on lithium, currently on hold. Plan: Continue current dose of DDAVP. Continue to hold lithium. F/u as out patient in 1 week with repeat labs in 1-2 days post discharge.
[2023-01-25] MEDS ORDERED: LACTULOSE 20 GM/30 ML CUP PO SCH (12:15)
== END 2023-01-23 15:30 | DRG 330 ==
LOC: EC 09:40 → 5NMEDONC 13:14 → 3SCARD 01-18 14:15
PROVIDERS: ADMIT Student in an Organized Health Care Education/Training Program; ATTEND Student in an Organized Health Care Education/Training Program
PROC: 0DTF0ZZ Resection of Right Large Intestine, Open Approach (ICD-10-PCS; principal; 2023-01-13 07:30)
PROC: 0DBU0ZZ Excision of Omentum, Open Approach (ICD-10-PCS; principal; 2023-01-13 07:30)
DX: K56.609 Unspecified intestinal obstruction, unspecified as to partial versus complete obstruction (principal); D62 Acute posthemorrhagic anemia; E87.1 Hypo-osmolality and hyponatremia; J98.11 Atelectasis; N17.9 Acute kidney failure, unspecified; N25.1 Nephrogenic diabetes insipidus; E87.20 Acidosis, unspecified; T43.595A Adverse effect of other antipsychotics and neuroleptics, initial encounter; E87.8 Other disorders of electrolyte and fluid balance, not elsewhere classified; E87.6 Hypokalemia; F10.11 Alcohol abuse, in remission; F25.1 Schizoaffective disorder, depressive type; F41.9 Anxiety disorder, unspecified; F42.9 Obsessive-compulsive disorder, unspecified; G89.18 Other acute postprocedural pain; I10 Essential (primary) hypertension; D50.9 Iron deficiency anemia, unspecified; E78.5 Hyperlipidemia, unspecified; I25.10 Atherosclerotic heart disease of native coronary artery without angina pectoris; Z87.440 Personal history of urinary (tract) infections; G47.30 Sleep apnea, unspecified; Z20.822 Contact with and (suspected) exposure to COVID-19; Z68.35 Body mass index [BMI] 35.0-35.9, adult; E66.01 Morbid (severe) obesity due to excess calories; Z71.3 Dietary counseling and surveillance; K21.9 Gastro-esophageal reflux disease without esophagitis; Z79.4 Long term (current) use of insulin; Z79.890 Hormone replacement therapy; Z79.84 Long term (current) use of oral hypoglycemic drugs; Z82.49 Family history of ischemic heart disease and other diseases of the circulatory system; Z79.899 Other long term (current) drug therapy; Z83.3 Family history of diabetes mellitus; Z88.0 Allergy status to penicillin; Z88.8 Allergy status to other drugs, medicaments and biological substances
CPT/HCPCS: 36415; 71045; 71046; 74018; 74019; 74176; 80048; 80053; 80159; 80178; 81001; 82550; 82553; 83036; 83605; 83735; 83935; 84295; 84300; 84443; 84484; 85025; 85027; 85610; 85730; 86850; 86900; 86901; 87635; 88307; 93005; 94760; 99285

== ENCOUNTER → 2024-05-06 | Outpatient (CLI) | payer MEDICARE, OTHER ==
--- NOTE | 2024-05-07 00:21 | MR ---
EXAMINATION TYPE: MR shoulder RT wo con DATE OF EXAM: 05/06/2024 COMPARISON: Prior MRI right shoulder October 31, 2015 HISTORY: Right shoulder pain for 5-8 months with difficulty raising arm overhead. TECHNIQUE: Multiplanar, multisequence imaging of the right shoulder is performed without contrast. FINDINGS: Rotator Cuff: Intact infraspinatus tendon. More prominent abnormal signal along the course of the dis natividad supraspinatus tendon. Heterogeneous but intact subscapularis tendon. Rotator cuff muscle bulk is preserved. There is mild to moderate diffuse edema through the infraspinatus muscle bulk however note d. Acromioclavicular Joint: Mild narrowing is less prominent versus prior study. Mild capsular hypertrop hy also less prominent versus prior. Underlying fat plane is improved on current study. Glenohumeral Joint: Moderate to large size joint effusion is more prominent versus prior. No signific ant spurring. Some narrowing remains present. Labrum: The labrum appears grossly intact given limitation of non-arthrogram study. Biceps Tendon: The long head of biceps is in normal location within bicipital groove. Heterogeneous i ncreased signal involving intracapsular portion for reference sagittal image 21 new from prior. Bone marrow signal: Some subchondral cystic change involving the lateral humeral head on current stud y. Other: No additional significant abnormality is appreciated. IMPRESSION: 1. More prominent tendinosis/partial tearing of the distal supraspinatus tendon. 2. New tendinosis/partial tearing of the intracapsular portion long head of biceps tendon. 3. Moderate to large size joint effusion is more prominent versus prior.
== END | disposition home or self-care (01) ==
LOC: RADMRIMAIN 13:51
PROVIDERS: ATTEND Internal Medicine
DX: M75.111 Incomplete rotator cuff tear or rupture of right shoulder, not specified as traumatic (principal); M67.813 Other specified disorders of tendon, right shoulder

== ENCOUNTER 2024-08-17 08:59 | Day surgery (SDC) | payer MEDICARE, OTHER ==
[2024-08-16 12:45] VITALS: BMI 34.3
--- NOTE | 2024-08-17 08:39 | P.GSHP ---
History of Present Illness H&P Date: 08/17/24 CHIEF COMPLAINT: PEG tube status HISTORY OF PRESENT ILLNESS: The patient is a 59-year-old male with history of sepsis including perforated diverticulitis and prolonged intubation who had a feeding tube placed at outside facility. Patient presents after tolerating oral feeds without use of feeding tube. Patient presents for removal of his feeding tube. PAST MEDICAL HISTORY: Please see list. PAST SURGICAL HISTORY: Please see list. MEDICATIONS: Please see list. ALLERGIES: Please see list. SOCIAL HISTORY: No illicit drug use FAMILY HISTORY: No reports of Crohn disease or ulcerative colitis. REVIEW OF ORGAN SYSTEMS: CONSTITUTIONAL: No reports of fevers or chills. GI: History of perforated diverticulitis, colostomy and feeding tube PHYSICAL EXAM: VITAL SIGNS: Stable GENERAL: Well-developed pleasant in no acute distress. HEENT: No scleral icterus. Extraocular movements grossly intact. Moist buccal mucosa. NECK: Supple without lymphadenopathy. CHEST: Unlabored respirations. Equal bilateral excursions. CARDIOVASCULAR: Regular rate and rhythm. Distal 2+ pulses. ABDOMEN: Soft, nondistended. PEG tube present MUSCULOSKELETAL: No clubbing, cyanosis, or edema. ASSESSMENT: 1. PEG tube status PLAN: 1. Recommend proceeding with EGD with removal of PEG tube per patient request Past Medical History Past Medical History: Diabetes Mellitus, GERD/Reflux, Hyperlipidemia, Hypertension, Sleep Apnea/CPAP/BIPAP Additional Past Medical History / Comment(s): Anemia. History of Any Multi-Drug Resistant Organisms: MRSA Date of last positivie culture/infection: Unknown MDRO Source:: Wound Past Surgical History: Unable to Obtain, Hernia Repair Past Anesthesia/Blood Transfusion Reactions: No Reported Reaction, Unable to Obtain Past Psychological History: Anxiety, Bipolar, Depression, Schizoaffective Disorder Additional Psychological History / Comment(s): OCD. Smoking Status: Never smoker Past Alcohol Use History: None Reported Past Drug Use History: None Reported - Past Family History Father Family Medical History: Congestive Heart Failure (CHF), Coronary Artery Disease (CAD), Diabetes Mellitus Mother Family Medical History: Cancer Medications and Allergies Home Medications Medication Instructions Recorded Confirmed Type Propranolol HCl [Propranolol HCl 80 mg PO BID 01/12/23 08/16/24 History ER] Citalopram Hydrobromide [CeleXA] 20 mg PO DAILY tab 01/23/23 08/16/24 Rx Acetaminophen [Tylenol Arthritis] 650 mg PO Q6H PRN 08/16/24 08/16/24 History Ascorbic Acid [Vitamin C] 500 mg PO HS 08/16/24 08/16/24 History Atorvastatin Calcium 10 mg PO HS 08/16/24 08/16/24 History Cetirizine HCl 10 mg PO DAILY 08/16/24 08/16/24 History Cholestyramine/Aspartame 4 gm PO BID 08/16/24 08/16/24 History [Cholestyramine Light Packet] Desmopressin [Ddavp] 0.2 mg PO BID 08/16/24 08/16/24 History Diphenoxylate HCl/Atropine 2 tab PO BID 08/16/24 08/16/24 History [Lomotil 2.5-0.025 mg Tablet] Famotidine 20 mg PO HS 08/16/24 08/16/24 History Ferrous Sulfate [Iron] 325 mg PO HS 08/16/24 08/16/24 History Insulin Aspart (Niacinamide) 5 units SQ TID-W/MEALS 08/16/24 08/16/24 History [Fiasp 100 Unit/ml Vial] Ipratropium-Albuterol Nebulize 3 ml INHALATION Q4H PRN 08/16/24 08/16/24 History [Duoneb 0.5 mg-3 mg/3 ml Soln] Melatonin 5 mg PO HS 08/16/24 08/16/24 History Simethicone [Mylanta Gas Minis] 125 mg PO TID-W/MEALS 08/16/24 08/16/24 History Sodium Bicarbonate 1,300 mg PO BID 08/16/24 08/16/24 History Tamsulosin [Flomax] 0.4 mg PO HS 08/16/24 08/16/24 History cloZAPine [cloZAPine ODT] 200 mg PO HS 08/16/24 08/16/24 History diphenhydrAMINE HCL [Benadryl 50 mg PO HS 08/16/24 08/16/24 History Allergy] lisinopriL [Zestril] 10 mg PO DAILY 08/16/24 08/16/24 History rOPINIRole HCL 0.25 mg PO HS 08/16/24 08/16/24 History sitaGLIPtin [Januvia] 100 mg PO DAILY 08/16/24 08/16/24 History traZODone HCL [Desyrel] 75 mg PO HS 08/16/24 08/16/24 History Allergies Allergy/AdvReac Type Severity Reaction Status Date / Time Penicillins Allergy Unknown Verified 08/16/24 12:09 Childhood risperidone [From Risperdal] Allergy Unknown Verified 08/16/24 12:09 divalproex sodium AdvReac Anxiety, Verified 08/16/24 12:09 [From Depakote] weight gain
[~2024-08-17 08:59] MED LIST: LIDOCAINE 1% (10MG/ML) FOR IV START INTRADERMA PRN
[2024-08-17 10:11] VITALS: TEMP 96.9
[2024-08-17] MEDS: LACTATED RINGERS 1,000 ML IV SCH (10:21)
[2024-08-17] MEDS: IV FLUID CONTINUATION 1,000 ML IV ONE (10:21)
[2024-08-17] MEDS ORDERED: LIDOCAINE 2% (PF) 20 MG/ML 5 ML VIAL ONE (10:57)
[2024-08-17] MEDS ORDERED: PROPOFOL 10 MG/ML 20 ML VIAL IV ONE (10:57)
[2024-08-17 11:39] VITALS: BP 175/91; PULSE 72; RESP 20
--- NOTE | 2024-08-17 13:45 | P.PCN ---
Date of Procedure: 08/17/24 Description of Procedure: PREOPERATIVE DIAGNOSIS: Gastrostomy tube status. 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 Esophagogastroduodenoscopy with removal of gastrojejunostomy feeding tube, 21 Georgian SURGEON: Catrina Mendoza MD ANESTHESIA: MAC. EBL: 0-mL INDICATIONS: The patient is a 59-year-old male with complicated history of tracheostomy, sepsis, perforated diverticulitis and placement of feeding tube while on prolonged ventilation. Patient presents for removal of his feeding tube that he can tolerate oral feeds. Benefits and risks were obtained. DESCRIPTION: The patient was brought into the endoscopy suite and laid in supine position. A timeout protocol was confirmed with the team. After adequate IV sedation a bite block was placed. An Olympus gastroscope was passed along the posterior oropharynx down the distal esophagus. Presence of Garcia's esophagus over 3 cm were found. The stomach was entered and feeding tube was found with partially deflated balloon and extension of tubing into the duodenum consistent with gastrojejunostomy feeding tube. The scope was passed through the jejunum confirming no further balloon along the distal port. The adapter was deflated of any residual fluid over 3 to 5 cc. Under visualization, the gastrojejunostomy tube was removed from the abdomen without sequelae or bleeding. Immediately, the mucosa of the gastrocutaneous tract was closed with insufflation of the stomach achieved. An endoscopic image of the gastrostomy tube removal site was obtained. The patient tolerated the procedure well. Findings: 1. Successful removal of gastrojejunostomy feeding tube, 21 Georgian Disposition: 1. Keep dressing for 48 to 72 hours Plan - Discharge Summary Discharge Rx Participant: No New Discharge Prescriptions: Continue Propranolol HCl [Propranolol HCl ER] 80 mg PO BID Citalopram Hydrobromide [CeleXA] 20 mg PO DAILY tab Desmopressin [Ddavp] 0.2 mg PO BID cloZAPine [cloZAPine ODT] 200 mg PO HS Tamsulosin [Flomax] 0.4 mg PO HS Diphenoxylate HCl/Atropine [Lomotil 2.5-0.025 mg Tablet] 2 tab PO BID Ascorbic Acid [Vitamin C] 500 mg PO HS Simethicone [Mylanta Gas Minis] 125 mg PO TID-W/MEALS Insulin Aspart (Niacinamide) [Fiasp 100 Unit/ml Vial] 5 units SQ TID-W/MEALS Famotidine 20 mg PO HS Cholestyramine/Aspartame [Cholestyramine Light Packet] 4 gm PO BID Cetirizine HCl 10 mg PO DAILY Atorvastatin Calcium 10 mg PO HS traZODone HCL [Desyrel] 75 mg PO HS sitaGLIPtin [Januvia] 100 mg PO DAILY lisinopriL [Zestril] 10 mg PO DAILY Melatonin 5 mg PO HS rOPINIRole HCL 0.25 mg PO HS diphenhydrAMINE HCL [Benadryl] 50 mg PO HS Sodium Bicarbonate 1,300 mg PO BID Ipratropium-Albuterol Nebulize [Duoneb 0.5 mg-3 mg/3 ml Soln] 3 ml INHALATION Q4H PRN PRN Reason: Shortness Of Breath Ferrous Sulfate [Iron] 325 mg PO HS Acetaminophen [Tylenol Arthritis] 650 mg PO Q6H PRN PRN Reason: Pain Discharge Medication List Propranolol HCl [Propranolol HCl ER] 80 mg PO BID 01/12/23 [History] Citalopram Hydrobromide [CeleXA] 20 mg PO DAILY tab 01/23/23 [Rx] Acetaminophen [Tylenol Arthritis] 650 mg PO Q6H PRN 08/16/24 [History] Ascorbic Acid [Vitamin C] 500 mg PO HS 08/16/24 [History] Atorvastatin Calcium 10 mg PO HS 08/16/24 [History] Cetirizine HCl 10 mg PO DAILY 08/16/24 [History] Cholestyramine/Aspartame [Cholestyramine Light Packet] 4 gm PO BID 08/16/24 [History] Desmopressin [Ddavp] 0.2 mg PO BID 08/16/24 [History] Diphenoxylate HCl/Atropine [Lomotil 2.5-0.025 mg Tablet] 2 tab PO BID 08/16/24 [History] Famotidine 20 mg PO HS 08/16/24 [History] Ferrous Sulfate [Iron] 325 mg PO HS 08/16/24 [History] Insulin Aspart (Niacinamide) [Fiasp 100 Unit/ml Vial] 5 units SQ TID-W/MEALS 08/16/24 [History] Ipratropium-Albuterol Nebulize [Duoneb 0.5 mg-3 mg/3 ml Soln] 3 ml INHALATION Q4H PRN 08/16/24 [History] Melatonin 5 mg PO HS 08/16/24 [History] Simethicone [Mylanta Gas Minis] 125 mg PO TID-W/MEALS 08/16/24 [History] Sodium Bicarbonate 1,300 mg PO BID 08/16/24 [History] Tamsulosin [Flomax] 0.4 mg PO HS 08/16/24 [History] cloZAPine [cloZAPine ODT] 200 mg PO HS 08/16/24 [History] diphenhydrAMINE HCL [Benadryl] 50 mg PO HS 08/16/24 [History] lisinopriL [Zestril] 10 mg PO DAILY 08/16/24 [History] rOPINIRole HCL 0.25 mg PO HS 08/16/24 [History] sitaGLIPtin [Januvia] 100 mg PO DAILY 08/16/24 [History] traZODone HCL [Desyrel] 75 mg PO HS 08/16/24 [History] Follow up Appointment(s)/Referral(s): Catrina Mendoza MD [STAFF PHYSICIAN] - As Needed Patient Instructions/Handouts: *Surgery [facility] - (Anesthesia) Discharge Instructions Outpatient Surgery Activity/Diet/Wound Care/Special Instructions: .KEEP DRESSING DRY ND INTACT FOR 48 TO 72 HR REUSUME NORMAL DIET AND ACTIVITY Discharge Disposition: TRANSFER TO SNF/ECF
== END 2024-08-17 12:19 ==
LOC: ORWHC2ENDO 08:59
PROVIDERS: ATTEND Surgery Plastic and Reconstructive Surgery
DX: T18.2XXA Foreign body in stomach, initial encounter
CPT/HCPCS: 43247

== ENCOUNTER 2024-09-28 09:15 | Observation (INO) | payer MEDICARE, OTHER ==
--- NOTE | 2024-09-28 10:03 | ED ---
General Adult HPI - General Source: patient, RN notes reviewed Mode of arrival: ambulatory Limitations: no limitations <Cathi Varela - Last Filed: 09/28/24 10:01> <Zainab Yadav - Last Filed: 09/28/24 15:37> - General Chief complaint: Recheck/Abnormal Lab/Rx Stated complaint: high blood pressure/dizzy lightheaded Time Seen by Provider: 09/28/24 09:40 - History of Present Illness Initial comments: Quick Note: This is a 59-year-old male who presents to the emergency department for elevated blood pressure. Patient was going to his neurologist office today to get a pain injection in the left shoulder. States that his BP was in the 200s systolically. He was subsequently advised to come here for evaluation. Reports headaches and dizziness. Denies any chest pain or shortness of breath. He has been compliant with his BP medications. (Cathi Varela) 59-year-old male who presents emergency department with elevated blood pressure and headache. Patient went to his neurologist office today to get a pain injection. They checked his blood pressure and it was 200 systolic. He was told to come to the emergency department for evaluation. Patient endorses lightheadedness with a 6 out of 10 headache. He does reside at [facility] and staff is available at bedside. Reports that the patient does have blood pressure checked frequently and has had no issues with elevated blood pressures. He does take propranolol and lisinopril. No missed doses of his medications. Patient denies any chest pain or difficulty breathing. No lateralizing weakness. No other alleviating, precipitating modifying factors (Zainab Yadav) - Related Data Home Medications Medication Instructions Recorded Confirmed Acetaminophen [Tylenol Arthritis] 650 mg PO Q6H PRN 08/16/24 09/28/24 Ascorbic Acid [Vitamin C] 500 mg PO HS 08/16/24 09/28/24 Atorvastatin Calcium 10 mg PO HS 08/16/24 09/28/24 Cetirizine HCl 10 mg PO DAILY 08/16/24 09/28/24 Cholestyramine/Aspartame 4 gm PO BID 08/16/24 09/28/24 [Cholestyramine Light Packet] Desmopressin [Ddavp] 0.2 mg PO BID 08/16/24 09/28/24 Diphenoxylate HCl/Atropine 2 tab PO BID 08/16/24 09/28/24 [Lomotil 2.5-0.025 mg Tablet] Famotidine 20 mg PO HS 08/16/24 09/28/24 Ferrous Sulfate [Iron] 325 mg PO HS 08/16/24 09/28/24 Insulin Aspart (Niacinamide) 5 units SQ TID-W/MEALS 08/16/24 09/28/24 [Fiasp 100 Unit/ml Vial] Melatonin 5 mg PO HS 08/16/24 09/28/24 Simethicone [Mylanta Gas Minis] 125 mg PO TID-W/MEALS 08/16/24 09/28/24 Tamsulosin [Flomax] 0.4 mg PO HS 08/16/24 09/28/24 diphenhydrAMINE HCL [Benadryl] 50 mg PO HS 08/16/24 09/28/24 lisinopriL [Zestril] 10 mg PO DAILY 08/16/24 09/28/24 rOPINIRole HCL 0.25 mg PO HS 08/16/24 09/28/24 sitaGLIPtin [Januvia] 100 mg PO DAILY 08/16/24 09/28/24 traZODone HCL [Desyrel] 75 mg PO HS 08/16/24 09/28/24 Propranolol HCl 80 mg PO BID 09/28/24 09/28/24 Sodium Bicarbonate Tab 650 mg PO BID 09/28/24 09/28/24 cloZAPine [Clozaril] 200 mg PO HS 09/28/24 09/28/24 Previous Rx's Medication Instructions Recorded Citalopram Hydrobromide [CeleXA] 20 mg PO DAILY tab 01/23/23 Allergies Allergy/AdvReac Type Severity Reaction Status Date / Time Penicillins Allergy Unknown Verified 09/28/24 14:33 Childhood risperidone [From Risperdal] Allergy Unknown Verified 09/28/24 14:33 divalproex sodium AdvReac Anxiety, Verified 09/28/24 14:33 [From Depakote] weight gain Review of Systems ROS Other: All systems not noted in ROS Statement are negative. <Cathi Varela - Last Filed: 09/28/24 10:01> ROS Other: All systems not noted in ROS Statement are negative. <Zainab Yadav - Last Filed: 09/28/24 15:37> ROS Statement: Those systems with pertinent positive or pertinent negative responses have been documented in the HPI. Past Medical History Past Medical History: Diabetes Mellitus, GERD/Reflux, Hyperlipidemia, Hypertension, Sleep Apnea/CPAP/BIPAP Additional Past Medical History / Comment(s): Family history of premature coronary artery disease. OCD. History of Any Multi-Drug Resistant Organisms: None Reported Past Surgical History: Hernia Repair Past Anesthesia/Blood Transfusion Reactions: No Reported Reaction Past Psychological History: Anxiety, Bipolar, Depression, Schizoaffective Disorder Smoking Status: Never smoker Past Alcohol Use History: None Reported Past Drug Use History: None Reported - Past Family History Father Family Medical History: Congestive Heart Failure (CHF), Coronary Artery Disease (CAD), Diabetes Mellitus Mother Family Medical History: Cancer <Cathi Varela - Last Filed: 09/28/24 10:01> General Exam Limitations: no limitations <Cathi Varela - Last Filed: 09/28/24 10:01> - General Exam Comments Initial Comments: Visual Physical Exam Vital signs reviewed General: Well-appearing, nontoxic, no acute distress. Head: Normocephalic, atraumatic Eyes: PERRLA, EOMI ENT: Airway patent Chest: Nonlabored breathing Skin: No visual rash, normal skin tone Neuro: Alert and oriented 3 Musculoskeletal: No gross abnormalities (Cathi Vareal) Course Vital Signs 09/28/24 09/28/24 09/28/24 09:43 12:34 14:08 Temperature 98.3 F 97.7 F Pulse Rate 92 71 62 Respiratory 18 20 16 Rate Blood Pressure 174/117 192/112 183/113 O2 Sat by Pulse 94 L 96 96 Oximetry 09/28/24 15:18 Temperature Pulse Rate 67 Respiratory 16 Rate Blood Pressure 205/112 O2 Sat by Pulse 99 Oximetry Medical Decision Making <Cathi Varela - Last Filed: 09/28/24 10:01> - Lab Data Result diagrams: 09/28/24 10:59 09/28/24 10:59 <Zainab Yadav - Last Filed: 09/28/24 15:37> - Medical Decision Making I performed the QuickNote portion of this chart. Signed Cathi Varela PA-C. (Cathi Varela) Was pt. sent in by a medical professional or institution (, PA, CURTAIN WORKER, urgent care, hospital, or longterm...) When possible be specific @ -[No] Did you speak to anyone other than the patient for history (EMS, parent, family, police, friend...)? What history was obtained from this source @ -[No] Did you review nursing and triage notes (agree or disagree)? Why? @ -[I reviewed and agree with nursing and triage notes] Were old charts reviewed (outside hosp., previous admission, EMS record, old EKG, old radiological studies, urgent care reports/EKG's, longterm records)? Report findings @ -[No old charts were reviewed] Differential Diagnosis (chest pain, altered mental status, abdominal pain women, abdominal pain men, vaginal bleeding, weakness, fever, dyspnea, syncope, headache, dizziness, GI bleed, back pain, seizure, CVA, palpatations, mental health, musculoskeletal)? @ -[not applicable] EKG interpreted by me (3pts min.). @ -Yes and demonstrates sinus rhythm with a rate of 75. NV interval 168. QRS 101. QTc of 417. Inverted T wave with ST depression in 3 and aVF. No acute ST segment elevation X-rays interpreted by me (1pt min.). @ -[None done] CT interpreted by me (1pt min.). @ -[None done] U/S interpreted by me (1pt. min.). @ -[None done] What testing was considered but not performed or refused? (CT, X-rays, U/S, labs)? Why? @ -[None] What meds were considered but not given or refused? Why? @ -[None] Did you discuss the management of the patient with other professionals (professionals i.e. , PA, CURTAIN WORKER, lab, RT, psych nurse, child welfare social worker, hooker on, teacher, national service officer, keycase assembler)? Give summary @ -[No] Was smoking cessation discussed for >3mins.? @ -[No] Was critical care preformed (if so, how long)? @ -[No] Were there social determinants of health that impacted care today? How? (Homelessness, low income, unemployed, alcoholism, drug addiction, transportation, low edu. Level, literacy, decrease access to med. care, usp, rehab)? @ -[No] Was there de-escalation of care discussed even if they declined (Discuss DNR or withdrawal of care, Hospice)? DNR status @ -[No] What co-morbidities impacted this encounter? (DM, HTN, Smoking, COPD, CAD, Cancer, CVA, ARF, Chemo, Hep., AIDS, mental health diagnosis, sleep apnea, morbid obesity)? @ -[None] Was patient admitted / discharged? Hospital course, mention meds given and route, prescriptions, significant lab abnormalities, going to OR and other pertinent info. @ -[hospital course] Undiagnosed new problem with uncertain prognosis? @ -[No] Drug Therapy requiring intensive monitoring for toxicity (Heparin, Nitro, Insulin, Cardizem)? @ -[No] Were any procedures done? @ -[No] Diagnosis/symptom? @ -[default] Acute, or Chronic, or Acute on Chronic? @ -[default] Uncomplicated (without systemic symptoms) or Complicated (systemic symptoms)? @ -[default] Side effects of treatment? @ -[No] Exacerbation, Progression, or Severe Exacerbation? @ -[No] Poses a threat to life or bodily function? How? (Chest pain, USA, SD, pneumonia, PE, COPD, DKA, ARF, appy, cholecystitis, CVA, Diverticulitis, Homicidal, Suicidal, threat to staff... and all critical care pts) @ -[No] (Zainab Yadav) - Lab Data Lab Results 09/28/24 09/28/24 09/28/24 Range/Units 10:59 10:59 10:59 WBC 9.8 (3.8-10.6) k/uL RBC 4.92 (4.30-5.90) m/uL Hgb 14.5 (13.0-17.5) gm/dL Hct 42.7 (39.0-53.0) % MCV 86.8 (80.0-100.0) fL MCH 29.5 (25.0-35.0) pg MCHC 34.0 (31.0-37.0) g/dL RDW 14.4 (11.5-15.5) % Plt Count 139 L (150-450) k/uL MPV 8.8 Neutrophils % 80 % Lymphocytes % 13 % Monocytes % 5 % Eosinophils % 1 % Basophils % 0 % Neutrophils # 7.9 H (1.3-7.7) k/uL Lymphocytes # 1.3 (1.0-4.8) k/uL Monocytes # 0.5 (0-1.0) k/uL Eosinophils # 0.1 (0-0.7) k/uL Basophils # 0.0 (0-0.2) k/uL PT (10.0-12.5) sec INR (<1.2) APTT (22.0-30.0) sec Sodium 136 L (137-145) mmol/L Potassium 4.0 (3.5-5.1) mmol/L Chloride 107 (98-107) mmol/L Carbon Dioxide 18 L (22-30) mmol/L Anion Gap 11 mmol/L BUN 21 H (9-20) mg/dL Creatinine 1.06 (0.66-1.25) mg/dL Est GFR (CKD-EPI)AfAm >90 (>60 ml/min/1.73 sqM) Est GFR (CKD-EPI)NonAf 78 (>60 ml/min/1.73 sqM) Glucose 238 H (74-99) mg/dL Calcium 9.1 (8.4-10.2) mg/dL Magnesium 2.2 (1.6-2.3) mg/dL Total Bilirubin 0.8 (0.2-1.3) mg/dL AST 27 (17-59) U/L ALT 34 (4-49) U/L Alkaline Phosphatase 114 (38-126) U/L Troponin I <0.012 (0.000-0.034) ng/mL Total Protein 6.5 (6.3-8.2) g/dL Albumin 3.8 (3.5-5.0) g/dL Urine Color Urine Appearance (Clear) Urine pH (5.0-8.0) Ur Specific [place] (1.001-1.035) Urine Protein (Negative) Urine Glucose (UA) (Negative) Urine Ketones (Negative) Urine Blood (Negative) Urine Nitrite (Negative) Urine Bilirubin (Negative) Urine Urobilinogen (<2.0) mg/dL Ur Leukocyte Esterase (Negative) 09/28/24 09/28/24 Range/Units 12:51 13:38 WBC (3.8-10.6) k/uL RBC (4.30-5.90) m/uL Hgb (13.0-17.5) gm/dL Hct (39.0-53.0) % MCV (80.0-100.0) fL MCH (25.0-35.0) pg MCHC (31.0-37.0) g/dL RDW (11.5-15.5) % Plt Count (150-450) k/uL MPV Neutrophils % % Lymphocytes % % Monocytes % % Eosinophils % % Basophils % % Neutrophils # (1.3-7.7) k/uL Lymphocytes # (1.0-4.8) k/uL Monocytes # (0-1.0) k/uL Eosinophils # (0-0.7) k/uL Basophils # (0-0.2) k/uL PT 10.2 (10.0-12.5) sec INR 0.9 (<1.2) APTT 25.7 (22.0-30.0) sec Sodium (137-145) mmol/L Potassium (3.5-5.1) mmol/L Chloride (98-107) mmol/L Carbon Dioxide (22-30) mmol/L Anion Gap mmol/L BUN (9-20) mg/dL Creatinine (0.66-1.25) mg/dL Est GFR (CKD-EPI)AfAm (>60 ml/min/1.73 sqM) Est GFR (CKD-EPI)NonAf (>60 ml/min/1.73 sqM) Glucose (74-99) mg/dL Calcium (8.4-10.2) mg/dL Magnesium (1.6-2.3) mg/dL Total Bilirubin (0.2-1.3) mg/dL AST (17-59) U/L ALT (4-49) U/L Alkaline Phosphatase (38-126) U/L Troponin I (0.000-0.034) ng/mL Total Protein (6.3-8.2) g/dL Albumin (3.5-5.0) g/dL Urine Color Light Yellow Urine Appearance Clear (Clear) Urine pH 6.0 (5.0-8.0) Ur Specific [place] 1.020 (1.001-1.035) Urine Protein Trace H (Negative) Urine Glucose (UA) Negative (Negative) Urine Ketones Negative (Negative) Urine Blood Negative (Negative) Urine Nitrite Negative (Negative) Urine Bilirubin Negative (Negative) Urine Urobilinogen <2.0 (<2.0) mg/dL Ur Leukocyte Esterase Negative (Negative) Disposition <Cathi Varela - Last Filed: 09/28/24 10:01> Is patient prescribed a controlled substance at d/c from ED?: No Time of Disposition: 15:33 Decision to Admit Reason: Admit from EC Decision Date: 09/28/24 Decision Time: 15:34 <Zainab Yadav - Last Filed: 09/28/24 15:37> Clinical Impression: Hypertension, Cephalgia Disposition: ADMITTED IP TO THIS [facility] Condition: Stable Referrals: Kacey Cohen DO [Primary Care Provider] - 1-2 days
[2024-09-28 11:54] LABS: Basophils % (A) 0 %; Eosinophils # (A) 0.1 k/uL (0-0.7); Eosinophils % (A) 1 %; HCT 42.7 % (39.0-53.0); HGB 14.5 gm/dL (13.0-17.5); Lymphocytes # (A) 1.3 k/uL (1.0-4.8); Lymphocytes % (A) 13 %; MCH 29.5 pg (25.0-35.0); MCV 86.8 fL (80.0-100.0); Mean Platelet Volume 8.8; Monocytes # (A) 0.5 k/uL (0-1.0); Monocytes % (A) 5 %; Neutrophils # (A) 7.9 k/uL (1.3-7.7); Neutrophils % (A) 80 %; Platelet Count 139 k/uL (150-450); RBC 4.92 m/uL (4.30-5.90); RDW 14.4 % (11.5-15.5); WBC 9.8 k/uL (3.8-10.6)
[2024-09-28 11:58] LABS: ALT 34 U/L (4-49); AST 27 U/L (17-59); African American GFR (CKD) >90 (>60 ml/min/1.73 sqM); Albumin 3.8 g/dL (3.5-5.0); Alkaline Phosphatase 114 U/L (38-126); Anion Gap 11 mmol/L; Blood Urea Nitrogen 21 mg/dL (9-20); Calcium 9.1 mg/dL (8.4-10.2); Carbon Dioxide 18 mmol/L (22-30); Chloride 107 mmol/L (98-107); Glucose 238 mg/dL (74-99); Magnesium 2.2 mg/dL (1.6-2.3); Non-African American GFR(CKD) 78 (>60 ml/min/1.73 sqM); Sodium 136 mmol/L (137-145); Total Bilirubin 0.8 mg/dL (0.2-1.3); Total Protein 6.5 g/dL (6.3-8.2)
[2024-09-28 13:16] LABS: INR 0.9 (<1.2); Partial Thromboplastin Time 25.7 sec (22.0-30.0); Prothrombin Time 10.2 sec (10.0-12.5)
[2024-09-28 13:48] LABS: Appearance,Urine Clear (Clear); Bilirubin,Urine Negative (Negative); Blood,Urine Negative (Negative); Color,Urine Light Yellow; Glucose,Urine (UA) Negative (Negative); Ketones,Urine Negative (Negative); Leukocyte Esterase,Urine Negative (Negative); Nitrite,Urine Negative (Negative); Protein,Urine Trace (Negative); Urobilinogen,Urine <2.0 mg/dL (<2.0)
[2024-09-28] MEDS: LABETALOL 5 MG/ML VIAL MDV IVP STA (14:15)
--- NOTE | 2024-09-28 15:02 | CT ---
EXAMINATION TYPE: CT brain wo con CT DLP: 1161.4 mGycm, Automated exposure control for dose reduction was used. DATE OF EXAM: 09/28/2024 2:52 PM COMPARISON: None. CLINICAL INDICATION:Male, 59 years old with history of headache, hypertension, headache, hypertension TECHNIQUE: Brain: Multiple axial CT images of the brain were obtained without IV contrast. . Coronal and sagitta l reformats reviewed. FINDINGS: Brain: Extra-axial spaces: No abnormal extra-axial fluid collections. Falx calcifications. Ventricular system: Within normal limits Cerebral parenchyma: No acute intraparenchymal hemorrhage or mass effect. The ann-white junction is well differentiated. Scattered hypoattenuating areas are seen within the periventricular white matte r. Cerebellum: Unremarkable. Mass effect: No evidence of midline shift. Intracranial vasculature: Atherosclerotic calcifications of the intracranial vessels. Soft tissues: Normal. Calvarium/osseous structures: No depressed skull fracture. Remote right medial orbital wall fracture. Paranasal sinuses and mastoid air cells: The mastoid air cells are clear. Mucous retention cysts iden tified within the inferior bilateral maxillary sinuses. Mild mucosal thickening of the left sphenoid sinus. Mild mucosal thickening in the anterior ethmoid sinuses. Visualized orbits: Orbital contents are intact. Bilateral proptosis. IMPRESSION: 1. No acute intracranial process. 2. Nonspecific white matter changes, likely secondary to chronic small vessel ischemic disease. 3. Bilateral proptosis. [facility], , 09/28/2024 3:00 PM
[2024-09-28] MEDS ORDERED: ACETAMINOPHEN TAB 325 MG TAB PO PRN (15:42)
[2024-09-28] MEDS ORDERED: NALOXONE 0.4 MG/ML 1 ML VIAL IV PRN (15:42)
[2024-09-28] MEDS: cloNIDine HCL 0.1 MG TAB PO STA (16:26)
[2024-09-28 18:09] LABS: Glucose,Whole Blood 199 mg/dL (70-110)
[2024-09-28] MEDS: INSULIN ASPART (NovoLOG) 100 UNIT/ML VIAL SQ SCH (18:21)
[2024-09-28] MEDS: SIMETHICONE 80 MG CHEWABLE PO SCH (18:37)
[2024-09-28] MEDS: TAMSULOSIN 0.4 MG CAP.ER.24H PO SCH (21:25)
[2024-09-28] MEDS: ASCORBIC ACID 500 MG TAB PO SCH (21:25)
[2024-09-28] MEDS: FERROUS SULFATE 325 MG TAB PO SCH (21:25)
[2024-09-28] MEDS: MELATONIN 5 MG TABLET PO SCH (21:26)
[2024-09-28] MEDS: traZODone HCL 50 MG TAB PO SCH (21:26)
[2024-09-28] MEDS: ATORVASTATIN 10 MG TAB PO SCH (21:26)
[2024-09-28] MEDS: FAMOTIDINE 20 MG TAB PO SCH (21:26)
[2024-09-28] MEDS: diphenhydrAMINE 50 MG CAP PO SCH (21:26)
[2024-09-28] MEDS: CHOLESTYRAMINE (WITH SUGAR) 4 GM PACKET PO SCH (21:27)
[2024-09-28] MEDS: SODIUM BICARBONATE TAB 650 MG TAB PO SCH (21:27)
[2024-09-28] MEDS: DESMOPRESSIN 0.2 MG TAB PO SCH (21:27)
[2024-09-28] MEDS: PROPRANOLOL 40 MG TAB PO SCH (21:27)
[2024-09-28] MEDS: cloZAPine 100 MG TAB PO SCH (21:28)
[2024-09-29 07:42] LABS: Glucose,Whole Blood 165 mg/dL (70-110)
[2024-09-29] MEDS: LINAGLIPTIN 5 MG TABLET PO SCH (08:05)
[2024-09-29] MEDS: CITALOPRAM HYDROBROMIDE 20 MG TAB PO SCH (08:05)
[2024-09-29] MEDS: lisinopriL 10 MG TAB PO SCH (08:06)
[2024-09-29] MEDS: LORATADINE 10 MG TAB PO SCH (08:06)
[2024-09-29 08:12] LABS: African American GFR (CKD) 86 (>60 ml/min/1.73 sqM); Anion Gap 6 mmol/L; Blood Urea Nitrogen 21 mg/dL (9-20); Calcium 8.8 mg/dL (8.4-10.2); Carbon Dioxide 25 mmol/L (22-30); Chloride 106 mmol/L (98-107); Glucose 178 mg/dL (74-99); Non-African American GFR(CKD) 74 (>60 ml/min/1.73 sqM); Potassium 3.7 mmol/L (3.5-5.1); Sodium 137 mmol/L (137-145)
[2024-09-29 11:35] LABS: Glucose,Whole Blood 206 mg/dL (70-110)
[2024-09-29] MEDS: lisinopriL 10 MG TAB PO STA (12:19)
[2024-09-29] MEDS: cloNIDine HCL 0.1 MG TAB PO STA (14:42)
[2024-09-29 14:45] VITALS: BP 187/121; PULSE 76; RESP 20; TEMP 97.9
--- NOTE | 2024-09-29 14:50 | P.HPIM ---
History of Present Illness H&P Date: 09/29/24 This is a 59-year-old male who presented to the emergency department with hypertension and hypertensive urgency while at the pain clinic awaiting to receive a pain injection in the shoulder for left shoulder pain patient was noted to have hypertension and sent here for further evaluation. Patient was admitted for hypertensive urgency with a past medical history of diabetes mellitus, GERD, hyperlipidemia, hypertension, sleep apnea, anxiety, bipolar depression, schizoaffective disorder and chronic left shoulder pain. Labs reviewed and recommend follow-up labs outpatient to monitor kidney functions and electrolytes. Creatinine mildly elevated at 1.1 with a BUN of 21. Concerns of blood pressure elevation being that patient is continuing with ongoing pain of the left shoulder and have made some adjustments including increasing lisinopril although recommend outpatient follow-up with cardiology and/or primary care provider to continue to adjust medications accordingly as it is felt some of these elevated blood pressures are secondary to pain. REVIEW OF SYSTEMS: CONSTITUTIONAL: No fever, no malaise, no fatigue. HEENT: No recent visual problems or hearing problems. Denied any sore throat. Reports of a headache that has resolved CARDIOVASCULAR: No chest pain, orthopnea, PND, no palpitations, no syncope. PULMONARY: No shortness of breath, no cough, no hemoptysis. GASTROINTESTINAL: No diarrhea, no nausea, no vomiting, no abdominal pain. NEUROLOGICAL: No headaches, no weakness, no numbness. HEMATOLOGICAL: Denies any bleeding or petechiae. GENITOURINARY: Denies any burning micturition, frequency, or urgency. MUSCULOSKELETAL/RHEUMATOLOGICAL: Denies any joint pain, swelling, or any muscle pain. ENDOCRINE: Denies any polyuria or polydipsia. The rest of the 14-point review of systems is negative. PHYSICAL EXAMINATION: GENERAL: The patient is alert and oriented x2, not in any acute distress. Well developed, well nourished. Gait steady on exam, appears older than stated age, obese HEENT: Pupils are round and equally reacting to light. EOMI. No scleral icterus. No conjunctival pallor. Normocephalic, atraumatic. No pharyngeal erythema. No thyromegaly. CARDIOVASCULAR: S1 and S2 present. No murmurs, rubs, or gallops. PULMONARY: Chest is clear to auscultation, no wheezing or crackles. ABDOMEN: Soft, obese, nontender, nondistended, normoactive bowel sounds. No palpable organomegaly. MUSCULOSKELETAL: No joint swelling or deformity. EXTREMITIES: No cyanosis, clubbing, or pedal edema. NEUROLOGICAL: Gross neurological examination did not reveal any focal deficits. SKIN: No rashes. Assessment: Hypertension with hypertensive urgency Chronic left shoulder pain, to reschedule with pain management regarding epidural injection History of hypertension History of diabetes mellitus History of GERD Hyperlipidemia Sleep apnea History of anxiety/bipolar/depression/schizoaffective disorder Obesity with a BMI 34.0 GI prophylaxis DVT Mitul Loza Full code Plan: Patient was sent here from pain management clinic while attempting to receive a pain injection of the left shoulder for chronic pain and was noted to have elevated blood pressures. Patient was admitted for further blood pressure control. [place] most of this is related to the pain and have adjusted the lisinopril although recommend outpatient follow-up with cardiology and/or primary care provider to further adjust medications as needed Patient is medically stable and will be discharged to [facility] where he resides Recommend outpatient follow-up with pain coordinator regarding rescheduling pain injection The impression and plan of care has been dictated by Miranda León, Nurse Practitioner as directed. Dr. Madison MD I have performed a history and examination and MDM of this patient, discussed the same with the dictator, and agree with the dictator's assessment and plan as written ,documented as a scribe. Based on total visit time, I have performed more than 50% of the visit. Past Medical History Past Medical History: Diabetes Mellitus, GERD/Reflux, Hyperlipidemia, Hypertension, Sleep Apnea/CPAP/BIPAP Additional Past Medical History / Comment(s): Family history of premature coronary artery disease. OCD. History of Any Multi-Drug Resistant Organisms: None Reported Past Surgical History: Hernia Repair Past Anesthesia/Blood Transfusion Reactions: No Reported Reaction Past Psychological History: Anxiety, Bipolar, Depression, Schizoaffective Disorder Smoking Status: Never smoker Past Alcohol Use History: None Reported Past Drug Use History: None Reported - Past Family History Father Family Medical History: Congestive Heart Failure (CHF), Coronary Artery Disease (CAD), Diabetes Mellitus Mother Family Medical History: Cancer Medications and Allergies Home Medications Medication Instructions Recorded Confirmed Type Citalopram Hydrobromide [CeleXA] 20 mg PO DAILY tab 01/23/23 09/28/24 Rx Acetaminophen [Tylenol Arthritis] 650 mg PO Q6H PRN 08/16/24 09/28/24 History Ascorbic Acid [Vitamin C] 500 mg PO HS 08/16/24 09/28/24 History Atorvastatin Calcium 10 mg PO HS 08/16/24 09/28/24 History Cetirizine HCl 10 mg PO DAILY 08/16/24 09/28/24 History Cholestyramine/Aspartame 4 gm PO BID 08/16/24 09/28/24 History [Cholestyramine Light Packet] Desmopressin [Ddavp] 0.2 mg PO BID 08/16/24 09/28/24 History Famotidine 20 mg PO HS 08/16/24 09/28/24 History Ferrous Sulfate [Iron] 325 mg PO HS 08/16/24 09/28/24 History Insulin Aspart (Niacinamide) 5 units SQ TID-W/MEALS 08/16/24 09/28/24 History [Fiasp 100 Unit/ml Vial] Melatonin 5 mg PO HS 08/16/24 09/28/24 History Simethicone [Mylanta Gas Minis] 125 mg PO TID-W/MEALS 08/16/24 09/28/24 History Tamsulosin [Flomax] 0.4 mg PO HS 08/16/24 09/28/24 History diphenhydrAMINE HCL [Benadryl] 50 mg PO HS 08/16/24 09/28/24 History rOPINIRole HCL 0.25 mg PO HS 08/16/24 09/28/24 History sitaGLIPtin [Januvia] 100 mg PO DAILY 08/16/24 09/28/24 History traZODone HCL [Desyrel] 75 mg PO HS 08/16/24 09/28/24 History Propranolol HCl 80 mg PO BID 09/28/24 09/28/24 History Sodium Bicarbonate Tab 650 mg PO BID 09/28/24 09/28/24 History cloZAPine [Clozaril] 200 mg PO HS 09/28/24 09/28/24 History lisinopriL [Zestril] 20 mg PO DAILY #0 09/29/24 09/28/24 Rx Allergies Allergy/AdvReac Type Severity Reaction Status Date / Time Penicillins Allergy Unknown Verified 09/28/24 14:33 Childhood risperidone [From Risperdal] Allergy Unknown Verified 09/28/24 14:33 divalproex sodium AdvReac Anxiety, Verified 09/28/24 14:33 [From Depakote] weight gain Physical Exam Vitals: Vital Signs Temp Pulse Resp BP Pulse Ox 09/29/24 08:03 98.0 F 72 18 182/114 95 09/29/24 05:28 78 16 157/93 95 09/29/24 01:17 72 18 172/101 97 09/28/24 21:38 82 18 191/118 97 09/28/24 18:25 72 20 187/132 96 09/28/24 15:18 67 16 205/112 99 09/28/24 14:08 97.7 F 62 16 183/113 96 09/28/24 12:34 71 20 192/112 96 09/28/24 09:43 98.3 F 92 18 174/117 94 L Results CBC & Chem 7: 09/28/24 10:59 09/29/24 07:19 Labs: Abnormal Lab Results - Last 24 Hours (Table) 09/28/24 09/28/24 09/28/24 Range/Units 10:59 10:59 13:38 Plt Count 139 L (150-450) k/uL Neutrophils # 7.9 H (1.3-7.7) k/uL Sodium 136 L (137-145) mmol/L Carbon Dioxide 18 L (22-30) mmol/L BUN 21 H (9-20) mg/dL Glucose 238 H (74-99) mg/dL POC Glucose (mg/dL) (70-110) mg/dL Urine Protein Trace H (Negative) 09/28/24 09/29/24 09/29/24 Range/Units 18:08 07:19 07:41 Plt Count (150-450) k/uL Neutrophils # (1.3-7.7) k/uL Sodium (137-145) mmol/L Carbon Dioxide (22-30) mmol/L BUN 21 H (9-20) mg/dL Glucose 178 H (74-99) mg/dL POC Glucose (mg/dL) 199 H 165 H (70-110) mg/dL Urine Protein (Negative)
--- NOTE | 2024-09-29 14:56 | P.DS ---
Providers Date of admission: 09/28/24 15:42 Expected date of discharge: 09/29/24 Attending physician: Chinedu Salcedo Primary care physician: Kacey Cohen DO Hospital Course: Final diagnosis Hypertension with hypertensive urgency Chronic left shoulder pain, to reschedule with pain management regarding epidural injection History of hypertension History of diabetes mellitus History of GERD Hyperlipidemia Sleep apnea History of anxiety/bipolar/depression/schizoaffective disorder Obesity with a BMI 34.0 GI prophylaxis DVT Mitul Dago Full code Discharge disposition Patient is being discharged in a stable condition with guarded prognosis to [facility]. Patient will follow-up with Dr. Cohen in the outpatient setting upon discharge. Patient is to continue with current medications and outpatient follow-up with pain management to reschedule epidural injection for the left shoulder pain as scheduled. Total time taken is greater than 35 minutes. Hospital course This is a 59-year-old male who presented to the emergency department with hypertension and hypertensive urgency while at the pain clinic awaiting to receive a pain injection in the shoulder for left shoulder pain patient was noted to have hypertension and sent here for further evaluation. Patient was admitted for hypertensive urgency with a past medical history of diabetes mellitus, GERD, hyperlipidemia, hypertension, sleep apnea, anxiety, bipolar depression, schizoaffective disorder and chronic left shoulder pain. Labs reviewed and recommend follow-up labs outpatient to monitor kidney functions and electrolytes. Creatinine mildly elevated at 1.1 with a BUN of 21. Concerns of blood pressure elevation being that patient is continuing with ongoing pain of the left shoulder and have made some adjustments including increasing lisinopril although recommend outpatient follow-up with cardiology and/or primary care provider to continue to adjust medications accordingly as it is felt some of these elevated blood pressures are secondary to pain. Currently no reports of chest pain, shortness of breath, or palpitations. Patient is afebrile. No reports of nausea or vomiting and patient is tolerating diet. Patient will be going to [facility] today. Guarded prognosis and high risk for readmissions. PHYSICAL EXAMINATION: GENERAL: The patient is alert and oriented x2, not in any acute distress. Well developed, well nourished. Gait steady on exam, appears older than stated age, obese HEENT: Pupils are round and equally reacting to light. EOMI. No scleral icterus. No conjunctival pallor. Normocephalic, atraumatic. No pharyngeal erythema. No thyromegaly. CARDIOVASCULAR: S1 and S2 present. No murmurs, rubs, or gallops. PULMONARY: Chest is clear to auscultation, no wheezing or crackles. ABDOMEN: Soft, obese, nontender, nondistended, normoactive bowel sounds. No palpable organomegaly. MUSCULOSKELETAL: No joint swelling or deformity. EXTREMITIES: No cyanosis, clubbing, or pedal edema. NEUROLOGICAL: Gross neurological examination did not reveal any focal deficits. SKIN: No rashes. Please refer to medication reconciliation sheet for a list of medications. The impression and plan of care has been dictated by Miranda León, Nurse Practitioner as directed. Dr. Madison MD I have performed a history and examination and MDM of this patient, discussed the same with the dictator, and agree with the dictator's assessment and plan as written ,documented as a scribe. Based on total visit time, I have performed more than 50% of the visit. Patient Condition at Discharge: Stable Plan - Discharge Summary New Discharge Prescriptions: Continue Citalopram Hydrobromide [CeleXA] 20 mg PO DAILY tab Desmopressin [Ddavp] 0.2 mg PO BID Tamsulosin [Flomax] 0.4 mg PO HS Ascorbic Acid [Vitamin C] 500 mg PO HS Simethicone [Mylanta Gas Minis] 125 mg PO TID-W/MEALS Insulin Aspart (Niacinamide) [Fiasp 100 Unit/ml Vial] 5 units SQ TID-W/MEALS Famotidine 20 mg PO HS Cholestyramine/Aspartame [Cholestyramine Light Packet] 4 gm PO BID Cetirizine HCl 10 mg PO DAILY Propranolol HCl 80 mg PO BID Atorvastatin Calcium 10 mg PO HS traZODone HCL [Desyrel] 75 mg PO HS sitaGLIPtin [Januvia] 100 mg PO DAILY Melatonin 5 mg PO HS rOPINIRole HCL 0.25 mg PO HS diphenhydrAMINE HCL [Benadryl] 50 mg PO HS Ferrous Sulfate [Iron] 325 mg PO HS Acetaminophen [Tylenol Arthritis] 650 mg PO Q6H PRN PRN Reason: Pain cloZAPine [Clozaril] 200 mg PO HS Sodium Bicarbonate Tab 650 mg PO BID Changed lisinopriL [Zestril] 20 mg PO DAILY #0 Discontinued Diphenoxylate HCl/Atropine [Lomotil 2.5-0.025 mg Tablet] 2 tab PO BID Discharge Medication List Citalopram Hydrobromide [CeleXA] 20 mg PO DAILY tab 01/23/23 [Rx] Acetaminophen [Tylenol Arthritis] 650 mg PO Q6H PRN 08/16/24 [History] Ascorbic Acid [Vitamin C] 500 mg PO HS 08/16/24 [History] Atorvastatin Calcium 10 mg PO HS 08/16/24 [History] Cetirizine HCl 10 mg PO DAILY 08/16/24 [History] Cholestyramine/Aspartame [Cholestyramine Light Packet] 4 gm PO BID 08/16/24 [History] Desmopressin [Ddavp] 0.2 mg PO BID 08/16/24 [History] Famotidine 20 mg PO HS 08/16/24 [History] Ferrous Sulfate [Iron] 325 mg PO HS 08/16/24 [History] Insulin Aspart (Niacinamide) [Fiasp 100 Unit/ml Vial] 5 units SQ TID-W/MEALS 08/16/24 [History] Melatonin 5 mg PO HS 08/16/24 [History] Simethicone [Mylanta Gas Minis] 125 mg PO TID-W/MEALS 08/16/24 [History] Tamsulosin [Flomax] 0.4 mg PO HS 08/16/24 [History] diphenhydrAMINE HCL [Benadryl] 50 mg PO HS 08/16/24 [History] rOPINIRole HCL 0.25 mg PO HS 08/16/24 [History] sitaGLIPtin [Januvia] 100 mg PO DAILY 08/16/24 [History] traZODone HCL [Desyrel] 75 mg PO HS 08/16/24 [History] Propranolol HCl 80 mg PO BID 09/28/24 [History] Sodium Bicarbonate Tab 650 mg PO BID 09/28/24 [History] cloZAPine [Clozaril] 200 mg PO HS 09/28/24 [History] lisinopriL [Zestril] 20 mg PO DAILY #0 09/29/24 [Rx] Follow up Appointment(s)/Referral(s): Kacey Cohen DO [Primary Care Provider] - 1-2 days Activity/Diet/Wound Care/Special Instructions: Patient is returning to [facility] Continue taking blood pressure medications as prescribed. Lisinopril was incre ased Follow-up with cardiology outpatient Follow-up primary care provider on discharge Reschedule in follow-up at the pain clinic for your injection Discharge Disposition: TRANSFER TO SNF/ECF
== END 2024-09-29 15:08 ==
LOC: EC 09:15 → 3SCARD 15:42
PROVIDERS: ADMIT Hospitalist; ATTEND Hospitalist
DX: I16.0 Hypertensive urgency (principal); I10 Essential (primary) hypertension; G89.29 Other chronic pain; M25.512 Pain in left shoulder; E11.9 Type 2 diabetes mellitus without complications; K21.9 Gastro-esophageal reflux disease without esophagitis; G47.30 Sleep apnea, unspecified; E78.5 Hyperlipidemia, unspecified; F25.0 Schizoaffective disorder, bipolar type; F41.9 Anxiety disorder, unspecified; E66.9 Obesity, unspecified; Z68.34 Body mass index [BMI] 34.0-34.9, adult; Z79.4 Long term (current) use of insulin; Z79.84 Long term (current) use of oral hypoglycemic drugs; Z79.899 Other long term (current) drug therapy; Z88.0 Allergy status to penicillin; Z82.49 Family history of ischemic heart disease and other diseases of the circulatory system
CPT/HCPCS: 96374; 99285; 36415; 93005; 80053; 80048; 83735; 84484; 85025; 85610; 85730; 81003; 70450; G0378 ×2; S0136; J1920

== ENCOUNTER 2024-11-22 14:23 | Emergency (ER) | payer MEDICARE, OTHER ==
--- NOTE | 2024-11-22 14:54 | ED ---
General Adult HPI - General Chief complaint: Fever Stated complaint: Post-op comp Time Seen by Provider: 11/22/24 14:25 Source: patient, EMS, RN notes reviewed, old records reviewed Mode of arrival: EMS Limitations: no limitations - History of Present Illness Initial comments: This is a 59-year-old male who [facility]. Patient was discharged yesterday from [facility] after he had the first surgery of an ileostomy reversal. Patient got to the [facility] about 24 hours ago and since then the wound dehisced and all the lou are gone. Patient also spiked to 100.9 fever. Patient is not sure if they gave him Tylenol or Motrin before he left. Patient states he does feel little bit short of breath as well. Patient denies any dysuria hematuria. Patient denies any vomiting or diarrhea. Patient states his abdomen hurts where they did the surgery but he does not think it is worse than it was postsurgery. Patient denies any chest pain or palpitations. - Related Data Home Medications Medication Instructions Recorded Confirmed Acetaminophen [Tylenol Arthritis] 650 mg PO Q6H PRN 08/16/24 11/22/24 Ascorbic Acid [Vitamin C] 500 mg PO HS 08/16/24 11/22/24 Atorvastatin Calcium 10 mg PO HS 08/16/24 11/22/24 Cetirizine HCl 10 mg PO DAILY 08/16/24 11/22/24 Cholestyramine/Aspartame 4 gm PO BID PRN 08/16/24 11/22/24 [Cholestyramine Light Packet] Desmopressin [Ddavp] 0.2 mg PO BID 08/16/24 11/22/24 Famotidine 20 mg PO HS 08/16/24 11/22/24 Ferrous Sulfate [Iron] 325 mg PO DAILY 08/16/24 11/22/24 Insulin Aspart (Niacinamide) 7 units SQ TID-W/MEALS 08/16/24 11/22/24 [Fiasp 100 Unit/ml Vial] Melatonin 5 mg PO HS PRN 08/16/24 11/22/24 Tamsulosin [Flomax] 0.4 mg PO HS 08/16/24 11/22/24 diphenhydrAMINE HCL [Benadryl] 25 mg PO HS PRN 08/16/24 11/22/24 rOPINIRole HCL 0.25 mg PO HS 08/16/24 11/22/24 sitaGLIPtin [Januvia] 100 mg PO DAILY 08/16/24 11/22/24 traZODone HCL [Desyrel] 75 mg PO HS@2000 08/16/24 11/22/24 Propranolol HCl 80 mg PO BID@0700,1900 09/28/24 11/22/24 Sodium Bicarbonate Tab 650 mg PO BID 09/28/24 11/22/24 cloZAPine [Clozaril] 200 mg PO HS 09/28/24 11/22/24 Butalb/Acetaminophen/Caffeine 1 cap PO Q4H PRN 11/22/24 11/22/24 [Fioricet 50-300-40 mg Capsule] Cephalexin [Keflex] 500 mg PO QID@07,,,11/22/24 11/22/24 Diphenoxylate HCl/Atropine 2 tab PO BID 11/22/24 11/22/24 [Lomotil 2.5-0.025 mg Tablet] HYDROcodone/APAP 5-325MG [[place] 1 tab PO Q6H PRN 11/22/24 11/22/24 5-325] Insulin Aspart (Niacinamide) See Protocol SQ ACHS@07,11,16,11/22/24 11/22/24 [Fiasp 100 Unit/ml Flextouch Pen] Naloxone 0.4mg/Ml Injection 0.4 mg IV ONCE PRN 11/22/24 11/22/24 Solution Naloxone HCl [Narcan] 4 mg NASAL ONCE PRN 11/22/24 11/22/24 Simethicone Chew [Mylicon Chew] 80 mg PO ACHS@06,11,16,20 11/22/24 11/22/24 amLODIPine [Norvasc] 5 mg PO DAILY 11/22/24 11/22/24 cloNIDine HCL [Catapres] 0.1 mg PO DAILY PRN 11/22/24 11/22/24 lisinopriL [Zestril] 20 mg PO DAILY 11/22/24 11/22/24 Previous Rx's Medication Instructions Recorded Citalopram Hydrobromide [CeleXA] 20 mg PO DAILY tab 01/23/23 Allergies Allergy/AdvReac Type Severity Reaction Status Date / Time Penicillins Allergy Unknown Verified 11/22/24 14:49 Childhood risperidone [From Risperdal] Allergy Unknown Verified 11/22/24 14:49 divalproex sodium AdvReac Anxiety, Verified 11/22/24 14:49 [From Depakote] weight gain Review of Systems ROS Statement: Those systems with pertinent positive or pertinent negative responses have been documented in the HPI. ROS Other: All systems not noted in ROS Statement are negative. Past Medical History Past Medical History: Diabetes Mellitus, GERD/Reflux, Hyperlipidemia, Hypertension, Sleep Apnea/CPAP/BIPAP Additional Past Medical History / Comment(s): Family history of premature coronary artery disease. OCD. History of Any Multi-Drug Resistant Organisms: None Reported Past Surgical History: Hernia Repair Additional Past Surgical History / Comment(s): Iliostomy reversal 11/14/24 Past Anesthesia/Blood Transfusion Reactions: No Reported Reaction Past Psychological History: Anxiety, Bipolar, Depression, Schizoaffective Disorder Smoking Status: Never smoker Past Alcohol Use History: None Reported Past Drug Use History: None Reported - Past Family History Father Family Medical History: Congestive Heart Failure (CHF), Coronary Artery Disease (CAD), Diabetes Mellitus Mother Family Medical History: Cancer General Exam - General Exam Comments Initial Comments: GENERAL: Patient is well-developed and well-nourished. Patient is nontoxic and well- hydrated and is in mild distress. ENT: Neck is soft and supple. No significant lymphadenopathy is noted. Oropharynx is clear. Moist mucous membranes. Neck has full range of motion without eliciting any pain. EYES: The sclera were anicteric and conjunctiva were pink and moist. Extraocular movements were intact and pupils were equal round and reactive to light. Eyelids were unremarkable. PULMONARY: Unlabored respirations. Good breath sounds bilaterally. No audible rales rhonchi or wheezing was noted. CARDIOVASCULAR: There is a regular rate and rhythm without any murmurs gallops or rubs. ABDOMEN: Still has an ostomy. Next of the ostomy is an incision which is completely dehisced SKIN: Skin is clear with no lesions or rashes and otherwise unremarkable. NEUROLOGIC: Patient is alert and oriented x3. Cranial nerves II through XII are grossly intact. Motor and sensory are also intact. Normal speech, volume and content. Symmetrical smile. MUSCULOSKELETAL: Normal extremities with adequate strength and full range of motion. LYMPHATICS: No significant lymphadenopathy is noted PSYCHIATRIC: Normal psychiatric evaluation. Limitations: no limitations Course Vital Signs 11/22/24 11/22/24 11/22/24 14:24 15:55 16:30 Temperature 98.0 F 98.3 F Pulse Rate 78 77 Respiratory 18 18 18 Rate Blood Pressure 116/73 110/73 O2 Sat by Pulse 97 94 L Oximetry 11/22/24 11/22/24 18:28 19:45 Temperature 99.3 F Pulse Rate 87 89 Respiratory 19 16 Rate Blood Pressure 119/76 132/79 O2 Sat by Pulse 94 L 95 Oximetry Medical Decision Making - Medical Decision Making EKG is interpreted by myself. EKG shows a sinus rhythm at 72 bpm OK interval is 161 QRS 116 QT interval 414 QTc is 439. Patient's EKG shows no ST segment elevation or depression. Was pt. sent in by a medical professional or institution (, PA, [employer], urgent care, hospital, or [facility]...) When possible be specific @ -No Did you speak to anyone other than the patient for history (EMS, parent, family, police, friend...)? What history was obtained from this source @ -No Did you review nursing and triage notes (agree or disagree)? Why? @ -I reviewed and agree with nursing and triage notes Were old charts reviewed (outside hosp., previous admission, EMS record, old EKG, old radiological studies, urgent care reports/EKG's, [facility] records)? Report findings @ -No old charts were reviewed Differential Diagnosis? @ -Differential Fever: Pneumonia, viral URI, endocarditis, myocarditis, pericarditis, otitis, sinusitis, peritonsillar Abscess, retropharyngeal Abscess, epiglottitis, postsurgical infection, peritonitis, appendicitis, [place] cystitis, diverticu litis, hepatitis, colitis, UTI, PID, TOA, pyelonephritis, prostatitis, epididymitis, meningitis, encephalitis, pulmonary embolism, CVA, thyroid storm, pancreatitis, adrenal crisis, cavernous sinus thrombosis, this is not meant to be an all-inclusive list. EKG interpreted by me (3pts min.). @ -As above X-rays interpreted by me (1pt min.). @ -Chest x-ray shows no acute abnormality CT interpreted by me (1pt min.). @ -CT of the abdomen pelvis shows no acute abnormality may be an ileus. U/S interpreted by me (1pt. min.). @ -None done What testing was considered but not performed or refused? (CT, X-rays, U/S, labs)? Why? @ -None What meds were considered but not given or refused? Why? @ -None Did you discuss the management of the patient with other professionals (professionals i.e. , PA, [employer], lab, RT, psych nurse, vp digital marketing social media and crm, lining inserter, teacher, returning officer, window caser)? Give summary @ -I spoke with Dr. Mcmillan from [facility] and she accepted the transfer Was smoking cessation discussed for >3mins.? @ -No Was critical care preformed (if so, how long)? @ -No Were there social determinants of health that impacted care today? How? (Homelessness, low income, unemployed, alcoholism, drug addiction, transportation, low edu. Level, literacy, decrease access to med. care, assisted, rehab)? @ -No Was there de-escalation of care discussed even if they declined (Discuss DNR or withdrawal of care, Hospice)? DNR status @ -No What co-morbidities impacted this encounter? (DM, HTN, Smoking, COPD, CAD, Cancer, CVA, ARF, Chemo, Hep., AIDS, mental health diagnosis, sleep apnea, morbid obesity)? @ -None Was patient admitted / discharged? Hospital course, mention meds given and route, prescriptions, significant lab abnormalities, going to OR and other pertinent info. @ -Patient's lab work showed a slight white count however no source of infection was identified. Patient had cultures of the wound done and it was completely dehisced at this time. Patient had 2 g of Rocephin in the emergency department will be transferred to [facility] in [place]. Undiagnosed new problem with uncertain prognosis? @ -No Drug Therapy requiring intensive monitoring for toxicity (Heparin, Nitro, Insulin, Cardizem)? @ -No Were any procedures done? @ -No Diagnosis/symptom? @ -Postoperative fever Acute, or Chronic, or Acute on Chronic? @ -Acute Uncomplicated (without systemic symptoms) or Complicated (systemic symptoms)? @ -Complicated Side effects of treatment? @ -No Exacerbation, Progression, or Severe Exacerbation? @ -No Poses a threat to life or bodily function? How? (Chest pain, [place], [place], pneumonia, PE, COPD, DKA, ARF, appy, cholecystitis, CVA, Diverticulitis, Homicidal, Suici willy, threat to staff... and all critical care pts) @ -Yes this can lead to sepsis and endorgan dysfunction Diagnosis/symptom? @ -Wound dehiscence Acute, or Chronic, or Acute on Chronic? @ -Acute Uncomplicated (without systemic symptoms) or Complicated (systemic symptoms)? @ -Complicated Side effects of treatment? @ -None Exacerbation, Progression, or Severe Exacerbation] @ -No Poses a threat to life or bodily function? @ -No - Lab Data Result diagrams: 11/22/24 14:57 11/22/24 14:57 Lab Results 11/22/24 11/22/24 11/22/24 Range/Units 14:57 14:57 14:57 WBC 14.2 H (3.8-10.6) k/uL RBC 3.95 L (4.30-5.90) m/uL Hgb 11.8 L D (13.0-17.5) gm/dL Hct 35.6 L (39.0-53.0) % MCV 90.1 (80.0-100.0) fL MCH 30.0 (25.0-35.0) pg MCHC 33.2 (31.0-37.0) g/dL RDW 13.7 (11.5-15.5) % Plt Count 412 (150-450) k/uL MPV 7.1 Neutrophils % 87 % Lymphocytes % 7 % Monocytes % 3 % Eosinophils % 0 % Basophils % 0 % Neutrophils # 12.4 H (1.3-7.7) k/uL Lymphocytes # 1.1 (1.0-4.8) k/uL Monocytes # 0.5 (0-1.0) k/uL Eosinophils # 0.1 (0-0.7) k/uL Basophils # 0.1 (0-0.2) k/uL PT 10.4 (10.0-12.5) sec INR 0.9 (<1.2) APTT 23.8 (22.0-30.0) sec Sodium 139 (137-145) mmol/L Potassium 3.7 (3.5-5.1) mmol/L Chloride 101 (98-107) mmol/L Carbon Dioxide 30 (22-30) mmol/L Anion Gap 8 mmol/L BUN 15 (9-20) mg/dL Creatinine 1.21 (0.66-1.25) mg/dL Est GFR (CKD-EPI)AfAm 77 (>60 ml/min/1.73 sqM) Est GFR (CKD-EPI)NonAf 66 (>60 ml/min/1.73 sqM) Glucose 273 H (74-99) mg/dL Plasma Lactic Acid Jamie (0.7-2.0) mmol/L Calcium 8.9 (8.4-10.2) mg/dL Total Bilirubin 0.3 (0.2-1.3) mg/dL AST 19 (17-59) U/L ALT 16 (4-49) U/L Alkaline Phosphatase 153 H (38-126) U/L Total Protein 6.1 L (6.3-8.2) g/dL Albumin 3.2 L (3.5-5.0) g/dL Urine Color Urine Appearance (Clear) Urine pH (5.0-8.0) Ur Specific [place] (1.001-1.035) Urine Protein (Negative) Urine Glucose (UA) (Negative) Urine Ketones (Negative) Urine Blood (Negative) Urine Nitrite (Negative) Urine Bilirubin (Negative) Urine Urobilinogen (<2.0) mg/dL Ur Leukocyte Esterase (Negative) Urine RBC (0-5) /hpf Urine WBC (0-5) /hpf Urine Mucus (None) /hpf Influenza Type A (PCR) (Not Detectd) Influenza Type B (PCR) (Not Detectd) RSV (PCR) (Not Detectd) SARS-CoV-2 (PCR) (Not Detectd) 11/22/24 11/22/24 11/22/24 Range/Units 14:57 15:03 16:11 WBC (3.8-10.6) k/uL RBC (4.30-5.90) m/uL Hgb (13.0-17.5) gm/dL Hct (39.0-53.0) % MCV (80.0-100.0) fL MCH (25.0-35.0) pg MCHC (31.0-37.0) g/dL RDW (11.5-15.5) % Plt Count (150-450) k/uL MPV Neutrophils % % Lymphocytes % % Monocytes % % Eosinophils % % Basophils % % Neutrophils # (1.3-7.7) k/uL Lymphocytes # (1.0-4.8) k/uL Monocytes # (0-1.0) k/uL Eosinophils # (0-0.7) k/uL Basophils # (0-0.2) k/uL PT (10.0-12.5) sec INR (<1.2) APTT (22.0-30.0) sec Sodium (137-145) mmol/L Potassium (3.5-5.1) mmol/L Chloride (98-107) mmol/L Carbon Dioxide (22-30) mmol/L Anion Gap mmol/L BUN (9-20) mg/dL Creatinine (0.66-1.25) mg/dL Est GFR (CKD-EPI)AfAm (>60 ml/min/1.73 sqM) Est GFR (CKD-EPI)NonAf (>60 ml/min/1.73 sqM) Glucose (74-99) mg/dL Plasma Lactic Acid Jamie 1.6 (0.7-2.0) mmol/L Calcium (8.4-10.2) mg/dL Total Bilirubin (0.2-1.3) mg/dL AST (17-59) U/L ALT (4-49) U/L Alkaline Phosphatase (38-126) U/L Total Protein (6.3-8.2) g/dL Albumin (3.5-5.0) g/dL Urine Color Yellow Urine Appearance Clear (Clear) Urine pH 6.5 (5.0-8.0) Ur Specific [place] 1.025 (1.001-1.035) Urine Protein 1+ H (Negative) Urine Glucose (UA) 1+ H (Negative) Urine Ketones Negative (Negative) Urine Blood Negative (Negative) Urine Nitrite Negative (Negative) Urine Bilirubin Negative (Negative) Urine Urobilinogen 2.0 (<2.0) mg/dL Ur Leukocyte Esterase Negative (Negative) Urine RBC 4 (0-5) /hpf Urine WBC 1 (0-5) /hpf Urine Mucus Rare H (None) /hpf Influenza Type A (PCR) Not Detected (Not Detectd) Influenza Type B (PCR) Not Detected (Not Detectd) RSV (PCR) Not Detected (Not Detectd) SARS-CoV-2 (PCR) Not Detected (Not Detectd) Disposition Clinical Impression: Wound dehiscence, Postoperative fever Disposition: OTHER INSTITUTION NOT DEFINED Referrals: Kacey Cohen DO [Primary Care Provider] - 1-2 days Time of Disposition: 20:13 - Out of Hospital Transfer - Req. Specs Out of Hospital Transfer - Requested Specifics: Other Emergency Center ([facility])
[2024-11-22] MEDS: cefTRIAXone IN SWFI 1,000 MG/10 ML SYRINGE IVP STA ×2 (15:07→15:08)
[2024-11-22 15:11] LABS: Basophils # (A) 0.1 k/uL (0-0.2); Basophils % (A) 0 %; Eosinophils # (A) 0.1 k/uL (0-0.7); Eosinophils % (A) 0 %; HCT 35.6 % (39.0-53.0); Lymphocytes # (A) 1.1 k/uL (1.0-4.8); Lymphocytes % (A) 7 %; MCHC 33.2 g/dL (31.0-37.0); MCV 90.1 fL (80.0-100.0); Mean Platelet Volume 7.1; Monocytes # (A) 0.5 k/uL (0-1.0); Monocytes % (A) 3 %; Neutrophils # (A) 12.4 k/uL (1.3-7.7); Neutrophils % (A) 87 %; Platelet Count 412 k/uL (150-450); RBC 3.95 m/uL (4.30-5.90); RDW 13.7 % (11.5-15.5); WBC 14.2 k/uL (3.8-10.6)
[2024-11-22 15:16] LABS: HGB 11.8 gm/dL (13.0-17.5)
[2024-11-22 15:20] LABS: INR 0.9 (<1.2); Partial Thromboplastin Time 23.8 sec (22.0-30.0); Prothrombin Time 10.4 sec (10.0-12.5)
[2024-11-22 15:24] LABS: ALT 16 U/L (4-49); AST 19 U/L (17-59); African American GFR (CKD) 77 (>60 ml/min/1.73 sqM); Albumin 3.2 g/dL (3.5-5.0); Alkaline Phosphatase 153 U/L (38-126); Anion Gap 8 mmol/L; Blood Urea Nitrogen 15 mg/dL (9-20); Calcium 8.9 mg/dL (8.4-10.2); Carbon Dioxide 30 mmol/L (22-30); Chloride 101 mmol/L (98-107); Glucose 273 mg/dL (74-99); Non-African American GFR(CKD) 66 (>60 ml/min/1.73 sqM); Potassium 3.7 mmol/L (3.5-5.1); Sodium 139 mmol/L (137-145); Total Bilirubin 0.3 mg/dL (0.2-1.3); Total Protein 6.1 g/dL (6.3-8.2)
--- NOTE | 2024-11-22 16:22 | XR ---
EXAMINATION TYPE: XR chest 2V DATE OF EXAM: 11/22/2024 3:55 PM COMPARISON: Prior exam CLINICAL INDICATION: Male, 59 years old with history of Fever, TECHNIQUE: XR chest 2V view(s) obtained. FINDINGS: The heart size is relatively enlarged The pulmonary vasculature is normal. The lungs are clear. IMPRESSION: 1. Mild cardiomegaly [facility], , 11/22/2024 4:19 PM
[2024-11-22 16:33] LABS: Appearance,Urine Clear (Clear); Bilirubin,Urine Negative (Negative); Blood,Urine Negative (Negative); Color,Urine Yellow; Glucose,Urine (UA) 1+ (Negative); Ketones,Urine Negative (Negative); Leukocyte Esterase,Urine Negative (Negative); Mucus,Urine Rare /hpf; Nitrite,Urine Negative (Negative); PH, Urine 6.5 (5.0-8.0); Protein,Urine 1+ (Negative); RBC,Urine 4 /hpf (0-5); Specific Gravity,Urine 1.025 (1.001-1.035); WBC,Urine 1 /hpf (0-5)
--- NOTE | 2024-11-22 18:41 | CT ---
EXAMINATION TYPE: CT abdomen pelvis w con DATE OF EXAM: 11/22/2024 6:30 PM COMPARISON: None. CLINICAL INDICATION: Male, 59 years old with history of Abdominal pain, ostomy post op issues TECHNIQUE: Axial images were obtained from above the diaphragm to the pubic rami in the axial plane a t 5 mm thick sections. Reconstructed images are reviewed on the computer in the coronal plane. CONTRAST: 100 mL of Isovue 300. Study performed without Oral Contrast DLP: 1828.1 mGycm, Automated exposure control for dose reduction was used. FINDINGS: Limited CT sections are obtained the lung bases. Calcified granulomas in the left lateral sulcus1. CT ABDOMEN: Liver: There is mild fatty infiltration of the liver. Spleen: Normal Pancreas: Normal Adrenal glands: The adrenal glands are normal. Gallbladder: Normal Kidneys: No masses are evident. No hydronephrosis is present. No cysts are present. Delayed images were obtained through the kidneys, which remain unremarkable. Aorta: Vascular calcification is within the aorta. Inferior vena cava: Normal. CT PELVIS: Bowel surgery is evident within the midabdomen. No obvious stenosis at the anastomosis is identified. Ostomy is in the right midabdomen. A loop of bowel just prior to entering the ostomy has a small rosalino iber. The zone of transition appears to be the small bowel slightly more superior, example image seri es 201 image 59. There are multiple dilated fluid-filled small bowel loops with scattered air-fluid l evels within the upper abdomen including anastomosis site. Differential should include postoperative ileus and partial small bowel obstruction. Right hemicolon appears resected. No oral contrast was utilized. Colon is decompressed Appendix: Surgically absent. Urinary bladder: Normal. Genitourinary structures: Prostate appears normal Osseous structures: No suspicious lytic or sclerotic lesions. IMPRESSION: 1. Multiple fluid-filled prominent small bowel loops at the anastomosis extending towards the ostomy site. 2. Within the intraperitoneal portion there is a zone of transition as the loop of bowel approaches t he ostomy site. Differential would include postop ileus and partial small bowel obstruction [facility], , 11/22/2024 6:39 PM
[2024-11-22 19:46] VITALS: PULSE 89; RESP 16
[2024-11-22] MEDS: HYDROmorphone 0.5 MG/0.5 ML SYRINGE IVP STA (20:20)
[2024-11-22 22:05] VITALS: BP 116/81; TEMP 98.9
== END 2024-11-22 22:06 | disposition other institution (70) ==
LOC: EC 14:23
DX: T81.30XA Disruption of wound, unspecified, initial encounter (principal); R50.82 Postprocedural fever; Z88.0 Allergy status to penicillin; Z88.8 Allergy status to other drugs, medicaments and biological substances
CPT/HCPCS: 36415; 93005; 80053; 83605; 85025; 85610; 85730; 81001; 87040; 87636; 71046; 74177; 99285; 96374; 96375; J0696; J1171; Q9967